=== PATIENT | male | born 1995 | race African-American/Black ===

== ENCOUNTER 2016-11-26 19:06 | Inpatient (IN) | payer MEDICAID, OTHER ==
[~2016-11-26] VITALS: Ht 188 cm; Wt 90.7 kg
[~2016-11-26 19:06] MED LIST: INSUINJ SUBCUT; INSUINJ37 SUBCUT
[2016-11-26] MEDS ORDERED: SODIUM CHLORIDE 0.9% 1,000 ML IV ONE ×2 (19:17→20:45)
[2016-11-26 20:15] LABS: DEFINITIVE VIEW TRANSMISSION; Hematocrit 50.3 % (41.0-53.0); Hemoglobin 15.4 g/dL (13.5-17.5); Mean Corpuscular Hemoglobin 28.6 pg (28.0-32.0); Mean Corpuscular Hgb Conc. 30.6 g/dL (32.0-36.0); Mean Corpuscular Volume 93.6 fL (80.0-100.0); Mean Platelet Volume 8.4 fL (7.4-10.4); Platelet Count (auto) 236 10^3/uL (140-450); Red Cell Distribution Width 14.8 % (11.6-16.0); SUSPECT VIEW TRANSMISSION; White Blood Cell 23.1 10^3/uL (4.4-10.8)
[2016-11-26 20:26] LABS: Metamyelocytes % 0; Myelocytes % 0; Promyelocytes % 0; Reactive Lymphocytes 0
[2016-11-26] MEDS ORDERED: ONDANSETRON HCL 4 MG/2 ML VIAL IV ONE (20:45)
[2016-11-26] MEDS ORDERED: InsuLIN REG 1unit/0.01ml Soln (100units/ml) IV ONE (20:45)
[2016-11-26] MEDS ORDERED: HYDROmorphone HCL 2 MG/ML VL IV ONE (20:45)
[2016-11-26] MEDS ORDERED: cefTRIAXone 1GM/50ML D5W 50 ML IV ONE (20:45)
[2016-11-26 20:54] LABS: BUN/Creatinine Ratio 14.4; Platelet Estimate Adequate
[2016-11-26 20:57] LABS: Bilirubin, Total 0.9 mg/dL (0.2-1.0); Total Protein 7.8 g/dL (6.4-8.2)
[2016-11-26 21:28] LABS: Urine Bilirubin Negative (Negative); Urine Blood Negative /uL (Negative); Urine Color Yellow (Yellow); Urine Mucus FEW (None Seen); Urine Nitrite Negative (Negative); Urine RBC 1 /hpf (0 - 3); Urine Squamous Epithelial Cell FEW /hpf (<5); Urine Urobilinogen Normal (Negative)
[2016-11-26 21:32] LABS: Potassium 5.6 mmol/L (3.5-5.1)
[2016-11-26 21:33] LABS: Urine Glucose 4+ mg/dL (Normal); Urine Ketone 2+ (Negative)
[2016-11-26] MEDS ORDERED: InsuLIN R (HUMAN) 100 UNITS in SODIUM CHL 0.9% 99 ML IV SCH ×2 (22:17→22:32)
[2016-11-26] MEDS ORDERED: DEXTROSE (50%) 50ML SYRG IV PRN ×2 (22:30→22:45)
[2016-11-26] MEDS ORDERED: ACCU-CHEK COMFORT CURVE STRIP VI SCH (23:00)
[2016-11-26] MEDS: SODIUM CHLORIDE 0.9% 1,000 ML IV SCH (23:09)
[2016-11-26] MEDS: ACCU-CHEK COMFORT CURVE STRIP VI SCH (23:21)
[2016-11-27] MEDS: ACCU-CHEK COMFORT CURVE STRIP VI SCH ×19 (00:08→18:06)
[2016-11-27] MEDS: SODIUM CHLORIDE 0.9% 1,000 ML IV SCH ×4 (00:50→18:05)
[2016-11-27] MEDS ORDERED: NITROGLYCERIN 0.4 MG SL TAB SL PRN ×2 (02:00→10:45)
[2016-11-27] MEDS ORDERED: MORPHINE SULF INJ 2 MG/ML SYRINGE 1ML IV PRN (02:00)
[2016-11-27] MEDS ORDERED: HYDROcodone-ACET 5/325MG TAB PO PRN (02:00)
[2016-11-27] MEDS ORDERED: SODIUM CHLORIDE 0.9% 1,000 ML IV SCH (02:32)
[2016-11-27 07:25] LABS: BUN/Creatinine Ratio 17.5; Calcium 7.7 mg/dL (8.5-10.1); Potassium 3.8 mmol/L (3.5-5.1)
[2016-11-27] MEDS ORDERED: SODIUM CHLORIDE 0.9% 1,000 ML IV ONE (08:45)
[2016-11-27] MEDS ORDERED: INSULIN NPH Isophane (HUMAN) 1unit/0.01ml Susp(100units/ml) SC ONE (10:15)
[2016-11-27] MEDS: PANTOPRAZOLE SODIUM 40 MG/10 ML VIAL IV SCH (10:38)
[2016-11-27] MEDS: MORPHINE SULF INJ 2 MG/ML SYRINGE 1ML IV PRN ×3 (11:22→20:35)
[2016-11-27] MEDS: ONDANSETRON HCL 4 MG/2 ML VIAL IV PRN ×3 (11:22→20:35)
[2016-11-27 13:04] LABS: BUN/Creatinine Ratio 18.5; Calcium 7.3 mg/dL (8.5-10.1); Potassium 3.5 mmol/L (3.5-5.1)
[2016-11-27 14:00] VITALS: BP 108/56
[2016-11-27 16:52] VITALS: BP 92/60
[2016-11-27 17:41] LABS: Calcium 7.9 mg/dL (8.5-10.1); Potassium 3.7 mmol/L (3.5-5.1)
[2016-11-27 17:45] LABS: BUN/Creatinine Ratio 15.8
[2016-11-27] MEDS ORDERED: DEXTROSE (50%) 50ML SYRG IV PRN (17:45)
[2016-11-27] MEDS: InsuLIN REG 1unit/0.01ml Soln (100units/ml) SC SCH (18:06)
[2016-11-27 22:00] VITALS: BP 108/59
[2016-11-28] MEDS: ACCU-CHEK COMFORT CURVE STRIP VI SCH ×5 (00:12→23:56)
[2016-11-28] MEDS: InsuLIN REG 1unit/0.01ml Soln (100units/ml) SC SCH ×5 (00:13→23:58)
[2016-11-28] MEDS: ONDANSETRON HCL 4 MG/2 ML VIAL IV PRN ×6 (01:05→21:42)
[2016-11-28] MEDS: MORPHINE SULF INJ 2 MG/ML SYRINGE 1ML IV PRN ×6 (01:05→21:42)
[2016-11-28] MEDS: SODIUM CHLORIDE 0.9% 1,000 ML IV SCH ×4 (01:21→21:16)
[2016-11-28 05:00] VITALS: BP 97/63
[2016-11-28 06:58] LABS: Basophils # (auto) 0 uL; Basophils % (auto) 0.1 % (0.0-2.0); Eosinophils # (auto) 0.1 uL; Eosinophils % (auto) 0.8 % (0.0-7.0); Hematocrit 35.9 % (41.0-53.0); Hemoglobin 11.4 g/dL (13.5-17.5); Lymphocytes # (auto) 1.8 uL; Lymphocytes % (auto) 17.6 % (10.0-50.0); Mean Corpuscular Hemoglobin 28.6 pg (28.0-32.0); Mean Corpuscular Hgb Conc. 31.9 g/dL (32.0-36.0); Mean Corpuscular Volume 89.6 fL (80.0-100.0); Mean Platelet Volume 7.8 fL (7.4-10.4); Monocytes # (auto) 0.6 uL; Monocytes % (auto) 5.9 % (0.0-12.0); Neutrophils # (auto) 7.6 uL; Neutrophils % (auto) 75.6 % (37.0-80.0); Platelet Count (auto) 123 10^3/uL (140-450); Red Cell Distribution Width 14.6 % (11.6-16.0)
[2016-11-28 07:12] LABS: Calcium 7.3 mg/dL (8.5-10.1); Potassium 3.4 mmol/L (3.5-5.1)
[2016-11-28 07:16] LABS: Albumin 2.5 g/dL (3.4-5.0); BUN/Creatinine Ratio 9.8
[2016-11-28 07:18] LABS: Bilirubin, Total 0.7 mg/dL (0.2-1.0); Total Protein 5.2 g/dL (6.4-8.2)
[2016-11-28 09:20] VITALS: BP 96/49
[2016-11-28] MEDS: PANTOPRAZOLE SODIUM 40 MG/10 ML VIAL IV SCH (09:27)
[2016-11-28] MEDS ORDERED: THROAT LOZENGES(CEPASTAT) MT PRN (09:45)
[2016-11-28] MEDS: POTASSIUM CHL 20 Meq TABLET PO SCH ×2 (11:52→21:42)
[2016-11-28] MEDS: THROAT LOZENGES(CEPASTAT) MT PRN ×2 (11:53→17:15)
[2016-11-28 13:09] VITALS: BP 103/68
[2016-11-28 16:57] VITALS: BP 100/66
[2016-11-28 22:04] VITALS: BP 110/70
[2016-11-29] MEDS: MORPHINE SULF INJ 2 MG/ML SYRINGE 1ML IV PRN ×6 (02:03→22:01)
[2016-11-29] MEDS: ONDANSETRON HCL 4 MG/2 ML VIAL IV PRN ×6 (02:03→22:02)
[2016-11-29] MEDS: SODIUM CHLORIDE 0.9% 1,000 ML IV SCH ×4 (03:16→23:12)
[2016-11-29 05:00] VITALS: BP 98/59
[2016-11-29] MEDS: ACCU-CHEK COMFORT CURVE STRIP VI SCH ×4 (05:36→23:55)
[2016-11-29] MEDS: InsuLIN REG 1unit/0.01ml Soln (100units/ml) SC SCH ×4 (05:39→23:55)
[2016-11-29 07:12] LABS: BUN/Creatinine Ratio 5.5; Calcium 7.6 mg/dL (8.5-10.1); Magnesium 1.9 mg/dL (1.6-2.6); Potassium 3.6 mmol/L (3.5-5.1)
[2016-11-29 08:00] VITALS: BP 100/44
[2016-11-29 09:00] VITALS: BP 100/42
[2016-11-29] MEDS: PANTOPRAZOLE SODIUM 40 MG/10 ML VIAL IV SCH (10:25)
[2016-11-29] MEDS: POTASSIUM CHL 20 Meq TABLET PO SCH ×2 (10:26→22:00)
[2016-11-29] MEDS: SUCRALFATE 1 GM TAB PO SCH ×3 (12:12→22:00)
[2016-11-29 13:00] VITALS: BP 107/62
[2016-11-29 17:00] VITALS: BP 97/40
[2016-11-29 21:30] VITALS: BP 119/76
[2016-11-30] VITALS (8 sets, daily range): BP systolic 91–130; BP diastolic 31–84
[2016-11-30] MEDS: SODIUM CHLORIDE 0.9% 1,000 ML IV SCH ×3 (00:54→22:07)
[2016-11-30] MEDS: ONDANSETRON HCL 4 MG/2 ML VIAL IV PRN (02:04)
[2016-11-30] MEDS: MORPHINE SULF INJ 2 MG/ML SYRINGE 1ML IV PRN ×5 (02:04→21:48)
[2016-11-30] MEDS: ACCU-CHEK COMFORT CURVE STRIP VI SCH ×4 (06:00→23:49)
[2016-11-30] MEDS: InsuLIN REG 1unit/0.01ml Soln (100units/ml) SC SCH ×4 (06:00→23:52)
[2016-11-30] MEDS: SUCRALFATE 1 GM TAB PO SCH ×4 (06:32→21:47)
[2016-11-30 07:47] LABS: Basophils # (auto) 0 uL; Basophils % (auto) 0.2 % (0.0-2.0); Eosinophils # (auto) 0 uL; Eosinophils % (auto) 0.4 % (0.0-7.0); Hematocrit 36.2 % (41.0-53.0); Hemoglobin 11.6 g/dL (13.5-17.5); Lymphocytes # (auto) 0.7 uL; Lymphocytes % (auto) 9.3 % (10.0-50.0); Mean Corpuscular Hemoglobin 28.9 pg (28.0-32.0); Mean Corpuscular Volume 90.2 fL (80.0-100.0); Mean Platelet Volume 8.1 fL (7.4-10.4); Monocytes # (auto) 0.2 uL; Monocytes % (auto) 3.4 % (0.0-12.0); Neutrophils # (auto) 6.3 uL; Neutrophils % (auto) 86.7 % (37.0-80.0); Platelet Count (auto) 139 10^3/uL (140-450); Red Cell Distribution Width 14.3 % (11.6-16.0); White Blood Cell 7.3 10^3/uL (4.4-10.8)
[2016-11-30 08:20] LABS: Albumin 2.4 g/dL (3.4-5.0); BUN/Creatinine Ratio 7.9; Bilirubin, Total 0.8 mg/dL (0.2-1.0); Calcium 7.7 mg/dL (8.5-10.1); Potassium 3.4 mmol/L (3.5-5.1); Total Protein 4.9 g/dL (6.4-8.2)
[2016-11-30] MEDS ORDERED: POTASSIUM CHLORIDE 40 MEQ, LIDOCAINE 1% (LOCAL ANESTH.) 4 ML in SODIUM CHL 0.9% 250 ML IV ONE (10:15)
[2016-11-30] MEDS ORDERED: METOCLOPRAMIDE HCL 10 MG TAB PO PRN (10:15)
[2016-11-30] MEDS: PANTOPRAZOLE SODIUM 40 MG/10 ML VIAL IV SCH (10:44)
[2016-12-01] MEDS: SODIUM CHLORIDE 0.9% 1,000 ML IV SCH ×4 (01:52→21:01)
[2016-12-01] MEDS: MORPHINE SULF INJ 2 MG/ML SYRINGE 1ML IV PRN ×6 (01:56→23:13)
[2016-12-01 05:00] VITALS: BP 135/79
[2016-12-01] MEDS: SUCRALFATE 1 GM TAB PO SCH ×4 (06:01→22:00)
[2016-12-01] MEDS: ACCU-CHEK COMFORT CURVE STRIP VI SCH ×4 (06:08→23:32)
[2016-12-01] MEDS: InsuLIN REG 1unit/0.01ml Soln (100units/ml) SC SCH ×4 (06:10→23:24)
[2016-12-01 06:16] LABS: BUN/Creatinine Ratio 7.4; Calcium 7.6 mg/dL (8.5-10.1); Magnesium 1.8 mg/dL (1.6-2.6)
[2016-12-01 06:25] LABS: Potassium 2.7 mmol/L (3.5-5.1)
[2016-12-01] MEDS: PANTOPRAZOLE SODIUM 40 MG/10 ML VIAL IV SCH (09:30)
[2016-12-01] MEDS: POTASSIUM CHLORIDE 20 MEQ, LIDOCAINE 1% (LOCAL ANESTH.) 2 ML in SODIUM CHL 0.9% 100 ML IV SCH ×3 (09:31→14:51)
[2016-12-01] MEDS: Boost Glucose Control 8 Ounces PO SCH ×3 (10:00→20:00)
[2016-12-01 10:13] VITALS: BP 119/79
[2016-12-01 12:41] VITALS: BP 102/53
[2016-12-01 17:18] VITALS: BP 103/55
[2016-12-01 20:00] VITALS: BP 103/55
[2016-12-01 22:00] VITALS: BP 129/87
[2016-12-02] MEDS: MORPHINE SULF INJ 2 MG/ML SYRINGE 1ML IV PRN ×5 (03:23→21:54)
[2016-12-02] MEDS: SODIUM CHLORIDE 0.9% 1,000 ML IV SCH ×3 (03:24→17:52)
[2016-12-02 05:00] VITALS: BP 113/66
[2016-12-02] MEDS: ACCU-CHEK COMFORT CURVE STRIP VI SCH ×3 (05:44→18:00)
[2016-12-02] MEDS: InsuLIN REG 1unit/0.01ml Soln (100units/ml) SC SCH ×3 (05:52→18:04)
[2016-12-02] MEDS: SUCRALFATE 1 GM TAB PO SCH ×4 (07:00→21:54)
[2016-12-02 07:05] LABS: BUN/Creatinine Ratio 4.4; Calcium 7.2 mg/dL (8.5-10.1); Magnesium 1.7 mg/dL (1.6-2.6)
[2016-12-02 09:23] VITALS: BP 118/79
[2016-12-02] MEDS: Boost Glucose Control 8 Ounces PO SCH ×3 (10:04→20:00)
[2016-12-02] MEDS: PANTOPRAZOLE SODIUM 40 MG/10 ML VIAL IV SCH (10:11)
[2016-12-02] MEDS: ACETAMINOPHEN 325 MG TAB PO PRN (10:14)
[2016-12-02] MEDS: POTASSIUM CHLORIDE 40 MEQ, LIDOCAINE 1% (LOCAL ANESTH.) 4 ML in SODIUM CHL 0.9% 250 ML IV SCH ×2 (10:15→16:42)
[2016-12-02 13:00] VITALS: BP 107/63
[2016-12-02 17:00] VITALS: BP 120/73
[2016-12-02 21:36] VITALS: BP 130/82
[2016-12-02] MEDS: INSULIN DETEMIR(LEVEMIR) 1unit/0.01ml Soln (100units/ml) SC SCH (22:19)
[2016-12-03] MEDS: SODIUM CHLORIDE 0.9% 1,000 ML IV SCH ×4 (00:49→20:11)
[2016-12-03] MEDS: MORPHINE SULF INJ 2 MG/ML SYRINGE 1ML IV PRN ×5 (02:38→21:12)
[2016-12-03 04:55] VITALS: BP 108/57
[2016-12-03] MEDS: InsuLIN REG 1unit/0.01ml Soln (100units/ml) SC SCH ×4 (05:29→18:34)
[2016-12-03] MEDS: ACCU-CHEK COMFORT CURVE STRIP VI SCH ×4 (05:29→18:00)
[2016-12-03 06:29] LABS: BUN/Creatinine Ratio 4.1
[2016-12-03 06:33] LABS: Potassium 2.8 mmol/L (3.5-5.1)
[2016-12-03] MEDS: SUCRALFATE 1 GM TAB PO SCH ×4 (06:44→21:48)
[2016-12-03 08:00] VITALS: BP 125/78
[2016-12-03] MEDS: POTASSIUM CHLORIDE 20 MEQ, LIDOCAINE 1% (LOCAL ANESTH.) 2 ML in SODIUM CHL 0.9% 100 ML IV SCH ×3 (08:45→11:00)
[2016-12-03 08:55] VITALS: BP 125/78
[2016-12-03] MEDS: ACETAMINOPHEN 325 MG TAB PO PRN (09:21)
[2016-12-03] MEDS: Boost Glucose Control 8 Ounces PO SCH ×3 (10:00→20:00)
[2016-12-03] MEDS: POTASSIUM CHL 20 Meq TABLET PO SCH ×2 (11:10→21:48)
[2016-12-03] MEDS: PANTOPRAZOLE SODIUM 40 MG/10 ML VIAL IV SCH (11:10)
[2016-12-03 13:00] VITALS: BP 133/78
[2016-12-03 22:00] VITALS: BP 113/72
[2016-12-03] MEDS: INSULIN DETEMIR(LEVEMIR) 1unit/0.01ml Soln (100units/ml) SC SCH (22:24)
[2016-12-04] VITALS (7 sets, daily range): BP systolic 110–131; BP diastolic 70–88
[2016-12-04] MEDS: ACCU-CHEK COMFORT CURVE STRIP VI SCH ×5 (00:03→23:47)
[2016-12-04] MEDS: MORPHINE SULF INJ 2 MG/ML SYRINGE 1ML IV PRN ×6 (01:15→23:47)
[2016-12-04] MEDS: SODIUM CHLORIDE 0.9% 1,000 ML IV SCH ×4 (03:12→23:12)
[2016-12-04] MEDS: InsuLIN REG 1unit/0.01ml Soln (100units/ml) SC SCH ×5 (05:57→23:56)
[2016-12-04 06:10] LABS: BUN/Creatinine Ratio 1.7; Calcium 7.4 mg/dL (8.5-10.1); Magnesium 1.9 mg/dL (1.6-2.6); Potassium 3.2 mmol/L (3.5-5.1)
[2016-12-04] MEDS: SUCRALFATE 1 GM TAB PO SCH ×4 (06:44→22:00)
[2016-12-04] MEDS: PANTOPRAZOLE SODIUM 40 MG/10 ML VIAL IV SCH (10:00)
[2016-12-04] MEDS: Boost Glucose Control 8 Ounces PO SCH ×3 (10:00→20:00)
[2016-12-04] MEDS: POTASSIUM CHL 20 Meq TABLET PO SCH ×2 (10:00→22:31)
[2016-12-04] MEDS: POTASSIUM CHLORIDE 20 MEQ, LIDOCAINE 1% (LOCAL ANESTH.) 2 ML in SODIUM CHL 0.9% 100 ML IV SCH ×3 (11:40→15:14)
[2016-12-04] MEDS: INSULIN DETEMIR(LEVEMIR) 1unit/0.01ml Soln (100units/ml) SC SCH (22:00)
[2016-12-05] MEDS: MORPHINE SULF INJ 2 MG/ML SYRINGE 1ML IV PRN ×5 (03:50→21:02)
[2016-12-05 05:00] VITALS: BP 100/56
[2016-12-05] MEDS: SODIUM CHLORIDE 0.9% 1,000 ML IV SCH ×3 (05:52→17:26)
[2016-12-05] MEDS: InsuLIN REG 1unit/0.01ml Soln (100units/ml) SC SCH ×4 (06:00→23:38)
[2016-12-05] MEDS: ACCU-CHEK COMFORT CURVE STRIP VI SCH ×4 (06:06→23:42)
[2016-12-05] MEDS: SUCRALFATE 1 GM TAB PO SCH ×4 (06:06→21:06)
[2016-12-05 06:17] LABS: BUN/Creatinine Ratio 4.2; Calcium 7.6 mg/dL (8.5-10.1); Potassium 3.1 mmol/L (3.5-5.1)
[2016-12-05 09:00] VITALS: BP 117/79
[2016-12-05] MEDS: POTASSIUM CHL 20 Meq TABLET PO SCH ×2 (09:38→21:03)
[2016-12-05] MEDS: PANTOPRAZOLE SODIUM 40 MG/10 ML VIAL IV SCH (09:38)
[2016-12-05] MEDS: Boost Glucose Control 8 Ounces PO SCH ×3 (09:39→20:00)
[2016-12-05] MEDS: POTASSIUM CHLORIDE 20 MEQ, LIDOCAINE 1% (LOCAL ANESTH.) 2 ML in SODIUM CHL 0.9% 100 ML IV SCH ×3 (11:22→15:32)
[2016-12-05 13:00] VITALS: BP 112/76
[2016-12-05 17:00] VITALS: BP 135/77
[2016-12-05 21:00] VITALS: BP 109/70
[2016-12-05] MEDS: INSULIN DETEMIR(LEVEMIR) 1unit/0.01ml Soln (100units/ml) SC SCH (21:01)
[2016-12-06] MEDS: MORPHINE SULF INJ 2 MG/ML SYRINGE 1ML IV PRN ×3 (01:13→09:38)
[2016-12-06] MEDS: SODIUM CHLORIDE 0.9% 1,000 ML IV SCH ×3 (02:50→15:12)
[2016-12-06 05:03] VITALS: BP 108/64
[2016-12-06] MEDS: SUCRALFATE 1 GM TAB PO SCH ×2 (05:37→09:39)
[2016-12-06] MEDS: ACCU-CHEK COMFORT CURVE STRIP VI SCH ×2 (05:37→12:30)
[2016-12-06] MEDS: InsuLIN REG 1unit/0.01ml Soln (100units/ml) SC SCH ×2 (05:37→14:43)
[2016-12-06 06:49] LABS: BUN/Creatinine Ratio 4.4; Calcium 7.4 mg/dL (8.5-10.1); Potassium 3.4 mmol/L (3.5-5.1)
[2016-12-06 08:00] VITALS: BP 123/85
[2016-12-06 09:00] VITALS: BP 123/85
[2016-12-06] MEDS: POTASSIUM CHL 20 Meq TABLET PO SCH (09:38)
[2016-12-06] MEDS: PANTOPRAZOLE SODIUM 40 MG/10 ML VIAL IV SCH (09:38)
[2016-12-06] MEDS: Boost Glucose Control 8 Ounces PO SCH ×2 (09:39→15:00)
[2016-12-06] MEDS ORDERED: POTASSIUM CHL 20 Meq TABLET PO ONE (10:45)
[2016-12-06] MEDS ORDERED: POTASSIUM CHLORIDE 20 MEQ, LIDOCAINE 1% (LOCAL ANESTH.) 2 ML in SODIUM CHL 0.9% 100 ML IV ONE (10:45)
[2016-12-06 14:57] VITALS: BP 119/82
== END 2016-12-06 16:00 | disposition home or self-care (01) | DRG 420 ==
LOC: ER 19:09 → TELE 19:10 → TELE-WESTW 11-27 13:28
PROVIDERS: ADMIT Nurse Practitioner; ATTEND Internal Medicine
DX: E10.10 Type 1 diabetes mellitus with ketoacidosis without coma (principal); E87.8 Other disorders of electrolyte and fluid balance, not elsewhere classified; E10.22 Type 1 diabetes mellitus with diabetic chronic kidney disease; K76.0 Fatty (change of) liver, not elsewhere classified; E87.5 Hyperkalemia; M47.9 Spondylosis, unspecified; E86.0 Dehydration; J02.9 Acute pharyngitis, unspecified; K29.70 Gastritis, unspecified, without bleeding; N28.9 Disorder of kidney and ureter, unspecified; E87.6 Hypokalemia; N18.2 Chronic kidney disease, stage 2 (mild); Z82.61 Family history of arthritis; Z83.3 Family history of diabetes mellitus; Z91.19 Patient's noncompliance with other medical treatment and regimen; Z79.4 Long term (current) use of insulin; Z84.1 Family history of disorders of kidney and ureter; Z82.49 Family history of ischemic heart disease and other diseases of the circulatory system
CPT/HCPCS: 36415; 36600; 51702; 71010; 74176; 80048; 80053; 81001; 82010; 82805; 82962; 83735; 83930; 85007; 85025; 85027; 93005; 96361; 96365; 96366; 96367; 96372; 96375; 99291; C9113; J0696; J1815; J2001; J2405

== ENCOUNTER 2017-01-07 00:50 | Inpatient (IN) | payer MEDICAID ==
[~2017-01-07] VITALS: Ht 182.9 cm; Wt 62.0 kg
[2017-01-07 02:27] LABS: Basophils # (auto) 0 uL; Eosinophils # (auto) 0 uL; Hemoglobin 13.5 g/dL (13.5-17.5); Lymphocytes % (auto) 7.5 % (10.0-50.0); Mean Corpuscular Hemoglobin 30.6 pg (28.0-32.0); Mean Corpuscular Hgb Conc. 32.9 g/dL (32.0-36.0); Mean Corpuscular Volume 93.1 fL (80.0-100.0); Monocytes # (auto) 0.6 uL; Monocytes % (auto) 4.9 % (0.0-12.0); Neutrophils # (auto) 11.2 uL; Neutrophils % (auto) 87.6 % (37.0-80.0); Platelet Count (auto) 247 10^3/uL (140-450); Red Cell Distribution Width 15.1 % (11.6-16.0); White Blood Cell 12.8 10^3/uL (4.4-10.8)
[2017-01-07] MEDS ORDERED: SODIUM CHLORIDE 0.9% 1,000 ML IVB ONE (02:29)
[2017-01-07] MEDS ORDERED: InsuLIN REG 1unit/0.01ml Soln (100units/ml) IV ONE (02:30)
[2017-01-07] MEDS ORDERED: ONDANSETRON HCL 4 MG/2 ML VIAL IV ONE (02:30)
[2017-01-07 02:42] LABS: Albumin 3.5 g/dL (3.4-5.0); BUN/Creatinine Ratio 13.3; Magnesium 2.1 mg/dL (1.6-2.6); Potassium 4.9 mmol/L (3.5-5.1)
[2017-01-07 02:44] LABS: Bilirubin, Total 0.9 mg/dL (0.2-1.0); Total Protein 6.7 g/dL (6.4-8.2)
[2017-01-07 03:00] LABS: Amylase 31 U/L (25-115)
[2017-01-07] MEDS ORDERED: DEXTROSE (50%) 50ML SYRG IV PRN (03:30)
[2017-01-07] MEDS: ACCU-CHEK COMFORT CURVE STRIP VI SCH ×23 (04:00→22:52)
[2017-01-07] MEDS: SODIUM CHLORIDE 0.9% 1,000 ML IV SCH ×7 (05:00→19:51)
[2017-01-07] MEDS: InsuLIN R (HUMAN) 100 UNITS in SODIUM CHL 0.9% 99 ML IV SCH ×2 (06:21→07:07)
[2017-01-07] MEDS ORDERED: ACETAMINOPHEN 500 MG TAB PO PRN (07:15)
[2017-01-07] MEDS ORDERED: HYDROcodone-ACET 5/325MG TAB PO PRN (07:15)
[2017-01-07] MEDS ORDERED: NITROGLYCERIN 0.4 MG SL TAB SL PRN (07:15)
[2017-01-07] MEDS ORDERED: TEMAZEPAM 15 MG CAP PO PRN (07:15)
[2017-01-07] MEDS ORDERED: MORPHINE SULF INJ 2 MG/ML SYRINGE 1ML IV PRN (07:15)
[2017-01-07] MEDS ORDERED: LORazepam 0.5 MG TAB PO PRN (07:15)
[2017-01-07] MEDS ORDERED: SODIUM CHLORIDE 0.9% 1,000 ML IV SCH ×3 (07:19→11:07)
[2017-01-07] MEDS: MORPHINE SULF INJ 2 MG/ML SYRINGE 1ML IV PRN ×3 (09:43→21:07)
[2017-01-07] MEDS: PROMETHAZINE HCL 25 MG/ML 1ML IV PRN ×3 (09:44→13:45)
[2017-01-07 10:03] LABS: BUN/Creatinine Ratio 11.7; Calcium 7.6 mg/dL (8.5-10.1); Potassium 3.8 mmol/L (3.5-5.1)
[2017-01-07] MEDS: FAMOTIDINE (10MG/ML) 2ML VL IV SCH ×2 (10:19→22:07)
[2017-01-07 15:58] LABS: Urine Bilirubin Negative (Negative); Urine Blood Negative /uL (Negative); Urine Color Yellow (Yellow); Urine Mucus FEW (None Seen); Urine Nitrite Negative (Negative); Urine RBC 8 /hpf (0 - 3); Urine Squamous Epithelial Cell FEW /hpf (<5); Urine Urobilinogen Normal (Negative); Urine pH 5.5 (5.0-8.0)
[2017-01-07 16:06] LABS: Urine Glucose 4+ mg/dL (Normal); Urine Ketone 3+ (Negative)
[2017-01-07] MEDS ORDERED: SOD CHL 0.9%/ KCL 20MEQ 1,000 ML IV SCH (20:30)
[2017-01-07] MEDS ORDERED: cefTRIAXone 1GM/50ML D5W 50 ML IV ONE (20:45)
[2017-01-07 20:50] LABS: BUN/Creatinine Ratio 13.3; Calcium 7.2 mg/dL (8.5-10.1); Potassium 3.7 mmol/L (3.5-5.1)
[2017-01-07] MEDS: D5W/SOD CHL 0.45%/KCL 20MEQ 1,000 ML IV SCH (22:33)
[2017-01-08] MEDS: ACCU-CHEK COMFORT CURVE STRIP VI SCH ×18 (00:02→22:16)
[2017-01-08] MEDS: MORPHINE SULF INJ 2 MG/ML SYRINGE 1ML IV PRN ×5 (01:14→19:50)
[2017-01-08 01:18] LABS: BUN/Creatinine Ratio 13.9; Calcium 6.8 mg/dL (8.5-10.1); Potassium 3.3 mmol/L (3.5-5.1)
[2017-01-08] MEDS: SODIUM CHLORIDE 0.9% 1,000 ML IV SCH ×2 (02:33→09:07)
[2017-01-08] MEDS: InsuLIN R (HUMAN) 100 UNITS in SODIUM CHL 0.9% 99 ML IV SCH ×2 (03:19→08:40)
[2017-01-08 04:10] LABS: Basophils # (auto) 0.1 uL; Basophils % (auto) 0.6 % (0.0-2.0); Eosinophils # (auto) 0.1 uL; Eosinophils % (auto) 0.6 % (0.0-7.0); Hematocrit 33.6 % (41.0-53.0); Hemoglobin 11.2 g/dL (13.5-17.5); Lymphocytes % (auto) 20.5 % (10.0-50.0); Mean Corpuscular Hemoglobin 30.6 pg (28.0-32.0); Mean Corpuscular Hgb Conc. 33.3 g/dL (32.0-36.0); Mean Corpuscular Volume 91.9 fL (80.0-100.0); Mean Platelet Volume 7.2 fL (7.4-10.4); Monocytes # (auto) 0.6 uL; Monocytes % (auto) 6.4 % (0.0-12.0); Neutrophils # (auto) 6.9 uL; Neutrophils % (auto) 71.9 % (37.0-80.0); Platelet Count (auto) 181 10^3/uL (140-450); Red Cell Distribution Width 15.3 % (11.6-16.0); White Blood Cell 9.7 10^3/uL (4.4-10.8)
[2017-01-08 04:34] LABS: Albumin 2.5 g/dL (3.4-5.0); Bilirubin, Total 0.5 mg/dL (0.2-1.0); Potassium 3.4 mmol/L (3.5-5.1); Total Protein 5.1 g/dL (6.4-8.2)
[2017-01-08] MEDS: D5W/SOD CHL 0.45%/KCL 20MEQ 1,000 ML IV SCH ×3 (05:37→22:15)
[2017-01-08] MEDS: FAMOTIDINE (10MG/ML) 2ML VL IV SCH ×2 (10:20→22:15)
[2017-01-08] MEDS ORDERED: DEXTROSE (50%) 50ML SYRG IV ONE (15:15)
[2017-01-08] MEDS ORDERED: INSULIN DETEMIR(LEVEMIR) 1unit/0.01ml Soln (100units/ml) SC ONE (15:15)
[2017-01-08] MEDS: InsuLIN REG 1unit/0.01ml Soln (100units/ml) SC SCH ×2 (18:16→22:16)
[2017-01-08 20:49] VITALS: BP 106/69
[2017-01-08] MEDS ORDERED: cefTRIAXone 1GM/50ML D5W 50 ML IV SCH (22:00)
[2017-01-09] MEDS: MORPHINE SULF INJ 2 MG/ML SYRINGE 1ML IV PRN ×3 (00:43→09:30)
[2017-01-09] MEDS: InsuLIN REG 1unit/0.01ml Soln (100units/ml) SC SCH ×5 (02:00→18:00)
[2017-01-09] MEDS: ACCU-CHEK COMFORT CURVE STRIP VI SCH ×5 (02:20→18:28)
[2017-01-09] MEDS: D5W/SOD CHL 0.45%/KCL 20MEQ 1,000 ML IV SCH ×2 (05:03→15:26)
[2017-01-09 05:10] VITALS: BP 94/55
[2017-01-09 06:38] LABS: Basophils # (auto) 0 uL; Basophils % (auto) 0.4 % (0.0-2.0); Eosinophils # (auto) 0.1 uL; Eosinophils % (auto) 1.7 % (0.0-7.0); Hematocrit 35.5 % (41.0-53.0); Hemoglobin 11.9 g/dL (13.5-17.5); Lymphocytes % (auto) 38.4 % (10.0-50.0); Mean Corpuscular Hemoglobin 30.4 pg (28.0-32.0); Mean Corpuscular Hgb Conc. 33.5 g/dL (32.0-36.0); Mean Platelet Volume 7.5 fL (7.4-10.4); Monocytes # (auto) 0.3 uL; Monocytes % (auto) 6.1 % (0.0-12.0); Neutrophils # (auto) 2.8 uL; Neutrophils % (auto) 53.4 % (37.0-80.0); Platelet Count (auto) 177 10^3/uL (140-450); Red Cell Distribution Width 15.2 % (11.6-16.0); White Blood Cell 5.3 10^3/uL (4.4-10.8)
[2017-01-09] MEDS ORDERED: INSULIN DETEMIR(LEVEMIR) 1unit/0.01ml Soln (100units/ml) SC SCH (07:00)
[2017-01-09 07:06] LABS: Calcium 7.2 mg/dL (8.5-10.1); Magnesium 2.2 mg/dL (1.6-2.6); Potassium 3.1 mmol/L (3.5-5.1)
[2017-01-09 07:09] LABS: BUN/Creatinine Ratio 7.4
[2017-01-09 08:00] VITALS: BP 118/77
[2017-01-09] MEDS: FAMOTIDINE (10MG/ML) 2ML VL IV SCH (09:15)
[2017-01-09] MEDS ORDERED: POTASSIUM CHL 20 Meq TABLET PO ONE (10:45)
[2017-01-09 12:30] VITALS: BP 99/52
[2017-01-09] MEDS ORDERED: INSUINJ SUBCUT (12:49)
[2017-01-09] MEDS ORDERED: LEVO500T3 PO (12:49)
[2017-01-09] MEDS ORDERED: INSUINJ37 SUBCUT (12:49)
[2017-01-09 15:36] VITALS: BP 99/52
[2017-01-09 17:00] VITALS: BP 119/73
== END 2017-01-09 19:02 | disposition home health service (06) | DRG 420 ==
LOC: ER 00:54 → TELE 00:55 → TELE-WESTW 01-08 20:43 → WEST WING 01-09 00:16
PROVIDERS: ADMIT Internal Medicine; ATTEND Internal Medicine
DX: E10.10 Type 1 diabetes mellitus with ketoacidosis without coma (principal); N12 Tubulo-interstitial nephritis, not specified as acute or chronic; E87.6 Hypokalemia; Z83.3 Family history of diabetes mellitus; Z82.61 Family history of arthritis; Z84.1 Family history of disorders of kidney and ureter; Z83.2 Family history of diseases of the blood and blood-forming organs and certain disorders involving the immune mechanism; Z82.49 Family history of ischemic heart disease and other diseases of the circulatory system; Z79.4 Long term (current) use of insulin; Z91.14 Patient's other noncompliance with medication regimen
CPT/HCPCS: 36415; 36600; 71010; 80048; 80053; 80061; 81001; 82010; 82150; 82805; 82962; 83036; 83605; 83690; 83735; 83930; 84100; 85025; 85652; 87081; 87086; 96361; 96367; 96372; 96375; 96376; 99291; G0434; J0696; J1815; J2405; J3490

== ENCOUNTER 2017-01-15 23:45 | Inpatient (IN) | payer MEDICAID ==
[~2017-01-15] VITALS: Ht 182.9 cm; Wt 76.2 kg
[~2017-01-15 23:45] MED LIST changes: +LEVO500T3 PO
[2017-01-16 00:25] LABS: Hematocrit 52.1 % (41.0-53.0); Hemoglobin 16.4 g/dL (13.5-17.5); Mean Corpuscular Hgb Conc. 31.5 g/dL (32.0-36.0); Mean Corpuscular Volume 95.4 fL (80.0-100.0); Mean Platelet Volume 7.5 fL (7.4-10.4); Platelet Count (auto) 252 10^3/uL (140-450); Red Cell Distribution Width 14.1 % (11.6-16.0); White Blood Cell 7.7 10^3/uL (4.4-10.8)
[2017-01-16 00:30] LABS: Metamyelocytes % 0; Myelocytes % 0; Promyelocytes % 0; Reactive Lymphocytes 0
[2017-01-16 00:54] LABS: Platelet Estimate Adequate
[2017-01-16 00:55] LABS: Stomatocytes Few
[2017-01-16 01:12] LABS: Albumin 4.1 g/dL (3.4-5.0); BUN/Creatinine Ratio 10.6; Calcium 8.8 mg/dL (8.5-10.1); Potassium 4.5 mmol/L (3.5-5.1); Total Protein 7.9 g/dL (6.4-8.2)
[2017-01-16] MEDS ORDERED: ONDANSETRON ODT 4 MG TAB PO ONE (01:49)
[2017-01-16] MEDS ORDERED: SODIUM CHLORIDE 0.9% 2,000 ML IV ONE (06:01)
[2017-01-16] MEDS ORDERED: ONDANSETRON HCL 4 MG/2 ML VIAL IV ONE (06:15)
[2017-01-16] MEDS ORDERED: MORPHINE SULF INJ 2 MG/ML SYRINGE 1ML IV ONE (06:15)
[2017-01-16 06:52] LABS: INR 0.98 (0.9-1.15); Partial Thromboplastin Time 23.6 sec (22.64-33.71); Prothrombin Time 10.6 sec (9.37-12.3)
[2017-01-16] MEDS ORDERED: InsuLIN R (HUMAN) 100 UNITS in SODIUM CHL 0.9% 99 ML IV SCH ×2 (08:03→08:04)
[2017-01-16] MEDS ORDERED: SODIUM CHLORIDE 0.9% 1,000 ML IV SCH ×5 (08:04→14:04)
[2017-01-16] MEDS ORDERED: DEXTROSE (50%) 50ML SYRG IV PRN ×2 (08:15)
[2017-01-16] MEDS: ACCU-CHEK COMFORT CURVE STRIP VI SCH ×15 (08:34→23:26)
[2017-01-16 08:55] LABS: Basophils # (auto) 0 uL; Basophils % (auto) 0.3 % (0.0-2.0); Eosinophils # (auto) 0 uL; Eosinophils % (auto) 0.2 % (0.0-7.0); Hematocrit 49.6 % (41.0-53.0); Hemoglobin 16.6 g/dL (13.5-17.5); Lymphocytes % (auto) 25.5 % (10.0-50.0); Mean Corpuscular Hemoglobin 30.8 pg (28.0-32.0); Mean Corpuscular Hgb Conc. 33.4 g/dL (32.0-36.0); Mean Corpuscular Volume 92.1 fL (80.0-100.0); Monocytes # (auto) 0.4 uL; Monocytes % (auto) 5.4 % (0.0-12.0); Neutrophils # (auto) 5.2 uL; Neutrophils % (auto) 68.6 % (37.0-80.0); Platelet Count (auto) 286 10^3/uL (140-450); White Blood Cell 7.7 10^3/uL (4.4-10.8)
[2017-01-16] MEDS ORDERED: ACCU-CHEK COMFORT CURVE STRIP VI SCH (09:00)
[2017-01-16] MEDS: SODIUM CHLORIDE 0.9% 1,000 ML IV SCH ×2 (09:26→11:27)
[2017-01-16] MEDS ORDERED: SODIUM BICARBONATE 8.4 % INJ 50ML VIAL IV ONE (09:30)
[2017-01-16] MEDS ORDERED: TEMAZEPAM 15 MG CAP PO PRN (09:45)
[2017-01-16] MEDS ORDERED: ACETAMINOPHEN 325 MG TAB PO PRN (09:45)
[2017-01-16] MEDS ORDERED: NITROGLYCERIN 0.4 MG SL TAB SL PRN (09:45)
[2017-01-16] MEDS ORDERED: MORPHINE SULF INJ 2 MG/ML SYRINGE 1ML IV PRN (09:45)
[2017-01-16] MEDS ORDERED: HYDROcodone-ACET 5/325MG TAB PO PRN (09:45)
[2017-01-16] MEDS ORDERED: DOCUSATE SOD 100 MG CAP PO PRN (09:45)
[2017-01-16] MEDS ORDERED: SODIUM CHLORIDE 0.9% 1,000 ML IV ONE (10:00)
[2017-01-16 10:08] LABS: Urine Bilirubin Negative (Negative); Urine Blood Negative /uL (Negative); Urine Color Yellow (Yellow); Urine Nitrite Negative (Negative); Urine RBC 1 /hpf (0 - 3); Urine Squamous Epithelial Cell FEW /hpf (<5); Urine Urobilinogen Normal (Negative); Urine pH 5.5 (5.0-8.0)
[2017-01-16 10:10] LABS: Urine Glucose 4+ mg/dL (Normal); Urine Ketone 4+ (Negative)
[2017-01-16] MEDS: FAMOTIDINE 20 MG TAB PO SCH ×2 (10:42→22:08)
[2017-01-16] MEDS: MULTIPLE VITAMIN TAB PO SCH (10:42)
[2017-01-16] MEDS: ONDANSETRON HCL 4 MG/2 ML VIAL IV PRN ×4 (10:43→23:27)
[2017-01-16] MEDS: MORPHINE SULF INJ 2 MG/ML SYRINGE 1ML IV PRN ×4 (10:43→23:27)
[2017-01-16 15:00] LABS: BUN/Creatinine Ratio 10.4; Calcium 7.1 mg/dL (8.5-10.1); Potassium 3.7 mmol/L (3.5-5.1)
[2017-01-16] MEDS: D5W/SOD CHL 0.45% 1,000 ML IV SCH (17:52)
[2017-01-16 21:20] LABS: BUN/Creatinine Ratio 8.8; Calcium 6.7 mg/dL (8.5-10.1); Potassium 3.3 mmol/L (3.5-5.1)
[2017-01-17] MEDS: ACCU-CHEK COMFORT CURVE STRIP VI SCH ×9 (01:00→23:55)
[2017-01-17] MEDS: D5W/SOD CHL 0.45% 1,000 ML IV SCH ×3 (01:45→17:17)
[2017-01-17 02:57] LABS: BUN/Creatinine Ratio 7.6; Calcium 6.8 mg/dL (8.5-10.1)
[2017-01-17] MEDS: MORPHINE SULF INJ 2 MG/ML SYRINGE 1ML IV PRN ×5 (03:41→21:17)
[2017-01-17] MEDS: ONDANSETRON HCL 4 MG/2 ML VIAL IV PRN (03:42)
[2017-01-17] MEDS ORDERED: DEXTROSE (50%) 50ML SYRG IV PRN (05:45)
[2017-01-17 06:11] LABS: Basophils # (auto) 0 uL; Basophils % (auto) 0.5 % (0.0-2.0); Eosinophils # (auto) 0.2 uL; Eosinophils % (auto) 2.9 % (0.0-7.0); Hematocrit 35.6 % (41.0-53.0); Hemoglobin 12.2 g/dL (13.5-17.5); Lymphocytes # (auto) 2.6 uL; Lymphocytes % (auto) 48.6 % (10.0-50.0); Mean Corpuscular Hemoglobin 31.3 pg (28.0-32.0); Mean Corpuscular Hgb Conc. 34.2 g/dL (32.0-36.0); Mean Corpuscular Volume 91.7 fL (80.0-100.0); Mean Platelet Volume 7.1 fL (7.4-10.4); Monocytes # (auto) 0.4 uL; Monocytes % (auto) 7.8 % (0.0-12.0); Neutrophils # (auto) 2.2 uL; Neutrophils % (auto) 40.2 % (37.0-80.0); Platelet Count (auto) 189 10^3/uL (140-450); White Blood Cell 5.4 10^3/uL (4.4-10.8)
[2017-01-17] MEDS ORDERED: POTASSIUM CHL 20 Meq TABLET PO ONE ×2 (06:30→07:15)
[2017-01-17 06:47] LABS: Albumin 2.4 g/dL (3.4-5.0); BUN/Creatinine Ratio 7.8; Bilirubin, Total 0.5 mg/dL (0.2-1.0); Calcium 7.4 mg/dL (8.5-10.1)
[2017-01-17 06:56] LABS: Potassium 2.8 mmol/L (3.5-5.1)
[2017-01-17] MEDS: InsuLIN REG 1unit/0.01ml Soln (100units/ml) SC SCH ×5 (07:59→23:56)
[2017-01-17] MEDS: FAMOTIDINE 20 MG TAB PO SCH ×2 (12:27→22:29)
[2017-01-17] MEDS: MULTIPLE VITAMIN TAB PO SCH (12:27)
[2017-01-17 17:03] LABS: Calcium 7.6 mg/dL (8.5-10.1); Potassium 3.3 mmol/L (3.5-5.1)
[2017-01-17 17:20] VITALS: BP_SYST 151; BP_SYST 96; BP_DIAS 60; BP_DIAS 80
[2017-01-17 20:00] VITALS: BP 103/58
[2017-01-17 21:17] VITALS: BP 103/58
[2017-01-17] MEDS: INSULIN DETEMIR(LEVEMIR) 1unit/0.01ml Soln (100units/ml) SC SCH (23:09)
[2017-01-18] MEDS: D5W/SOD CHL 0.45% 1,000 ML IV SCH ×3 (02:16→17:45)
[2017-01-18] MEDS: MORPHINE SULF INJ 2 MG/ML SYRINGE 1ML IV PRN ×3 (02:24→11:35)
[2017-01-18] MEDS: InsuLIN REG 1unit/0.01ml Soln (100units/ml) SC SCH ×4 (04:00→16:00)
[2017-01-18] MEDS: ACCU-CHEK COMFORT CURVE STRIP VI SCH ×4 (04:53→16:11)
[2017-01-18 05:49] VITALS: BP 112/62
[2017-01-18 05:57] LABS: Basophils # (auto) 0 uL; Basophils % (auto) 0.5 % (0.0-2.0); Eosinophils # (auto) 0.1 uL; Eosinophils % (auto) 3.6 % (0.0-7.0); Hematocrit 35.6 % (41.0-53.0); Hemoglobin 11.9 g/dL (13.5-17.5); Lymphocytes # (auto) 1.9 uL; Lymphocytes % (auto) 51.3 % (10.0-50.0); Mean Corpuscular Hemoglobin 30.7 pg (28.0-32.0); Mean Corpuscular Hgb Conc. 33.4 g/dL (32.0-36.0); Mean Corpuscular Volume 91.9 fL (80.0-100.0); Mean Platelet Volume 7.3 fL (7.4-10.4); Monocytes # (auto) 0.3 uL; Monocytes % (auto) 7.9 % (0.0-12.0); Neutrophils # (auto) 1.4 uL; Neutrophils % (auto) 36.7 % (37.0-80.0); Platelet Count (auto) 182 10^3/uL (140-450); Red Cell Distribution Width 14.6 % (11.6-16.0); White Blood Cell 3.8 10^3/uL (4.4-10.8)
[2017-01-18 06:26] LABS: BUN/Creatinine Ratio 7.6; Calcium 7.2 mg/dL (8.5-10.1); Phosphorus 2.9 mg/dL (2.5-4.90)
[2017-01-18] MEDS: INSULIN DETEMIR(LEVEMIR) 1unit/0.01ml Soln (100units/ml) SC SCH (06:28)
[2017-01-18] MEDS ORDERED: INSLISPI SC (06:51)
[2017-01-18 08:00] VITALS: BP 111/66
[2017-01-18 08:55] VITALS: BP 111/66
[2017-01-18] MEDS: FAMOTIDINE 20 MG TAB PO SCH (09:11)
[2017-01-18] MEDS: MULTIPLE VITAMIN TAB PO SCH (09:11)
[2017-01-18 12:53] VITALS: BP 118/72
[2017-01-18] MEDS ORDERED: POTASSIUM CHL 20 Meq TABLET PO ONE (16:15)
[2017-01-18 18:48] VITALS: BP 118/72
== END 2017-01-18 19:26 | disposition home or self-care (01) | DRG 420 ==
LOC: EDBD 23:45 → ER 23:48 → TELE 23:49 → TELE-E-ADS 01-17 07:46 → TELE-CENTR 01-17 14:36
PROVIDERS: ADMIT Internal Medicine; ATTEND Internal Medicine
DX: E10.10 Type 1 diabetes mellitus with ketoacidosis without coma (principal); E10.21 Type 1 diabetes mellitus with diabetic nephropathy; E87.1 Hypo-osmolality and hyponatremia; E87.6 Hypokalemia; Z79.4 Long term (current) use of insulin; N18.2 Chronic kidney disease, stage 2 (mild); E10.22 Type 1 diabetes mellitus with diabetic chronic kidney disease; Z82.49 Family history of ischemic heart disease and other diseases of the circulatory system; Z83.3 Family history of diabetes mellitus; Z91.19 Patient's noncompliance with other medical treatment and regimen; E10.65 Type 1 diabetes mellitus with hyperglycemia
CPT/HCPCS: 36415; 36600; 71010; 80048; 80053; 81001; 82010; 82805; 82962; 83036; 83735; 83930; 84100; 84484; 85007; 85025; 85027; 85610; 85730; 87081; 87086; 93005; 96361; 96365; 96375; J1815; J2405; Q0162

== ENCOUNTER 2017-03-27 11:19 | Inpatient (IN) | payer MEDICAID ==
[~2017-03-27] VITALS: Ht 190.5 cm; Wt 80.0 kg
[~2017-03-27 11:19] MED LIST changes: +INSLISPI SC; -INSUINJ SUBCUT; -LEVO500T3 PO
[2017-03-27] MEDS ORDERED: DEXTROSE (50%) 50ML SYRG IV PRN ×2 (11:45→14:45)
[2017-03-27] MEDS ORDERED: ONDANSETRON HCL 4 MG/2 ML VIAL ONE (11:52)
[2017-03-27] MEDS: SODIUM CHLORIDE 0.9% 1,000 ML IV SCH ×3 (11:58→17:54)
[2017-03-27] MEDS ORDERED: ONDANSETRON HCL 4 MG/2 ML VIAL IV ONE ×2 (12:00→13:15)
[2017-03-27 12:10] LABS: Blood 02Sat 96.3 % (96-100); Blood COHb 0.1 % (0.5-1.5); Blood MetHb 0.5 % (0.0-1.5); HCO3 7.2 mmol/L (22-26.0); HHb 3.7 % (0.0-5.0); MODE ROOM AIR; O2Hb 95.7 % (94.0-97.0); PCO2 19.9 mmHg (35.0-45.0); PCO2(T) 19.9 mmHg (35.0-45.0); PO2 102.9 mmHg (80.0-100.0); PO2(T) 102.9 mmHg (80.0-100.0); Sample Type Arterial; pH 7.174 (7.350-7.450)
[2017-03-27] MEDS: ACCU-CHEK COMFORT CURVE STRIP VI SCH ×12 (12:15→23:00)
[2017-03-27 12:22] LABS: Basophils # (auto) 0 uL; Basophils % (auto) 0.4 % (0.0-2.0); Eosinophils # (auto) 0.1 uL; Eosinophils % (auto) 0.9 % (0.0-7.0); Hemoglobin 16.8 g/dL (13.5-17.5); Lymphocytes # (auto) 3.3 uL; Lymphocytes % (auto) 29.3 % (10.0-50.0); Mean Corpuscular Hemoglobin 31.1 pg (28.0-32.0); Mean Corpuscular Hgb Conc. 34.2 g/dL (32.0-36.0); Mean Corpuscular Volume 90.8 fL (80.0-100.0); Mean Platelet Volume 7.9 fL (7.4-10.4); Monocytes # (auto) 0.8 uL; Monocytes % (auto) 6.9 % (0.0-12.0); Neutrophils # (auto) 7.1 uL; Neutrophils % (auto) 62.5 % (37.0-80.0); Platelet Count (auto) 188 10^3/uL (140-450); Red Cell Distribution Width 13.2 % (11.6-16.0); SUSPECT VIEW TRANSMISSION; White Blood Cell 11.3 10^3/uL (4.4-10.8)
[2017-03-27] MEDS ORDERED: MORPHINE SULFATE 4 MG/ML SYRG IV ONE (12:45)
[2017-03-27] MEDS: InsuLIN R (HUMAN) 100 UNITS in SODIUM CHL 0.9% 99 ML IV SCH ×4 (12:51→22:24)
[2017-03-27] MEDS ORDERED: NITROGLYCERIN 0.4 MG SL TAB SL PRN (14:45)
[2017-03-27] MEDS ORDERED: MORPHINE SULF INJ 2 MG/ML SYRINGE 1ML IV PRN (14:45)
[2017-03-27 14:58] LABS: BUN/Creatinine Ratio 12.4; Calcium 8.5 mg/dL (8.5-10.1); Magnesium 2.1 mg/dL (1.6-2.6); Phosphorus 4.8 mg/dL (2.5-4.90); Potassium 4.3 mmol/L (3.5-5.1)
[2017-03-27] MEDS ORDERED: PANTOPRAZOLE SODIUM 40 MG/10 ML VIAL IV ONE (15:00)
[2017-03-27] MEDS ORDERED: SODIUM CHLORIDE 0.9% 1,000 ML IV SCH ×2 (15:40→20:41)
[2017-03-27] MEDS: MORPHINE SULF INJ 2 MG/ML SYRINGE 1ML IV PRN ×2 (15:57→20:12)
[2017-03-27] MEDS: ONDANSETRON HCL 4 MG/2 ML VIAL IV PRN (17:54)
[2017-03-27] MEDS ORDERED: PROMETHAZINE HCL 25 MG/ML 1ML IV ONE (20:45)
[2017-03-27 22:55] VITALS: BP 100/51
[2017-03-28] MEDS: ACCU-CHEK COMFORT CURVE STRIP VI SCH ×19 (00:10→23:46)
[2017-03-28] MEDS: MORPHINE SULF INJ 2 MG/ML SYRINGE 1ML IV PRN ×4 (00:19→18:55)
[2017-03-28] MEDS: SODIUM CHLORIDE 0.9% 1,000 ML IV SCH ×4 (00:24→20:12)
[2017-03-28] MEDS ORDERED: ACETAMINOPHEN 325 MG TAB PO PRN (04:15)
[2017-03-28 04:59] LABS: Basophils # (auto) 0 uL; Basophils % (auto) 0.4 % (0.0-2.0); Eosinophils # (auto) 0 uL; Eosinophils % (auto) 0.4 % (0.0-7.0); Hematocrit 41.8 % (41.0-53.0); Hemoglobin 13.8 g/dL (13.5-17.5); Lymphocytes # (auto) 2.6 uL; Lymphocytes % (auto) 28.2 % (10.0-50.0); Mean Corpuscular Hemoglobin 30.4 pg (28.0-32.0); Mean Corpuscular Hgb Conc. 33.1 g/dL (32.0-36.0); Mean Corpuscular Volume 91.9 fL (80.0-100.0); Mean Platelet Volume 6.5 fL (7.4-10.4); Monocytes # (auto) 0.5 uL; Monocytes % (auto) 5.7 % (0.0-12.0); Neutrophils # (auto) 6.1 uL; Neutrophils % (auto) 65.3 % (37.0-80.0); Platelet Count (auto) 267 10^3/uL (140-450); Red Cell Distribution Width 12.7 % (11.6-16.0); White Blood Cell 9.3 10^3/uL (4.4-10.8)
[2017-03-28 05:16] LABS: BUN/Creatinine Ratio 13.1; Calcium 7.4 mg/dL (8.5-10.1); Magnesium 1.9 mg/dL (1.6-2.6); Potassium 3.8 mmol/L (3.5-5.1)
[2017-03-28] MEDS: PANTOPRAZOLE SODIUM 40 MG/10 ML VIAL IV SCH (10:22)
[2017-03-28 12:37] LABS: Basophils # (auto) 0 uL; Basophils % (auto) 0.4 % (0.0-2.0); Eosinophils # (auto) 0 uL; Eosinophils % (auto) 0.7 % (0.0-7.0); Hematocrit 39.2 % (41.0-53.0); Hemoglobin 13.2 g/dL (13.5-17.5); Lymphocytes # (auto) 2.1 uL; Lymphocytes % (auto) 31.8 % (10.0-50.0); Mean Corpuscular Hemoglobin 30.5 pg (28.0-32.0); Mean Corpuscular Hgb Conc. 33.7 g/dL (32.0-36.0); Mean Corpuscular Volume 90.6 fL (80.0-100.0); Mean Platelet Volume 6.7 fL (7.4-10.4); Monocytes # (auto) 0.3 uL; Monocytes % (auto) 4.8 % (0.0-12.0); Neutrophils # (auto) 4.1 uL; Neutrophils % (auto) 62.3 % (37.0-80.0); Platelet Count (auto) 260 10^3/uL (140-450); Red Cell Distribution Width 12.9 % (11.6-16.0); White Blood Cell 6.6 10^3/uL (4.4-10.8)
[2017-03-28 12:59] LABS: Albumin 2.9 g/dL (3.4-5.0); BUN/Creatinine Ratio 15.2; Bilirubin, Total 0.5 mg/dL (0.2-1.0); Calcium 7.5 mg/dL (8.5-10.1); Potassium 3.5 mmol/L (3.5-5.1); Total Protein 5.9 g/dL (6.4-8.2)
[2017-03-28 16:43] LABS: BUN/Creatinine Ratio 12.7; Calcium 7.6 mg/dL (8.5-10.1); Potassium 3.5 mmol/L (3.5-5.1)
[2017-03-28] MEDS ORDERED: INSULIN DETEMIR(LEVEMIR) 1unit/0.01ml Soln (100units/ml) SC SCH (17:00)
[2017-03-28] MEDS: InsuLIN R (HUMAN) 100 UNITS in SODIUM CHL 0.9% 99 ML IV SCH (17:08)
[2017-03-28] MEDS: ONDANSETRON HCL 4 MG/2 ML VIAL IV PRN (18:55)
[2017-03-28] MEDS: InsuLIN REG 1unit/0.01ml Soln (100units/ml) SC SCH ×2 (20:11→23:47)
[2017-03-28 20:57] VITALS: BP 108/67
[2017-03-28 22:00] VITALS: BP 108/67
[2017-03-29] MEDS: MORPHINE SULF INJ 2 MG/ML SYRINGE 1ML IV PRN ×3 (01:11→19:55)
[2017-03-29 02:18] LABS: Urine Bilirubin Negative (Negative); Urine Blood Negative /uL (Negative); Urine Color Yellow (Yellow); Urine Nitrite Negative (Negative); Urine RBC <1 /hpf (0 - 3); Urine Squamous Epithelial Cell FEW /hpf (<5); Urine Urobilinogen Normal (Negative)
[2017-03-29 02:20] LABS: Urine Glucose 4+ mg/dL (Normal); Urine Ketone 2+ (Negative)
[2017-03-29] MEDS: SODIUM CHLORIDE 0.9% 1,000 ML IV SCH ×3 (02:42→15:17)
[2017-03-29] MEDS: InsuLIN REG 1unit/0.01ml Soln (100units/ml) SC SCH ×6 (04:00→23:50)
[2017-03-29] MEDS: ACCU-CHEK COMFORT CURVE STRIP VI SCH ×6 (04:11→23:49)
[2017-03-29 05:00] VITALS: BP 109/68
[2017-03-29 06:02] LABS: Basophils # (auto) 0 uL; Basophils % (auto) 0.8 % (0.0-2.0); Eosinophils # (auto) 0.1 uL; Eosinophils % (auto) 1.2 % (0.0-7.0); Hemoglobin 13.9 g/dL (13.5-17.5); Lymphocytes # (auto) 2.2 uL; Lymphocytes % (auto) 48.7 % (10.0-50.0); Mean Corpuscular Hemoglobin 30.8 pg (28.0-32.0); Mean Corpuscular Hgb Conc. 33.8 g/dL (32.0-36.0); Mean Platelet Volume 6.9 fL (7.4-10.4); Monocytes # (auto) 0.3 uL; Monocytes % (auto) 6.4 % (0.0-12.0); Neutrophils # (auto) 1.9 uL; Neutrophils % (auto) 42.9 % (37.0-80.0); Platelet Count (auto) 235 10^3/uL (140-450); Red Cell Distribution Width 13.4 % (11.6-16.0); White Blood Cell 4.5 10^3/uL (4.4-10.8)
[2017-03-29 06:34] LABS: Calcium 7.4 mg/dL (8.5-10.1); Potassium 3.1 mmol/L (3.5-5.1)
[2017-03-29 07:30] VITALS: BP 93/42
[2017-03-29] MEDS: PANTOPRAZOLE SODIUM 40 MG/10 ML VIAL IV SCH (08:52)
[2017-03-29] MEDS ORDERED: POTASSIUM CHL 20 Meq TABLET PO ONE (10:15)
[2017-03-29] MEDS: HYDROcodone-ACET 5/325MG TAB PO PRN (10:27)
[2017-03-29] MEDS ORDERED: INSULIN DETEMIR(LEVEMIR) 1unit/0.01ml Soln (100units/ml) SC ONE (11:45)
[2017-03-29 12:00] VITALS: BP 105/62
[2017-03-29 16:44] VITALS: BP 99/57
[2017-03-29 20:00] VITALS: BP 107/68
[2017-03-29] MEDS: INSULIN DETEMIR(LEVEMIR) 1unit/0.01ml Soln (100units/ml) SC SCH (21:44)
[2017-03-29 22:00] VITALS: BP 107/68
[2017-03-30] VITALS (7 sets, daily range): BP systolic 102–115; BP diastolic 63–83
[2017-03-30] MEDS: HYDROcodone-ACET 5/325MG TAB PO PRN ×2 (00:52→23:21)
[2017-03-30] MEDS: MORPHINE SULF INJ 2 MG/ML SYRINGE 1ML IV PRN ×2 (03:30→09:40)
[2017-03-30] MEDS: SODIUM CHLORIDE 0.9% 1,000 ML IV SCH (03:52)
[2017-03-30] MEDS: ACCU-CHEK COMFORT CURVE STRIP VI SCH ×6 (04:00→23:27)
[2017-03-30] MEDS: InsuLIN REG 1unit/0.01ml Soln (100units/ml) SC SCH ×6 (04:01→23:27)
[2017-03-30 06:15] LABS: BUN/Creatinine Ratio 4.3; Calcium 7.5 mg/dL (8.5-10.1); Potassium 3.2 mmol/L (3.5-5.1)
[2017-03-30] MEDS: INSULIN DETEMIR(LEVEMIR) 1unit/0.01ml Soln (100units/ml) SC SCH ×2 (06:46→22:17)
[2017-03-30] MEDS: PANTOPRAZOLE SODIUM 40 MG/10 ML VIAL IV SCH (09:40)
[2017-03-30] MEDS ORDERED: POTASSIUM CHL 20 Meq TABLET PO ONE (11:00)
[2017-03-30] MEDS ORDERED: DEXTROSE (50%) 50ML SYRG IV PRN ×2 (11:00→19:00)
[2017-03-30] MEDS ORDERED: InsuLIN REG 1unit/0.01ml Soln (100units/ml) SC ONE (19:00)
[2017-03-30] MEDS ORDERED: InsuLIN REG 1unit/0.01ml Soln (100units/ml) IV ONE (19:00)
[2017-03-31] MEDS: InsuLIN REG 1unit/0.01ml Soln (100units/ml) SC SCH ×3 (03:59→12:00)
[2017-03-31] MEDS: ACCU-CHEK COMFORT CURVE STRIP VI SCH ×3 (03:59→12:18)
[2017-03-31 05:00] VITALS: BP 120/83
[2017-03-31] MEDS: HYDROcodone-ACET 5/325MG TAB PO PRN (06:34)
[2017-03-31] MEDS: INSULIN DETEMIR(LEVEMIR) 1unit/0.01ml Soln (100units/ml) SC SCH (06:41)
[2017-03-31 07:35] VITALS: BP 115/76
[2017-03-31 09:43] VITALS: BP 115/76
[2017-03-31 14:08] VITALS: BP 113/70
== END 2017-03-31 14:49 | disposition home or self-care (01) | DRG 420 ==
LOC: EDBD 11:19 → EDUNIT# 11:19 → ER 11:20 → TELE 11:21 → TELE-EAST 03-28 20:00
PROVIDERS: ADMIT Internal Medicine; ATTEND Internal Medicine
DX: E10.10 Type 1 diabetes mellitus with ketoacidosis without coma (principal); E10.22 Type 1 diabetes mellitus with diabetic chronic kidney disease; N18.3 Chronic kidney disease, stage 3 (moderate); E86.0 Dehydration; Z91.19 Patient's noncompliance with other medical treatment and regimen; R19.7 Diarrhea, unspecified; E87.6 Hypokalemia; E87.1 Hypo-osmolality and hyponatremia; Z82.49 Family history of ischemic heart disease and other diseases of the circulatory system; Z83.3 Family history of diabetes mellitus
CPT/HCPCS: 36415; 36600; 71010; 80048; 80053; 80061; 80307; 81001; 82010; 82805; 82962; 83036; 83735; 83930; 84100; 85025; 96361; 96374; 96375; 96376; 99291; C9113; J1815; J2405

== ENCOUNTER 2017-06-21 00:47 | Inpatient (IN) | payer MEDICAID ==
[~2017-06-21] VITALS: Ht 185.4 cm; Wt 82.0 kg
[2017-06-21] MEDS ORDERED: SODIUM CHLORIDE 0.9% 1,000 ML IVB ONE (00:54)
[2017-06-21] MEDS ORDERED: InsuLIN REG 1unit/0.01ml Soln (100units/ml) IV ONE (03:45)
[2017-06-21 04:01] LABS: Basophils # (auto) 0 uL; Basophils % (auto) 0.1 % (0.0-2.0); CONDITION Y; Eosinophils # (auto) 0 uL; Eosinophils % (auto) 0.1 % (0.0-7.0); Hematocrit 46.6 % (41.0-53.0); Hemoglobin 15.6 g/dL (13.5-17.5); Lymphocytes # (auto) 2.5 uL; Lymphocytes % (auto) 12.1 % (10.0-50.0); Mean Corpuscular Hemoglobin 30.6 pg (28.0-32.0); Mean Corpuscular Hgb Conc. 33.4 g/dL (32.0-36.0); Mean Corpuscular Volume 91.5 fL (80.0-100.0); Mean Platelet Volume 8.6 fL (7.4-10.4); Monocytes # (auto) 0.8 uL; Monocytes % (auto) 3.9 % (0.0-12.0); Neutrophils # (auto) 17.5 uL; Neutrophils % (auto) 83.8 % (37.0-80.0); Platelet Count (auto) 309 10^3/uL (140-450); Red Cell Distribution Width 14.8 % (11.6-16.0); White Blood Cell 20.9 10^3/uL (4.4-10.8)
[2017-06-21] MEDS ORDERED: SODIUM CHLORIDE 0.9% 1,000 ML IV ONE ×2 (04:30→07:34)
[2017-06-21] MEDS ORDERED: MORPHINE SULFATE 4 MG/ML SYRG IV ONE (04:30)
[2017-06-21] MEDS ORDERED: ONDANSETRON HCL 4 MG/2 ML VIAL IV ONE ×2 (04:30→07:45)
[2017-06-21 04:36] LABS: Albumin 4.1 g/dL (3.4-5.0); BUN/Creatinine Ratio 13.1; Bilirubin, Total 1.4 mg/dL (0.2-1.0); Calcium 9.2 mg/dL (8.5-10.1); Potassium 4.7 mmol/L (3.5-5.1); Total Protein 8.6 g/dL (6.4-8.2)
[2017-06-21] MEDS ORDERED: SODIUM BICARBONATE 8.4 % INJ 50ML VIAL IV ONE (05:00)
[2017-06-21] MEDS ORDERED: SODIUM BICARBONATE 8.4% INJ 50ML SYRINGE ONE (05:03)
[2017-06-21 05:40] LABS: Urine Bilirubin Negative (Negative); Urine Blood Negative /uL (Negative); Urine Color Yellow (Yellow); Urine Glucose 4+ mg/dL (Normal); Urine Ketone 4+ (Negative); Urine Mucus FEW (None Seen); Urine Nitrite Negative (Negative); Urine RBC <1 /hpf (0 - 3); Urine Squamous Epithelial Cell FEW /hpf (<5); Urine Urobilinogen Normal (Negative)
[2017-06-21] MEDS ORDERED: InsuLIN R (HUMAN) 100 UNITS in SODIUM CHL 0.9% 99 ML IV SCH (06:50)
[2017-06-21] MEDS ORDERED: DEXTROSE (50%) 50ML SYRG IV PRN (07:00)
[2017-06-21] MEDS ORDERED: PIPERACILLIN-TAZOB 3.375GM 100 ML IV ONE (07:00)
[2017-06-21] MEDS: SODIUM CHLORIDE 0.9% 1,000 ML IV ONE ×2 (07:30→08:21)
[2017-06-21 07:36] LABS: Lactic Acid w/Reflex 2.4 mmol/L (0.4-2.0)
[2017-06-21 07:37] LABS: Allen Test Yes; Base Excess -17.9 mmol/L (-2.0-2.0); Blood COHb 0.2 % (0.5-1.5); Blood MetHb 0.6 % (0.0-1.5); HCO3 6.8 mmol/L (22-26.0); MODE ROOM AIR; O2Hb 96.2 % (94.0-97.0); PCO2 15.8 mmHg (35.0-45.0); PCO2(T) 15.8 mmHg (35.0-45.0); PO2 118.6 mmHg (80.0-100.0); PO2(T) 118.6 mmHg (80.0-100.0); Sample Type Arterial; pH 7.249 (7.350-7.450)
[2017-06-21 08:12] LABS: REFLEX LACTIC ACID YES OR NO YES
[2017-06-21] MEDS: ACCU-CHEK COMFORT CURVE STRIP VI SCH ×11 (08:20→22:46)
[2017-06-21] MEDS ORDERED: LORazepam 0.5 MG TAB PO PRN (09:30)
[2017-06-21] MEDS ORDERED: ACETAMINOPHEN 500 MG TAB PO PRN (09:30)
[2017-06-21] MEDS ORDERED: MORPHINE SULF INJ 2 MG/ML SYRINGE 1ML IV PRN (09:30)
[2017-06-21] MEDS ORDERED: NITROGLYCERIN 0.4 MG SL TAB SL PRN (09:30)
[2017-06-21] MEDS ORDERED: LACTULOSE 20Gm/30ML SOLN PO PRN (09:30)
[2017-06-21] MEDS ORDERED: HYDROcodone-ACET 5/325MG TAB PO PRN (09:30)
[2017-06-21] MEDS ORDERED: TEMAZEPAM 15 MG CAP PO PRN (09:30)
[2017-06-21 09:49] LABS: Calcium 7.5 mg/dL (8.5-10.1); Potassium 5.1 mmol/L (3.5-5.1)
[2017-06-21 09:51] LABS: BUN/Creatinine Ratio 13.2
[2017-06-21] MEDS: InsuLIN R (HUMAN) 100 UNITS in SODIUM CHL 0.9% 99 ML IV SCH ×3 (10:07→21:04)
[2017-06-21] MEDS: SODIUM CHLORIDE 0.9% 1,000 ML IV SCH ×4 (10:08→20:49)
[2017-06-21] MEDS: PANTOPRAZOLE 40 MG TAB PO SCH (10:13)
[2017-06-21] MEDS ORDERED: KETOROLAC TROMETH 30 MG/ML 1ML VIAL IV ONE (10:15)
[2017-06-21] MEDS ORDERED: SODIUM CHLORIDE 0.9% 1,000 ML IV SCH (13:26)
[2017-06-21] MEDS: PROMETHAZINE HCL 25 MG/ML 1ML IV PRN ×2 (14:08→18:13)
[2017-06-21] MEDS: MORPHINE SULF INJ 2 MG/ML SYRINGE 1ML IV PRN ×3 (14:08→23:18)
[2017-06-21 19:05] LABS: BUN/Creatinine Ratio 11.6; Calcium 7.3 mg/dL (8.5-10.1)
[2017-06-21 21:48] LABS: BUN/Creatinine Ratio 10.2; Calcium 7.1 mg/dL (8.5-10.1)
[2017-06-21] MEDS ORDERED: IOHEXOL 300 MG/ML 100ML BOTTLE IJ ONE (23:02)
[2017-06-22] VITALS (15 sets, daily range): BP systolic 76–130; BP diastolic 35–67
[2017-06-22] MEDS: ACCU-CHEK COMFORT CURVE STRIP VI SCH ×16 (00:07→22:34)
[2017-06-22] MEDS: SODIUM CHLORIDE 0.9% 1,000 ML IV SCH ×4 (02:50→23:01)
[2017-06-22 03:57] LABS: Basophils # (auto) 0 uL; Basophils % (auto) 0.4 % (0.0-2.0); CONDITION Y; Eosinophils # (auto) 0.1 uL; Eosinophils % (auto) 0.4 % (0.0-7.0); Hematocrit 39.6 % (41.0-53.0); Hemoglobin 13.1 g/dL (13.5-17.5); Lymphocytes # (auto) 2.1 uL; Lymphocytes % (auto) 16.1 % (10.0-50.0); Mean Corpuscular Hemoglobin 30.4 pg (28.0-32.0); Mean Corpuscular Hgb Conc. 33.1 g/dL (32.0-36.0); Mean Corpuscular Volume 91.8 fL (80.0-100.0); Mean Platelet Volume 7.7 fL (7.4-10.4); Monocytes # (auto) 0.5 uL; Monocytes % (auto) 3.9 % (0.0-12.0); Neutrophils # (auto) 10.3 uL; Neutrophils % (auto) 79.2 % (37.0-80.0); Platelet Count (auto) 246 10^3/uL (140-450); Red Cell Distribution Width 15.2 % (11.6-16.0)
[2017-06-22] MEDS: PROMETHAZINE HCL 25 MG/ML 1ML IV PRN (04:06)
[2017-06-22] MEDS: MORPHINE SULF INJ 2 MG/ML SYRINGE 1ML IV PRN ×5 (04:06→22:08)
[2017-06-22 04:20] LABS: Albumin 2.8 g/dL (3.4-5.0); BUN/Creatinine Ratio 8.5; Bilirubin, Total 0.7 mg/dL (0.2-1.0); Calcium 7.4 mg/dL (8.5-10.1); Potassium 3.6 mmol/L (3.5-5.1)
[2017-06-22 09:23] LABS: BUN/Creatinine Ratio 7.5; Calcium 7.4 mg/dL (8.5-10.1); Potassium 3.7 mmol/L (3.5-5.1)
[2017-06-22] MEDS: PANTOPRAZOLE 40 MG TAB PO SCH (09:23)
[2017-06-22] MEDS ORDERED: D5W/SOD CHL 0.45% 1,000 ML IV SCH (11:45)
[2017-06-22 15:32] LABS: Calcium 7.3 mg/dL (8.5-10.1); Potassium 3.9 mmol/L (3.5-5.1)
[2017-06-22 15:34] LABS: BUN/Creatinine Ratio 8.2
[2017-06-22] MEDS ORDERED: InsuLIN REG 1unit/0.01ml Soln (100units/ml) SC ONE (16:00)
[2017-06-22] MEDS: InsuLIN R (HUMAN) 100 UNITS in SODIUM CHL 0.9% 99 ML IV SCH (18:47)
[2017-06-22 22:03] LABS: BUN/Creatinine Ratio 7.4; Calcium 7.6 mg/dL (8.5-10.1); Potassium 3.5 mmol/L (3.5-5.1)
[2017-06-22] MEDS ORDERED: ONDANSETRON ODT 4 MG TAB PO PRN (23:15)
[2017-06-23] VITALS (30 sets, daily range): BP systolic 77–129; BP diastolic 31–87
[2017-06-23] MEDS ORDERED: ACCU-CHEK COMFORT CURVE STRIP VI SCH
[2017-06-23] MEDS ORDERED: InsuLIN REG 1unit/0.01ml Soln (100units/ml) SC SCH
[2017-06-23] MEDS: InsuLIN R (HUMAN) 100 UNITS in SODIUM CHL 0.9% 99 ML IV SCH (02:26)
[2017-06-23] MEDS: ACCU-CHEK COMFORT CURVE STRIP VI SCH ×14 (03:00→22:35)
[2017-06-23 04:31] LABS: Basophils # (auto) 0 uL; Basophils % (auto) 0.2 % (0.0-2.0); CONDITION Y; Eosinophils # (auto) 0 uL; Eosinophils % (auto) 0.3 % (0.0-7.0); Hematocrit 34.4 % (41.0-53.0); Hemoglobin 11.5 g/dL (13.5-17.5); Lymphocytes # (auto) 0.9 uL; Lymphocytes % (auto) 9.1 % (10.0-50.0); Mean Corpuscular Hemoglobin 30.5 pg (28.0-32.0); Mean Corpuscular Hgb Conc. 33.5 g/dL (32.0-36.0); Mean Platelet Volume 7.9 fL (7.4-10.4); Monocytes # (auto) 0.7 uL; Monocytes % (auto) 6.6 % (0.0-12.0); Neutrophils # (auto) 8.6 uL; Neutrophils % (auto) 83.8 % (37.0-80.0); Platelet Count (auto) 211 10^3/uL (140-450); Red Cell Distribution Width 15.2 % (11.6-16.0); White Blood Cell 10.2 10^3/uL (4.4-10.8)
[2017-06-23] MEDS: MORPHINE SULF INJ 2 MG/ML SYRINGE 1ML IV PRN ×3 (04:55→18:04)
[2017-06-23 05:02] LABS: BUN/Creatinine Ratio 8.7; Calcium 7.5 mg/dL (8.5-10.1); Magnesium 1.7 mg/dL (1.6-2.6); Potassium 3.3 mmol/L (3.5-5.1)
[2017-06-23] MEDS: SODIUM CHLORIDE 0.9% 1,000 ML IV SCH (05:34)
[2017-06-23] MEDS: PANTOPRAZOLE 40 MG TAB PO SCH (09:04)
[2017-06-23 10:30] LABS: BUN/Creatinine Ratio 9.2; Calcium 7.8 mg/dL (8.5-10.1); Potassium 3.4 mmol/L (3.5-5.1)
[2017-06-23] MEDS ORDERED: ONDANSETRON HCL 4 MG/2 ML VIAL IV PRN (11:45)
[2017-06-23] MEDS ORDERED: POTASSIUM CHL 20 Meq TABLET PO ONE (11:45)
[2017-06-23] MEDS: D5W/SOD CHLO 0.9% 1,000 ML IV SCH ×3 (12:08→22:00)
[2017-06-23] MEDS ORDERED: POTASSIUM CHL 10% (20 MEQ/15ML) 15ml ORAL SOLN PO ONE ×2 (12:15→15:15)
[2017-06-23 13:23] LABS: INR 1.14 (0.9-1.15); Prothrombin Time 12.4 sec (9.37-12.3)
[2017-06-23 13:44] LABS: BUN/Creatinine Ratio 7.9; Calcium 7.4 mg/dL (8.5-10.1); Potassium 3.2 mmol/L (3.5-5.1)
[2017-06-23] MEDS ORDERED: POTASSIUM CHL 20MEQ/100ML 100 ML IV ONE (15:15)
[2017-06-23 18:57] LABS: Calcium 7.5 mg/dL (8.5-10.1); Potassium 3.7 mmol/L (3.5-5.1)
[2017-06-23] MEDS ORDERED: MORPHINE SULFATE 4 MG/ML SYRG ONE (22:59)
[2017-06-24] VITALS (20 sets, daily range): BP systolic 93–141; BP diastolic 42–85
[2017-06-24 01:19] LABS: BUN/Creatinine Ratio 5.2; Calcium 6.9 mg/dL (8.5-10.1); Potassium 3.9 mmol/L (3.5-5.1)
[2017-06-24] MEDS: ACCU-CHEK COMFORT CURVE STRIP VI SCH ×13 (01:30→20:20)
[2017-06-24] MEDS: InsuLIN R (HUMAN) 100 UNITS in SODIUM CHL 0.9% 99 ML IV SCH ×2 (02:26→13:25)
[2017-06-24] MEDS ORDERED: MORPHINE SULFATE 4 MG/ML SYRG ONE (02:59)
[2017-06-24 04:35] LABS: Basophils # (auto) 0 uL; Basophils % (auto) 0.3 % (0.0-2.0); CONDITION Y; Eosinophils # (auto) 0.1 uL; Eosinophils % (auto) 2.2 % (0.0-7.0); Hematocrit 36.6 % (41.0-53.0); Hemoglobin 11.9 g/dL (13.5-17.5); Lymphocytes % (auto) 39.4 % (10.0-50.0); Mean Corpuscular Hgb Conc. 32.6 g/dL (32.0-36.0); Mean Corpuscular Volume 91.8 fL (80.0-100.0); Mean Platelet Volume 7.7 fL (7.4-10.4); Monocytes # (auto) 0.2 uL; Monocytes % (auto) 4.1 % (0.0-12.0); Neutrophils # (auto) 2.8 uL; Platelet Count (auto) 173 10^3/uL (140-450); White Blood Cell 5.1 10^3/uL (4.4-10.8)
[2017-06-24 04:49] LABS: Calcium 7.3 mg/dL (8.5-10.1); Potassium 3.2 mmol/L (3.5-5.1)
[2017-06-24 04:51] LABS: BUN/Creatinine Ratio 4.3
[2017-06-24] MEDS: D5W/SOD CHLO 0.9% 1,000 ML IV SCH (07:49)
[2017-06-24] MEDS: MORPHINE SULF INJ 2 MG/ML SYRINGE 1ML IV PRN ×2 (08:02→12:07)
[2017-06-24] MEDS: PANTOPRAZOLE 40 MG TAB PO SCH (10:05)
[2017-06-24 12:06] LABS: BUN/Creatinine Ratio 3.4; Calcium 6.9 mg/dL (8.5-10.1); Potassium 3.2 mmol/L (3.5-5.1)
[2017-06-24] MEDS ORDERED: POTASSIUM CHL 10% (20 MEQ/15ML) 15ml ORAL SOLN PO ONE (12:45)
[2017-06-24] MEDS ORDERED: INSULIN DETEMIR(LEVEMIR) 1unit/0.01ml Soln (100units/ml) SC ONE (12:45)
[2017-06-24] MEDS ORDERED: DEXTROSE (50%) 50ML SYRG IV SCH (13:15)
[2017-06-24] MEDS: POTASSIUM CHL 20MEQ/100ML 100 ML IV SCH ×2 (13:18→15:01)
[2017-06-24] MEDS: NovoloG Insulin 1unit/0.01ml Soln (100units/ml) SC SCH ×2 (16:09→20:20)
[2017-06-25] MEDS: ACCU-CHEK COMFORT CURVE STRIP VI SCH ×5 (00:13→16:00)
[2017-06-25] MEDS: NovoloG Insulin 1unit/0.01ml Soln (100units/ml) SC SCH ×5 (04:02→16:00)
[2017-06-25 04:41] VITALS: BP 121/82
[2017-06-25 06:15] LABS: Basophils # (auto) 0 uL; Basophils % (auto) 0.3 % (0.0-2.0); CONDITION Y; Eosinophils # (auto) 0.1 uL; Eosinophils % (auto) 3.3 % (0.0-7.0); Hematocrit 37.9 % (41.0-53.0); Hemoglobin 12.7 g/dL (13.5-17.5); Lymphocytes # (auto) 1.8 uL; Mean Corpuscular Hemoglobin 30.3 pg (28.0-32.0); Mean Corpuscular Hgb Conc. 33.5 g/dL (32.0-36.0); Mean Corpuscular Volume 90.5 fL (80.0-100.0); Mean Platelet Volume 7.8 fL (7.4-10.4); Monocytes # (auto) 0.2 uL; Neutrophils % (auto) 47.4 % (37.0-80.0); Platelet Count (auto) 172 10^3/uL (140-450); Red Cell Distribution Width 14.6 % (11.6-16.0); White Blood Cell 4.2 10^3/uL (4.4-10.8)
[2017-06-25 07:18] LABS: Potassium 3.4 mmol/L (3.5-5.1)
[2017-06-25 07:40] LABS: BUN/Creatinine Ratio 2.5; Calcium 7.4 mg/dL (8.5-10.1)
[2017-06-25 09:00] VITALS: BP 117/76
[2017-06-25] MEDS: PANTOPRAZOLE 40 MG TAB PO SCH (09:43)
[2017-06-25] MEDS ORDERED: INSULIN DETEMIR(LEVEMIR) 1unit/0.01ml Soln (100units/ml) SC SCH (10:00)
[2017-06-25] MEDS ORDERED: POTASSIUM CHL 10% (20 MEQ/15ML) 15ml ORAL SOLN PO ONE (11:30)
[2017-06-25] MEDS ORDERED: FLUCONAZOLE 100 MG TAB PO SCH (11:30)
[2017-06-25] MEDS ORDERED: INSLISPI SC (11:52)
[2017-06-25] MEDS ORDERED: INSUINJ37 SUBCUT (11:52)
[2017-06-25] MEDS ORDERED: FLUC100T34 PO (11:52)
[2017-06-25 13:00] VITALS: BP 119/69
[2017-06-25 15:17] VITALS: BP 117/76
== END 2017-06-25 18:25 | disposition home health service (06) | DRG 420 ==
LOC: EDUNIT# 00:47 → ER 00:47 → EDBD 00:47 → TELE 00:48 → ICU WEST 06-22 08:13 → TELE 06-22 08:16 → ICU WEST 06-22 08:57 → WEST WING 06-24 19:20
PROVIDERS: ADMIT Internal Medicine; ATTEND Internal Medicine
DX: E10.10 Type 1 diabetes mellitus with ketoacidosis without coma (principal); K76.0 Fatty (change of) liver, not elsewhere classified; I10 Essential (primary) hypertension; Z53.29 Procedure and treatment not carried out because of patient's decision for other reasons; E87.1 Hypo-osmolality and hyponatremia; Z80.1 Family history of malignant neoplasm of trachea, bronchus and lung; Z80.3 Family history of malignant neoplasm of breast; Z80.42 Family history of malignant neoplasm of prostate; Z80.8 Family history of malignant neoplasm of other organs or systems; Z82.3 Family history of stroke; Z82.0 Family history of epilepsy and other diseases of the nervous system; Z83.3 Family history of diabetes mellitus; Z82.62 Family history of osteoporosis; Z82.49 Family history of ischemic heart disease and other diseases of the circulatory system; Z81.8 Family history of other mental and behavioral disorders; Z82.5 Family history of asthma and other chronic lower respiratory diseases; Z79.4 Long term (current) use of insulin; Z91.19 Patient's noncompliance with other medical treatment and regimen
CPT/HCPCS: 36415; 36600; 71010; 80048; 80053; 80061; 80307; 81001; 82010; 82805; 82962; 83605; 83690; 83735; 85025; 85610; 85652; 85730; 87040; 87081; 87086; 94761; 96361; 96365; 96368; 96375; J1815; J1885; J2405; J2543; J3480; J7042; Q0162

== ENCOUNTER 2017-11-19 18:29 | Inpatient (IN) | payer MEDICAID ==
[~2017-11-19] VITALS: Ht 185.4 cm; Wt 78.8 kg
[~2017-11-19 18:29] MED LIST changes: +AMOX-277 PO; +OMEP20CA74 PO
[2017-11-19] MEDS ORDERED: NALBUPHINE HCL 10 MG/1ml INJECTION IV ONE (20:00)
[2017-11-19] MEDS ORDERED: ONDANSETRON HCL 4 MG/2 ML VIAL IV ONE (20:00)
[2017-11-19] MEDS ORDERED: SODIUM CHLORIDE 0.9% 1,000 ML IV ONE ×2 (20:00→23:00)
[2017-11-19] MEDS ORDERED: InsuLIN R (HUMAN) 100 UNITS in SODIUM CHL 0.9% 99 ML IV SCH (21:21)
[2017-11-19] MEDS ORDERED: DEXTROSE (50%) 50ML SYRG IV PRN (21:30)
[2017-11-19] MEDS ORDERED: InsuLIN REG 1unit/0.01ml Soln (100units/ml) ONE (21:36)
[2017-11-19 21:51] LABS: Basophils # (auto) 0.1 uL; Basophils % (auto) 0.6 % (0.0-2.0); Eosinophils # (auto) 0 uL; Hematocrit 50.6 % (41.0-53.0); Hemoglobin 16.1 g/dL (13.5-17.5); Lymphocytes % (auto) 5.5 % (10.0-50.0); Mean Corpuscular Hemoglobin 30.1 pg (28.0-32.0); Mean Corpuscular Hgb Conc. 31.7 g/dL (32.0-36.0); Mean Corpuscular Volume 94.9 fL (80.0-100.0); Monocytes # (auto) 0.4 uL; Monocytes % (auto) 2.3 % (0.0-12.0); Neutrophils # (auto) 16.6 uL; Neutrophils % (auto) 91.6 % (37.0-80.0); Platelet Count (auto) 239 10^3/uL (140-450); Red Blood Cells 5.33 10^6/uL (4.5-5.90); Red Cell Distribution Width 13.7 % (11.8-14.3); White Blood Cell 18.1 10^3/uL (4.4-10.8)
[2017-11-19 22:08] LABS: Amylase 42 U/L (25-115); Lipase 62 U/L (73-393)
[2017-11-19 22:09] LABS: Albumin 4.1 g/dL (3.4-5.0); Bilirubin, Total 0.8 mg/dL (0.2-1.0); Calcium 8.8 mg/dL (8.5-10.1); Potassium 5.4 mmol/L (3.5-5.1); Total Protein 8.5 g/dL (6.4-8.2)
[2017-11-19 22:12] LABS: Magnesium 2.1 mg/dL (1.6-2.6)
[2017-11-19] MEDS: ACCU-CHEK COMFORT CURVE STRIP VI SCH (22:37)
[2017-11-19] MEDS ORDERED: SODIUM BICARBONATE 8.4% INJ 50ML SYRINGE ONE (22:59)
[2017-11-19] MEDS ORDERED: SODIUM BICARBONATE 8.4 % INJ 50ML VIAL IV ONE (23:00)
[2017-11-20] MEDS ORDERED: InsuLIN R (HUMAN) 100 UNITS in SODIUM CHL 0.9% 99 ML IV SCH (00:06)
[2017-11-20] MEDS: ACCU-CHEK COMFORT CURVE STRIP VI SCH ×11 (00:08→22:30)
[2017-11-20] MEDS ORDERED: ACETAMINOPHEN 325 MG TAB PO PRN (00:15)
[2017-11-20] MEDS ORDERED: DEXTROSE (50%) 50ML SYRG IV PRN ×2 (00:15→12:30)
[2017-11-20] MEDS ORDERED: MORPHINE SULF INJ 2 MG/ML SYRINGE 1ML IV PRN (00:15)
[2017-11-20] MEDS ORDERED: cefTRIAXone 1GM/10ml IVPUSH 10 ML IV ONE (00:15)
[2017-11-20] MEDS ORDERED: NALBUPHINE HCL 10 MG/1ml INJECTION IV PRN (00:15)
[2017-11-20] MEDS ORDERED: NITROGLYCERIN 0.4 MG SL TAB SL PRN (00:15)
[2017-11-20] MEDS ORDERED: TEMAZEPAM 15 MG CAP PO PRN (00:15)
[2017-11-20 01:12] LABS: BUN/Creatinine Ratio 12.7; Calcium 7.9 mg/dL (8.5-10.1)
[2017-11-20 01:12] LABS: Urine Bacteria NONE SEEN /hpf (None Seen); Urine Blood Negative /uL (Negative); Urine Budding Yeast OCCASIONAL /hpf (None Seen); Urine Hyaline Cast FEW /lpf (0 - 2); Urine Specific Gravity 1.026 (1.001-1.035); Urine WBC 6 /hpf (0 - 3)
[2017-11-20] MEDS: ONDANSETRON HCL 4 MG/2 ML VIAL IV PRN ×4 (02:30→16:41)
[2017-11-20] MEDS ORDERED: SODIUM CHLORIDE 0.9% 1,000 ML IV SCH ×2 (04:06→06:06)
[2017-11-20] MEDS: NALBUPHINE HCL 10 MG/1ml INJECTION IV PRN ×2 (05:46→10:11)
[2017-11-20 06:21] LABS: BUN/Creatinine Ratio 14.1; Calcium 7.4 mg/dL (8.5-10.1); Potassium 3.7 mmol/L (3.5-5.1)
[2017-11-20] MEDS ORDERED: PANTOPRAZOLE 40 MG/10 ML VIAL IV SCH (10:00)
[2017-11-20] MEDS ORDERED: INSULIN LANTUS (GLARGINE) 1 /0.01ml (100units/ml) SC ONE (10:45)
[2017-11-20] MEDS: SOD CHL 0.45% WITH 20MEQ KCL 1,000 ML IV SCH (12:30)
[2017-11-20] MEDS: KETOROLAC TROMETH 30 MG/ML 1ML VIAL IV PRN (16:41)
[2017-11-20] MEDS: InsuLIN REG 1unit/0.01ml Soln (100units/ml) SC SCH ×2 (17:00→22:30)
[2017-11-20 19:27] LABS: BUN/Creatinine Ratio 13.3; Calcium 7.6 mg/dL (8.5-10.1); Potassium 3.3 mmol/L (3.5-5.1)
[2017-11-20 20:00] VITALS: BP 105/65
[2017-11-20] MEDS: cefTRIAXone 1GM/10ml IVPUSH 10 ML IV SCH (21:39)
[2017-11-20 22:00] VITALS: BP 105/65
[2017-11-20] MEDS ORDERED: INSULIN LANTUS (GLARGINE) 1 /0.01ml (100units/ml) SC SCH (22:00)
[2017-11-21] VITALS (7 sets, daily range): BP systolic 108–133; BP diastolic 66–86
[2017-11-21] MEDS: KETOROLAC TROMETH 30 MG/ML 1ML VIAL IV PRN (04:38)
[2017-11-21] MEDS: SOD CHL 0.45% WITH 20MEQ KCL 1,000 ML IV SCH (06:16)
[2017-11-21] MEDS: InsuLIN REG 1unit/0.01ml Soln (100units/ml) SC SCH ×4 (06:17→21:43)
[2017-11-21] MEDS: ACCU-CHEK COMFORT CURVE STRIP VI SCH ×4 (06:17→21:31)
[2017-11-21] MEDS: HYDROcodone-ACET 5/325MG TAB PO PRN ×2 (08:37→14:15)
[2017-11-21 08:56] LABS: Basophils # (auto) 0 uL; Basophils % (auto) 0.5 % (0.0-2.0); Eosinophils # (auto) 0.1 uL; Eosinophils % (auto) 1.2 % (0.0-7.0); Hematocrit 39.3 % (41.0-53.0); Hemoglobin 13.2 g/dL (13.5-17.5); Lymphocytes # (auto) 1.7 uL; Lymphocytes % (auto) 22.2 % (10.0-50.0); Mean Corpuscular Hemoglobin 29.7 pg (28.0-32.0); Mean Corpuscular Hgb Conc. 33.5 g/dL (32.0-36.0); Mean Corpuscular Volume 88.7 fL (80.0-100.0); Monocytes # (auto) 0.5 uL; Monocytes % (auto) 6.1 % (0.0-12.0); Neutrophils # (auto) 5.3 uL; Nucleated Red Blood Cells % 0.1 %; Platelet Count (auto) 155 10^3/uL (140-450); Red Blood Cells 4.44 10^6/uL (4.5-5.90); Red Cell Distribution Width 13.5 % (11.8-14.3); White Blood Cell 7.6 10^3/uL (4.4-10.8)
[2017-11-21 09:15] LABS: Albumin 2.7 g/dL (3.4-5.0); BUN/Creatinine Ratio 12.4; Bilirubin, Total 0.4 mg/dL (0.2-1.0); Calcium 7.7 mg/dL (8.5-10.1); Potassium 3.4 mmol/L (3.5-5.1)
[2017-11-21] MEDS: PANTOPRAZOLE 40 MG TAB PO SCH (09:29)
[2017-11-21] MEDS ORDERED: POTASSIUM CHL 10 Meq TABLET PO ONE (09:30)
[2017-11-21] MEDS ORDERED: POTASSIUM PHOSPHATE 44 MEQ in D5W 5% 250 ML IV ONE (14:15)
[2017-11-21] MEDS: cefTRIAXone 1GM/10ml IVPUSH 10 ML IV SCH (21:20)
[2017-11-21] MEDS ORDERED: GABAPENTIN 100 MG CAP PO SCH (22:00)
[2017-11-21] MEDS ORDERED: INSULIN LANTUS (GLARGINE) 1 /0.01ml (100units/ml) SC SCH (22:00)
[2017-11-22 05:15] VITALS: BP 105/69
[2017-11-22 05:16] VITALS: BP 118/78
[2017-11-22] MEDS: SOD CHL 0.45% WITH 20MEQ KCL 1,000 ML IV SCH (05:29)
[2017-11-22] MEDS: ACCU-CHEK COMFORT CURVE STRIP VI SCH ×2 (06:32→11:58)
[2017-11-22] MEDS: InsuLIN REG 1unit/0.01ml Soln (100units/ml) SC SCH ×2 (06:32→11:59)
[2017-11-22 08:30] VITALS: BP 111/70
[2017-11-22] MEDS: PANTOPRAZOLE 40 MG TAB PO SCH (09:05)
[2017-11-22] MEDS ORDERED: GAB100C PO (09:16)
[2017-11-22] MEDS ORDERED: INSLANTI SC ×2 (09:19)
[2017-11-22 10:29] VITALS: BP 111/70
== END 2017-11-22 13:30 | disposition home health service (06) | DRG 420 ==
LOC: ER 18:29 → EDBD 18:29 → TELE 18:30 → TELE-WESTW 11-20 17:04 → WEST WING 11-20 19:39 → TELE-WESTW 11-20 19:40 → WEST WING 11-21 06:09
PROVIDERS: ADMIT Nurse Practitioner; ATTEND Internal Medicine
DX: E10.10 Type 1 diabetes mellitus with ketoacidosis without coma (principal); N17.0 Acute kidney failure with tubular necrosis; R65.10 Systemic inflammatory response syndrome (SIRS) of non-infectious origin without acute organ dysfunction; E10.40 Type 1 diabetes mellitus with diabetic neuropathy, unspecified; E86.0 Dehydration; E87.5 Hyperkalemia; E87.6 Hypokalemia; K44.9 Diaphragmatic hernia without obstruction or gangrene; G89.4 Chronic pain syndrome; E10.65 Type 1 diabetes mellitus with hyperglycemia; Z79.4 Long term (current) use of insulin; Z91.14 Patient's other noncompliance with medication regimen; Z82.61 Family history of arthritis; Z83.3 Family history of diabetes mellitus; Z83.49 Family history of other endocrine, nutritional and metabolic diseases; Z81.8 Family history of other mental and behavioral disorders; Z82.0 Family history of epilepsy and other diseases of the nervous system; Z83.511 Family history of glaucoma; Z82.62 Family history of osteoporosis; Z83.42 Family history of familial hypercholesterolemia; Z82.3 Family history of stroke; Z80.41 Family history of malignant neoplasm of ovary; Z80.1 Family history of malignant neoplasm of trachea, bronchus and lung; Z80.3 Family history of malignant neoplasm of breast
CPT/HCPCS: 36415; 36600; 71045; 74176; 80048; 80053; 81001; 82010; 82150; 82805; 82962; 83690; 83735; 84100; 84484; 85025; 87040; 87086; 93005; 96361; 96365; 96372; 96375; C9113; J1815; J1885; J2405; J7060

== ENCOUNTER 2018-06-21 19:49 | Inpatient (IN) | payer MEDICAID ==
[~2018-06-21] VITALS: Ht 182.9 cm; Wt 81.4 kg
[~2018-06-21 19:49] MED LIST changes: -AMOX-277 PO; +GAB100C PO; +INSLANTI SC; -INSUINJ37 SUBCUT; -OMEP20CA74 PO
[2018-06-21] MEDS ORDERED: ONDANSETRON HCL 4 MG/2 ML VIAL ONE (20:26)
[2018-06-21] MEDS ORDERED: InsuLIN REG 1unit/0.01ml Soln (100units/ml) IV ONE (20:45)
[2018-06-21] MEDS ORDERED: ONDANSETRON HCL 4 MG/2 ML VIAL IV ONE ×2 (20:45→23:30)
[2018-06-21] MEDS ORDERED: NALBUPHINE HCL 10 MG/1ml INJECTION IV ONE (20:45)
[2018-06-21] MEDS ORDERED: SODIUM CHLORIDE 0.9% 1,000 ML IVB ONE ×2 (20:55)
[2018-06-21] MEDS ORDERED: SODIUM CHLORIDE 0.9% 1,000 ML IV ONE ×2 (21:00)
[2018-06-21] MEDS ORDERED: SODIUM BICARBONATE 8.4 % INJ 50ML VIAL IV ONE (21:15)
[2018-06-21 21:16] LABS: Basophils # (auto) 0 uL; Basophils % (auto) 0.3 % (0.0-2.0); Eosinophils # (auto) 0 uL; Eosinophils % (auto) 0.2 % (0.0-7.0); Hematocrit 50.3 % (41.0-53.0); Hemoglobin 16.7 g/dL (13.5-17.5); Lymphocytes # (auto) 2.2 uL; Lymphocytes % (auto) 14.4 % (10.0-50.0); Mean Corpuscular Hemoglobin 30.7 pg (28.0-32.0); Mean Corpuscular Hgb Conc. 33.2 g/dL (32.0-36.0); Mean Corpuscular Volume 92.5 fL (80.0-100.0); Monocytes # (auto) 0.7 uL; Monocytes % (auto) 4.6 % (0.0-12.0); Neutrophils # (auto) 12.2 uL; Neutrophils % (auto) 80.5 % (37.0-80.0); Nucleated Red Blood Cells % 0.1 %; Platelet Count (auto) 192 10^3/uL (140-450); Red Blood Cells 5.43 10^6/uL (4.5-5.90); Red Cell Distribution Width 13.5 % (11.8-14.3); White Blood Cell 15.1 10^3/uL (4.4-10.8)
[2018-06-21 21:31] LABS: Alanine Aminotransferase 33 U/L (16-61); Albumin 3.8 g/dL (3.4-5.0); Amylase 27 U/L (25-115); Anion Gap 30 (5-15); Blood Urea Nitrogen 16 mg/dL (7-18); Calcium 8.8 mg/dL (8.5-10.1); Chloride 98 mmol/L (98-107); Lipase 40 U/L (73-393); Potassium 4.3 mmol/L (3.5-5.1); Sodium 136 mmol/L (136-145)
[2018-06-21 21:33] LABS: Aspartate Aminotransferase 24 U/L (15-37); BUN/Creatinine Ratio 12.4; Bilirubin, Total 1.1 mg/dL (0.2-1.0); GFR African American 89 mL/min; GFR Non-African American 73 mL/min; Total Protein 7.9 g/dL (6.4-8.2)
[2018-06-21 21:36] LABS: Alkaline Phosphatase 54 U/L (45-117)
[2018-06-21 21:38] LABS: Carbon Dioxide 8 mmol/L (21-32); Glucose 431 mg/dL (74-106)
[2018-06-21] MEDS ORDERED: metroNIDAZOLE 500MG/100ML 100 ML IV ONE (23:00)
[2018-06-21] MEDS ORDERED: cefTRIAXone 1GM/10ml IVPUSH 10 ML IV ONE (23:00)
[2018-06-21] MEDS ORDERED: MORPHINE SULF INJ 2 MG/ML SYRINGE 1ML IV ONE (23:30)
[2018-06-21 23:55] LABS: Urine Bacteria FEW /hpf (None Seen); Urine Blood Negative /uL (Negative); Urine Hyaline Cast FEW /lpf (0 - 2); Urine Specific Gravity 1.025 (1.001-1.035); Urine WBC 12 /hpf (0 - 3)
[2018-06-22 00:09] LABS: Alcohol, Urine < 3.0 mg/dL (0-5); Amphetamine Screen, Urine NEGATIVE (NEGATIVE); Barbiturate Scree,Urine NEGATIVE (NEGATIVE); Benzodiazephine Screen, Urine NEGATIVE (NEGATIVE); Cannabinoid Screen, Urine NEGATIVE (NEGATIVE); Cocaine Screen, Urine NEGATIVE (NEGATIVE); Opiate Scree,Urine NEGATIVE (NEGATIVE); Phencyclidine Screen, Urine NEGATIVE (NEGATIVE)
[2018-06-22] MEDS ORDERED: ACETAMINOPHEN 500 MG TAB PO PRN (01:15)
[2018-06-22] MEDS ORDERED: DEXTROSE (50%) 50ML SYRG IV PRN (01:15)
[2018-06-22] MEDS ORDERED: TEMAZEPAM 15 MG CAP PO PRN (01:15)
[2018-06-22] MEDS ORDERED: PROMETHAZINE HCL 25 MG/ML 1ML ONE (01:18)
[2018-06-22] MEDS ORDERED: HYDROcodone-ACET 5/325MG TAB PO ONE (01:30)
[2018-06-22] MEDS ORDERED: PROMETHAZINE HCL 25 MG/ML 1ML IV ONE (01:30)
[2018-06-22] MEDS: ACCU-CHEK COMFORT CURVE STRIP VI SCH ×16 (01:31→22:30)
[2018-06-22] MEDS ORDERED: InsuLIN REG 1unit/0.01ml Soln (100units/ml) ONE (01:50)
[2018-06-22] MEDS: InsuLIN R (HUMAN) 100 UNITS in SODIUM CHL 0.9% 99 ML IV SCH (01:57)
[2018-06-22 02:13] LABS: Lactic Acid w/Reflex 3.7 mmol/L (0.4-2.0)
[2018-06-22 04:50] LABS: BUN/Creatinine Ratio 15.4; Calcium 7.3 mg/dL (8.5-10.1); Potassium 4.2 mmol/L (3.5-5.1)
[2018-06-22] MEDS ORDERED: SODIUM BICARBONATE 8.4% INJ 50ML SYRINGE ONE (06:23)
[2018-06-22] MEDS ORDERED: SODIUM BICARBONATE 8.4 % INJ 50ML VIAL IV ONE (06:30)
[2018-06-22 12:15] LABS: Basophils # (auto) 0.1 uL; Basophils % (auto) 0.6 % (0.0-2.0); Eosinophils # (auto) 0 uL; Eosinophils % (auto) 0.1 % (0.0-7.0); Hematocrit 44.5 % (41.0-53.0); Hemoglobin 14.7 g/dL (13.5-17.5); Lymphocytes # (auto) 1.5 uL; Lymphocytes % (auto) 12.7 % (10.0-50.0); Mean Corpuscular Hgb Conc. 33.1 g/dL (32.0-36.0); Mean Corpuscular Volume 90.7 fL (80.0-100.0); Monocytes # (auto) 0.6 uL; Monocytes % (auto) 5.2 % (0.0-12.0); Neutrophils # (auto) 9.7 uL; Neutrophils % (auto) 81.4 % (37.0-80.0); Platelet Count (auto) 166 10^3/uL (140-450); Red Cell Distribution Width 13.4 % (11.8-14.3)
[2018-06-22 12:28] LABS: Albumin 3.1 g/dL (3.4-5.0); Calcium 8.1 mg/dL (8.5-10.1); Potassium 3.8 mmol/L (3.5-5.1)
[2018-06-22 12:33] LABS: Bilirubin, Total 0.7 mg/dL (0.2-1.0); Total Protein 6.4 g/dL (6.4-8.2)
[2018-06-22] MEDS ORDERED: D5W/SOD CHL 0.45% 1,000 ML IV ONE (14:30)
[2018-06-22 14:48] LABS: BUN/Creatinine Ratio 11.5
[2018-06-22 18:35] LABS: BUN/Creatinine Ratio 13.2; Calcium 7.8 mg/dL (8.5-10.1); Potassium 3.6 mmol/L (3.5-5.1)
[2018-06-22] MEDS: MORPHINE SULF INJ 2 MG/ML SYRINGE 1ML IV PRN (18:54)
[2018-06-22] MEDS: ONDANSETRON HCL 4 MG/2 ML VIAL IV PRN (18:55)
[2018-06-22] MEDS: Glucerna Carbsteady SHAKE Vanilla 8oz PO SCH (19:19)
[2018-06-22 20:53] LABS: BUN/Creatinine Ratio 13.5; Calcium 7.7 mg/dL (8.5-10.1); Potassium 3.4 mmol/L (3.5-5.1)
[2018-06-22] MEDS: cefTRIAXone 1GM/10ml IVPUSH 10 ML IV SCH ×2 (22:00→23:39)
[2018-06-23] MEDS: ACCU-CHEK COMFORT CURVE STRIP VI SCH ×12 (01:30→21:32)
[2018-06-23] MEDS: InsuLIN R (HUMAN) 100 UNITS in SODIUM CHL 0.9% 99 ML IV SCH ×2 (01:30→11:54)
[2018-06-23 03:38] LABS: BUN/Creatinine Ratio 11.6; Calcium 7.6 mg/dL (8.5-10.1); Potassium 3.3 mmol/L (3.5-5.1)
[2018-06-23] MEDS ORDERED: SOD CHL 0.45% WITH 20MEQ KCL 1,000 ML IV SCH (04:00)
[2018-06-23] MEDS: SOD CHL 0.45% WITH 20MEQ KCL 1,000 ML IV SCH ×3 (04:18→17:35)
[2018-06-23] MEDS ORDERED: SOD CHL 0.45% WITH 20MEQ KCL 1,000 ML IV ONE (04:18)
[2018-06-23 06:54] LABS: Basophils # (auto) 0 uL; Basophils % (auto) 0.5 % (0.0-2.0); Eosinophils # (auto) 0.1 uL; Eosinophils % (auto) 0.9 % (0.0-7.0); Hematocrit 40.4 % (41.0-53.0); Hemoglobin 13.2 g/dL (13.5-17.5); Lymphocytes % (auto) 22.6 % (10.0-50.0); Mean Corpuscular Hemoglobin 29.9 pg (28.0-32.0); Mean Corpuscular Hgb Conc. 32.7 g/dL (32.0-36.0); Mean Corpuscular Volume 91.3 fL (80.0-100.0); Monocytes # (auto) 0.5 uL; Monocytes % (auto) 5.5 % (0.0-12.0); Neutrophils # (auto) 6.1 uL; Neutrophils % (auto) 70.5 % (37.0-80.0); Nucleated Red Blood Cells % 0.1 %; Red Blood Cells 4.42 10^6/uL (4.5-5.90); Red Cell Distribution Width 13.4 % (11.8-14.3); White Blood Cell 8.7 10^3/uL (4.4-10.8)
[2018-06-23 07:09] LABS: Platelet Count (auto) 126 10^3/uL (140-450)
[2018-06-23] MEDS: Glucerna Carbsteady SHAKE Vanilla 8oz PO SCH ×3 (08:00→17:56)
[2018-06-23 08:40] LABS: BUN/Creatinine Ratio 11.9; Calcium 7.5 mg/dL (8.5-10.1); Potassium 3.3 mmol/L (3.5-5.1)
[2018-06-23] MEDS ORDERED: HYDROcodone-ACET 5/325MG TAB PO PRN (11:15)
[2018-06-23] MEDS ORDERED: INSULIN LANTUS (GLARGINE) 1 /0.01ml (100units/ml) SC ONE (11:15)
[2018-06-23] MEDS ORDERED: POTASSIUM EFFERVESENT TAB 25 MEQ PO ONE (11:15)
[2018-06-23] MEDS ORDERED: DEXTROSE (50%) 50ML SYRG IV PRN (11:15)
[2018-06-23] MEDS: METOCLOPRAMIDE HCL 10 MG TAB PO SCH ×3 (12:07→21:00)
[2018-06-23] MEDS: InsuLIN REG 1unit/0.01ml Soln (100units/ml) SC SCH ×3 (12:07→21:32)
[2018-06-23] MEDS: MORPHINE SULF INJ 2 MG/ML SYRINGE 1ML IV PRN ×3 (12:10→23:34)
[2018-06-23 12:48] LABS: BUN/Creatinine Ratio 12.6; Calcium 8.3 mg/dL (8.5-10.1); Potassium 3.2 mmol/L (3.5-5.1)
[2018-06-23 12:50] LABS: Amylase 28 U/L (25-115); Lipase 56 U/L (73-393)
[2018-06-23 14:30] VITALS: BP 104/64
[2018-06-23 17:00] VITALS: BP 109/66
[2018-06-23 20:00] VITALS: BP 102/62
[2018-06-23] MEDS: PANTOPRAZOLE 40 MG TAB PO SCH (21:00)
[2018-06-23] MEDS: cefTRIAXone 1GM/10ml IVPUSH 10 ML IV SCH ×2 (21:01)
[2018-06-23 22:00] VITALS: BP 102/62
[2018-06-24] VITALS (7 sets, daily range): BP systolic 111–116; BP diastolic 63–73
[2018-06-24] MEDS: SOD CHL 0.45% WITH 20MEQ KCL 1,000 ML IV SCH ×4 (00:01→15:59)
[2018-06-24] MEDS: InsuLIN REG 1unit/0.01ml Soln (100units/ml) SC SCH ×4 (05:26→21:47)
[2018-06-24] MEDS: METOCLOPRAMIDE HCL 10 MG TAB PO SCH ×4 (05:26→21:47)
[2018-06-24] MEDS: ACCU-CHEK COMFORT CURVE STRIP VI SCH ×4 (05:26→21:47)
[2018-06-24] MEDS: MORPHINE SULF INJ 2 MG/ML SYRINGE 1ML IV PRN ×4 (05:27→21:47)
[2018-06-24] MEDS: INSULIN LANTUS (GLARGINE) 1 /0.01ml (100units/ml) SC SCH (06:36)
[2018-06-24 07:30] LABS: Basophils # (auto) 0 uL; Basophils % (auto) 0.6 % (0.0-2.0); Eosinophils # (auto) 0.2 uL; Eosinophils % (auto) 2.7 % (0.0-7.0); Hematocrit 40.4 % (41.0-53.0); Hemoglobin 13.5 g/dL (13.5-17.5); Lymphocytes % (auto) 29.3 % (10.0-50.0); Mean Corpuscular Hemoglobin 29.9 pg (28.0-32.0); Mean Corpuscular Hgb Conc. 33.3 g/dL (32.0-36.0); Mean Corpuscular Volume 89.6 fL (80.0-100.0); Monocytes # (auto) 0.4 uL; Monocytes % (auto) 6.4 % (0.0-12.0); Neutrophils # (auto) 4.2 uL; Nucleated Red Blood Cells % 0.1 %; Platelet Count (auto) 129 10^3/uL (140-450); Red Blood Cells 4.51 10^6/uL (4.5-5.90); Red Cell Distribution Width 13.3 % (11.8-14.3); White Blood Cell 6.9 10^3/uL (4.4-10.8)
[2018-06-24 07:38] LABS: Albumin 2.6 g/dL (3.4-5.0); BUN/Creatinine Ratio 6.3; Bilirubin, Total 0.5 mg/dL (0.2-1.0); Calcium 7.5 mg/dL (8.5-10.1); Potassium 3.2 mmol/L (3.5-5.1); Total Protein 5.8 g/dL (6.4-8.2)
[2018-06-24] MEDS: Glucerna Carbsteady SHAKE Vanilla 8oz PO SCH ×3 (08:25→17:58)
[2018-06-24] MEDS: PANTOPRAZOLE 40 MG TAB PO SCH ×2 (09:52→21:46)
[2018-06-24] MEDS: ONDANSETRON HCL 4 MG/2 ML VIAL IV PRN ×2 (09:52→15:59)
[2018-06-24] MEDS ORDERED: POTASSIUM EFFERVESENT TAB 25 MEQ PO ONE (11:15)
[2018-06-24] MEDS: cefTRIAXone 1GM/10ml IVPUSH 10 ML IV SCH ×2 (21:46→22:00)
[2018-06-25] VITALS (8 sets, daily range): BP systolic 106–166; BP diastolic 60–76
[2018-06-25] MEDS: MORPHINE SULF INJ 2 MG/ML SYRINGE 1ML IV PRN ×3 (02:18→16:06)
[2018-06-25] MEDS: SOD CHL 0.45% WITH 20MEQ KCL 1,000 ML IV SCH ×3 (02:55→10:45)
[2018-06-25] MEDS: ACCU-CHEK COMFORT CURVE STRIP VI SCH ×4 (05:53→21:18)
[2018-06-25] MEDS: METOCLOPRAMIDE HCL 10 MG TAB PO SCH ×4 (05:53→21:08)
[2018-06-25] MEDS: INSULIN LANTUS (GLARGINE) 1 /0.01ml (100units/ml) SC SCH (06:34)
[2018-06-25] MEDS: InsuLIN REG 1unit/0.01ml Soln (100units/ml) SC SCH ×4 (06:35→21:18)
[2018-06-25 06:43] LABS: Basophils # (auto) 0.1 uL; Basophils % (auto) 0.8 % (0.0-2.0); Eosinophils # (auto) 0.1 uL; Eosinophils % (auto) 2.1 % (0.0-7.0); Hematocrit 43.2 % (41.0-53.0); Hemoglobin 14.5 g/dL (13.5-17.5); Lymphocytes # (auto) 1.3 uL; Lymphocytes % (auto) 20.7 % (10.0-50.0); Mean Corpuscular Hemoglobin 30.5 pg (28.0-32.0); Mean Corpuscular Hgb Conc. 33.5 g/dL (32.0-36.0); Monocytes # (auto) 0.4 uL; Monocytes % (auto) 6.6 % (0.0-12.0); Neutrophils # (auto) 4.4 uL; Neutrophils % (auto) 69.8 % (37.0-80.0); Nucleated Red Blood Cells % 0.1 %; Platelet Count (auto) 118 10^3/uL (140-450); Red Blood Cells 4.75 10^6/uL (4.5-5.90); Red Cell Distribution Width 13.5 % (11.8-14.3); White Blood Cell 6.3 10^3/uL (4.4-10.8)
[2018-06-25 07:01] LABS: BUN/Creatinine Ratio 5.7; Potassium 3.8 mmol/L (3.5-5.1)
[2018-06-25] MEDS: PANTOPRAZOLE 40 MG TAB PO SCH ×2 (09:08→21:08)
[2018-06-25] MEDS: ONDANSETRON HCL 4 MG/2 ML VIAL IV PRN ×2 (09:09→16:05)
[2018-06-25] MEDS: Glucerna Carbsteady SHAKE Vanilla 8oz PO SCH ×3 (09:09→18:22)
[2018-06-25] MEDS: cefTRIAXone 1GM/10ml IVPUSH 10 ML IV SCH ×2 (22:00)
== END 2018-06-25 22:20 | disposition home or self-care (01) | DRG 48 ==
LOC: EDBD 19:49 → ER 19:55 → OVERFLOW 19:56 → TELE-WESTW 06-23 14:20 → WEST WING 06-23 14:49 → TELE-WESTW 06-23 14:50
PROVIDERS: ADMIT Nurse Practitioner Family; ATTEND Internal Medicine
DX: E11.43 Type 2 diabetes mellitus with diabetic autonomic (poly)neuropathy (principal); E87.0 Hyperosmolality and hypernatremia; R65.10 Systemic inflammatory response syndrome (SIRS) of non-infectious origin without acute organ dysfunction; E44.0 Moderate protein-calorie malnutrition; E88.09 Other disorders of plasma-protein metabolism, not elsewhere classified; E87.1 Hypo-osmolality and hyponatremia; E11.10 Type 2 diabetes mellitus with ketoacidosis without coma; K31.84 Gastroparesis; E87.6 Hypokalemia; E86.0 Dehydration; Z79.4 Long term (current) use of insulin; Z80.0 Family history of malignant neoplasm of digestive organs; Z82.61 Family history of arthritis; Z83.49 Family history of other endocrine, nutritional and metabolic diseases; Z83.2 Family history of diseases of the blood and blood-forming organs and certain disorders involving the immune mechanism; Z68.24 Body mass index [BMI] 24.0-24.9, adult
CPT/HCPCS: 36415; 36600; 74176; 80048; 80053; 80307; 81001; 82010; 82150; 82805; 82962; 83605; 83690; 84484; 85025; 87040; 87086; 93005; 96361; 96365; 96375; A6257; G0378; J0696; J1815; J2405; J3490

== ENCOUNTER 2018-07-03 15:07 | Inpatient (IN) | payer MEDICAID ==
[~2018-07-03] VITALS: Ht 200.7 cm; Wt 86.3 kg
[2018-07-03] MEDS ORDERED: SODIUM CHLORIDE 0.9% 1,000 ML IVB ONE (15:58)
[2018-07-03] MEDS ORDERED: ONDANSETRON HCL 4 MG/2 ML VIAL IV ONE ×2 (16:00→18:15)
[2018-07-03] MEDS ORDERED: SODIUM CHLORIDE 0.9% 1,000 ML IV ONE ×2 (16:00→18:15)
[2018-07-03] MEDS ORDERED: MORPHINE SULF INJ 2 MG/ML SYRINGE 1ML IV ONE (16:15)
[2018-07-03 17:01] LABS: Hematocrit 49.9 % (41.0-53.0); Hemoglobin 16.1 g/dL (13.5-17.5); Mean Corpuscular Hemoglobin 30.5 pg (28.0-32.0); Mean Corpuscular Hgb Conc. 32.3 g/dL (32.0-36.0); Mean Corpuscular Volume 94.3 fL (80.0-100.0); Platelet Count (auto) 265 10^3/uL (140-450); Red Blood Cells 5.28 10^6/uL (4.5-5.90); Red Cell Distribution Width 14.1 % (11.8-14.3); White Blood Cell 19.9 10^3/uL (4.4-10.8)
[2018-07-03 17:07] LABS: Amylase 36 U/L (25-115); Lipase 50 U/L (73-393)
[2018-07-03 17:09] LABS: Alanine Aminotransferase 31 U/L (16-61); Albumin 3.7 g/dL (3.4-5.0); Alkaline Phosphatase 57 U/L (45-117); Anion Gap 27 (5-15); Aspartate Aminotransferase 24 U/L (15-37); BUN/Creatinine Ratio 16.4; Basophils % (manual) 0 (0.0-2.0); Blast Cells 0; Blood Urea Nitrogen 25 mg/dL (7-18); Carbon Dioxide 11 mmol/L (21-32); Chloride 92 mmol/L (98-107); GFR African American 73 mL/min; GFR Non-African American 61 mL/min; Magnesium 2.3 mg/dL (1.6-2.6); Potassium 4.9 mmol/L (3.5-5.1); Promyelocytes % 0; Reactive Lymphocytes 0; Sodium 130 mmol/L (136-145); Total Protein 7.7 g/dL (6.4-8.2)
[2018-07-03 17:23] LABS: Glucose 598 mg/dL (74-106)
[2018-07-03 17:58] LABS: Band Neutrophils % (manual) 2
[2018-07-03 18:02] LABS: Eosinophils % (manual) 2 (0-7); Lymphocytes % (manual) 10 (10.0-50.0); Monocytes % (manual) 6 (0-12)
[2018-07-03 18:03] LABS: Metamyelocytes % 0; Myelocytes % 0
[2018-07-03] MEDS ORDERED: InsuLIN R (HUMAN) 100 UNITS in SODIUM CHL 0.9% 99 ML IV SCH ×2 (18:10→19:19)
[2018-07-03] MEDS ORDERED: SODIUM CHLORIDE 0.9% 1,000 ML IV SCH ×3 (18:10→23:19)
[2018-07-03] MEDS ORDERED: PANTOPRAZOLE 40 MG/10 ML VIAL IV ONE (18:15)
[2018-07-03] MEDS ORDERED: DEXTROSE (50%) 50ML SYRG IV PRN ×2 (18:15→19:30)
[2018-07-03] MEDS ORDERED: SODIUM BICARBONATE 8.4 % INJ 50ML VIAL IV ONE (19:00)
[2018-07-03] MEDS ORDERED: TEMAZEPAM 15 MG CAP PO PRN (19:30)
[2018-07-03] MEDS ORDERED: MORPHINE SULF INJ 2 MG/ML SYRINGE 1ML IV PRN (19:30)
[2018-07-03] MEDS ORDERED: NITROGLYCERIN 0.4 MG SL TAB SL PRN (19:30)
[2018-07-03] MEDS: ACCU-CHEK COMFORT CURVE STRIP VI SCH ×3 (19:45→23:00)
[2018-07-03] MEDS: FAMOTIDINE 20 MG TAB PO SCH (22:00)
[2018-07-03] MEDS: ACETAMINOPHEN 325 MG TAB PO PRN (23:14)
[2018-07-04] MEDS ORDERED: SODIUM CHLORIDE 0.9% 1,000 ML IV SCH (00:10)
[2018-07-04] MEDS: SODIUM CHLORIDE 0.9% 1,000 ML IV SCH ×5 (01:26→22:05)
[2018-07-04] MEDS: ONDANSETRON HCL 4 MG/2 ML VIAL IV PRN ×2 (01:35→10:00)
[2018-07-04] MEDS: ACCU-CHEK COMFORT CURVE STRIP VI SCH ×14 (01:46→22:31)
[2018-07-04 06:41] LABS: Basophils # (auto) 0 uL; Basophils % (auto) 0.2 % (0.0-2.0); Eosinophils # (auto) 0 uL; Hematocrit 41.6 % (41.0-53.0); Hemoglobin 13.9 g/dL (13.5-17.5); Lymphocytes # (auto) 1.9 uL; Lymphocytes % (auto) 11.3 % (10.0-50.0); Mean Corpuscular Hemoglobin 30.6 pg (28.0-32.0); Mean Corpuscular Hgb Conc. 33.4 g/dL (32.0-36.0); Mean Corpuscular Volume 91.7 fL (80.0-100.0); Monocytes # (auto) 1.4 uL; Monocytes % (auto) 8.5 % (0.0-12.0); Neutrophils # (auto) 13.2 uL; Platelet Count (auto) 206 10^3/uL (140-450); Red Blood Cells 4.54 10^6/uL (4.5-5.90); Red Cell Distribution Width 13.4 % (11.8-14.3); White Blood Cell 16.5 10^3/uL (4.4-10.8)
[2018-07-04 07:08] LABS: Albumin 2.9 g/dL (3.4-5.0); BUN/Creatinine Ratio 15.4; Bilirubin, Total 0.6 mg/dL (0.2-1.0); Calcium 7.6 mg/dL (8.5-10.1); Potassium 3.7 mmol/L (3.5-5.1); Total Protein 6.2 g/dL (6.4-8.2)
[2018-07-04] MEDS: FAMOTIDINE 20 MG TAB PO SCH (09:49)
[2018-07-04] MEDS ORDERED: SODIUM CHLORIDE 0.9% 1,000 ML IV ONE (10:55)
[2018-07-04] MEDS ORDERED: INSULIN LANTUS (GLARGINE) 1 /0.01ml (100units/ml) SC ONE (12:00)
[2018-07-04] MEDS: PANTOPRAZOLE 40 MG TAB PO SCH (12:51)
[2018-07-04 13:08] LABS: BUN/Creatinine Ratio 17.4; Calcium 7.4 mg/dL (8.5-10.1); Potassium 4.1 mmol/L (3.5-5.1)
[2018-07-04] MEDS ORDERED: DEXTROSE (50%) 50ML SYRG IV PRN ×3 (15:00→22:15)
[2018-07-04] MEDS: ACETAMINOPHEN 325 MG TAB PO PRN (15:51)
[2018-07-04] MEDS ORDERED: ACCU-CHEK COMFORT CURVE STRIP VI SCH (18:00)
[2018-07-04] MEDS ORDERED: InsuLIN REG 1unit/0.01ml Soln (100units/ml) SC SCH (18:00)
[2018-07-04] MEDS: InsuLIN R (HUMAN) 100 UNITS in SODIUM CHL 0.9% 99 ML IV SCH (18:49)
[2018-07-04 19:33] LABS: BUN/Creatinine Ratio 14.1; Calcium 7.5 mg/dL (8.5-10.1); Potassium 4.5 mmol/L (3.5-5.1)
[2018-07-04] MEDS ORDERED: INSULIN LANTUS (GLARGINE) 1 /0.01ml (100units/ml) SC SCH (22:00)
[2018-07-04] MEDS: GABAPENTIN 100 MG CAP PO SCH (22:37)
[2018-07-04] MEDS: InsuLIN REG 1unit/0.01ml Soln (100units/ml) SC SCH (22:38)
[2018-07-05] VITALS (8 sets, daily range): BP systolic 94–119; BP diastolic 44–77
[2018-07-05 01:14] LABS: Calcium 7.1 mg/dL (8.5-10.1); Potassium 3.7 mmol/L (3.5-5.1)
[2018-07-05] MEDS ORDERED: DEXTROSE (50%) 50ML SYRG IV PRN ×3 (02:00→15:00)
[2018-07-05] MEDS: ACETAMINOPHEN 325 MG TAB PO PRN (03:37)
[2018-07-05] MEDS: ACCU-CHEK COMFORT CURVE STRIP VI SCH ×5 (03:37→21:32)
[2018-07-05] MEDS: InsuLIN REG 1unit/0.01ml Soln (100units/ml) SC SCH ×5 (03:37→16:23)
[2018-07-05] MEDS ORDERED: ACCU-CHEK COMFORT CURVE STRIP VI SCH ×3 (04:00→06:00)
[2018-07-05] MEDS: SODIUM CHLORIDE 0.9% 1,000 ML IV SCH (04:08)
[2018-07-05] MEDS ORDERED: InsuLIN REG 1unit/0.01ml Soln (100units/ml) SC SCH ×4 (06:00→22:00)
[2018-07-05 06:38] LABS: Basophils # (auto) 0 uL; Basophils % (auto) 0.3 % (0.0-2.0); Eosinophils # (auto) 0 uL; Eosinophils % (auto) 0.4 % (0.0-7.0); Hematocrit 35.4 % (41.0-53.0); Hemoglobin 11.7 g/dL (13.5-17.5); Lymphocytes # (auto) 1.7 uL; Lymphocytes % (auto) 15.4 % (10.0-50.0); Mean Corpuscular Hemoglobin 30.7 pg (28.0-32.0); Mean Corpuscular Hgb Conc. 33.2 g/dL (32.0-36.0); Mean Corpuscular Volume 92.5 fL (80.0-100.0); Monocytes # (auto) 0.6 uL; Monocytes % (auto) 5.1 % (0.0-12.0); Neutrophils # (auto) 8.8 uL; Neutrophils % (auto) 78.8 % (37.0-80.0); Platelet Count (auto) 174 10^3/uL (140-450); Red Blood Cells 3.83 10^6/uL (4.5-5.90); Red Cell Distribution Width 13.9 % (11.8-14.3); White Blood Cell 11.2 10^3/uL (4.4-10.8)
[2018-07-05 06:58] LABS: BUN/Creatinine Ratio 15.6; Calcium 7.1 mg/dL (8.5-10.1); Phosphorus 1.1 mg/dL (2.5-4.90); Potassium 3.4 mmol/L (3.5-5.1)
[2018-07-05] MEDS ORDERED: POTASSIUM PHOSPHATE 44 MEQ in D5W 5% 250 ML IV ONE (08:30)
[2018-07-05] MEDS ORDERED: SODIUM CHLORIDE 0.9% 1,000 ML IV SCH ×2 (08:30→15:00)
[2018-07-05] MEDS: GABAPENTIN 100 MG CAP PO SCH ×2 (08:47→21:31)
[2018-07-05] MEDS: PANTOPRAZOLE 40 MG TAB PO SCH (08:47)
[2018-07-05] MEDS: MORPHINE SULF INJ 2 MG/ML SYRINGE 1ML IV PRN ×2 (12:43→18:10)
[2018-07-05 13:32] LABS: BUN/Creatinine Ratio 15.1; Potassium 3.7 mmol/L (3.5-5.1)
[2018-07-06] MEDS: MORPHINE SULF INJ 2 MG/ML SYRINGE 1ML IV PRN ×2 (00:05→04:02)
[2018-07-06 05:00] VITALS: BP 111/67
[2018-07-06] MEDS: InsuLIN REG 1unit/0.01ml Soln (100units/ml) SC SCH (06:18)
[2018-07-06] MEDS: ACCU-CHEK COMFORT CURVE STRIP VI SCH (06:18)
[2018-07-06 06:30] LABS: Basophils # (auto) 0.1 uL; Basophils % (auto) 0.7 % (0.0-2.0); Eosinophils # (auto) 0.1 uL; Eosinophils % (auto) 0.7 % (0.0-7.0); Hematocrit 41.3 % (41.0-53.0); Hemoglobin 13.6 g/dL (13.5-17.5); Lymphocytes # (auto) 1.5 uL; Lymphocytes % (auto) 12.2 % (10.0-50.0); Mean Corpuscular Hemoglobin 30.2 pg (28.0-32.0); Mean Corpuscular Volume 91.4 fL (80.0-100.0); Monocytes # (auto) 0.4 uL; Monocytes % (auto) 3.2 % (0.0-12.0); Neutrophils # (auto) 10.2 uL; Neutrophils % (auto) 83.2 % (37.0-80.0); Platelet Count (auto) 156 10^3/uL (140-450); Red Blood Cells 4.51 10^6/uL (4.5-5.90); Red Cell Distribution Width 13.5 % (11.8-14.3); White Blood Cell 12.2 10^3/uL (4.4-10.8)
[2018-07-06 06:46] LABS: BUN/Creatinine Ratio 7.5; Calcium 7.3 mg/dL (8.5-10.1); Potassium 3.8 mmol/L (3.5-5.1)
[2018-07-06 09:00] VITALS: BP 101/62
[2018-07-06] MEDS ORDERED: POTASSIUM CHL 20 Meq TABLET PO SCH (10:00)
== END 2018-07-06 10:05 | disposition home or self-care (01) | DRG 420 ==
LOC: ER 15:07 → EDBD 15:07 → OVERFLOW 15:08 → TELE-EAST 07-05 02:13
PROVIDERS: ADMIT Nurse Practitioner; ATTEND Internal Medicine
DX: E11.10 Type 2 diabetes mellitus with ketoacidosis without coma (principal); N17.0 Acute kidney failure with tubular necrosis; R65.11 Systemic inflammatory response syndrome (SIRS) of non-infectious origin with acute organ dysfunction; E87.2 Acidosis; E86.0 Dehydration; E11.40 Type 2 diabetes mellitus with diabetic neuropathy, unspecified; Z80.1 Family history of malignant neoplasm of trachea, bronchus and lung; Z79.4 Long term (current) use of insulin; Z80.3 Family history of malignant neoplasm of breast; Z80.42 Family history of malignant neoplasm of prostate; Z80.8 Family history of malignant neoplasm of other organs or systems; Z81.8 Family history of other mental and behavioral disorders; Z82.0 Family history of epilepsy and other diseases of the nervous system; Z82.3 Family history of stroke; Z82.49 Family history of ischemic heart disease and other diseases of the circulatory system; Z82.5 Family history of asthma and other chronic lower respiratory diseases; Z82.62 Family history of osteoporosis; Z83.3 Family history of diabetes mellitus; Z91.14 Patient's other noncompliance with medication regimen; Z91.19 Patient's noncompliance with other medical treatment and regimen
CPT/HCPCS: 36415; 36600; 71045; 80048; 80053; 82010; 82150; 82805; 82962; 83690; 83735; 83930; 84100; 84484; 85007; 85025; 85027; 87081; 93005; 94761; 96361; 96365; 96375; 96376; C9113; J1815; J2405; J7060

== ENCOUNTER 2018-07-07 03:33 | Inpatient (IN) | payer MEDICAID ==
[~2018-07-07] VITALS: Ht 185.4 cm; Wt 97.1 kg
[2018-07-07 05:24] LABS: Basophils # (auto) 0 uL; Basophils % (auto) 0.3 % (0.0-2.0); Eosinophils # (auto) 0 uL; Eosinophils % (auto) 0.2 % (0.0-7.0); Hematocrit 41.5 % (41.0-53.0); Hemoglobin 13.5 g/dL (13.5-17.5); Lymphocytes # (auto) 0.9 uL; Lymphocytes % (auto) 6.8 % (10.0-50.0); Mean Corpuscular Hemoglobin 30.2 pg (28.0-32.0); Mean Corpuscular Hgb Conc. 32.4 g/dL (32.0-36.0); Mean Corpuscular Volume 93.2 fL (80.0-100.0); Monocytes # (auto) 0.4 uL; Neutrophils # (auto) 12.2 uL; Neutrophils % (auto) 89.7 % (37.0-80.0); Nucleated Red Blood Cells % 0.1 %; Platelet Count (auto) 185 10^3/uL (140-450); Red Blood Cells 4.45 10^6/uL (4.5-5.90); Red Cell Distribution Width 14.5 % (11.8-14.3); White Blood Cell 13.6 10^3/uL (4.4-10.8)
[2018-07-07] MEDS ORDERED: SODIUM CHLORIDE 0.9% 2,000 ML IV ONE (05:30)
[2018-07-07] MEDS ORDERED: InsuLIN REG 1unit/0.01ml Soln (100units/ml) IV ONE (05:30)
[2018-07-07 05:39] LABS: INR 0.97 (0.9-1.15); Partial Thromboplastin Time 22.9 sec (23.78-33.04); Prothrombin Time 10.4 sec (9.27-12.13)
[2018-07-07] MEDS ORDERED: NOREPINEPHRINE 8 MG/250ML KIT 250 ML IV SCH (05:45)
[2018-07-07 05:46] LABS: Albumin 2.7 g/dL (3.4-5.0); BUN/Creatinine Ratio 7.1; Bilirubin, Total 0.8 mg/dL (0.2-1.0); Calcium 7.7 mg/dL (8.5-10.1); Potassium 4.3 mmol/L (3.5-5.1); Total Protein 6.1 g/dL (6.4-8.2)
[2018-07-07] MEDS ORDERED: SODIUM BICARBONATE 8.4% INJ 50ML SYRINGE ONE (05:59)
[2018-07-07] MEDS ORDERED: SODIUM BICARBONATE 8.4 % INJ 50ML VIAL IV ONE (06:00)
[2018-07-07] MEDS ORDERED: InsuLIN R (HUMAN) 100 UNITS in SODIUM CHL 0.9% 99 ML IV SCH ×2 (06:05→13:28)
[2018-07-07] MEDS ORDERED: SODIUM CHLORIDE 0.9% 1,000 ML IV SCH ×2 (06:05→17:28)
[2018-07-07] MEDS: SOD CHL 0.9%/ KCL 20MEQ 1,000 ML IV SCH ×3 (06:05→20:01)
[2018-07-07] MEDS ORDERED: DEXTROSE (50%) 50ML SYRG IV PRN (06:15)
[2018-07-07 06:16] LABS: Lactic Acid w/Reflex 2.5 mmol/L (0.4-2.0)
[2018-07-07] MEDS ORDERED: InsuLIN REG 1unit/0.01ml Soln (100units/ml) ONE (06:22)
[2018-07-07] MEDS ORDERED: SODIUM CHLORIDE 0.9% 1,000 ML IV ONE (06:30)
[2018-07-07] MEDS: ACCU-CHEK COMFORT CURVE STRIP VI SCH ×11 (06:59→22:30)
[2018-07-07] MEDS ORDERED: MORPHINE SULF INJ 2 MG/ML SYRINGE 1ML IV ONE (08:00)
[2018-07-07] MEDS ORDERED: ONDANSETRON HCL 4 MG/2 ML VIAL IV ONE ×2 (08:00→13:30)
[2018-07-07] MEDS: SODIUM CHLORIDE 0.9% 1,000 ML IV SCH ×5 (12:12→19:40)
[2018-07-07] MEDS ORDERED: D5W/SOD CHLO 0.9% 1,000 ML IV ONE (12:30)
[2018-07-07 12:50] LABS: Urine Bacteria NONE SEEN /hpf (None Seen); Urine Blood Negative /uL (Negative); Urine Specific Gravity 1.015 (1.001-1.035); Urine WBC 5 /hpf (0 - 3)
[2018-07-07 13:20] LABS: BUN/Creatinine Ratio 6.9; Calcium 6.8 mg/dL (8.5-10.1); Potassium 3.8 mmol/L (3.5-5.1)
[2018-07-07] MEDS ORDERED: ACCU-CHEK COMFORT CURVE STRIP VI SCH (13:30)
[2018-07-07] MEDS ORDERED: MORPHINE SULFATE 4 MG/ML SYR/VIAL IV ONE (13:30)
[2018-07-07] MEDS ORDERED: LORazepam 0.5 MG TAB PO PRN (13:30)
[2018-07-07] MEDS ORDERED: NITROGLYCERIN 0.4 MG SL TAB SL PRN (13:30)
[2018-07-07] MEDS ORDERED: MORPHINE SULF INJ 2 MG/ML SYRINGE 1ML IV PRN (13:30)
[2018-07-07] MEDS ORDERED: TEMAZEPAM 15 MG CAP PO PRN (13:30)
[2018-07-07] MEDS ORDERED: ACETAMINOPHEN 500 MG TAB PO PRN (13:30)
[2018-07-07] MEDS ORDERED: traMADol HCL 50 MG TAB PO PRN (13:30)
[2018-07-07] MEDS ORDERED: FAMOTIDINE (10MG/ML) 2ML VL IV ONE (14:00)
[2018-07-07] MEDS: ONDANSETRON HCL 4 MG/2 ML VIAL IV PRN (17:33)
[2018-07-07] MEDS ORDERED: cefTRIAXone 1GM/10ml IVPUSH 10 ML IV ONE (18:00)
[2018-07-07 19:27] LABS: BUN/Creatinine Ratio 6.3; Calcium 6.5 mg/dL (8.5-10.1); Potassium 3.5 mmol/L (3.5-5.1)
[2018-07-07] MEDS: NALBUPHINE HCL 10 MG/1ml INJECTION IV PRN (21:34)
[2018-07-07 23:57] LABS: BUN/Creatinine Ratio 6.8; Potassium 3.4 mmol/L (3.5-5.1)
[2018-07-08] MEDS: ONDANSETRON HCL 4 MG/2 ML VIAL IV PRN ×2 (01:11→08:11)
[2018-07-08] MEDS: ACCU-CHEK COMFORT CURVE STRIP VI SCH ×9 (01:27→20:45)
[2018-07-08] MEDS: NALBUPHINE HCL 10 MG/1ml INJECTION IV PRN ×4 (01:27→20:41)
[2018-07-08] MEDS: SODIUM CHLORIDE 0.9% 1,000 ML IV SCH ×5 (03:00→23:45)
[2018-07-08] MEDS: SOD CHL 0.9%/ KCL 20MEQ 1,000 ML IV SCH ×2 (03:31→09:23)
[2018-07-08] MEDS ORDERED: DEXTROSE (50%) 50ML SYRG IV PRN (07:45)
[2018-07-08] MEDS: InsuLIN REG 1unit/0.01ml Soln (100units/ml) SC SCH ×4 (08:10→20:45)
[2018-07-08] MEDS ORDERED: cefTRIAXone 1GM/10ml IVPUSH 10 ML IV SCH (09:00)
[2018-07-08 09:02] LABS: BUN/Creatinine Ratio 4.7; Calcium 6.7 mg/dL (8.5-10.1); Potassium 3.7 mmol/L (3.5-5.1)
[2018-07-08] MEDS: FAMOTIDINE (10MG/ML) 2ML VL IV SCH (10:12)
[2018-07-08] MEDS ORDERED: INSULIN LANTUS (GLARGINE) 1 /0.01ml (100units/ml) SC ONE (12:30)
[2018-07-08] MEDS ORDERED: MAGNESIUM SULFATE 1GM/100ML 100 ML IV ONE (13:45)
[2018-07-08 17:00] VITALS: BP 143/87
[2018-07-08 17:42] VITALS: BP 143/87
[2018-07-08 18:47] LABS: BUN/Creatinine Ratio 4.7; Calcium 7.2 mg/dL (8.5-10.1); Potassium 3.5 mmol/L (3.5-5.1)
[2018-07-08 20:00] VITALS: BP 126/76
[2018-07-08 22:00] VITALS: BP 126/76
[2018-07-08] MEDS: INSULIN LANTUS (GLARGINE) 1 /0.01ml (100units/ml) SC SCH (22:05)
[2018-07-09] MEDS: ACCU-CHEK COMFORT CURVE STRIP VI SCH ×6 (00:36→21:34)
[2018-07-09] MEDS: NALBUPHINE HCL 10 MG/1ml INJECTION IV PRN ×3 (01:24→10:04)
[2018-07-09] MEDS: InsuLIN REG 1unit/0.01ml Soln (100units/ml) SC SCH ×6 (04:00→21:33)
[2018-07-09 05:00] VITALS: BP 116/76
[2018-07-09] MEDS: INSULIN LANTUS (GLARGINE) 1 /0.01ml (100units/ml) SC SCH ×2 (06:11→21:34)
[2018-07-09 08:00] VITALS: BP 117/66
[2018-07-09 09:00] VITALS: BP 117/66
[2018-07-09] MEDS: SODIUM CHLORIDE 0.9% 1,000 ML IV SCH ×2 (09:45→12:45)
[2018-07-09] MEDS: FAMOTIDINE (10MG/ML) 2ML VL IV SCH (10:03)
[2018-07-09] MEDS: ONDANSETRON HCL 4 MG/2 ML VIAL IV PRN (10:03)
[2018-07-09 10:06] LABS: Basophils # (auto) 0 uL; Basophils % (auto) 0.7 % (0.0-2.0); Eosinophils # (auto) 0.2 uL; Eosinophils % (auto) 2.8 % (0.0-7.0); Hematocrit 37.2 % (41.0-53.0); Hemoglobin 12.3 g/dL (13.5-17.5); Lymphocytes # (auto) 1.6 uL; Lymphocytes % (auto) 29.4 % (10.0-50.0); Mean Corpuscular Hemoglobin 30.3 pg (28.0-32.0); Mean Corpuscular Hgb Conc. 33.2 g/dL (32.0-36.0); Mean Corpuscular Volume 91.1 fL (80.0-100.0); Monocytes # (auto) 0.2 uL; Neutrophils # (auto) 3.5 uL; Neutrophils % (auto) 63.1 % (37.0-80.0); Nucleated Red Blood Cells % 0.2 %; Platelet Count (auto) 147 10^3/uL (140-450); Red Blood Cells 4.08 10^6/uL (4.5-5.90); Red Cell Distribution Width 14.3 % (11.8-14.3); White Blood Cell 5.6 10^3/uL (4.4-10.8)
[2018-07-09 10:24] LABS: BUN/Creatinine Ratio 2.5; Calcium 6.8 mg/dL (8.5-10.1); Magnesium 1.8 mg/dL (1.6-2.6)
[2018-07-09] MEDS ORDERED: POTASSIUM CHL 20 Meq TABLET PO ONE (11:15)
[2018-07-09] MEDS ORDERED: MAGNESIUM SULFATE 1GM/100ML 100 ML IV ONE (12:00)
[2018-07-09] MEDS ORDERED: DEXTROSE (50%) 50ML SYRG IV PRN (12:15)
[2018-07-09 13:00] VITALS: BP 120/70
[2018-07-09] MEDS: HYDROcodone-ACET 5/325MG TAB PO PRN ×2 (16:15→21:35)
[2018-07-09 17:00] VITALS: BP 111/61
[2018-07-09 22:00] VITALS: BP 113/73
[2018-07-10] MEDS ORDERED: KETOROLAC TROMETH 30 MG/ML 1ML VIAL IV ONE (02:30)
[2018-07-10] MEDS: SODIUM CHLORIDE 0.9% 1,000 ML IV SCH (02:35)
[2018-07-10 05:11] VITALS: BP 116/73
[2018-07-10 06:26] LABS: BUN/Creatinine Ratio 3.1
[2018-07-10] MEDS: InsuLIN REG 1unit/0.01ml Soln (100units/ml) SC SCH ×3 (06:40→17:00)
[2018-07-10] MEDS: ACCU-CHEK COMFORT CURVE STRIP VI SCH ×3 (06:40→17:00)
[2018-07-10] MEDS: INSULIN LANTUS (GLARGINE) 1 /0.01ml (100units/ml) SC SCH (06:40)
[2018-07-10] MEDS: HYDROcodone-ACET 5/325MG TAB PO PRN (06:41)
[2018-07-10 07:30] VITALS: BP 108/72
[2018-07-10] MEDS: FAMOTIDINE (10MG/ML) 2ML VL IV SCH (10:17)
[2018-07-10] MEDS ORDERED: POTASSIUM CHL 20 Meq TABLET PO ONE (10:45)
[2018-07-10 11:42] VITALS: BP 117/63
[2018-07-10 16:43] VITALS: BP 132/76
== END 2018-07-10 19:00 | disposition home or self-care (01) | DRG 420 ==
LOC: EDBD 03:33 → ER 03:41 → TELE 03:42 → TELE-WESTW 07-08 16:59
PROVIDERS: ADMIT Internal Medicine; ATTEND Internal Medicine
DX: E10.10 Type 1 diabetes mellitus with ketoacidosis without coma (principal); R65.10 Systemic inflammatory response syndrome (SIRS) of non-infectious origin without acute organ dysfunction; E44.0 Moderate protein-calorie malnutrition; K76.0 Fatty (change of) liver, not elsewhere classified; B37.49 Other urogenital candidiasis; E86.0 Dehydration; N39.0 Urinary tract infection, site not specified; E87.6 Hypokalemia; I12.9 Hypertensive chronic kidney disease with stage 1 through stage 4 chronic kidney disease, or unspecified chronic kidney disease; Z79.4 Long term (current) use of insulin; Z91.19 Patient's noncompliance with other medical treatment and regimen; Z68.28 Body mass index [BMI] 28.0-28.9, adult; Z80.1 Family history of malignant neoplasm of trachea, bronchus and lung; Z80.8 Family history of malignant neoplasm of other organs or systems; Z80.42 Family history of malignant neoplasm of prostate; Z80.3 Family history of malignant neoplasm of breast; Z81.8 Family history of other mental and behavioral disorders; Z82.0 Family history of epilepsy and other diseases of the nervous system; Z82.3 Family history of stroke; Z82.49 Family history of ischemic heart disease and other diseases of the circulatory system; Z82.62 Family history of osteoporosis; Z83.3 Family history of diabetes mellitus; Z91.11 Patient's noncompliance with dietary regimen; Z82.5 Family history of asthma and other chronic lower respiratory diseases
CPT/HCPCS: 36415; 36600; 71045; 80048; 80053; 81001; 82010; 82150; 82805; 82962; 83605; 83690; 83735; 83930; 84100; 85025; 85610; 85730; 87040; 87081; 87086; 93005; 96361; 96374; 96375; 96376; 99291; J0696; J1815; J1885; J2405; J3490; J7042

== ENCOUNTER 2018-08-09 09:11 | Inpatient (IN) | payer MEDICAID ==
[~2018-08-09] VITALS: Ht 172.7 cm; Wt 83.7 kg
[2018-08-09 10:10] LABS: Eosinophils # (auto) 0 uL; Mean Corpuscular Hgb Conc. 31.3 g/dL (32.0-36.0); Monocytes # (auto) 0.6 uL; White Blood Cell 19.5 10^3/uL (4.4-10.8)
[2018-08-09 10:12] LABS: Basophils # (auto) 0.1 uL; Basophils % (auto) 0.3 % (0.0-2.0); Hematocrit 53.2 % (41.0-53.0); Hemoglobin 16.6 g/dL (13.5-17.5); Lymphocytes % (auto) 5.1 % (10.0-50.0); Mean Corpuscular Hemoglobin 30.2 pg (28.0-32.0); Mean Corpuscular Volume 96.4 fL (80.0-100.0); Monocytes % (auto) 3.1 % (0.0-12.0); Neutrophils # (auto) 17.8 uL; Neutrophils % (auto) 91.5 % (37.0-80.0); Platelet Count (auto) 191 10^3/uL (140-450); Red Blood Cells 5.52 10^6/uL (4.5-5.90); Red Cell Distribution Width 14.6 % (11.8-14.3)
[2018-08-09] MEDS ORDERED: ONDANSETRON HCL 4 MG/2 ML VIAL IV ONE (10:15)
[2018-08-09] MEDS ORDERED: InsuLIN REG 1unit/0.01ml Soln (100units/ml) IV ONE (10:15)
[2018-08-09] MEDS ORDERED: SODIUM CHLORIDE 0.9% 1,000 ML IV ONE ×3 (10:15→11:15)
[2018-08-09] MEDS ORDERED: MORPHINE SULFATE 4 MG/ML SYR/VIAL IV ONE (10:15)
[2018-08-09 10:36] LABS: Alanine Aminotransferase 62 U/L (16-61); Alkaline Phosphatase 65 U/L (45-117); Aspartate Aminotransferase 44 U/L (15-37); BUN/Creatinine Ratio 14.6; Bilirubin, Total 1.2 mg/dL (0.2-1.0); Blood Urea Nitrogen 24 mg/dL (7-18); GFR African American 67 mL/min; GFR Non-African American 56 mL/min; Total Protein 8.5 g/dL (6.4-8.2)
[2018-08-09 10:43] LABS: Anion Gap 27 (5-15); Chloride 96 mmol/L (98-107); Sodium 131 mmol/L (136-145)
[2018-08-09 10:44] LABS: Albumin 4.2 g/dL (3.4-5.0); Calcium 8.5 mg/dL (8.5-10.1)
[2018-08-09 10:49] LABS: Carbon Dioxide 8 mmol/L (21-32); Glucose 562 mg/dL (74-106); Potassium 5.7 mmol/L (3.5-5.1)
[2018-08-09] MEDS ORDERED: CALCIUM CHL 100MG/ML 1,000 MG in D5W 5% 100 ML IV ONE (11:00)
[2018-08-09] MEDS ORDERED: SODIUM BICARBONATE 8.4 % INJ 50ML VIAL IV ONE (11:00)
[2018-08-09] MEDS ORDERED: DEXTROSE (50%) 50ML SYRG IV ONE (11:00)
[2018-08-09] MEDS ORDERED: InsuLIN R (HUMAN) 100 UNITS in SODIUM CHL 0.9% 99 ML IV SCH (11:13)
[2018-08-09] MEDS ORDERED: DEXTROSE (50%) 50ML SYRG IV PRN ×2 (11:15→14:15)
[2018-08-09] MEDS: ACCU-CHEK COMFORT CURVE STRIP VI SCH ×9 (12:04→23:56)
[2018-08-09 12:24] LABS: Urine Bacteria NONE SEEN /hpf (None Seen); Urine Blood Negative /uL (Negative); Urine Specific Gravity 1.023 (1.001-1.035); Urine WBC 4 /hpf (0 - 3)
[2018-08-09 12:46] LABS: Lactic Acid w/Reflex 3.1 mmol/L (0.4-2.0)
[2018-08-09] MEDS ORDERED: cefTRIAXone 1GM/50ML D5W 50 ML IV ONE ×2 (14:00→14:15)
[2018-08-09] MEDS ORDERED: TEMAZEPAM 15 MG CAP PO PRN (14:15)
[2018-08-09] MEDS ORDERED: ACETAMINOPHEN 500 MG TAB PO PRN (14:15)
[2018-08-09] MEDS ORDERED: NITROGLYCERIN 0.4 MG SL TAB SL PRN (14:15)
[2018-08-09] MEDS ORDERED: ONDANSETRON HCL 4 MG/2 ML VIAL IV PRN (14:15)
[2018-08-09] MEDS: FAMOTIDINE (10MG/ML) 2ML VL IV SCH (14:36)
[2018-08-09] MEDS ORDERED: SODIUM CHLORIDE 0.9% 1,000 ML IV SCH (15:13)
[2018-08-09] MEDS: InsuLIN R (HUMAN) 100 UNITS in SODIUM CHL 0.9% 99 ML IV SCH ×3 (15:18→21:11)
[2018-08-09] MEDS: MORPHINE SULFATE 4 MG/ML SYR/VIAL IV PRN (15:21)
[2018-08-09 17:07] LABS: BUN/Creatinine Ratio 14.9; Calcium 8.4 mg/dL (8.5-10.1); Potassium 4.1 mmol/L (3.5-5.1)
[2018-08-09 17:09] LABS: Lactic Acid w/Reflex 2.1 mmol/L (0.4-2.0)
[2018-08-09] MEDS: traMADol HCL 50 MG TAB PO PRN (17:49)
[2018-08-09] MEDS: SODIUM CHLORIDE 0.9% 1,000 ML IV SCH ×3 (18:27→22:36)
[2018-08-09] MEDS ORDERED: VANCOMYCIN PER PHARMACY 0 MG IV SCH (19:00)
[2018-08-09] MEDS ORDERED: PIPERACILLIN-TAZO 4.5GM 100 ML IV ONE (19:00)
[2018-08-09] MEDS: LORazepam 0.5 MG TAB PO PRN (20:17)
[2018-08-09] MEDS: VANCOMYCIN 1GM/250ML 250 ML IV SCH (20:25)
[2018-08-09 20:43] LABS: BUN/Creatinine Ratio 15.6; Calcium 7.4 mg/dL (8.5-10.1); Potassium 3.7 mmol/L (3.5-5.1)
[2018-08-10] MEDS: ACCU-CHEK COMFORT CURVE STRIP VI SCH ×7 (01:31→20:30)
[2018-08-10] MEDS: InsuLIN R (HUMAN) 100 UNITS in SODIUM CHL 0.9% 99 ML IV SCH (01:33)
[2018-08-10] MEDS: FAMOTIDINE (10MG/ML) 2ML VL IV SCH ×2 (02:16→14:02)
[2018-08-10] MEDS: SODIUM CHLORIDE 0.9% 1,000 ML IV SCH ×3 (02:16→13:15)
[2018-08-10 02:38] LABS: Basophils # (auto) 0.2 uL; Basophils % (auto) 1.2 % (0.0-2.0); Eosinophils # (auto) 0.1 uL; Eosinophils % (auto) 0.4 % (0.0-7.0); Hematocrit 40.2 % (41.0-53.0); Hemoglobin 13.3 g/dL (13.5-17.5); Lymphocytes # (auto) 2.1 uL; Lymphocytes % (auto) 13.9 % (10.0-50.0); Mean Corpuscular Hemoglobin 29.9 pg (28.0-32.0); Mean Corpuscular Volume 90.5 fL (80.0-100.0); Monocytes % (auto) 6.5 % (0.0-12.0); Neutrophils # (auto) 11.9 uL; Nucleated Red Blood Cells % 0.1 %; Platelet Count (auto) 158 10^3/uL (140-450); Red Blood Cells 4.45 10^6/uL (4.5-5.90); Red Cell Distribution Width 14.4 % (11.8-14.3); White Blood Cell 15.2 10^3/uL (4.4-10.8)
[2018-08-10 02:51] LABS: BUN/Creatinine Ratio 16.8; Calcium 7.3 mg/dL (8.5-10.1); Potassium 3.5 mmol/L (3.5-5.1)
[2018-08-10 02:54] LABS: Bilirubin, Total 0.7 mg/dL (0.2-1.0); Total Protein 6.1 g/dL (6.4-8.2)
[2018-08-10] MEDS ORDERED: DEXTROSE (50%) 50ML SYRG IV PRN (03:15)
[2018-08-10] MEDS: InsuLIN REG 1unit/0.01ml Soln (100units/ml) SC SCH ×5 (04:00→20:40)
[2018-08-10] MEDS: VANCOMYCIN 1GM/250ML 250 ML IV SCH (08:37)
[2018-08-10] MEDS: cefTRIAXone 1GM/50ML D5W 50 ML IV SCH (08:42)
[2018-08-10] MEDS: MORPHINE SULFATE 4 MG/ML SYR/VIAL IV PRN (09:56)
[2018-08-10 10:40] VITALS: BP 117/58
[2018-08-10 13:00] VITALS: BP 117/58
[2018-08-10 13:39] LABS: BUN/Creatinine Ratio 14.6; Calcium 7.8 mg/dL (8.5-10.1); Potassium 3.7 mmol/L (3.5-5.1)
[2018-08-10 17:00] VITALS: BP 118/58
[2018-08-10 22:00] VITALS: BP 111/64
[2018-08-10] MEDS: traMADol HCL 50 MG TAB PO PRN (22:57)
[2018-08-11] MEDS: InsuLIN REG 1unit/0.01ml Soln (100units/ml) SC SCH ×6 (00:05→20:35)
[2018-08-11] MEDS: SODIUM CHLORIDE 0.9% 1,000 ML IV SCH ×3 (00:06→22:05)
[2018-08-11] MEDS: ACCU-CHEK COMFORT CURVE STRIP VI SCH ×6 (00:06→20:23)
[2018-08-11] MEDS: FAMOTIDINE (10MG/ML) 2ML VL IV SCH ×2 (02:45→14:26)
[2018-08-11] MEDS: LORazepam 0.5 MG TAB PO PRN ×3 (03:03→20:22)
[2018-08-11 06:00] VITALS: BP 118/68
[2018-08-11 08:15] VITALS: BP 113/54
[2018-08-11] MEDS: cefTRIAXone 1GM/50ML D5W 50 ML IV SCH (09:22)
[2018-08-11 12:42] VITALS: BP 115/81
[2018-08-11] MEDS ORDERED: GABAPENTIN 100 MG CAP PO ONE (13:15)
[2018-08-11] MEDS: traMADol HCL 50 MG TAB PO PRN ×2 (14:08→22:05)
[2018-08-11 17:17] VITALS: BP 130/78
[2018-08-11] MEDS ORDERED: INSULIN LANTUS (GLARGINE) 1 /0.01ml (100units/ml) SC SCH (18:00)
[2018-08-11 22:00] VITALS: BP 141/80
[2018-08-12] MEDS: ACCU-CHEK COMFORT CURVE STRIP VI SCH ×5 (00:08→16:00)
[2018-08-12] MEDS: InsuLIN REG 1unit/0.01ml Soln (100units/ml) SC SCH ×5 (00:08→16:00)
[2018-08-12] MEDS: FAMOTIDINE (10MG/ML) 2ML VL IV SCH ×2 (02:15→12:50)
[2018-08-12] MEDS: LORazepam 0.5 MG TAB PO PRN (03:27)
[2018-08-12] MEDS: traMADol HCL 50 MG TAB PO PRN ×2 (04:09→10:49)
[2018-08-12 04:59] VITALS: BP 112/65
[2018-08-12] MEDS: SODIUM CHLORIDE 0.9% 1,000 ML IV SCH ×2 (06:32→15:15)
[2018-08-12] MEDS ORDERED: INSULIN LANTUS (GLARGINE) 1 /0.01ml (100units/ml) SC SCH (07:00)
[2018-08-12 08:32] VITALS: BP 112/66
[2018-08-12] MEDS: cefTRIAXone 1GM/50ML D5W 50 ML IV SCH (09:27)
[2018-08-12 11:45] VITALS: BP 125/82
[2018-08-12 15:01] VITALS: BP 125/82
== END 2018-08-12 16:52 | disposition home or self-care (01) | DRG 720 ==
LOC: ER 09:11 → EDBD 09:11 → OVERFLOW 09:12 → TELE-WESTW 08-10 10:40
PROVIDERS: ADMIT Internal Medicine; ATTEND Internal Medicine Pulmonary Disease
DX: A41.9 Sepsis, unspecified organism (principal); E10.10 Type 1 diabetes mellitus with ketoacidosis without coma; E10.22 Type 1 diabetes mellitus with diabetic chronic kidney disease; E87.5 Hyperkalemia; N13.30 Unspecified hydronephrosis; E86.0 Dehydration; R33.9 Retention of urine, unspecified; N39.0 Urinary tract infection, site not specified; K76.0 Fatty (change of) liver, not elsewhere classified; H91.90 Unspecified hearing loss, unspecified ear; I12.9 Hypertensive chronic kidney disease with stage 1 through stage 4 chronic kidney disease, or unspecified chronic kidney disease; Z80.0 Family history of malignant neoplasm of digestive organs; Z80.1 Family history of malignant neoplasm of trachea, bronchus and lung; Z80.3 Family history of malignant neoplasm of breast; Z80.42 Family history of malignant neoplasm of prostate; Z80.8 Family history of malignant neoplasm of other organs or systems; Z81.8 Family history of other mental and behavioral disorders; Z82.0 Family history of epilepsy and other diseases of the nervous system; Z82.3 Family history of stroke; Z82.49 Family history of ischemic heart disease and other diseases of the circulatory system; Z82.5 Family history of asthma and other chronic lower respiratory diseases; Z82.62 Family history of osteoporosis; Z83.3 Family history of diabetes mellitus; Z91.19 Patient's noncompliance with other medical treatment and regimen
CPT/HCPCS: 36415; 36600; 71045; 74176; 76775; 80048; 80053; 81001; 82010; 82150; 82805; 82962; 83036; 83605; 83690; 84484; 85025; 87040; 87081; 87086; 96361; 96365; 96375; G0378; J0696; J1815; J2405; J2543; J3490; J7060

== ENCOUNTER 2018-08-17 13:15 | Inpatient (IN) | payer MEDICAID ==
[~2018-08-17] VITALS: Ht 193 cm; Wt 84.8 kg
[2018-08-17 15:34] LABS: Hematocrit 52.7 % (41.0-53.0); Hemoglobin 15.8 g/dL (13.5-17.5); Mean Corpuscular Hemoglobin 30.3 pg (28.0-32.0); Mean Corpuscular Hgb Conc. 29.9 g/dL (32.0-36.0); Mean Corpuscular Volume 101.2 fL (80.0-100.0); Platelet Count (auto) 187 10^3/uL (140-450); Red Blood Cells 5.21 10^6/uL (4.5-5.90); Red Cell Distribution Width 14.9 % (11.8-14.3); White Blood Cell 17.9 10^3/uL (4.4-10.8)
[2018-08-17 15:37] LABS: Albumin 3.9 g/dL (3.4-5.0); BUN/Creatinine Ratio 14.3; Basophils % (manual) 0 (0.0-2.0); Blast Cells 0; Eosinophils % (manual) 0 (0-7); Promyelocytes % 0; Reactive Lymphocytes 0
[2018-08-17 15:45] LABS: Bilirubin, Total 1.2 mg/dL (0.2-1.0)
[2018-08-17 15:48] LABS: Potassium 6.1 mmol/L (3.5-5.1)
[2018-08-17] MEDS ORDERED: SODIUM CHLORIDE 0.9% 1,000 ML IV ONE ×2 (15:50→17:15)
[2018-08-17] MEDS ORDERED: METOCLOPRAMIDE HCL 5MG/ml INJ 2ml VIAL IV ONE (16:00)
[2018-08-17] MEDS ORDERED: SODIUM CHLORIDE 0.9% 2,000 ML IV ONE (16:00)
[2018-08-17 16:35] LABS: Band Neutrophils % (manual) 7; Lymphocytes % (manual) 12 (10.0-50.0); Metamyelocytes % 4; Monocytes % (manual) 9 (0-12); Myelocytes % 2
[2018-08-17] MEDS ORDERED: DEXTROSE (50%) 50ML SYRG IV PRN (17:15)
[2018-08-17] MEDS ORDERED: InsuLIN REG 1unit/0.01ml Soln (100units/ml) IV ONE (17:15)
[2018-08-17] MEDS: InsuLIN R (HUMAN) 100 UNITS in SODIUM CHL 0.9% 99 ML IV SCH ×2 (17:19→17:47)
[2018-08-17] MEDS ORDERED: POTASSIUM CHL 10MEQ/100ML 300 ML IV PRN (17:45)
[2018-08-17] MEDS ORDERED: MORPHINE SULFATE 4 MG/ML SYR/VIAL IV PRN (17:45)
[2018-08-17] MEDS ORDERED: LACTULOSE 20Gm/30ML SOLN PO PRN (17:45)
[2018-08-17] MEDS ORDERED: NITROGLYCERIN 0.4 MG SL TAB SL PRN (17:45)
[2018-08-17] MEDS: ACCU-CHEK COMFORT CURVE STRIP VI SCH ×4 (17:48→22:30)
[2018-08-17] MEDS: SODIUM CHLORIDE 0.9% 1,000 ML IV SCH ×3 (17:48→23:34)
[2018-08-17] MEDS ORDERED: ACCU-CHEK COMFORT CURVE STRIP VI SCH (18:00)
[2018-08-17] MEDS: FAMOTIDINE (10MG/ML) 2ML VL IV SCH (18:07)
[2018-08-17 18:48] LABS: BUN/Creatinine Ratio 16.5; Calcium 7.4 mg/dL (8.5-10.1); Potassium 4.9 mmol/L (3.5-5.1)
[2018-08-17 18:51] LABS: Amylase 51 U/L (25-115); Lipase 507 U/L (73-393)
[2018-08-17] MEDS ORDERED: InsuLIN R (HUMAN) 100 UNITS in SODIUM CHL 0.9% 99 ML IV SCH (19:08)
[2018-08-17] MEDS ORDERED: SODIUM CHLORIDE 0.9% 1,000 ML IV SCH (21:32)
[2018-08-18 00:11] LABS: BUN/Creatinine Ratio 15.2; Calcium 7.4 mg/dL (8.5-10.1); Potassium 3.8 mmol/L (3.5-5.1)
[2018-08-18] MEDS ORDERED: HYDROcodone-ACET 10/325MG TAB PO ONE (00:30)
[2018-08-18] MEDS: ACCU-CHEK COMFORT CURVE STRIP VI SCH ×10 (01:43→21:46)
[2018-08-18] MEDS ORDERED: ONDANSETRON HCL 4 MG/2 ML VIAL IV ONE (04:15)
[2018-08-18] MEDS ORDERED: MORPHINE SULFATE 4 MG/ML SYR/VIAL IV ONE ×3 (04:15→23:45)
[2018-08-18] MEDS ORDERED: SODIUM CHLORIDE 0.9% 1,000 ML IV ONE (05:15)
[2018-08-18] MEDS: SODIUM CHLORIDE 0.9% 1,000 ML IV SCH (06:41)
[2018-08-18] MEDS: FAMOTIDINE (10MG/ML) 2ML VL IV SCH ×2 (06:45→17:20)
[2018-08-18 07:26] LABS: Albumin 2.5 g/dL (3.4-5.0); Calcium 6.8 mg/dL (8.5-10.1); Potassium 3.6 mmol/L (3.5-5.1)
[2018-08-18 07:30] LABS: BUN/Creatinine Ratio 18.6; Bilirubin, Total 0.5 mg/dL (0.2-1.0); Total Protein 5.3 g/dL (6.4-8.2)
[2018-08-18 07:43] LABS: Basophils # (auto) 0 uL; Basophils % (auto) 0.3 % (0.0-2.0); Eosinophils # (auto) 0 uL; Eosinophils % (auto) 0.2 % (0.0-7.0); Hematocrit 37.7 % (41.0-53.0); Hemoglobin 12.2 g/dL (13.5-17.5); Lymphocytes # (auto) 2.1 uL; Lymphocytes % (auto) 13.8 % (10.0-50.0); Mean Corpuscular Hemoglobin 29.9 pg (28.0-32.0); Mean Corpuscular Hgb Conc. 32.3 g/dL (32.0-36.0); Mean Corpuscular Volume 92.5 fL (80.0-100.0); Monocytes # (auto) 1.4 uL; Monocytes % (auto) 9.2 % (0.0-12.0); Neutrophils # (auto) 11.9 uL; Neutrophils % (auto) 76.5 % (37.0-80.0); Nucleated Red Blood Cells % 0.1 %; Platelet Count (auto) 177 10^3/uL (140-450); Red Blood Cells 4.08 10^6/uL (4.5-5.90); Red Cell Distribution Width 13.9 % (11.8-14.3); White Blood Cell 15.5 10^3/uL (4.4-10.8)
[2018-08-18] MEDS ORDERED: INSULIN LANTUS (GLARGINE) 1 /0.01ml (100units/ml) SC ONE (09:00)
[2018-08-18] MEDS: SOD CHL 0.9%/ KCL 20MEQ 1,000 ML IV SCH ×2 (09:45→17:36)
[2018-08-18] MEDS ORDERED: DEXTROSE (50%) 50ML SYRG IV PRN (10:00)
[2018-08-18] MEDS: ENOXAPARIN SOD 40 MG/0.4 ML SYRINGE SC SCH (10:37)
[2018-08-18] MEDS: InsuLIN REG 1unit/0.01ml Soln (100units/ml) SC SCH ×2 (11:30→17:36)
[2018-08-18 13:00] VITALS: BP 115/74
[2018-08-18 16:59] VITALS: BP 103/61
[2018-08-18 21:36] VITALS: BP 110/70
[2018-08-18] MEDS ORDERED: INSULIN LANTUS (GLARGINE) 1 /0.01ml (100units/ml) SC SCH (22:00)
[2018-08-18] MEDS ORDERED: InsuLIN REG 1unit/0.01ml Soln (100units/ml) SC SCH (22:00)
[2018-08-19] MEDS: ACETAMINOPHEN 500 MG TAB PO PRN ×2 (03:30→10:19)
[2018-08-19] MEDS: SOD CHL 0.9%/ KCL 20MEQ 1,000 ML IV SCH ×2 (03:46→15:00)
[2018-08-19 04:42] VITALS: BP 107/63
[2018-08-19] MEDS: FAMOTIDINE (10MG/ML) 2ML VL IV SCH (06:11)
[2018-08-19] MEDS: InsuLIN REG 1unit/0.01ml Soln (100units/ml) SC SCH ×2 (06:11→12:41)
[2018-08-19] MEDS: ACCU-CHEK COMFORT CURVE STRIP VI SCH ×2 (06:12→11:30)
[2018-08-19 08:00] VITALS: BP 115/74
[2018-08-19 09:00] VITALS: BP 115/74
[2018-08-19] MEDS: ENOXAPARIN SOD 40 MG/0.4 ML SYRINGE SC SCH (10:00)
[2018-08-19 13:00] VITALS: BP 103/56
[2018-08-19] MEDS ORDERED: GABA100C9 PO (13:10)
== END 2018-08-19 16:47 | disposition home or self-care (01) | DRG 420 ==
LOC: EDBD 13:15 → ER 13:15 → OVERFLOW 17:32 → TELE-EAST 08-18 13:09
PROVIDERS: ADMIT Internal Medicine; ATTEND Internal Medicine
DX: E11.10 Type 2 diabetes mellitus with ketoacidosis without coma (principal); N17.0 Acute kidney failure with tubular necrosis; F11.20 Opioid dependence, uncomplicated; E87.5 Hyperkalemia; K76.0 Fatty (change of) liver, not elsewhere classified; N18.3 Chronic kidney disease, stage 3 (moderate); E87.1 Hypo-osmolality and hyponatremia; E11.22 Type 2 diabetes mellitus with diabetic chronic kidney disease; E11.40 Type 2 diabetes mellitus with diabetic neuropathy, unspecified; D72.829 Elevated white blood cell count, unspecified; F41.9 Anxiety disorder, unspecified; G89.29 Other chronic pain; H91.90 Unspecified hearing loss, unspecified ear; R62.50 Unspecified lack of expected normal physiological development in childhood; Z79.4 Long term (current) use of insulin; Z80.0 Family history of malignant neoplasm of digestive organs; Z80.1 Family history of malignant neoplasm of trachea, bronchus and lung; Z80.3 Family history of malignant neoplasm of breast; Z80.8 Family history of malignant neoplasm of other organs or systems; Z81.8 Family history of other mental and behavioral disorders; Z80.42 Family history of malignant neoplasm of prostate; Z82.0 Family history of epilepsy and other diseases of the nervous system; Z82.49 Family history of ischemic heart disease and other diseases of the circulatory system; Z82.5 Family history of asthma and other chronic lower respiratory diseases; Z82.62 Family history of osteoporosis; Z83.3 Family history of diabetes mellitus; Z82.3 Family history of stroke; Z91.19 Patient's noncompliance with other medical treatment and regimen
CPT/HCPCS: 36415; 36600; 71045; 80048; 80053; 82150; 82805; 82962; 83690; 83735; 84100; 84443; 85007; 85025; 85027; 87081; 93005; 96361; 96374; 96375; 99291; G0378; J1815; J2405; J3490

== ENCOUNTER 2018-11-28 16:22 | Inpatient (IN) | payer MEDICAID | END 2018-11-30 19:30 | disposition home or self-care (01) | LOC: TELE-WESTW 11-30 13:22 → ER 16:22 → OVERFLOW 18:11 | DX: E10.10 Type 1 diabetes mellitus with ketoacidosis without coma (principal); Z79.4 Long term (current) use of insulin ==

== ENCOUNTER 2018-12-05 17:12 | Inpatient (IN) | payer MEDICAID | END 2018-12-13 16:50 | disposition home health service (06) | LOC: TELE 12-06 03:17 → TELE-EAST 12-10 18:34 → ICU WEST 12-09 23:48 → ER 17:12 | PROC: 5A1945Z Respiratory Ventilation, 24-96 Consecutive Hours (ICD-10-PCS; principal; ~2018-12-05) | PROC: 0BH17EZ Insertion of Endotracheal Airway into Trachea, Via Natural or Artificial Opening (ICD-10-PCS; ~2018-12-05) | DX: N17.0 Acute kidney failure with tubular necrosis (principal); J96.01 Acute respiratory failure with hypoxia; R57.1 Hypovolemic shock; E10.10 Type 1 diabetes mellitus with ketoacidosis without coma; K92.0 Hematemesis; E10.22 Type 1 diabetes mellitus with diabetic chronic kidney disease; D62 Acute posthemorrhagic anemia; N18.3 Chronic kidney disease, stage 3 (moderate); E83.39 Other disorders of phosphorus metabolism; E87.0 Hyperosmolality and hypernatremia; E87.6 Hypokalemia ==

== ENCOUNTER 2019-03-22 13:34 | Inpatient (IN) | payer MEDICAID ==
[~2019-03-22] VITALS: Ht 185.4 cm; Wt 90.5 kg
[~2019-03-22 13:34] MED LIST changes: -GAB100C PO; -INSLANTI SC; -INSLISPI SC; +INSU100I4 SC; +INSU1INJ19 SC
[2019-03-22] MEDS ORDERED: SODIUM CHLORIDE 0.9% 1,000 ML IVB ONE ×2 (14:07→18:01)
[2019-03-22] MEDS ORDERED: HYDROmorphone HCL 2 MG/ML VL IV ONE ×2 (14:15→19:45)
[2019-03-22] MEDS: PROMETHAZINE HCL 25 MG/ML 1ML IV PRN ×2 (14:59→20:32)
[2019-03-22 15:21] LABS: Basophils # (auto) 0 uL; Basophils % (auto) 0.1 % (0.0-2.0); Eosinophils # (auto) 0 uL; Eosinophils % (auto) 0.1 % (0.0-7.0); Hematocrit 52.8 % (41.0-53.0); Hemoglobin 17.5 g/dL (13.5-17.5); Lymphocytes # (auto) 1.3 uL; Mean Corpuscular Hemoglobin 29.9 pg (28.0-32.0); Mean Corpuscular Hgb Conc. 33.2 g/dL (32.0-36.0); Monocytes # (auto) 0.8 uL; Monocytes % (auto) 6.2 % (0.0-12.0); Neutrophils # (auto) 11.1 uL; Neutrophils % (auto) 83.6 % (37.0-80.0); Nucleated Red Blood Cells % 0.1 %; Platelet Count (auto) 226 10^3/uL (140-450); Red Blood Cells 5.87 10^6/uL (4.5-5.90); White Blood Cell 13.2 10^3/uL (4.4-10.8)
[2019-03-22 15:41] LABS: Albumin 4.1 g/dL (3.4-5.0); Calcium 9.4 mg/dL (8.5-10.1); Magnesium 2.1 mg/dL (1.6-2.6); Potassium 3.6 mmol/L (3.5-5.1)
[2019-03-22 15:45] LABS: BUN/Creatinine Ratio 13.5; Bilirubin, Total 1.1 mg/dL (0.2-1.0); Total Protein 8.6 g/dL (6.4-8.2)
[2019-03-22] MEDS ORDERED: SODIUM CHLORIDE 0.9% 1,000 ML IV ONE (17:45)
[2019-03-22] MEDS ORDERED: ONDANSETRON HCL 4 MG/2 ML VIAL IV ONE (19:45)
[2019-03-22 22:10] LABS: BUN/Creatinine Ratio 14.6; Potassium 3.8 mmol/L (3.5-5.1)
[2019-03-22 22:11] LABS: Calcium 7.7 mg/dL (8.5-10.1)
[2019-03-23] MEDS ORDERED: DEXTROSE (50%) 50ML SYRG IV PRN ×2 (00:15→11:30)
[2019-03-23] MEDS ORDERED: ACETAMINOPHEN 500 MG TAB PO PRN (00:15)
[2019-03-23] MEDS ORDERED: SODIUM CHLORIDE 0.9% 1,000 ML IV SCH (01:00)
[2019-03-23] MEDS: MORPHINE SULF INJ 2 MG/ML SYRINGE 1ML IV PRN ×5 (01:36→23:27)
[2019-03-23 01:55] LABS: Urine Bacteria FEW /hpf (None Seen); Urine Blood Negative /uL (Negative); Urine Hyaline Cast MANY /lpf (0 - 2); Urine Mucus FEW (None Seen); Urine Specific Gravity 1.023 (1.001-1.035); Urine WBC 78 /hpf (0 - 3)
[2019-03-23] MEDS ORDERED: InsuLIN REG 1unit/0.01ml Soln (100units/ml) SC SCH ×2 (06:00→22:00)
[2019-03-23] MEDS ORDERED: metroNIDAZOLE 500MG/100ML 100 ML IV SCH (06:00)
[2019-03-23] MEDS ORDERED: ACCU-CHEK COMFORT CURVE STRIP VI SCH (06:00)
[2019-03-23] MEDS ORDERED: PROMETHAZINE HCL 25 MG/ML 1ML ONE (07:25)
[2019-03-23] MEDS: PROMETHAZINE HCL 25 MG/ML 1ML IV PRN (07:29)
--- NOTE | 2019-03-23 08:49 | NUR ---
MS admit from ER FOTU,ARIAN admitted to tele/MS. Patient oriented to MARK BYNUM RN primary RN, unit, room 275B, bed, and unit policies regarding patient care and visiting hours. Patient weighed by bedscale and encouraged to call if they need something. All questions and concerns addressed, patient verbalized understanding. Bed in low and locked position, rails up x2, no-slips socks on.
[2019-03-23] MEDS: cefTRIAXone 1GM/50ML D5W 50 ML IV SCH (09:28)
[2019-03-23] MEDS ORDERED: FAMOTIDINE (10MG/ML) 2ML VL IV SCH (10:00)
[2019-03-23] MEDS: ACCU-CHEK COMFORT CURVE STRIP VI SCH ×3 (11:42→21:39)
[2019-03-23] MEDS: SODIUM CHLORIDE 0.9% 1,000 ML IV SCH ×2 (11:42→18:49)
[2019-03-23] MEDS: InsuLIN REG 1unit/0.01ml Soln (100units/ml) SC SCH ×2 (11:53→17:53)
--- NOTE | 2019-03-23 12:05 | NUR ---
DR PATEL AT BEDSIDE NEW ORDERS ADDED, WILL CARRY OUT
[2019-03-23 13:06] VITALS: BP 99/66
[2019-03-23 17:05] VITALS: BP 109/68
[2019-03-23] MEDS: INSULIN LANTUS (GLARGINE) 1 /0.01ml (100units/ml) SC SCH (17:52)
--- NOTE | 2019-03-23 19:30 | NUR ---
Opening Shift Note Assumed care of patient, awake and alert. No S/S of distress/SOB or pain. Insructed on POC and to callfor assist PRN, will continue to monitor for changes Q1hr and PRN. Fall and safety precautions in place. Call light within reach.
[2019-03-23] MEDS: FAMOTIDINE 20 MG TAB PO SCH (21:08)
[2019-03-23 21:50] VITALS: BP 104/57
[2019-03-23] MEDS ORDERED: INSULIN LANTUS (GLARGINE) 1 /0.01ml (100units/ml) SC SCH (22:00)
--- NOTE | 2019-03-23 23:19 | NUR ---
CHEST PAIN Pt complaining of chest pain/upper abdominal pain 05/31. Vitals at this time are BP 118/70, HR 98, O2 94% on room air. EKG done at this time, showing "normal sinus rhythm HR 92bpm." Pt medicated with PRN medications (see emar). EKG placed in chart. Will continue to monitor
[2019-03-23] MEDS: ONDANSETRON HCL 4 MG/2 ML VIAL IV PRN (23:27)
[2019-03-24] MEDS: SODIUM CHLORIDE 0.9% 1,000 ML IV SCH ×2 (03:54→12:14)
[2019-03-24 05:03] VITALS: BP 106/59
[2019-03-24 05:19] LABS: Basophils # (auto) 0 uL; Basophils % (auto) 0.5 % (0.0-2.0); Eosinophils # (auto) 0.1 uL; Eosinophils % (auto) 1.2 % (0.0-7.0); Hematocrit 39.9 % (41.0-53.0); Hemoglobin 13.4 g/dL (13.5-17.5); Lymphocytes # (auto) 1.7 uL; Lymphocytes % (auto) 28.7 % (10.0-50.0); Mean Corpuscular Hgb Conc. 33.6 g/dL (32.0-36.0); Mean Corpuscular Volume 89.4 fL (80.0-100.0); Monocytes # (auto) 0.5 uL; Monocytes % (auto) 7.6 % (0.0-12.0); Neutrophils # (auto) 3.7 uL; Nucleated Red Blood Cells % 0.1 %; Platelet Count (auto) 144 10^3/uL (140-450); Red Blood Cells 4.47 10^6/uL (4.5-5.90); Red Cell Distribution Width 12.8 % (11.8-14.3)
[2019-03-24] MEDS: MORPHINE SULF INJ 2 MG/ML SYRINGE 1ML IV PRN ×2 (05:54→12:37)
[2019-03-24] MEDS: ONDANSETRON HCL 4 MG/2 ML VIAL IV PRN (05:54)
[2019-03-24] MEDS: ACCU-CHEK COMFORT CURVE STRIP VI SCH ×3 (05:54→17:00)
[2019-03-24] MEDS: InsuLIN REG 1unit/0.01ml Soln (100units/ml) SC SCH ×3 (05:55→17:00)
--- NOTE | 2019-03-24 08:10 | NUR ---
PT RESTING IN BED NO DISTRESS NOTED. PT BLOOD SUGAR 243, LANTUS GIVEN. PT DENIES ANY PAIN AT THIS TIME AND WAS INSTRUCTED TO USE CALL LIGHT PRN.
[2019-03-24] MEDS: cefTRIAXone 1GM/50ML D5W 50 ML IV SCH (08:24)
[2019-03-24] MEDS: INSULIN LANTUS (GLARGINE) 1 /0.01ml (100units/ml) SC SCH (08:24)
[2019-03-24] MEDS: FAMOTIDINE 20 MG TAB PO SCH (08:24)
[2019-03-24 09:00] VITALS: BP 117/74
--- NOTE | 2019-03-24 12:35 | NUR ---
Otilio ROMO APPLIED TO [facility], PT REPORTS 7/10 PAIN IN UPPER BODY, WILL GIVE PRN PAIN MEDICATION.
[2019-03-24] MEDS ORDERED: INSU1INJ19 SC (15:02)
--- NOTE | 2019-03-24 15:24 | NUR ---
SPOKE WITH DR. PATEL, PT IS DISCHARGED, WOUND PHOTOS TAKEN AND PT UPDATED ON POC.
[2019-03-24 17:11] VITALS: BP 116/72
--- NOTE | 2019-03-24 17:15 | NUR ---
PT REPORTS HE HAS NO CLOTHES AND IS WAITING ON A FAMILY MEMBER TO BRING CLOTHES AND PICK HIM UP.
[2019-03-24] MEDS ORDERED: INSULIN LANTUS (GLARGINE) 1 /0.01ml (100units/ml) SC SCH (18:00)
--- NOTE | 2019-03-24 19:18 | NUR ---
PT STILL WAITING ON FAMILY FOR A RIDE, CHECK TOTALER AWARE. IV DC'D, PT ID BANDS CUT, AND DISCHARGE PAPERWORK SIGNED.
--- NOTE | 2019-03-24 19:30 | NUR ---
Opening Shift Note Assumed care of patient, awake and alert. No S/S of distress/SOB or pain. Insructed on POC and to callfor assist PRN, will continue to monitor for changes Q1hr and PRN. Pt awaiting family member to come pick him up. IV access was DC'd by day shift RN. Fall and safety precautions in place. Call light within reach. Discharge MRSA swab of nares obtained and sent to lab via bullet.
--- NOTE | 2019-03-24 21:07 | NUR ---
Discharge instructions given as ordered. Encourage to follow up with PMD as instructed. All questions and concerns addressed. Patient verbalized understanding. Medication reconciliation form completed and copy given to patient. IV removed by day shift RN. Patient ambulated to vehicle with all personal belongings, accompanied by staff and family member. No distress noted at time of departure.
[2019-07-09] MEDS ORDERED: INSU100I4 SC (14:21)
[2019-07-09] MEDS ORDERED: INSU1INJ19 SC (14:21)
== END 2019-03-24 21:07 | disposition home or self-care (01) | DRG 420 ==
LOC: EDBD 13:34 → ER 13:37 → TELE 23:03 → WEST WING 03-23 09:12
PROVIDERS: ADMIT Nurse Practitioner Family; ATTEND Hospitalist
DX: E11.10 Type 2 diabetes mellitus with ketoacidosis without coma (principal); K31.84 Gastroparesis; E11.65 Type 2 diabetes mellitus with hyperglycemia; D72.829 Elevated white blood cell count, unspecified; E11.43 Type 2 diabetes mellitus with diabetic autonomic (poly)neuropathy; Z79.4 Long term (current) use of insulin; Z80.1 Family history of malignant neoplasm of trachea, bronchus and lung; Z80.3 Family history of malignant neoplasm of breast; Z80.42 Family history of malignant neoplasm of prostate; Z80.8 Family history of malignant neoplasm of other organs or systems; Z81.8 Family history of other mental and behavioral disorders; Z82.0 Family history of epilepsy and other diseases of the nervous system; Z82.3 Family history of stroke; Z82.49 Family history of ischemic heart disease and other diseases of the circulatory system; Z82.5 Family history of asthma and other chronic lower respiratory diseases; Z82.62 Family history of osteoporosis; Z83.3 Family history of diabetes mellitus
CPT/HCPCS: 36415; 74176; 80048; 80053; 81001; 82010; 82962; 83690; 83735; 85025; 87081; 93005; 96361; 96365; 96375; 96376; G0378; J0696; J1815; J2405; J3490

== ENCOUNTER 2019-06-25 20:14 | Inpatient (IN) | payer MEDICAID | END 2019-06-27 18:25 | disposition home or self-care (01) | LOC: TELE 20:15 → TELE-WESTW 06-26 03:15 → ER 20:14 | DX: E10.10 Type 1 diabetes mellitus with ketoacidosis without coma (principal); N17.0 Acute kidney failure with tubular necrosis; D72.829 Elevated white blood cell count, unspecified; E86.0 Dehydration; R56.9 Unspecified convulsions; Z79.4 Long term (current) use of insulin; Z91.14 Patient's other noncompliance with medication regimen; Z91.19 Patient's noncompliance with other medical treatment and regimen ==

== ENCOUNTER 2020-02-07 09:00 | Inpatient (IN) | payer MEDICAID ==
[~2020-02-07] VITALS: Ht 193 cm; Wt 85.0 kg
[~2020-02-07 09:00] MED LIST changes: +FLUC200T35 PO
[2020-02-07] MEDS ORDERED: SODIUM CHLORIDE 0.9% 1,000 ML IV ONE (09:12)
[2020-02-07 09:45] LABS: Basophils # (auto) 0.1 10 ^3/uL (0-0.2); Eosinophils # (auto) 0 10 ^3/uL (0-0.8); Lymphocytes % (auto) 8.1 % (10.0-50.0); Monocytes # (auto) 0.7 10 ^3/uL (0-1.3)
[2020-02-07 09:47] LABS: Basophils % (auto) 0.7 % (0.0-2.0); Hematocrit 53.2 % (41.0-53.0); Lymphocytes # (auto) 1.5 10 ^3/uL (0.4-5.4); Mean Corpuscular Hemoglobin 30.5 pg (28.0-32.0); Mean Corpuscular Volume 95.4 fL (80.0-100.0); Monocytes % (auto) 3.9 % (0.0-12.0); Neutrophils # (auto) 16.7 10 ^3/uL (1.6-8.6); Neutrophils % (auto) 87.3 % (37.0-80.0); Nucleated Red Blood Cells % 0.1 %; Platelet Count (auto) 187 10^3/uL (140-450); Red Blood Cells 5.58 10^6/uL (4.5-5.90); White Blood Cell 19.1 10^3/uL (4.4-10.8)
[2020-02-07] MEDS ORDERED: ONDANSETRON HCL 4 MG/2 ML VIAL IV ONE (10:00)
[2020-02-07] MEDS ORDERED: MORPHINE SULFATE 10 MG/ML INJ 1ML SDV IV ONE (10:00)
[2020-02-07] MEDS ORDERED: ONDANSETRON HCL 4 MG/2 ML VIAL ONE (10:03)
[2020-02-07] MEDS ORDERED: MORPHINE SULFATE 4 MG/ML SYR/VIAL ONE (10:03)
[2020-02-07 10:04] LABS: Albumin 4.2 g/dL (3.4-5.0); Calcium 8.6 mg/dL (8.5-10.1); Magnesium 2.5 mg/dL (1.6-2.6); Potassium 5.4 mmol/L (3.5-5.1)
[2020-02-07 10:13] LABS: BUN/Creatinine Ratio 12.3; Bilirubin, Total 0.7 mg/dL (0.2-1.0); Total Protein 8.4 g/dL (6.4-8.2)
[2020-02-07 12:40] LABS: Urine Bacteria NONE SEEN /hpf (None Seen); Urine Blood Negative /uL (Negative); Urine Mucus FEW (None Seen); Urine WBC 2 /hpf (0 - 3)
[2020-02-07] MEDS ORDERED: InsuLIN R (HUMAN) 100 UNITS in SODIUM CHL 0.9% 99 ML IV SCH ×2 (12:41→14:03)
[2020-02-07] MEDS ORDERED: SODIUM CHLORIDE 0.9% 1,000 ML IV SCH ×4 (12:41→18:41)
[2020-02-07] MEDS ORDERED: DEXTROSE (50%) 50ML SYRG IV PRN ×2 (12:45→14:15)
[2020-02-07] MEDS ORDERED: INSULIN LANTUS (GLARGINE) 1 /0.01ml (100units/ml) SC ONE ×2 (12:45→14:15)
[2020-02-07 13:26] LABS: Basophils # (auto) 0.1 10 ^3/uL (0-0.2); Basophils % (auto) 0.8 % (0.0-2.0); Eosinophils # (auto) 0 10 ^3/uL (0-0.8); Hematocrit 48.7 % (41.0-53.0); Hemoglobin 15.6 g/dL (13.5-17.5); Lymphocytes # (auto) 1.6 10 ^3/uL (0.4-5.4); Lymphocytes % (auto) 9.4 % (10.0-50.0); Mean Corpuscular Hemoglobin 30.2 pg (28.0-32.0); Mean Corpuscular Hgb Conc. 32.1 g/dL (32.0-36.0); Mean Corpuscular Volume 94.1 fL (80.0-100.0); Monocytes # (auto) 0.7 10 ^3/uL (0-1.3); Monocytes % (auto) 4.4 % (0.0-12.0); Neutrophils # (auto) 14.5 10 ^3/uL (1.6-8.6); Neutrophils % (auto) 85.4 % (37.0-80.0); Nucleated Red Blood Cells % 0.1 %; Platelet Count (auto) 161 10^3/uL (140-450); Red Blood Cells 5.18 10^6/uL (4.5-5.90); Red Cell Distribution Width 13.6 % (11.8-14.3)
[2020-02-07] MEDS ORDERED: ACCU-CHEK COMFORT CURVE STRIP VI SCH (13:30)
[2020-02-07] MEDS ORDERED: NITROGLYCERIN 0.4 MG SL TAB SL PRN (13:45)
[2020-02-07] MEDS ORDERED: MORPHINE SULF INJ 2 MG/ML SYRINGE 1ML IV PRN ×3 (13:45→14:15)
[2020-02-07 13:58] LABS: BUN/Creatinine Ratio 14.7; Calcium 7.6 mg/dL (8.5-10.1); Magnesium 2.2 mg/dL (1.6-2.6); Phosphorus 5.2 mg/dL (2.5-4.90); Potassium 5.3 mmol/L (3.5-5.1)
[2020-02-07] MEDS: FAMOTIDINE (10MG/ML) 2ML VL IV SCH (14:15)
[2020-02-07] MEDS ORDERED: cefTRIAXone 1GM/50ML D5W 50 ML IV ONE (14:15)
[2020-02-07] MEDS ORDERED: PROMETHAZINE HCL 25 MG/ML 1ML IV PRN (14:15)
[2020-02-07] MEDS ORDERED: SODIUM BICARBONATE 8.4 % INJ 50ML VIAL IV ONE (14:30)
[2020-02-07] MEDS: SODIUM BICARBONATE 50ML VIAL 50 ML in SOD CHL 0.45% 1,000 ML IV SCH (14:45)
[2020-02-07] MEDS: ACCU-CHEK COMFORT CURVE STRIP VI SCH ×7 (14:57→23:56)
[2020-02-07] MEDS: SODIUM CHLORIDE 0.9% 1,000 ML IV SCH ×3 (16:03→20:29)
[2020-02-07 18:54] LABS: BUN/Creatinine Ratio 13.1; Calcium 7.3 mg/dL (8.5-10.1); Potassium 4.1 mmol/L (3.5-5.1)
[2020-02-07] MEDS: INSULIN LANTUS (GLARGINE) 1 /0.01ml (100units/ml) SC SCH (22:00)
[2020-02-07] MEDS: metroNIDAZOLE 500MG/100ML 100 ML IV SCH (22:00)
[2020-02-07] MEDS ORDERED: ONDANSETRON HCL 4 MG/2 ML VIAL IV PRN (23:15)
[2020-02-08 01:17] LABS: Anion Gap 17 (5-15); BUN/Creatinine Ratio 12.7; Blood Urea Nitrogen 16 mg/dL (7-18); Calcium 7.4 mg/dL (8.5-10.1); Carbon Dioxide 10 mmol/L (21-32); Chloride 117 mmol/L (98-107); GFR African American 90 mL/min; GFR Non-African American 75 mL/min; Glucose 111 mg/dL (74-106); Potassium 4.2 mmol/L (3.5-5.1); Sodium 144 mmol/L (136-145)
[2020-02-08] MEDS: ACCU-CHEK COMFORT CURVE STRIP VI SCH ×8 (01:30→16:00)
[2020-02-08] MEDS: FAMOTIDINE (10MG/ML) 2ML VL IV SCH ×2 (02:15→14:15)
[2020-02-08] MEDS: SODIUM CHLORIDE 0.9% 1,000 ML IV SCH ×2 (03:09→10:56)
[2020-02-08] MEDS: metroNIDAZOLE 500MG/100ML 100 ML IV SCH (05:59)
[2020-02-08 07:01] LABS: Basophils # (auto) 0 10 ^3/uL (0-0.2); Basophils % (auto) 0.2 % (0.0-2.0); Eosinophils # (auto) 0 10 ^3/uL (0-0.8); Eosinophils % (auto) 0.3 % (0.0-7.0); Hemoglobin 14.1 g/dL (13.5-17.5); Lymphocytes # (auto) 0.9 10 ^3/uL (0.4-5.4); Lymphocytes % (auto) 10.6 % (10.0-50.0); Mean Corpuscular Hemoglobin 30.3 pg (28.0-32.0); Mean Corpuscular Hgb Conc. 33.6 g/dL (32.0-36.0); Mean Corpuscular Volume 90.3 fL (80.0-100.0); Monocytes # (auto) 0.6 10 ^3/uL (0-1.3); Monocytes % (auto) 6.9 % (0.0-12.0); Neutrophils # (auto) 7.2 10 ^3/uL (1.6-8.6); Nucleated Red Blood Cells % 0.1 %; Platelet Count (auto) 143 10^3/uL (140-450); Red Blood Cells 4.65 10^6/uL (4.5-5.90); Red Cell Distribution Width 13.7 % (11.8-14.3); White Blood Cell 8.7 10^3/uL (4.4-10.8)
[2020-02-08 07:26] LABS: Albumin 2.7 g/dL (3.4-5.0); Potassium 3.4 mmol/L (3.5-5.1)
[2020-02-08 07:30] LABS: BUN/Creatinine Ratio 12.9; Bilirubin, Total 0.4 mg/dL (0.2-1.0); Total Protein 6.1 g/dL (6.4-8.2)
[2020-02-08] MEDS ORDERED: DEXTROSE (50%) 50ML SYRG IV PRN (07:45)
[2020-02-08] MEDS: InsuLIN REG 1unit/0.01ml Soln (100units/ml) SC SCH ×3 (08:34→16:00)
[2020-02-08] MEDS ORDERED: cefTRIAXone 1GM/50ML D5W 50 ML IV SCH (09:00)
[2020-02-08 09:30] VITALS: BP 113/63
[2020-02-08] MEDS ORDERED: MORPHINE SULF INJ 2 MG/ML SYRINGE 1ML IV PRN (09:45)
[2020-02-08 10:30] VITALS: BP 113/63
[2020-02-08] MEDS: INSULIN LANTUS (GLARGINE) 1 /0.01ml (100units/ml) SC SCH (10:55)
[2020-02-08] MEDS: SODIUM BICARBONATE 50ML VIAL 50 ML in SOD CHL 0.45% 1,000 ML IV SCH (11:30)
[2020-02-08 13:00] VITALS: BP 103/48
[2020-02-08] MEDS ORDERED: INSU100I4 SC (14:04)
[2020-02-08] MEDS ORDERED: CEPH-37 PO (14:04)
[2020-02-08] MEDS ORDERED: INSU1INJ19 SC (14:04)
[2020-02-08 17:00] VITALS: BP 94/50
== END 2020-02-08 18:41 | disposition home health service (06) | DRG 282 ==
LOC: EDBD 09:00 → ER 09:00 → TELE 09:01 → OVERFLOW 14:20 → TELE-CENTR 02-08 09:30
PROVIDERS: ADMIT Internal Medicine; ATTEND Internal Medicine
DX: K85.90 Acute pancreatitis without necrosis or infection, unspecified (principal); E10.10 Type 1 diabetes mellitus with ketoacidosis without coma; N17.9 Acute kidney failure, unspecified; E10.22 Type 1 diabetes mellitus with diabetic chronic kidney disease; N18.3 Chronic kidney disease, stage 3 (moderate); I12.9 Hypertensive chronic kidney disease with stage 1 through stage 4 chronic kidney disease, or unspecified chronic kidney disease; N39.0 Urinary tract infection, site not specified; Z80.0 Family history of malignant neoplasm of digestive organs; Z80.1 Family history of malignant neoplasm of trachea, bronchus and lung; Z80.42 Family history of malignant neoplasm of prostate; Z80.8 Family history of malignant neoplasm of other organs or systems; Z81.8 Family history of other mental and behavioral disorders; Z82.0 Family history of epilepsy and other diseases of the nervous system; Z82.49 Family history of ischemic heart disease and other diseases of the circulatory system; Z82.5 Family history of asthma and other chronic lower respiratory diseases; Z82.3 Family history of stroke; Z80.3 Family history of malignant neoplasm of breast; Z82.62 Family history of osteoporosis; Z83.3 Family history of diabetes mellitus; Z91.19 Patient's noncompliance with other medical treatment and regimen
CPT/HCPCS: 36415; 36600; 80048; 80053; 81001; 82010; 82150; 82805; 82962; 83036; 83690; 83735; 83930; 84100; 85025; 93005; 99291; G0378; J0696; J1815; J2405; J3490

== ENCOUNTER 2020-05-12 08:09 | Inpatient (IN) | payer MEDICAID ==
[~2020-05-12] VITALS: Ht 182.9 cm; Wt 85.4 kg
[~2020-05-12 08:09] MED LIST changes: +CEPH-37 PO; -FLUC200T35 PO
[2020-05-12] MEDS ORDERED: SODIUM CHLORIDE 0.9% 1,000 ML IVB ONE (08:54)
[2020-05-12 09:17] LABS: Basophils # (auto) 0.1 10 ^3/uL (0-0.2); Eosinophils # (auto) 0 10 ^3/uL (0-0.8); Monocytes # (auto) 1.4 10 ^3/uL (0-1.3)
[2020-05-12 09:18] LABS: Basophils % (auto) 0.7 % (0.0-2.0); Hematocrit 53.5 % (41.0-53.0); Hemoglobin 15.9 g/dL (13.5-17.5); Lymphocytes # (auto) 1.8 10 ^3/uL (0.4-5.4); Lymphocytes % (auto) 8.2 % (10.0-50.0); Mean Corpuscular Hemoglobin 30.5 pg (28.0-32.0); Mean Corpuscular Hgb Conc. 29.7 g/dL (32.0-36.0); Mean Corpuscular Volume 102.6 fL (80.0-100.0); Monocytes % (auto) 6.3 % (0.0-12.0); Neutrophils # (auto) 18.5 10 ^3/uL (1.6-8.6); Neutrophils % (auto) 84.8 % (37.0-80.0); Platelet Count (auto) 216 10^3/uL (140-450); Red Blood Cells 5.21 10^6/uL (4.5-5.90); White Blood Cell 21.8 10^3/uL (4.4-10.8)
[2020-05-12 09:40] LABS: Albumin 4.3 g/dL (3.4-5.0)
[2020-05-12 09:48] LABS: BUN/Creatinine Ratio 14.9; Bilirubin, Total 0.7 mg/dL (0.2-1.0); Total Protein 7.7 g/dL (6.4-8.2)
[2020-05-12 09:53] LABS: Potassium 6.1 mmol/L (3.5-5.1)
[2020-05-12] MEDS ORDERED: InsuLIN R (HUMAN) 100 UNITS in SODIUM CHL 0.9% 99 ML IV SCH (09:59)
[2020-05-12] MEDS ORDERED: InsuLIN REG 1unit/0.01ml Soln (100units/ml) IV ONE (10:00)
[2020-05-12] MEDS ORDERED: SODIUM BICARBONATE 8.4 % INJ 50ML VIAL IV ONE (10:00)
[2020-05-12] MEDS ORDERED: DEXTROSE (50%) 50ML SYRG IV PRN (10:00)
[2020-05-12 10:43] LABS: Magnesium 2.5 mg/dL (1.6-2.6)
[2020-05-12] MEDS: ACCU-CHEK COMFORT CURVE STRIP VI SCH ×9 (10:47→22:45)
[2020-05-12] MEDS ORDERED: NITROGLYCERIN 0.4 MG SL TAB SL PRN (15:00)
[2020-05-12] MEDS ORDERED: MORPHINE SULF INJ 2 MG/ML SYRINGE 1ML IV PRN (15:00)
[2020-05-12] MEDS: InsuLIN R (HUMAN) 100 UNITS in SODIUM CHL 0.9% 99 ML IV SCH ×2 (15:09→22:30)
[2020-05-12] MEDS ORDERED: PROMETHAZINE HCL 25 MG/ML 1ML IV PRN (15:15)
[2020-05-12] MEDS ORDERED: INSULIN LANTUS (GLARGINE) 1 /0.01ml (100units/ml) SC ONE (15:15)
[2020-05-12] MEDS: FAMOTIDINE (10MG/ML) 2ML VL IV SCH ×2 (15:15→21:47)
[2020-05-12] MEDS: SODIUM CHLORIDE 0.9% 1,000 ML IV SCH ×3 (15:15→21:25)
[2020-05-12] MEDS ORDERED: cefTRIAXone 1GM/50ML D5W 50 ML IV ONE (15:15)
[2020-05-12] MEDS ORDERED: INSU1INJ19 SC (16:48)
[2020-05-12 17:06] LABS: BUN/Creatinine Ratio 16.8; Calcium 7.4 mg/dL (8.5-10.1); Potassium 4.1 mmol/L (3.5-5.1)
[2020-05-12] MEDS ORDERED: SODIUM CHLORIDE 0.9% 1,000 ML IV SCH (19:09)
[2020-05-12 21:41] LABS: BUN/Creatinine Ratio 17.4; Calcium 7.5 mg/dL (8.5-10.1); Potassium 3.8 mmol/L (3.5-5.1)
[2020-05-13] MEDS: ACCU-CHEK COMFORT CURVE STRIP VI SCH ×11 (00:12→20:00)
[2020-05-13] MEDS: InsuLIN R (HUMAN) 100 UNITS in SODIUM CHL 0.9% 99 ML IV SCH ×6 (01:30→06:14)
[2020-05-13] MEDS: SODIUM CHLORIDE 0.9% 1,000 ML IV SCH ×2 (03:30→10:31)
[2020-05-13 04:09] LABS: Calcium 7.4 mg/dL (8.5-10.1); Potassium 3.8 mmol/L (3.5-5.1)
[2020-05-13 05:59] LABS: Basophils # (auto) 0 10 ^3/uL (0-0.2); Basophils % (auto) 0.3 % (0.0-2.0); Eosinophils # (auto) 0 10 ^3/uL (0-0.8); Hematocrit 42.4 % (41.0-53.0); Hemoglobin 13.9 g/dL (13.5-17.5); Lymphocytes # (auto) 1.1 10 ^3/uL (0.4-5.4); Lymphocytes % (auto) 7.4 % (10.0-50.0); Mean Corpuscular Hemoglobin 30.2 pg (28.0-32.0); Mean Corpuscular Hgb Conc. 32.9 g/dL (32.0-36.0); Mean Corpuscular Volume 91.7 fL (80.0-100.0); Monocytes # (auto) 1.3 10 ^3/uL (0-1.3); Monocytes % (auto) 8.5 % (0.0-12.0); Neutrophils # (auto) 12.6 10 ^3/uL (1.6-8.6); Neutrophils % (auto) 83.8 % (37.0-80.0); Platelet Count (auto) 164 10^3/uL (140-450); Red Blood Cells 4.63 10^6/uL (4.5-5.90); Red Cell Distribution Width 13.8 % (11.8-14.3)
[2020-05-13 06:18] LABS: Potassium 3.7 mmol/L (3.5-5.1)
[2020-05-13 06:32] LABS: Albumin 2.9 g/dL (3.4-5.0); BUN/Creatinine Ratio 19.3; Bilirubin, Total 0.4 mg/dL (0.2-1.0); Total Protein 6.2 g/dL (6.4-8.2)
[2020-05-13] MEDS: cefTRIAXone 1GM/50ML D5W 50 ML IV SCH (09:09)
[2020-05-13] MEDS: FAMOTIDINE (10MG/ML) 2ML VL IV SCH ×2 (09:53→21:51)
[2020-05-13] MEDS: INSULIN LANTUS (GLARGINE) 1 /0.01ml (100units/ml) SC SCH (09:53)
[2020-05-13] MEDS ORDERED: DEXTROSE (50%) 50ML SYRG IV PRN (12:30)
[2020-05-13 14:20] LABS: BUN/Creatinine Ratio 20.3; Calcium 7.3 mg/dL (8.5-10.1); Potassium 3.7 mmol/L (3.5-5.1)
[2020-05-13] MEDS: MORPHINE SULF INJ 2 MG/ML SYRINGE 1ML IV PRN ×2 (15:03→18:48)
[2020-05-13 16:11] LABS: Urine Bacteria FEW /hpf (None Seen); Urine Blood Negative /uL (Negative); Urine Specific Gravity 1.019 (1.001-1.035); Urine WBC 27 /hpf (0 - 3)
[2020-05-13] MEDS: InsuLIN REG 1unit/0.01ml Soln (100units/ml) SC SCH ×2 (16:29→20:00)
[2020-05-13 17:50] VITALS: BP 123/84
[2020-05-13 17:56] VITALS: BP 123/84
[2020-05-13] MEDS: KCL 20 MEQ IV SCH (18:14)
[2020-05-13] MEDS: SOD CHL IV SCH (18:14)
[2020-05-13] MEDS: SODIUM BICARBONATE IV SCH (18:14)
[2020-05-13] MEDS: D5 IV SCH (18:14)
[2020-05-13 20:26] LABS: BUN/Creatinine Ratio 16.7; Calcium 6.8 mg/dL (8.5-10.1); Potassium 3.7 mmol/L (3.5-5.1)
[2020-05-13 22:56] VITALS: BP 106/66
[2020-05-14] MEDS: KCL 20 MEQ IV SCH ×3 (03:00→20:30)
[2020-05-14] MEDS: SODIUM BICARBONATE IV SCH ×3 (03:00→20:30)
[2020-05-14] MEDS: D5 IV SCH ×3 (03:00→20:30)
[2020-05-14] MEDS: SOD CHL IV SCH ×3 (03:00→20:30)
[2020-05-14] MEDS: ACCU-CHEK COMFORT CURVE STRIP VI SCH ×6 (04:00→19:58)
[2020-05-14] MEDS: InsuLIN REG 1unit/0.01ml Soln (100units/ml) SC SCH ×6 (04:00→19:59)
[2020-05-14 05:46] VITALS: BP 117/75
[2020-05-14 07:49] LABS: Basophils # (auto) 0 10 ^3/uL (0-0.2); Basophils % (auto) 0.3 % (0.0-2.0); Eosinophils # (auto) 0 10 ^3/uL (0-0.8); Eosinophils % (auto) 0.4 % (0.0-7.0); Hematocrit 38.9 % (41.0-53.0); Hemoglobin 12.7 g/dL (13.5-17.5); Lymphocytes # (auto) 1.6 10 ^3/uL (0.4-5.4); Lymphocytes % (auto) 17.9 % (10.0-50.0); Mean Corpuscular Hemoglobin 30.2 pg (28.0-32.0); Mean Corpuscular Hgb Conc. 32.7 g/dL (32.0-36.0); Mean Corpuscular Volume 92.4 fL (80.0-100.0); Monocytes # (auto) 0.6 10 ^3/uL (0-1.3); Monocytes % (auto) 6.5 % (0.0-12.0); Neutrophils # (auto) 6.7 10 ^3/uL (1.6-8.6); Neutrophils % (auto) 74.9 % (37.0-80.0); Platelet Count (auto) 131 10^3/uL (140-450); Red Blood Cells 4.21 10^6/uL (4.5-5.90); Red Cell Distribution Width 14.1 % (11.8-14.3); White Blood Cell 8.9 10^3/uL (4.4-10.8)
[2020-05-14 08:00] VITALS: BP 129/70
[2020-05-14 08:13] LABS: Potassium 3.6 mmol/L (3.5-5.1)
[2020-05-14] MEDS: MORPHINE SULF INJ 2 MG/ML SYRINGE 1ML IV PRN ×4 (08:13→23:52)
[2020-05-14 08:15] LABS: BUN/Creatinine Ratio 16.3
[2020-05-14 09:00] VITALS: BP 129/70
[2020-05-14] MEDS: cefTRIAXone 1GM/50ML D5W 50 ML IV SCH (10:05)
[2020-05-14] MEDS: FAMOTIDINE (10MG/ML) 2ML VL IV SCH ×2 (10:07→21:47)
[2020-05-14] MEDS: INSULIN LANTUS (GLARGINE) 1 /0.01ml (100units/ml) SC SCH (10:09)
[2020-05-14 13:00] VITALS: BP 91/50
[2020-05-14 16:36] VITALS: BP 111/62
[2020-05-14 21:51] LABS: Calcium 7.3 mg/dL (8.5-10.1); Potassium 3.1 mmol/L (3.5-5.1)
[2020-05-14] MEDS ORDERED: INSULIN LANTUS (GLARGINE) 1 /0.01ml (100units/ml) SC SCH (22:00)
[2020-05-14 22:21] VITALS: BP 118/79
[2020-05-15] MEDS: InsuLIN REG 1unit/0.01ml Soln (100units/ml) SC SCH ×5 (00:06→15:31)
[2020-05-15] MEDS: ACCU-CHEK COMFORT CURVE STRIP VI SCH ×5 (00:07→15:28)
[2020-05-15] MEDS ORDERED: SODIUM CHLORIDE 0.9% 1,000 ML IV ONE (00:45)
[2020-05-15] MEDS: KCL 20 MEQ IV SCH ×2 (02:49→13:06)
[2020-05-15] MEDS: SOD CHL IV SCH ×2 (02:49→13:06)
[2020-05-15] MEDS: D5 IV SCH ×2 (02:49→13:06)
[2020-05-15] MEDS: SODIUM BICARBONATE IV SCH ×2 (02:49→13:06)
[2020-05-15 05:00] VITALS: BP 123/79
[2020-05-15] MEDS: MORPHINE SULF INJ 2 MG/ML SYRINGE 1ML IV PRN ×2 (05:23→11:41)
[2020-05-15 06:58] LABS: Basophils # (auto) 0 10 ^3/uL (0-0.2); Basophils % (auto) 0.7 % (0.0-2.0); Eosinophils # (auto) 0.1 10 ^3/uL (0-0.8); Eosinophils % (auto) 1.3 % (0.0-7.0); Hematocrit 38.1 % (41.0-53.0); Hemoglobin 12.8 g/dL (13.5-17.5); Lymphocytes # (auto) 1.8 10 ^3/uL (0.4-5.4); Lymphocytes % (auto) 32.5 % (10.0-50.0); Mean Corpuscular Hemoglobin 30.6 pg (28.0-32.0); Mean Corpuscular Hgb Conc. 33.6 g/dL (32.0-36.0); Mean Corpuscular Volume 90.8 fL (80.0-100.0); Monocytes # (auto) 0.5 10 ^3/uL (0-1.3); Monocytes % (auto) 8.9 % (0.0-12.0); Neutrophils # (auto) 3.1 10 ^3/uL (1.6-8.6); Neutrophils % (auto) 56.6 % (37.0-80.0); Nucleated Red Blood Cells % 0.2 %; Platelet Count (auto) 105 10^3/uL (140-450); Red Blood Cells 4.19 10^6/uL (4.5-5.90); Red Cell Distribution Width 13.7 % (11.8-14.3); White Blood Cell 5.5 10^3/uL (4.4-10.8)
[2020-05-15 07:22] LABS: BUN/Creatinine Ratio 11.5; Calcium 6.8 mg/dL (8.5-10.1)
[2020-05-15 07:26] LABS: Potassium 2.9 mmol/L (3.5-5.1)
[2020-05-15] MEDS: cefTRIAXone 1GM/50ML D5W 50 ML IV SCH (07:55)
[2020-05-15 08:00] VITALS: BP 104/67
[2020-05-15] MEDS ORDERED: POTASSIUM EFFERVESENT TAB 25 MEQ PO ONE (08:15)
[2020-05-15] MEDS: FAMOTIDINE (10MG/ML) 2ML VL IV SCH (09:18)
[2020-05-15] MEDS: INSULIN LANTUS (GLARGINE) 1 /0.01ml (100units/ml) SC SCH (09:19)
[2020-05-15] MEDS ORDERED: levoFLOXacin 500 MG TAB PO ONE (13:30)
[2020-05-15] MEDS: POTASSIUM CHL 20MEQ/100ML 100 ML IV SCH ×2 (13:34→15:28)
[2020-05-15] MEDS ORDERED: LEVO-28 PO (13:44)
[2020-05-15] MEDS ORDERED: INSU1INJ19 SC (13:44)
[2020-05-15] MEDS ORDERED: INSU100I4 SC (13:44)
[2020-05-15 14:53] VITALS: BP 104/67
[2020-05-16] MEDS ORDERED: levoFLOXacin 500 MG TAB PO SCH (10:00)
== END 2020-05-15 17:04 | disposition home or self-care (01) | DRG 52 ==
LOC: EDBD 08:09 → ER 08:09 → TELE 08:10 → TELE-WESTW 05-13 17:19
PROVIDERS: ADMIT Internal Medicine; ATTEND Internal Medicine
DX: G93.41 Metabolic encephalopathy (principal); K85.20 Alcohol induced acute pancreatitis without necrosis or infection; E10.10 Type 1 diabetes mellitus with ketoacidosis without coma; E86.0 Dehydration; D72.823 Leukemoid reaction; K76.0 Fatty (change of) liver, not elsewhere classified; Z91.14 Patient's other noncompliance with medication regimen; N17.9 Acute kidney failure, unspecified; I10 Essential (primary) hypertension; E10.21 Type 1 diabetes mellitus with diabetic nephropathy; Z79.4 Long term (current) use of insulin; Z80.1 Family history of malignant neoplasm of trachea, bronchus and lung; Z80.3 Family history of malignant neoplasm of breast; Z80.42 Family history of malignant neoplasm of prostate; Z80.8 Family history of malignant neoplasm of other organs or systems; Z81.8 Family history of other mental and behavioral disorders; Z82.0 Family history of epilepsy and other diseases of the nervous system; Z82.3 Family history of stroke; Z82.49 Family history of ischemic heart disease and other diseases of the circulatory system; Z82.5 Family history of asthma and other chronic lower respiratory diseases; Z82.62 Family history of osteoporosis; Z83.3 Family history of diabetes mellitus; Z82.61 Family history of arthritis; E87.5 Hyperkalemia
CPT/HCPCS: 36415; 36600; 71045; 80048; 80053; 80320; 81001; 82140; 82150; 82805; 82962; 83690; 83735; 84132; 85025; 93005; 96365; 96367; 96375; G0378; J0696; J1815; J3480; J3490

== ENCOUNTER 2021-06-24 08:59 | Inpatient (IN) | payer MEDICAID ==
[~2021-06-24] VITALS: Ht 182.9 cm; Wt 81.6 kg
[~2021-06-24 08:59] MED LIST changes: -CEPH-37 PO; +LEVO-28 PO
[2021-06-24] MEDS ORDERED: ONDANSETRON HCL 4 MG/2 ML VIAL IV ONE (09:15)
[2021-06-24] MEDS ORDERED: InsuLIN REG 1unit/0.01ml Soln (100units/ml) IV ONE (09:15)
[2021-06-24] MEDS ORDERED: SODIUM CHLORIDE 0.9% 1,000 ML IV ONE (09:15)
[2021-06-24 09:24] LABS: Basophils # (auto) 0 10 ^3/uL (0-0.2); Basophils % (auto) 0.3 % (0.0-2.0); Eosinophils # (auto) 0 10 ^3/uL (0-0.8); Eosinophils % (auto) 0.4 % (0.0-7.0); Hemoglobin 13.6 g/dL (13.5-17.5); Lymphocytes % (auto) 9.8 % (10.0-50.0); Mean Corpuscular Hemoglobin 29.4 pg (28.0-32.0); Mean Corpuscular Hgb Conc. 32.4 g/dL (32.0-36.0); Mean Corpuscular Volume 90.8 fL (80.0-100.0); Monocytes # (auto) 0.3 10 ^3/uL (0-1.3); Monocytes % (auto) 3.2 % (0.0-12.0); Neutrophils # (auto) 8.5 10 ^3/uL (1.6-8.6); Neutrophils % (auto) 86.3 % (37.0-80.0); Red Blood Cells 4.62 10^6/uL (4.5-5.90); Red Cell Distribution Width 13.6 % (11.8-14.3); White Blood Cell 9.9 10^3/uL (4.4-10.8)
[2021-06-24 09:46] LABS: Albumin 3.8 g/dL (3.4-5.0); Calcium 9.3 mg/dL (8.5-10.1); Magnesium 2.7 mg/dL (1.6-2.6); Potassium 4.5 mmol/L (3.5-5.1)
[2021-06-24 09:53] LABS: BUN/Creatinine Ratio 17.3; Bilirubin, Total 1.4 mg/dL (0.2-1.0); Total Protein 7.5 g/dL (6.4-8.2)
[2021-06-24] MEDS ORDERED: SODIUM BICARBONATE 50ML VIAL 50 ML in SOD CHL 0.45% 1,000 ML IV ONE (10:30)
[2021-06-24] MEDS ORDERED: InsuLIN R (HUMAN) 100 UNITS in SODIUM CHL 0.9% 99 ML IV SCH (11:00)
[2021-06-24] MEDS ORDERED: DEXTROSE (50%) 50ML SYRG IV PRN (11:00)
[2021-06-24] MEDS: SODIUM CHLORIDE 0.9% 1,000 ML IV SCH ×7 (11:00→18:28)
[2021-06-24] MEDS: ACCU-CHEK COMFORT CURVE STRIP VI SCH ×8 (12:00→22:30)
[2021-06-24] MEDS ORDERED: MORPHINE SULFATE INJECTION 2 MG/ML SYRG IV PRN (12:15)
[2021-06-24] MEDS ORDERED: NITROGLYCERIN 0.4 MG SL TAB SL PRN (12:15)
[2021-06-24 13:40] LABS: Calcium 8.2 mg/dL (8.5-10.1); Potassium 4.3 mmol/L (3.5-5.1)
[2021-06-24 13:42] LABS: BUN/Creatinine Ratio 18.8
[2021-06-24 13:59] LABS: Urine Bacteria NONE SEEN /hpf (None Seen); Urine Blood Negative /uL (Negative); Urine Mucus FEW (None Seen); Urine Specific Gravity 1.026 (1.001-1.035); Urine WBC 3 /hpf (0 - 3)
[2021-06-24] MEDS ORDERED: HYDROcodone-ACET 5/325MG TAB PO PRN (14:15)
[2021-06-24] MEDS ORDERED: ONDANSETRON HCL 4 MG/2 ML VIAL IV PRN (14:15)
[2021-06-24] MEDS ORDERED: ACETAMINOPHEN 325 MG TAB PO PRN (14:15)
[2021-06-24] MEDS ORDERED: hydrALAZINE HCL 20 MG/ML VL IV PRN (14:15)
[2021-06-24 18:40] LABS: BUN/Creatinine Ratio 16.9; Calcium 7.5 mg/dL (8.5-10.1); Potassium 3.9 mmol/L (3.5-5.1)
[2021-06-24 22:36] LABS: BUN/Creatinine Ratio 17.5; Calcium 7.3 mg/dL (8.5-10.1); Potassium 3.9 mmol/L (3.5-5.1)
[2021-06-25] MEDS: ACCU-CHEK COMFORT CURVE STRIP VI SCH ×4 (00:03→17:31)
[2021-06-25] MEDS ORDERED: INSULIN LANTUS (GLARGINE) 1 /0.01ml (100units/ml) SC ONE ×2 (01:45→01:53)
[2021-06-25] MEDS ORDERED: DEXTROSE (50%) 50ML SYRG IV PRN (01:45)
[2021-06-25 02:23] LABS: Calcium 7.2 mg/dL (8.5-10.1); Potassium 3.6 mmol/L (3.5-5.1)
[2021-06-25 02:25] LABS: BUN/Creatinine Ratio 18.6
[2021-06-25] MEDS ORDERED: SODIUM CHLORIDE 0.9% 500 ML IV ONE (04:00)
[2021-06-25] MEDS: SODIUM CHLORIDE 0.9% 1,000 ML IV SCH ×3 (04:16→16:07)
[2021-06-25] MEDS: InsuLIN REG 1unit/0.01ml Soln (100units/ml) SC SCH ×3 (06:09→17:36)
[2021-06-25 06:38] LABS: BUN/Creatinine Ratio 19.5; Calcium 6.9 mg/dL (8.5-10.1); Potassium 3.9 mmol/L (3.5-5.1)
[2021-06-25 10:10] LABS: BUN/Creatinine Ratio 18.8; Potassium 3.8 mmol/L (3.5-5.1)
[2021-06-25 16:37] VITALS: BP 96/65
[2021-06-25] MEDS ORDERED: INSU1INJ19 SC (17:58)
[2021-06-25] MEDS ORDERED: INSU100I4 SC (17:58)
== END 2021-06-25 20:57 | disposition home or self-care (01) | DRG 420 ==
LOC: EDBD 08:59 → ER 08:59 → EDSEX 08:59 → TELE 13:09 → TELE-CENTR 06-25 14:30
PROVIDERS: ADMIT Internal Medicine; ATTEND Internal Medicine
PROC: 05HM33Z Insertion of Infusion Device into Right Internal Jugular Vein, Percutaneous Approach (ICD-10-PCS; principal; 2021-06-24)
PROC: 4A143B0 Monitoring of Venous Pressure, Central, Percutaneous Approach (ICD-10-PCS; 2021-06-24)
DX: E10.10 Type 1 diabetes mellitus with ketoacidosis without coma (principal); G93.41 Metabolic encephalopathy; N17.9 Acute kidney failure, unspecified; E10.22 Type 1 diabetes mellitus with diabetic chronic kidney disease; N18.30 Chronic kidney disease, stage 3 unspecified; Z20.822 Contact with and (suspected) exposure to COVID-19; Z80.1 Family history of malignant neoplasm of trachea, bronchus and lung; Z80.3 Family history of malignant neoplasm of breast; Z80.42 Family history of malignant neoplasm of prostate; Z80.8 Family history of malignant neoplasm of other organs or systems; Z81.8 Family history of other mental and behavioral disorders; Z82.0 Family history of epilepsy and other diseases of the nervous system; Z82.3 Family history of stroke; Z82.49 Family history of ischemic heart disease and other diseases of the circulatory system; Z82.5 Family history of asthma and other chronic lower respiratory diseases; Z82.62 Family history of osteoporosis; Z83.3 Family history of diabetes mellitus; Z91.14 Patient's other noncompliance with medication regimen
CPT/HCPCS: 36415; 36556; 36600; 70450; 74176; 80048; 80053; 81001; 82010; 82805; 82962; 83036; 83690; 83735; 85025; 87426; 93005; 96361; 96365; 96366; 96375; 99291; G0378; J1815; J2405

== ENCOUNTER 2021-08-09 19:47 | Inpatient (IN) | payer MEDICAID ==
[~2021-08-09] VITALS: Ht 185.4 cm; Wt 113.4 kg
[~2021-08-09 19:47] MED LIST changes: -LEVO-28 PO
[2021-08-09] MEDS ORDERED: InsuLIN REG 1unit/0.01ml Soln (100units/ml) IV ONE (20:00)
[2021-08-09] MEDS ORDERED: INSULIN LANTUS (GLARGINE) 1 /0.01ml (100units/ml) SC ONE (20:00)
[2021-08-09] MEDS ORDERED: ONDANSETRON HCL 4 MG/2 ML VIAL IV ONE (20:00)
[2021-08-09] MEDS ORDERED: SODIUM CHLORIDE 0.9% 1,000 ML IV ONE ×2 (20:00→21:15)
[2021-08-09] MEDS ORDERED: DEXTROSE (50%) 50ML SYRG IV PRN (20:00)
[2021-08-09] MEDS ORDERED: InsuLIN R (HUMAN) 100 UNITS in SODIUM CHL 0.9% 99 ML IV SCH (20:00)
[2021-08-09 20:37] LABS: Basophils # (auto) 0.1 10 ^3/uL (0-0.2); Basophils % (auto) 0.3 % (0.0-2.0); Eosinophils # (auto) 0 10 ^3/uL (0-0.8); Eosinophils % (auto) 0.1 % (0.0-7.0); Hematocrit 41.2 % (41.0-53.0); Lymphocytes # (auto) 0.9 10 ^3/uL (0.4-5.4); Lymphocytes % (auto) 5.6 % (10.0-50.0); Mean Corpuscular Hemoglobin 29.7 pg (28.0-32.0); Mean Corpuscular Hgb Conc. 31.4 g/dL (32.0-36.0); Mean Corpuscular Volume 94.5 fL (80.0-100.0); Monocytes # (auto) 1.1 10 ^3/uL (0-1.3); Monocytes % (auto) 6.4 % (0.0-12.0); Neutrophils # (auto) 14.7 10 ^3/uL (1.6-8.6); Neutrophils % (auto) 87.6 % (37.0-80.0); Red Blood Cells 4.36 10^6/uL (4.5-5.90); Red Cell Distribution Width 13.9 % (11.8-14.3); White Blood Cell 16.7 10^3/uL (4.4-10.8)
[2021-08-09 20:54] LABS: Albumin 3.3 g/dL (3.4-5.0); Calcium 9.3 mg/dL (8.5-10.1); Magnesium 2.2 mg/dL (1.6-2.6); Potassium 5.2 mmol/L (3.5-5.1)
[2021-08-09 20:57] LABS: Bilirubin, Total 1.2 mg/dL (0.2-1.0); Total Protein 7.2 g/dL (6.4-8.2)
[2021-08-09 21:08] LABS: BUN/Creatinine Ratio 19.4
[2021-08-09] MEDS: ACCU-CHEK COMFORT CURVE STRIP VI SCH ×2 (21:08→22:39)
[2021-08-09] MEDS ORDERED: NITROGLYCERIN 0.4 MG SL TAB SL PRN (22:30)
[2021-08-09] MEDS ORDERED: SODIUM BICARBONATE 50ML VIAL 50 ML in SOD CHL 0.45% 1,000 ML IV SCH (22:30)
[2021-08-09] MEDS ORDERED: ONDANSETRON HCL 4 MG/2 ML VIAL IV PRN (22:30)
[2021-08-09] MEDS ORDERED: DOCUSATE SOD 100 MG CAP PO PRN (22:30)
[2021-08-09] MEDS ORDERED: HYDROcodone-ACET 5/325MG TAB PO PRN (22:30)
[2021-08-09] MEDS ORDERED: levoFLOXacin 500MG 100 ML IV ONE (22:30)
[2021-08-09] MEDS ORDERED: ACETAMINOPHEN 325 MG TAB PO PRN (22:30)
[2021-08-09] MEDS ORDERED: SODIUM BICARB 50ML SYR 100 ML in SOD CHL 0.45% 1,000 ML IV ONE (23:00)
[2021-08-09] MEDS ORDERED: SODIUM BICARBONATE 8.4 % INJ 50ML VIAL IV ONE (23:27)
[2021-08-10] MEDS: ACCU-CHEK COMFORT CURVE STRIP VI SCH ×12 (00:06→21:00)
[2021-08-10 03:05] LABS: BUN/Creatinine Ratio 19.9; Potassium 3.8 mmol/L (3.5-5.1)
[2021-08-10 03:10] LABS: Calcium 8.4 mg/dL (8.5-10.1)
[2021-08-10] MEDS ORDERED: SODIUM BICARB 50ML SYR 100 ML in D5W/SOD CHL 0.45% 1,000 ML IV SCH (05:15)
[2021-08-10] MEDS ORDERED: SODIUM BICARBONATE 8.4 % INJ 50ML VIAL IV ONE (05:41)
[2021-08-10 07:22] LABS: BUN/Creatinine Ratio 23.1; Calcium 8.3 mg/dL (8.5-10.1); Potassium 3.6 mmol/L (3.5-5.1)
[2021-08-10 07:36] LABS: Basophils # (auto) 0.1 10 ^3/uL (0-0.2); Basophils % (auto) 0.3 % (0.0-2.0); Eosinophils # (auto) 0 10 ^3/uL (0-0.8); Eosinophils % (auto) 0.1 % (0.0-7.0); Lymphocytes # (auto) 1.2 10 ^3/uL (0.4-5.4); Lymphocytes % (auto) 8.3 % (10.0-50.0); Mean Corpuscular Hemoglobin 30.4 pg (28.0-32.0); Mean Corpuscular Hgb Conc. 34.4 g/dL (32.0-36.0); Mean Corpuscular Volume 88.4 fL (80.0-100.0); Monocytes # (auto) 1.1 10 ^3/uL (0-1.3); Monocytes % (auto) 7.3 % (0.0-12.0); Neutrophils # (auto) 12.2 10 ^3/uL (1.6-8.6); Red Blood Cells 3.96 10^6/uL (4.5-5.90); Red Cell Distribution Width 13.5 % (11.8-14.3); White Blood Cell 14.5 10^3/uL (4.4-10.8)
[2021-08-10 08:52] LABS: Urine Bacteria NONE SEEN /hpf (None Seen); Urine Blood Negative /uL (Negative); Urine Mucus FEW (None Seen); Urine Specific Gravity 1.022 (1.001-1.035); Urine WBC 66 /hpf (0 - 3)
[2021-08-10 10:58] LABS: BUN/Creatinine Ratio 21.7; Calcium 8.1 mg/dL (8.5-10.1); Potassium 3.4 mmol/L (3.5-5.1)
[2021-08-10 15:02] LABS: BUN/Creatinine Ratio 22.9
[2021-08-10] MEDS ORDERED: POTASSIUM CHLORIDE 40 MEQ, LIDOCAINE 1% (LOCAL ANESTH.) 4 ML in SODIUM CHL 0.9% 250 ML IV ONE (15:45)
[2021-08-10] MEDS ORDERED: INSU1INJ19 SC (15:52)
[2021-08-10] MEDS ORDERED: INSU100I4 SC (15:52)
[2021-08-10] MEDS: InsuLIN REG 1unit/0.01ml Soln (100units/ml) SC SCH ×2 (16:00→21:10)
[2021-08-10] MEDS ORDERED: DEXTROSE (50%) 50ML SYRG IV PRN (16:00)
[2021-08-10] MEDS ORDERED: LEVO500T31 PO (16:00)
[2021-08-10] MEDS ORDERED: POTA-180 PO (16:00)
[2021-08-10 18:26] LABS: BUN/Creatinine Ratio 23.9; Calcium 7.8 mg/dL (8.5-10.1); Potassium 3.2 mmol/L (3.5-5.1)
[2021-08-10 21:30] VITALS: BP 139/97
[2021-08-10] MEDS ORDERED: levoFLOXacin 500MG 100 ML IV SCH (22:00)
[2021-08-10] MEDS ORDERED: INSULIN LANTUS (GLARGINE) 1 /0.01ml (100units/ml) SC SCH ×2 (22:00)
[2021-08-10 22:28] LABS: BUN/Creatinine Ratio 21.6; Calcium 7.9 mg/dL (8.5-10.1); Potassium 3.9 mmol/L (3.5-5.1)
== END 2021-08-10 22:41 | disposition home or self-care (01) | DRG 420 ==
LOC: EDBD 19:47 → ER 20:01 → TELE 22:28
PROVIDERS: ADMIT Internal Medicine; ATTEND Internal Medicine
DX: E10.10 Type 1 diabetes mellitus with ketoacidosis without coma (principal); G93.41 Metabolic encephalopathy; N17.9 Acute kidney failure, unspecified; E10.22 Type 1 diabetes mellitus with diabetic chronic kidney disease; E87.6 Hypokalemia; D72.829 Elevated white blood cell count, unspecified; Z20.822 Contact with and (suspected) exposure to COVID-19; N18.30 Chronic kidney disease, stage 3 unspecified; N39.0 Urinary tract infection, site not specified; Z80.1 Family history of malignant neoplasm of trachea, bronchus and lung; Z80.3 Family history of malignant neoplasm of breast; Z80.42 Family history of malignant neoplasm of prostate; Z80.8 Family history of malignant neoplasm of other organs or systems; Z81.8 Family history of other mental and behavioral disorders; Z82.0 Family history of epilepsy and other diseases of the nervous system; Z82.3 Family history of stroke; Z82.49 Family history of ischemic heart disease and other diseases of the circulatory system; Z82.5 Family history of asthma and other chronic lower respiratory diseases; Z82.62 Family history of osteoporosis; Z83.3 Family history of diabetes mellitus; Z91.14 Patient's other noncompliance with medication regimen
CPT/HCPCS: 36415; 36600; 71045; 80048; 80053; 81001; 82010; 82805; 82962; 83735; 85025; 87040; 87086; 87426; 93005; 96365; 96366; 96367; 96368; 96372; 96375; 96376; 99291; G0378; J1815; J1956; J2001; J2405

== ENCOUNTER 2021-09-11 00:14 | Inpatient (IN) | payer MEDICAID ==
[~2021-09-11] VITALS: Ht 182.9 cm; Wt 74.8 kg
[~2021-09-11 00:14] MED LIST changes: +LEVO500T31 PO; +POTA-180 PO
[2021-09-11] MEDS ORDERED: SODIUM CHLORIDE 0.9% 1,000 ML IV ONE (00:45)
[2021-09-11 01:13] LABS: Urine Bacteria NONE SEEN /hpf (None Seen); Urine Blood Negative /uL (Negative); Urine Mucus FEW (None Seen); Urine Specific Gravity 1.024 (1.001-1.035); Urine WBC 7 /hpf (0 - 3)
[2021-09-11 01:28] LABS: Basophils # (auto) 0.2 10 ^3/uL (0-0.2); Basophils % (auto) 1.5 % (0.0-2.0); Eosinophils # (auto) 0 10 ^3/uL (0-0.8); Eosinophils % (auto) 0.2 % (0.0-7.0); Hematocrit 41.2 % (41.0-53.0); Hemoglobin 13.3 g/dL (13.5-17.5); Lymphocytes # (auto) 1.1 10 ^3/uL (0.4-5.4); Lymphocytes % (auto) 10.4 % (10.0-50.0); Mean Corpuscular Hemoglobin 29.8 pg (28.0-32.0); Mean Corpuscular Hgb Conc. 32.2 g/dL (32.0-36.0); Mean Corpuscular Volume 92.6 fL (80.0-100.0); Monocytes # (auto) 0.4 10 ^3/uL (0-1.3); Monocytes % (auto) 3.5 % (0.0-12.0); Neutrophils # (auto) 8.8 10 ^3/uL (1.6-8.6); Neutrophils % (auto) 84.4 % (37.0-80.0); Nucleated Red Blood Cells % 0.1 %; Red Blood Cells 4.45 10^6/uL (4.5-5.90); Red Cell Distribution Width 14.1 % (11.8-14.3); White Blood Cell 10.4 10^3/uL (4.4-10.8)
[2021-09-11] MEDS ORDERED: ONDANSETRON HCL 4 MG/2 ML VIAL IV ONE (01:30)
[2021-09-11 01:37] LABS: Albumin 2.8 g/dL (3.4-5.0); Calcium 8.5 mg/dL (8.5-10.1); Magnesium 1.9 mg/dL (1.6-2.6)
[2021-09-11 01:39] LABS: Bilirubin, Total 0.8 mg/dL (0.2-1.0); Phosphorus 3.9 mg/dL (2.5-4.90); Total Protein 7.1 g/dL (6.4-8.2)
[2021-09-11] MEDS ORDERED: InsuLIN REG 1unit/0.01ml Soln (100units/ml) IV ONE (02:00)
[2021-09-11] MEDS ORDERED: SODIUM CHLORIDE 0.9% 2,000 ML IV ONE (02:00)
[2021-09-11 02:17] LABS: BUN/Creatinine Ratio 13.3; Potassium 5.6 mmol/L (3.5-5.1)
[2021-09-11] MEDS ORDERED: DEXTROSE (50%) 50ML SYRG IV PRN (02:30)
[2021-09-11] MEDS: SODIUM CHLORIDE 0.9% 1,000 ML IV SCH ×3 (02:30→14:30)
[2021-09-11] MEDS ORDERED: INSULIN LANTUS (GLARGINE) 1 /0.01ml (100units/ml) SC ONE ×3 (02:30→16:25)
[2021-09-11] MEDS: InsuLIN R (HUMAN) 100 UNITS in SODIUM CHL 0.9% 99 ML IV SCH ×4 (02:30→06:00)
[2021-09-11] MEDS: ACCU-CHEK COMFORT CURVE STRIP VI SCH ×13 (03:00→23:23)
[2021-09-11] MEDS ORDERED: InsuLIN REG 1unit/0.01ml Soln (100units/ml) ONE (03:01)
[2021-09-11] MEDS ORDERED: KETOROLAC TROMETH 30 MG/ML 1ML VIAL IV ONE (03:15)
[2021-09-11] MEDS ORDERED: hydrALAZINE HCL 10 MG TAB PO PRN (03:45)
[2021-09-11] MEDS ORDERED: ACETAMINOPHEN 325 MG TAB PO PRN (03:45)
[2021-09-11] MEDS ORDERED: ONDANSETRON HCL 4 MG/2 ML VIAL IV PRN (03:45)
[2021-09-11] MEDS ORDERED: HYDROcodone-ACET 5/325MG TAB PO PRN (03:45)
[2021-09-11] MEDS ORDERED: SODIUM BICARBONATE 8.4 % INJ 50ML VIAL IV ONE ×2 (04:00→04:30)
[2021-09-11] MEDS: D5W/SOD CHLO 0.9% 1,000 ML IV SCH ×3 (06:00→18:09)
[2021-09-11] MEDS ORDERED: SODIUM CHLORIDE 0.9% 1,000 ML IV SCH ×2 (06:30→08:30)
[2021-09-11] MEDS: MORPHINE SULFATE INJECTION 2 MG/ML SYRG IV PRN ×2 (08:00→23:18)
[2021-09-11 08:49] LABS: BUN/Creatinine Ratio 16.7; Calcium 6.9 mg/dL (8.5-10.1); Potassium 3.8 mmol/L (3.5-5.1)
[2021-09-11] MEDS: levoFLOXacin 500MG 100 ML IV SCH (10:22)
[2021-09-11 15:43] LABS: BUN/Creatinine Ratio 15.8; Calcium 7.1 mg/dL (8.5-10.1)
[2021-09-11] MEDS: InsuLIN REG 1unit/0.01ml Soln (100units/ml) SC SCH ×2 (20:00→23:23)
[2021-09-11 21:10] VITALS: BP 135/83
[2021-09-11 22:00] VITALS: BP 135/83
[2021-09-12] MEDS: SODIUM CHLORIDE 0.9% 1,000 ML IV SCH ×3 (00:30→18:15)
[2021-09-12 05:23] VITALS: BP 128/71
[2021-09-12] MEDS: ACCU-CHEK COMFORT CURVE STRIP VI SCH ×5 (05:35→20:00)
[2021-09-12] MEDS: InsuLIN REG 1unit/0.01ml Soln (100units/ml) SC SCH ×5 (05:36→19:59)
[2021-09-12] MEDS: MORPHINE SULFATE INJECTION 2 MG/ML SYRG IV PRN (06:39)
[2021-09-12 08:42] VITALS: BP 98/61
[2021-09-12] MEDS ORDERED: INSULIN LANTUS (GLARGINE) 1 /0.01ml (100units/ml) SC SCH (10:00)
[2021-09-12] MEDS: levoFLOXacin 500MG 100 ML IV SCH (10:12)
[2021-09-12 12:40] VITALS: BP 137/81
[2021-09-12 16:40] VITALS: BP 136/87
[2021-09-12] MEDS ORDERED: INSU100I4 SC (20:06)
[2021-09-12] MEDS ORDERED: INSU1INJ19 SC (20:06)
[2021-09-12] MEDS ORDERED: LEVO500T31 PO (20:06)
[2021-09-12 21:00] VITALS: BP 125/69
== END 2021-09-12 21:42 | disposition home or self-care (01) | DRG 420 ==
LOC: ER 00:14 → EDBD 00:14 → OVERFLOW 03:53 → EAST 21:10
PROVIDERS: ADMIT Nurse Practitioner Family; ATTEND Nurse Practitioner Family
DX: E10.10 Type 1 diabetes mellitus with ketoacidosis without coma (principal); N17.9 Acute kidney failure, unspecified; E10.22 Type 1 diabetes mellitus with diabetic chronic kidney disease; E86.0 Dehydration; E87.5 Hyperkalemia; N18.9 Chronic kidney disease, unspecified; Z20.822 Contact with and (suspected) exposure to COVID-19; Z80.1 Family history of malignant neoplasm of trachea, bronchus and lung; Z80.3 Family history of malignant neoplasm of breast; Z80.42 Family history of malignant neoplasm of prostate; Z80.8 Family history of malignant neoplasm of other organs or systems; Z81.8 Family history of other mental and behavioral disorders; Z82.0 Family history of epilepsy and other diseases of the nervous system; Z82.3 Family history of stroke; Z82.49 Family history of ischemic heart disease and other diseases of the circulatory system; Z82.5 Family history of asthma and other chronic lower respiratory diseases; Z82.62 Family history of osteoporosis; Z83.3 Family history of diabetes mellitus; Z91.19 Patient's noncompliance with other medical treatment and regimen
CPT/HCPCS: 36415; 36600; 80048; 80053; 81001; 82010; 82140; 82805; 82962; 83605; 83735; 83930; 84100; 85025; 87081; 87426; 93005; 96361; 96365; 96366; 96368; 96372; 96375; 99291; G0378; J1815; J1885; J1956; J2405

== ENCOUNTER 2021-09-29 02:07 | Inpatient (IN) | payer MEDICAID ==
[~2021-09-29] VITALS: Ht 182.9 cm; Wt 77.0 kg
[~2021-09-29 02:07] MED LIST changes: -POTA-180 PO
[2021-09-29] MEDS ORDERED: SODIUM CHLORIDE 0.9% 3,000 ML IV ONE (02:30)
[2021-09-29] MEDS ORDERED: InsuLIN REG 1unit/0.01ml Soln (100units/ml) IV ONE (02:45)
[2021-09-29] MEDS: InsuLIN R (HUMAN) 100 UNITS in SODIUM CHL 0.9% 99 ML IV SCH ×3 (02:45→17:27)
[2021-09-29] MEDS ORDERED: DEXTROSE (50%) 50ML SYRG IV PRN ×2 (02:45→22:00)
[2021-09-29] MEDS: ACCU-CHEK COMFORT CURVE STRIP VI SCH ×14 (03:00→22:18)
[2021-09-29 03:18] LABS: Basophils # (auto) 0.1 10 ^3/uL (0-0.2); Eosinophils # (auto) 0 10 ^3/uL (0-0.8); Hemoglobin 12.8 g/dL (13.5-17.5); Red Cell Distribution Width 15.6 % (11.8-14.3); White Blood Cell 17.5 10^3/uL (4.4-10.8)
[2021-09-29 03:20] LABS: Basophils % (auto) 0.4 % (0.0-2.0); Hematocrit 42.9 % (41.0-53.0); Lymphocytes # (auto) 1.6 10 ^3/uL (0.4-5.4); Lymphocytes % (auto) 9.1 % (10.0-50.0); Mean Corpuscular Hemoglobin 30.7 pg (28.0-32.0); Mean Corpuscular Hgb Conc. 29.7 g/dL (32.0-36.0); Monocytes # (auto) 0.7 10 ^3/uL (0-1.3); Monocytes % (auto) 4.1 % (0.0-12.0); Neutrophils # (auto) 15.1 10 ^3/uL (1.6-8.6); Neutrophils % (auto) 86.4 % (37.0-80.0); Red Blood Cells 4.17 10^6/uL (4.5-5.90)
[2021-09-29 03:25] LABS: Albumin 3.4 g/dL (3.4-5.0); Calcium 8.8 mg/dL (8.5-10.1); Magnesium 3.2 mg/dL (1.6-2.6)
[2021-09-29 03:30] LABS: Lactic Acid w/Reflex 3.1 mmol/L (0.4-2.0)
[2021-09-29] MEDS ORDERED: SODIUM CHLORIDE 0.9% 1,000 ML IV ONE (03:30)
[2021-09-29 03:34] LABS: BUN/Creatinine Ratio 16.7; Bilirubin, Total 0.6 mg/dL (0.2-1.0)
[2021-09-29 03:37] LABS: Potassium 6.1 mmol/L (3.5-5.1)
[2021-09-29 03:39] LABS: INR 1.01 (0.9-1.15); Partial Thromboplastin Time 24.5 sec (23.6-33.0)
[2021-09-29 03:43] LABS: Urine Bacteria NONE SEEN /hpf (None Seen); Urine Blood Negative /uL (Negative); Urine Budding Yeast OCCASIONAL /hpf (None Seen); Urine Hyaline Cast FEW /lpf (0 - 2); Urine Specific Gravity 1.023 (1.001-1.035); Urine WBC 5 /hpf (0 - 3)
[2021-09-29] MEDS ORDERED: MORPHINE SULFATE INJECTION 2 MG/ML SYRG IV PRN (04:30)
[2021-09-29] MEDS ORDERED: SODIUM BICARBONATE 50ML VIAL 150 ML in D5W 5% 1,000 ML IV ONE (04:30)
[2021-09-29] MEDS ORDERED: ONDANSETRON HCL 4 MG/2 ML VIAL IV PRN (04:30)
[2021-09-29] MEDS ORDERED: NITROGLYCERIN 0.4 MG SL TAB SL PRN (04:30)
[2021-09-29] MEDS ORDERED: SODIUM BICARBONATE 8.4 % INJ 50ML VIAL IV ONE ×2 (05:27→05:49)
[2021-09-29] MEDS ORDERED: SODIUM CHLORIDE 0.9% 500 ML IV ONE (07:00)
[2021-09-29] MEDS ORDERED: NOREPINEPHRINE 8 MG/250ML KIT 250 ML IV SCH (07:00)
[2021-09-29 07:09] LABS: Calcium 8.2 mg/dL (8.5-10.1); Potassium 5.3 mmol/L (3.5-5.1)
[2021-09-29 08:17] LABS: BUN/Creatinine Ratio 16.7
[2021-09-29 09:52] LABS: BUN/Creatinine Ratio 18.9; Calcium 8.2 mg/dL (8.5-10.1); Potassium 4.5 mmol/L (3.5-5.1)
[2021-09-29 13:46] LABS: BUN/Creatinine Ratio 18.9; Calcium 7.8 mg/dL (8.5-10.1); Potassium 3.9 mmol/L (3.5-5.1)
[2021-09-29 16:52] LABS: Urine Bacteria NONE SEEN /hpf (None Seen); Urine Blood Negative /uL (Negative); Urine Budding Yeast MODERATE /hpf (None Seen); Urine Hyaline Cast FEW /lpf (0 - 2); Urine Specific Gravity 1.019 (1.001-1.035); Urine WBC 6 /hpf (0 - 3)
[2021-09-29 16:56] LABS: BUN/Creatinine Ratio 19.9; Calcium 7.7 mg/dL (8.5-10.1); Potassium 3.9 mmol/L (3.5-5.1)
[2021-09-29] MEDS ORDERED: D5W/SOD CHL 0.45% 1,000 ML IV SCH (17:00)
[2021-09-29] MEDS: POTASSIUM CHL 20MEQ/100ML 100 ML IV SCH ×2 (17:00→17:58)
[2021-09-29] MEDS: D5W/SOD CHL 0.45%/KCL 20MEQ 1,000 ML IV SCH ×2 (17:51→17:59)
[2021-09-29] MEDS: MORPHINE SULFATE 4 MG/ML SYR/VIAL IV PRN (19:13)
[2021-09-29 20:19] LABS: BUN/Creatinine Ratio 20.6; Magnesium 2.1 mg/dL (1.6-2.6); Potassium 4.1 mmol/L (3.5-5.1)
[2021-09-29] MEDS ORDERED: InsuLIN REG 1unit/0.01ml Soln (100units/ml) SC SCH (22:00)
[2021-09-29] MEDS ORDERED: INSULIN LANTUS (GLARGINE) 1 /0.01ml (100units/ml) SC ONE (22:00)
[2021-09-29] MEDS: SODIUM CHLORIDE 0.9% 1,000 ML IV SCH (22:17)
[2021-09-30] MEDS: MORPHINE SULFATE 4 MG/ML SYR/VIAL IV PRN ×2 (01:44→06:20)
[2021-09-30] MEDS: SODIUM CHLORIDE 0.9% 1,000 ML IV SCH ×2 (06:21→18:00)
[2021-09-30] MEDS: ACCU-CHEK COMFORT CURVE STRIP VI SCH ×3 (06:22→17:00)
[2021-09-30] MEDS: InsuLIN REG 1unit/0.01ml Soln (100units/ml) SC SCH ×3 (06:23→17:00)
[2021-09-30 06:32] VITALS: BP 117/74
[2021-09-30 07:01] VITALS: BP 117/74
[2021-09-30 09:00] VITALS: BP_SYST 104; BP_SYST 110; BP_DIAS 59; BP_DIAS 70
[2021-09-30] MEDS ORDERED: INSU1INJ19 SC (11:15)
[2021-09-30] MEDS ORDERED: INSU100I4 SC (11:15)
[2021-09-30 13:00] VITALS: BP 128/67
[2021-09-30 13:52] LABS: Basophils # (auto) 0 10 ^3/uL (0-0.2); Basophils % (auto) 0.5 % (0.0-2.0); Eosinophils # (auto) 0 10 ^3/uL (0-0.8); Eosinophils % (auto) 0.4 % (0.0-7.0); Hematocrit 32.7 % (41.0-53.0); Hemoglobin 11.2 g/dL (13.5-17.5); Lymphocytes # (auto) 1.1 10 ^3/uL (0.4-5.4); Lymphocytes % (auto) 12.7 % (10.0-50.0); Mean Corpuscular Hemoglobin 30.5 pg (28.0-32.0); Mean Corpuscular Hgb Conc. 34.2 g/dL (32.0-36.0); Mean Corpuscular Volume 89.1 fL (80.0-100.0); Monocytes # (auto) 0.5 10 ^3/uL (0-1.3); Monocytes % (auto) 5.2 % (0.0-12.0); Neutrophils # (auto) 7.2 10 ^3/uL (1.6-8.6); Neutrophils % (auto) 81.2 % (37.0-80.0); Nucleated Red Blood Cells % 0.1 %; Red Blood Cells 3.67 10^6/uL (4.5-5.90); Red Cell Distribution Width 14.6 % (11.8-14.3); White Blood Cell 8.9 10^3/uL (4.4-10.8)
[2021-09-30 13:54] LABS: BUN/Creatinine Ratio 18.2; Calcium 7.3 mg/dL (8.5-10.1); Magnesium 2.1 mg/dL (1.6-2.6); Potassium 3.9 mmol/L (3.5-5.1)
[2021-09-30] MEDS ORDERED: INSULIN LANTUS (GLARGINE) 1 /0.01ml (100units/ml) SC SCH (22:00)
== END 2021-09-30 18:40 | disposition home or self-care (01) | DRG 420 ==
LOC: EDSEX 02:07 → EDBD 02:07 → ER 02:07 → EDUNIT# 02:07 → TELE 06:54 → TELE-WESTW 09-30 04:03
PROVIDERS: ADMIT Hospitalist; ATTEND Hospitalist
DX: E10.10 Type 1 diabetes mellitus with ketoacidosis without coma (principal); N17.0 Acute kidney failure with tubular necrosis; I95.9 Hypotension, unspecified; E10.22 Type 1 diabetes mellitus with diabetic chronic kidney disease; D72.829 Elevated white blood cell count, unspecified; E86.0 Dehydration; N18.2 Chronic kidney disease, stage 2 (mild); N39.0 Urinary tract infection, site not specified; Z20.822 Contact with and (suspected) exposure to COVID-19; Z80.1 Family history of malignant neoplasm of trachea, bronchus and lung; Z80.3 Family history of malignant neoplasm of breast; Z80.42 Family history of malignant neoplasm of prostate; Z80.8 Family history of malignant neoplasm of other organs or systems; Z81.8 Family history of other mental and behavioral disorders; Z82.0 Family history of epilepsy and other diseases of the nervous system; Z82.3 Family history of stroke; Z82.49 Family history of ischemic heart disease and other diseases of the circulatory system; Z82.5 Family history of asthma and other chronic lower respiratory diseases; Z82.62 Family history of osteoporosis; Z83.3 Family history of diabetes mellitus; Z91.14 Patient's other noncompliance with medication regimen
CPT/HCPCS: 36415; 36600; 70450; 71045; 80048; 80053; 81001; 82010; 82805; 82962; 83605; 83735; 84484; 85025; 85610; 85730; 87040; 87081; 87426; 93005; 96361; 96365; 96375; G0378; J1815; J2405

== ENCOUNTER 2021-11-06 19:48 | Inpatient (IN) | payer MEDICAID ==
[~2021-11-06] VITALS: Ht 182.9 cm; Wt 81.7 kg
[2021-11-06] MEDS ORDERED: MORPHINE SULFATE 4 MG/ML SYR/VIAL IV ONE (21:30)
[2021-11-06] MEDS ORDERED: ONDANSETRON HCL 4 MG/2 ML VIAL IV ONE (21:30)
[2021-11-06] MEDS ORDERED: SODIUM CHLORIDE 0.9% 1,000 ML IV ONE (21:30)
[2021-11-06 23:38] LABS: Basophils # (auto) 0.1 10 ^3/uL (0-0.2); Basophils % (auto) 0.4 % (0.0-2.0); Eosinophils # (auto) 0 10 ^3/uL (0-0.8); Eosinophils % (auto) 0.1 % (0.0-7.0); Hematocrit 41.2 % (41.0-53.0); Hemoglobin 12.8 g/dL (13.5-17.5); Lymphocytes # (auto) 0.9 10 ^3/uL (0.4-5.4); Lymphocytes % (auto) 5.2 % (10.0-50.0); Mean Corpuscular Hemoglobin 29.5 pg (28.0-32.0); Mean Corpuscular Hgb Conc. 31.2 g/dL (32.0-36.0); Mean Corpuscular Volume 94.7 fL (80.0-100.0); Monocytes % (auto) 5.7 % (0.0-12.0); Neutrophils # (auto) 15.7 10 ^3/uL (1.6-8.6); Neutrophils % (auto) 88.6 % (37.0-80.0); Red Blood Cells 4.35 10^6/uL (4.5-5.90); Red Cell Distribution Width 14.3 % (11.8-14.3); White Blood Cell 17.8 10^3/uL (4.4-10.8)
[2021-11-06 23:55] LABS: Albumin 3.3 g/dL (3.4-5.0); Calcium 8.3 mg/dL (8.5-10.1); Magnesium 2.2 mg/dL (1.6-2.6); Potassium 5.3 mmol/L (3.5-5.1)
[2021-11-06 23:58] LABS: Bilirubin, Total 0.6 mg/dL (0.2-1.0); Total Protein 6.9 g/dL (6.4-8.2)
[2021-11-07 00:22] LABS: BUN/Creatinine Ratio 15.8
[2021-11-07] MEDS ORDERED: DEXTROSE (50%) 50ML SYRG IV PRN (00:30)
[2021-11-07] MEDS ORDERED: INSULIN LANTUS (GLARGINE) 1 /0.01ml (100units/ml) SC ONE (00:30)
[2021-11-07] MEDS ORDERED: InsuLIN REG 1unit/0.01ml Soln (100units/ml) ONE (00:42)
[2021-11-07] MEDS: InsuLIN R (HUMAN) 100 UNITS in SODIUM CHL 0.9% 99 ML IV SCH ×5 (00:59→22:46)
[2021-11-07] MEDS: SODIUM CHLORIDE 0.9% 1,000 ML IV SCH ×4 (01:00→12:50)
[2021-11-07] MEDS: ACCU-CHEK COMFORT CURVE STRIP VI SCH ×15 (01:36→22:46)
[2021-11-07] MEDS ORDERED: KETOROLAC TROMETH 30 MG/ML 1ML VIAL IV ONE (04:00)
[2021-11-07] MEDS ORDERED: SODIUM CHLORIDE 0.9% 1,000 ML IV SCH (04:30)
[2021-11-07] MEDS ORDERED: SODIUM BICARBONATE 8.4 % INJ 50ML VIAL IV STA (07:02)
[2021-11-07] MEDS ORDERED: hydrALAZINE HCL 10 MG TAB PO PRN (07:15)
[2021-11-07] MEDS ORDERED: MORPHINE SULFATE INJECTION 2 MG/ML SYRG IV PRN (07:15)
[2021-11-07] MEDS ORDERED: HYDROcodone-ACET 5/325MG TAB PO PRN (07:15)
[2021-11-07] MEDS ORDERED: ACETAMINOPHEN 325 MG TAB PO PRN (07:15)
[2021-11-07] MEDS ORDERED: ONDANSETRON HCL 4 MG/2 ML VIAL IV PRN (07:15)
[2021-11-07] MEDS ORDERED: SODIUM CHLORIDE 0.9% 1,000 ML IV ONE (07:15)
[2021-11-07] MEDS ORDERED: D5W/SOD CHLO 0.9% 1,000 ML IV ONE (07:15)
[2021-11-07] MEDS ORDERED: FAMOTIDINE 20 MG TAB PO SCH (10:00)
[2021-11-07] MEDS: levoFLOXacin 500MG 100 ML IV SCH (10:38)
[2021-11-07] MEDS: CHOLECALCIFEROL (VITD3) 2,000 UNIT CAP/TAB PO SCH (10:38)
[2021-11-07] MEDS: ZINC SULFATE 220mg CAP or TAB PO SCH (10:38)
[2021-11-07] MEDS: ASCORBIC ACID 500 MG TAB PO SCH (10:38)
[2021-11-07 10:41] LABS: Basophils # (auto) 0.1 10 ^3/uL (0-0.2); Basophils % (auto) 0.6 % (0.0-2.0); Eosinophils # (auto) 0 10 ^3/uL (0-0.8); Eosinophils % (auto) 0.2 % (0.0-7.0); Hematocrit 35.1 % (41.0-53.0); Hemoglobin 11.9 g/dL (13.5-17.5); Lymphocytes # (auto) 0.9 10 ^3/uL (0.4-5.4); Lymphocytes % (auto) 8.9 % (10.0-50.0); Mean Corpuscular Hemoglobin 30.1 pg (28.0-32.0); Mean Corpuscular Hgb Conc. 33.8 g/dL (32.0-36.0); Monocytes # (auto) 0.9 10 ^3/uL (0-1.3); Monocytes % (auto) 8.2 % (0.0-12.0); Neutrophils # (auto) 8.7 10 ^3/uL (1.6-8.6); Neutrophils % (auto) 82.1 % (37.0-80.0); Nucleated Red Blood Cells % 0.1 %; Red Blood Cells 3.94 10^6/uL (4.5-5.90); Red Cell Distribution Width 14.2 % (11.8-14.3); White Blood Cell 10.5 10^3/uL (4.4-10.8)
[2021-11-07 11:01] LABS: BUN/Creatinine Ratio 17.4; Calcium 7.7 mg/dL (8.5-10.1); Magnesium 2.2 mg/dL (1.6-2.6); Potassium 3.9 mmol/L (3.5-5.1)
[2021-11-07 11:11] LABS: BUN/Creatinine Ratio 16.7; Calcium 7.7 mg/dL (8.5-10.1); Potassium 3.8 mmol/L (3.5-5.1)
[2021-11-07 15:09] LABS: BUN/Creatinine Ratio 18.5; Calcium 7.5 mg/dL (8.5-10.1); Potassium 3.6 mmol/L (3.5-5.1)
[2021-11-07 21:40] LABS: Potassium 3.4 mmol/L (3.5-5.1)
[2021-11-07 21:44] LABS: Calcium 7.2 mg/dL (8.5-10.1)
[2021-11-07] MEDS: INSULIN LANTUS (GLARGINE) 1 /0.01ml (100units/ml) SC SCH (22:45)
[2021-11-08] MEDS: ACCU-CHEK COMFORT CURVE STRIP VI SCH ×5 (00:57→17:14)
[2021-11-08] MEDS: InsuLIN REG 1unit/0.01ml Soln (100units/ml) SC SCH ×3 (07:10→17:00)
[2021-11-08] MEDS ORDERED: INSULIN LANTUS (GLARGINE) 1 /0.01ml (100units/ml) SC SCH (10:00)
[2021-11-08] MEDS: INSULIN LANTUS (GLARGINE) 1 /0.01ml (100units/ml) SC SCH (10:00)
[2021-11-08 10:12] LABS: Potassium 3.3 mmol/L (3.5-5.1)
[2021-11-08 10:23] LABS: Albumin 2.5 g/dL (3.4-5.0); BUN/Creatinine Ratio 13.5; Bilirubin, Total 0.3 mg/dL (0.2-1.0); Calcium 7.4 mg/dL (8.5-10.1); Total Protein 5.9 g/dL (6.4-8.2)
[2021-11-08 10:28] LABS: Basophils # (auto) 0 10 ^3/uL (0-0.2); Basophils % (auto) 0.4 % (0.0-2.0); Eosinophils # (auto) 0.1 10 ^3/uL (0-0.8); Eosinophils % (auto) 1.3 % (0.0-7.0); Hematocrit 33.1 % (41.0-53.0); Hemoglobin 11.3 g/dL (13.5-17.5); Lymphocytes # (auto) 0.5 10 ^3/uL (0.4-5.4); Lymphocytes % (auto) 10.3 % (10.0-50.0); Mean Corpuscular Hemoglobin 30.7 pg (28.0-32.0); Mean Corpuscular Hgb Conc. 34.2 g/dL (32.0-36.0); Mean Corpuscular Volume 89.9 fL (80.0-100.0); Monocytes # (auto) 0.4 10 ^3/uL (0-1.3); Monocytes % (auto) 8.2 % (0.0-12.0); Neutrophils # (auto) 3.6 10 ^3/uL (1.6-8.6); Neutrophils % (auto) 79.8 % (37.0-80.0); Nucleated Red Blood Cells % 0.1 %; Red Blood Cells 3.68 10^6/uL (4.5-5.90); Red Cell Distribution Width 13.9 % (11.8-14.3); White Blood Cell 4.6 10^3/uL (4.4-10.8)
[2021-11-08 11:30] VITALS: BP 95/55
[2021-11-08] MEDS: levoFLOXacin 500MG 100 ML IV SCH (11:39)
[2021-11-08] MEDS: ZINC SULFATE 220mg CAP or TAB PO SCH (11:39)
[2021-11-08] MEDS: CHOLECALCIFEROL (VITD3) 2,000 UNIT CAP/TAB PO SCH (11:39)
[2021-11-08] MEDS: ASCORBIC ACID 500 MG TAB PO SCH (11:39)
[2021-11-08 13:00] VITALS: BP 136/86
[2021-11-08] MEDS ORDERED: INSLANTI SC (14:29)
[2021-11-08] MEDS ORDERED: ALBU108A5 IN (14:29)
[2021-11-08 17:00] VITALS: BP 134/72
[2021-11-08 17:59] VITALS: BP 136/86
== END 2021-11-08 19:50 | disposition home health service (06) | DRG 137 ==
LOC: EDBD 19:48 → ER 19:50 → TELE 11-07 07:02 → TELE-EAST 11-08 10:13
PROVIDERS: ADMIT Nurse Practitioner Family; ATTEND Nurse Practitioner Family
DX: U07.1 COVID-19 (principal); E10.10 Type 1 diabetes mellitus with ketoacidosis without coma; D72.829 Elevated white blood cell count, unspecified; E86.0 Dehydration; E87.5 Hyperkalemia; Z79.4 Long term (current) use of insulin; Z80.1 Family history of malignant neoplasm of trachea, bronchus and lung; Z80.3 Family history of malignant neoplasm of breast; Z80.42 Family history of malignant neoplasm of prostate; Z80.8 Family history of malignant neoplasm of other organs or systems; Z81.8 Family history of other mental and behavioral disorders; Z82.0 Family history of epilepsy and other diseases of the nervous system; Z82.3 Family history of stroke; Z82.49 Family history of ischemic heart disease and other diseases of the circulatory system; Z82.5 Family history of asthma and other chronic lower respiratory diseases; Z82.62 Family history of osteoporosis; Z83.3 Family history of diabetes mellitus
CPT/HCPCS: 36415; 36600; 71045; 80048; 80053; 82010; 82805; 82962; 83735; 83930; 84100; 85025; 87426; 93005; 96361; 96365; 96372; 96375; 99291; G0378; J1815; J1885; J1956; J2405

== ENCOUNTER 2021-11-20 08:19 | Inpatient (IN) | payer MEDICAID ==
[~2021-11-20] VITALS: Ht 167.6 cm; Wt 70.3 kg
[~2021-11-20 08:19] MED LIST changes: +ALBU108A5 IN; +INSLANTI SC; -INSU1INJ19 SC; -LEVO500T31 PO
[2021-11-20] MEDS ORDERED: PROCHLORPERAZINE EDISYLATE 5 MG/ML 2ML VIAL IV ONE (09:00)
[2021-11-20] MEDS ORDERED: SODIUM CHLORIDE 0.9% 3,000 ML IV ONE (09:00)
[2021-11-20 09:14] LABS: Urine Bacteria NONE SEEN /hpf (None Seen); Urine Blood Negative /uL (Negative); Urine Mucus FEW (None Seen); Urine Specific Gravity 1.027 (1.001-1.035); Urine WBC 27 /hpf (0 - 3)
[2021-11-20] MEDS ORDERED: SODIUM CHLORIDE 0.9% 1,000 ML IV ONE (09:15)
[2021-11-20] MEDS ORDERED: SODIUM CHLORIDE 0.9% 2,000 ML IV ONE ×2 (09:15→17:15)
[2021-11-20 09:19] LABS: Basophils # (auto) 0 10 ^3/uL (0-0.2); Basophils % (auto) 0.4 % (0.0-2.0); Eosinophils # (auto) 0 10 ^3/uL (0-0.8); Eosinophils % (auto) 0.1 % (0.0-7.0); Hematocrit 42.5 % (41.0-53.0); Hemoglobin 13.9 g/dL (13.5-17.5); Lymphocytes % (auto) 9.6 % (10.0-50.0); Mean Corpuscular Hemoglobin 29.5 pg (28.0-32.0); Mean Corpuscular Hgb Conc. 32.8 g/dL (32.0-36.0); Mean Corpuscular Volume 89.9 fL (80.0-100.0); Monocytes # (auto) 0.3 10 ^3/uL (0-1.3); Monocytes % (auto) 2.8 % (0.0-12.0); Neutrophils # (auto) 9.2 10 ^3/uL (1.6-8.6); Neutrophils % (auto) 87.1 % (37.0-80.0); Nucleated Red Blood Cells % 0.1 %; Red Blood Cells 4.73 10^6/uL (4.5-5.90); Red Cell Distribution Width 14.1 % (11.8-14.3); White Blood Cell 10.5 10^3/uL (4.4-10.8)
[2021-11-20 09:25] LABS: Albumin 3.1 g/dL (3.4-5.0); Calcium 7.9 mg/dL (8.5-10.1); Potassium 4.6 mmol/L (3.5-5.1)
[2021-11-20 09:36] LABS: BUN/Creatinine Ratio 17.3; Bilirubin, Total 0.6 mg/dL (0.2-1.0); Total Protein 7.3 g/dL (6.4-8.2)
[2021-11-20] MEDS ORDERED: InsuLIN REG 1unit/0.01ml Soln (100units/ml) IV ONE ×2 (10:00→11:30)
[2021-11-20] MEDS ORDERED: cefTRIAXone 1GM/50ML D5W 50 ML IV ONE (12:00)
[2021-11-20 15:51] LABS: BUN/Creatinine Ratio 17.4; Calcium 8.1 mg/dL (8.5-10.1); Potassium 4.2 mmol/L (3.5-5.1)
[2021-11-20] MEDS ORDERED: SODIUM CHLORIDE 0.9% 500 ML IV ONE (17:00)
[2021-11-20] MEDS ORDERED: MORPHINE SULFATE INJECTION 2 MG/ML SYRG IV ONE (17:00)
[2021-11-20] MEDS ORDERED: PROMETHAZINE HCL 25 MG/ML 1ML IV ONE (17:00)
[2021-11-20] MEDS ORDERED: DEXTROSE (50%) 50ML SYRG IV PRN (17:15)
[2021-11-20] MEDS ORDERED: MORPHINE SULFATE INJECTION 2 MG/ML SYRG IV PRN (17:15)
[2021-11-20] MEDS ORDERED: ACETAMINOPHEN 325 MG TAB PO PRN (17:15)
[2021-11-20] MEDS ORDERED: PROMETHAZINE HCL 25 MG/ML 1ML IV PRN (17:15)
[2021-11-20] MEDS ORDERED: HYDROcodone-ACET 5/325MG TAB PO PRN (17:15)
[2021-11-20] MEDS: SODIUM CHLORIDE 0.9% 1,000 ML IV SCH (19:30)
[2021-11-20 19:51] LABS: BUN/Creatinine Ratio 18.6; Calcium 7.1 mg/dL (8.5-10.1); Magnesium 2.9 mg/dL (1.6-2.6); Potassium 3.9 mmol/L (3.5-5.1)
[2021-11-20] MEDS: InsuLIN REG 1unit/0.01ml Soln (100units/ml) SC SCH (20:00)
[2021-11-20] MEDS: ACCU-CHEK COMFORT CURVE STRIP VI SCH (20:19)
[2021-11-21] MEDS: ACCU-CHEK COMFORT CURVE STRIP VI SCH ×5 (00:13→16:12)
[2021-11-21 00:20] VITALS: BP 105/58
[2021-11-21 01:27] LABS: Anion Gap 10 (5-15); BUN/Creatinine Ratio 17.4; Blood Urea Nitrogen 24 mg/dL (7-18); Calcium 7.3 mg/dL (8.5-10.1); Carbon Dioxide 17 mmol/L (21-32); Chloride 116 mmol/L (98-107); GFR African American 80 mL/min; GFR Non-African American 66 mL/min; Glucose 75 mg/dL (74-106); Potassium 3.9 mmol/L (3.5-5.1); Sodium 143 mmol/L (136-145)
[2021-11-21] MEDS: SODIUM CHLORIDE 0.9% 1,000 ML IV SCH ×2 (03:15→13:15)
[2021-11-21] MEDS: InsuLIN REG 1unit/0.01ml Soln (100units/ml) SC SCH ×5 (04:00→16:34)
[2021-11-21 05:00] VITALS: BP 116/71
[2021-11-21] MEDS: MORPHINE SULFATE INJECTION 2 MG/ML SYRG IV PRN ×2 (05:11→12:10)
[2021-11-21] MEDS ORDERED: levoFLOXacin 500MG 100 ML IV SCH (10:00)
[2021-11-21] MEDS ORDERED: INSULIN LANTUS (GLARGINE) 1 /0.01ml (100units/ml) SC SCH (10:00)
[2021-11-21 10:51] LABS: BUN/Creatinine Ratio 15.1; Calcium 7.1 mg/dL (8.5-10.1); Potassium 3.4 mmol/L (3.5-5.1)
[2021-11-21 13:00] VITALS: BP 119/69
[2021-11-21 13:53] LABS: BUN/Creatinine Ratio 13.8; Calcium 7.2 mg/dL (8.5-10.1); Potassium 3.3 mmol/L (3.5-5.1)
[2021-11-21 17:00] VITALS: BP 118/67
[2021-11-21] MEDS ORDERED: INSLANTI SC (18:40)
[2021-11-21] MEDS ORDERED: INSU100I4 SC (18:40)
[2021-11-21] MEDS ORDERED: LEVO500T31 PO (18:40)
[2021-11-21 18:43] VITALS: BP 118/67
== END 2021-11-21 20:00 | disposition home health service (06) | DRG 420 ==
LOC: ER 08:19 → TELE 17:07 → TELE-WESTW 19:05 → TELE-EAST 11-21 02:40
PROVIDERS: ADMIT Internal Medicine; ATTEND Internal Medicine
DX: E10.10 Type 1 diabetes mellitus with ketoacidosis without coma (principal); U07.1 COVID-19; E44.1 Mild protein-calorie malnutrition; N17.9 Acute kidney failure, unspecified; N39.0 Urinary tract infection, site not specified; Z68.25 Body mass index [BMI] 25.0-25.9, adult; Z80.1 Family history of malignant neoplasm of trachea, bronchus and lung; Z80.3 Family history of malignant neoplasm of breast; Z80.42 Family history of malignant neoplasm of prostate; Z80.8 Family history of malignant neoplasm of other organs or systems; Z81.8 Family history of other mental and behavioral disorders; Z82.0 Family history of epilepsy and other diseases of the nervous system; Z82.3 Family history of stroke; Z82.49 Family history of ischemic heart disease and other diseases of the circulatory system; Z82.5 Family history of asthma and other chronic lower respiratory diseases; Z82.62 Family history of osteoporosis; Z83.3 Family history of diabetes mellitus; Z91.19 Patient's noncompliance with other medical treatment and regimen
CPT/HCPCS: 36415; 36600; 71045; 80048; 80053; 81001; 82805; 82962; 83690; 83735; 84484; 85025; 87081; 87426; 93005; 96361; 96365; 96375; 96376; 99291; G0378; J0696; J1815; J1956

== ENCOUNTER 2022-03-30 10:50 | Inpatient (IN) | payer MEDICAID ==
[~2022-03-30] VITALS: Ht 185.4 cm; Wt 97.0 kg
[~2022-03-30 10:50] MED LIST changes: +LEVO500T31 PO
[2022-03-30] MEDS ORDERED: INSULIN LANTUS (GLARGINE) 1 /0.01ml (100units/ml) SC ONE (11:00)
[2022-03-30] MEDS ORDERED: DEXTROSE (50%) 50ML SYRG IV PRN (11:00)
[2022-03-30] MEDS: SODIUM CHLORIDE 0.9% 1,000 ML IV SCH ×3 (11:27→17:34)
[2022-03-30 11:42] LABS: Basophils # (auto) 0 10 ^3/uL (0-0.2); Basophils % (auto) 0.3 % (0.0-2.0); Eosinophils # (auto) 0 10 ^3/uL (0-0.8); Eosinophils % (auto) 0.1 % (0.0-7.0); Hematocrit 46.6 % (41.0-53.0); Hemoglobin 14.7 g/dL (13.5-17.5); Lymphocytes # (auto) 1.3 10 ^3/uL (0.4-5.4); Lymphocytes % (auto) 9.1 % (10.0-50.0); Mean Corpuscular Hemoglobin 28.9 pg (28.0-32.0); Mean Corpuscular Hgb Conc. 31.5 g/dL (32.0-36.0); Mean Corpuscular Volume 91.8 fL (80.0-100.0); Monocytes # (auto) 0.7 10 ^3/uL (0-1.3); Monocytes % (auto) 4.6 % (0.0-12.0); Neutrophils # (auto) 12.6 10 ^3/uL (1.6-8.6); Neutrophils % (auto) 85.9 % (37.0-80.0); Red Blood Cells 5.07 10^6/uL (4.5-5.90); Red Cell Distribution Width 13.5 % (11.8-14.3); White Blood Cell 14.7 10^3/uL (4.4-10.8)
[2022-03-30] MEDS: InsuLIN R (HUMAN) 100 UNITS in SODIUM CHL 0.9% 99 ML IV SCH (11:50)
[2022-03-30 11:56] LABS: Calcium 9.4 mg/dL (8.5-10.1); Magnesium 2.9 mg/dL (1.6-2.6); Potassium 5.1 mmol/L (3.5-5.1)
[2022-03-30 12:05] LABS: BUN/Creatinine Ratio 16.2; Phosphorus 4.8 mg/dL (2.5-4.90)
[2022-03-30] MEDS ORDERED: ONDANSETRON HCL 4 MG/2 ML VIAL ONE (12:13)
[2022-03-30] MEDS ORDERED: MORPHINE SULFATE 4 MG/ML SYR/VIAL ONE (12:14)
[2022-03-30] MEDS ORDERED: MORPHINE SULFATE 4 MG/ML SYR/VIAL IV ONE (12:15)
[2022-03-30] MEDS ORDERED: ONDANSETRON HCL 4 MG/2 ML VIAL IV ONE (12:15)
[2022-03-30] MEDS: ACCU-CHEK COMFORT CURVE STRIP VI SCH ×8 (12:24→22:47)
[2022-03-30] MEDS ORDERED: SODIUM CHLORIDE 0.9% 1,000 ML IV SCH (15:00)
[2022-03-30] MEDS ORDERED: HYDROcodone-ACET 5/325MG TAB PO PRN (16:00)
[2022-03-30] MEDS ORDERED: ACETAMINOPHEN 325 MG TAB PO PRN (16:00)
[2022-03-30] MEDS ORDERED: MORPHINE SULFATE INJ 2 MG/ml SYRG IV PRN ×2 (16:00→17:15)
[2022-03-30] MEDS ORDERED: NITROGLYCERIN 0.4 MG SL TAB SL PRN (16:00)
[2022-03-30] MEDS ORDERED: ONDANSETRON HCL 4 MG/2 ML VIAL IV PRN ×2 (16:00→17:15)
[2022-03-30 17:43] LABS: Urine Bacteria NONE SEEN /hpf (None Seen); Urine Blood Negative /uL (Negative); Urine Specific Gravity 1.024 (1.001-1.035); Urine WBC 31 /hpf (0 - 3)
[2022-03-30 17:47] LABS: Magnesium 2.3 mg/dL (1.6-2.6); Phosphorus 2.9 mg/dL (2.5-4.90)
[2022-03-30 18:05] LABS: BUN/Creatinine Ratio 17.1; Calcium 8.3 mg/dL (8.5-10.1); Potassium 4.3 mmol/L (3.5-5.1)
[2022-03-30] MEDS: MORPHINE SULFATE INJ 2 MG/ml SYRG IV PRN (22:52)
[2022-03-30 23:40] LABS: BUN/Creatinine Ratio 18.6; Calcium 8.2 mg/dL (8.5-10.1); Potassium 4.2 mmol/L (3.5-5.1)
[2022-03-31] VITALS (11 sets, daily range): BP systolic 89–122; BP diastolic 48–81
[2022-03-31 00:35] LABS: Magnesium 2.2 mg/dL (1.6-2.6); Phosphorus 1.8 mg/dL (2.5-4.90)
[2022-03-31] MEDS: SODIUM CHLORIDE 0.9% 1,000 ML IV SCH (00:36)
[2022-03-31] MEDS: D5W/SOD CHL 0.45% 1,000 ML IV SCH ×2 (01:00→18:47)
[2022-03-31] MEDS: MORPHINE SULFATE INJ 2 MG/ml SYRG IV PRN ×5 (02:59→21:33)
[2022-03-31] MEDS: InsuLIN REG 1unit/0.01ml Soln (100units/ml) SC SCH ×5 (04:00→20:00)
[2022-03-31] MEDS: ACCU-CHEK COMFORT CURVE STRIP VI SCH ×6 (04:00→20:23)
[2022-03-31 05:38] LABS: Basophils # (auto) 0.1 10 ^3/uL (0-0.2); Basophils % (auto) 0.6 % (0.0-2.0); Eosinophils # (auto) 0 10 ^3/uL (0-0.8); Eosinophils % (auto) 0.4 % (0.0-7.0); Hematocrit 36.9 % (41.0-53.0); Hemoglobin 12.7 g/dL (13.5-17.5); Lymphocytes # (auto) 0.9 10 ^3/uL (0.4-5.4); Lymphocytes % (auto) 8.8 % (10.0-50.0); Mean Corpuscular Hemoglobin 30.3 pg (28.0-32.0); Mean Corpuscular Hgb Conc. 34.5 g/dL (32.0-36.0); Mean Corpuscular Volume 87.9 fL (80.0-100.0); Monocytes # (auto) 0.6 10 ^3/uL (0-1.3); Monocytes % (auto) 5.6 % (0.0-12.0); Neutrophils # (auto) 8.6 10 ^3/uL (1.6-8.6); Neutrophils % (auto) 84.6 % (37.0-80.0); Red Cell Distribution Width 13.3 % (11.8-14.3); White Blood Cell 10.2 10^3/uL (4.4-10.8)
[2022-03-31 05:54] LABS: Potassium 4.2 mmol/L (3.5-5.1)
[2022-03-31 05:58] LABS: Albumin 3.1 g/dL (3.4-5.0); BUN/Creatinine Ratio 19.3; Calcium 7.9 mg/dL (8.5-10.1); Magnesium 2.1 mg/dL (1.6-2.6)
[2022-03-31 06:04] LABS: Bilirubin, Total 0.6 mg/dL (0.2-1.0); Total Protein 6.5 g/dL (6.4-8.2)
[2022-03-31] MEDS: INSULIN LANTUS (GLARGINE) 1 /0.01ml (100units/ml) SC SCH (08:27)
[2022-03-31] MEDS: ENOXAPARIN SOD 40 MG/0.4 ML SYRINGE SC SCH (08:28)
[2022-03-31] MEDS: InsuLIN R (HUMAN) 100 UNITS in SODIUM CHL 0.9% 99 ML IV SCH ×2 (11:00→12:36)
[2022-03-31 13:21] LABS: Magnesium 2.1 mg/dL (1.6-2.6); Phosphorus 1.3 mg/dL (2.5-4.90)
[2022-03-31] MEDS ORDERED: D5W/SOD CHL 0.45% 1,000 ML IV SCH (21:15)
[2022-04-01] VITALS (15 sets, daily range): BP systolic 79–125; BP diastolic 38–92
[2022-04-01] MEDS: ACCU-CHEK COMFORT CURVE STRIP VI SCH ×7 (00:09→23:52)
[2022-04-01 01:22] LABS: Albumin 2.9 g/dL (3.4-5.0); BUN/Creatinine Ratio 15.4; Calcium 7.9 mg/dL (8.5-10.1); Potassium 3.2 mmol/L (3.5-5.1)
[2022-04-01] MEDS: InsuLIN R (HUMAN) 100 UNITS in SODIUM CHL 0.9% 99 ML IV SCH (01:23)
[2022-04-01 01:24] LABS: Bilirubin, Total 0.5 mg/dL (0.2-1.0); Total Protein 6.2 g/dL (6.4-8.2)
[2022-04-01] MEDS: MORPHINE SULFATE INJ 2 MG/ml SYRG IV PRN ×5 (01:35→20:25)
[2022-04-01] MEDS: InsuLIN REG 1unit/0.01ml Soln (100units/ml) SC SCH ×7 (04:00→23:55)
[2022-04-01 04:57] LABS: Albumin 2.7 g/dL (3.4-5.0); Calcium 7.5 mg/dL (8.5-10.1)
[2022-04-01 05:01] LABS: BUN/Creatinine Ratio 16.2; Bilirubin, Total 0.4 mg/dL (0.2-1.0)
[2022-04-01 05:13] LABS: Potassium 2.9 mmol/L (3.5-5.1)
[2022-04-01] MEDS ORDERED: POTASSIUM CHL 20MEQ/100ML 100 ML IV ONE ×2 (05:30→05:59)
[2022-04-01] MEDS ORDERED: POTASSIUM CHL 20 Meq TABLET PO ONE ×2 (05:30→05:59)
[2022-04-01] MEDS: SODIUM CHLORIDE 0.9% 1,000 ML IV SCH ×3 (06:42→18:17)
[2022-04-01] MEDS: INSULIN LANTUS (GLARGINE) 1 /0.01ml (100units/ml) SC SCH (09:59)
[2022-04-01] MEDS: ENOXAPARIN SOD 40 MG/0.4 ML SYRINGE SC SCH (10:30)
[2022-04-01 10:44] LABS: Albumin 2.7 g/dL (3.4-5.0); Calcium 7.8 mg/dL (8.5-10.1); Potassium 3.3 mmol/L (3.5-5.1)
[2022-04-01 10:47] LABS: BUN/Creatinine Ratio 13.5
[2022-04-01 10:58] LABS: Bilirubin, Total 0.4 mg/dL (0.2-1.0); Total Protein 6.1 g/dL (6.4-8.2)
[2022-04-01] MEDS ORDERED: POTASSIUM EFFERVESENT TAB 25 MEQ PO ONE (11:15)
[2022-04-01 15:56] LABS: Calcium 7.8 mg/dL (8.5-10.1); Potassium 3.5 mmol/L (3.5-5.1)
[2022-04-02] MEDS: SODIUM CHLORIDE 0.9% 1,000 ML IV SCH ×3 (01:54→15:43)
[2022-04-02] MEDS: MORPHINE SULFATE INJ 2 MG/ml SYRG IV PRN ×3 (01:55→11:52)
[2022-04-02 05:00] VITALS: BP 115/71
[2022-04-02] MEDS: ACCU-CHEK COMFORT CURVE STRIP VI SCH ×5 (05:00→20:00)
[2022-04-02] MEDS: InsuLIN REG 1unit/0.01ml Soln (100units/ml) SC SCH ×5 (06:31→20:00)
[2022-04-02 06:56] LABS: BUN/Creatinine Ratio 9.8; Calcium 7.6 mg/dL (8.5-10.1); Potassium 3.8 mmol/L (3.5-5.1)
[2022-04-02 09:00] VITALS: BP 113/78
[2022-04-02] MEDS: ENOXAPARIN SOD 40 MG/0.4 ML SYRINGE SC SCH (10:07)
[2022-04-02] MEDS: INSULIN LANTUS (GLARGINE) 1 /0.01ml (100units/ml) SC SCH (10:30)
[2022-04-02] MEDS ORDERED: DOXY-332 PO (11:38)
[2022-04-02 12:30] VITALS: BP 134/93
[2022-04-02 12:32] LABS: Basophils # (auto) 0.2 10 ^3/uL (0-0.2); Basophils % (auto) 4.7 % (0.0-2.0); Eosinophils # (auto) 0.1 10 ^3/uL (0-0.8); Hematocrit 36.9 % (41.0-53.0); Hemoglobin 12.4 g/dL (13.5-17.5); Lymphocytes # (auto) 1.1 10 ^3/uL (0.4-5.4); Lymphocytes % (auto) 34.7 % (10.0-50.0); Mean Corpuscular Hemoglobin 29.8 pg (28.0-32.0); Mean Corpuscular Hgb Conc. 33.7 g/dL (32.0-36.0); Mean Corpuscular Volume 88.5 fL (80.0-100.0); Monocytes # (auto) 0.2 10 ^3/uL (0-1.3); Monocytes % (auto) 7.3 % (0.0-12.0); Neutrophils # (auto) 1.6 10 ^3/uL (1.6-8.6); Neutrophils % (auto) 49.3 % (37.0-80.0); Nucleated Red Blood Cells % 0.1 %; Red Blood Cells 4.17 10^6/uL (4.5-5.90); Red Cell Distribution Width 13.4 % (11.8-14.3); White Blood Cell 3.3 10^3/uL (4.4-10.8)
[2022-04-02 17:00] VITALS: BP 112/76
== END 2022-04-02 23:20 | disposition home or self-care (01) | DRG 420 ==
LOC: EDUNIT# 10:50 → EDBD 10:50 → ER 10:50 → TELE 15:54 → TELE-WESTW 03-31 01:46 → ICU WEST 03-31 11:51 → TELE-EAST 04-01 18:00
PROVIDERS: ADMIT Internal Medicine; ATTEND Internal Medicine
DX: E11.10 Type 2 diabetes mellitus with ketoacidosis without coma (principal); G93.41 Metabolic encephalopathy; N17.9 Acute kidney failure, unspecified; L97.519 Non-pressure chronic ulcer of other part of right foot with unspecified severity; E87.1 Hypo-osmolality and hyponatremia; D72.829 Elevated white blood cell count, unspecified; Z20.822 Contact with and (suspected) exposure to COVID-19; K57.90 Diverticulosis of intestine, part unspecified, without perforation or abscess without bleeding; Z79.4 Long term (current) use of insulin; Z80.1 Family history of malignant neoplasm of trachea, bronchus and lung; Z80.3 Family history of malignant neoplasm of breast; Z80.42 Family history of malignant neoplasm of prostate; Z80.8 Family history of malignant neoplasm of other organs or systems; Z81.8 Family history of other mental and behavioral disorders; Z82.0 Family history of epilepsy and other diseases of the nervous system; Z82.3 Family history of stroke; Z82.49 Family history of ischemic heart disease and other diseases of the circulatory system; Z82.5 Family history of asthma and other chronic lower respiratory diseases; Z82.62 Family history of osteoporosis; Z83.3 Family history of diabetes mellitus; Z91.19 Patient's noncompliance with other medical treatment and regimen
CPT/HCPCS: 36415; 36600; 80048; 80053; 81001; 82010; 82805; 82962; 83735; 83930; 84100; 85025; 87077; 87081; 87186; 87205; 93005; 96365; 96372; 96375; 99291; G0378; J1815; J2405; J3480

== ENCOUNTER 2022-11-06 18:29 | Inpatient (IN) | payer MEDICAID ==
[~2022-11-06] VITALS: Ht 185.4 cm; Wt 71.0 kg
[~2022-11-06 18:29] MED LIST changes: +DOXY-332 PO; -LEVO500T31 PO
[2022-11-06] MEDS ORDERED: ONDANSETRON HCL 4 MG/2 ML VIAL IV ONE (19:45)
[2022-11-06] MEDS ORDERED: SODIUM CHLORIDE 0.9% 2,000 ML IV ONE (19:45)
[2022-11-06] MEDS ORDERED: MORPHINE SULFATE 4 MG/ML SYR/VIAL IV ONE (20:00)
[2022-11-06 20:31] LABS: Basophils % (auto) 0.3 % (0.0-2.0); Eosinophils # (auto) 0 10 ^3/uL (0-0.8); Eosinophils % (auto) 0.5 % (0.0-7.0); Lymphocytes # (auto) 0.7 10 ^3/uL (0.4-5.4); Lymphocytes % (auto) 8.7 % (10.0-50.0); Monocytes # (auto) 0.4 10 ^3/uL (0-1.3); Monocytes % (auto) 4.6 % (0.0-12.0); Neutrophils # (auto) 7.2 10 ^3/uL (1.6-8.6); Neutrophils % (auto) 85.9 % (37.0-80.0); Nucleated Red Blood Cells % 0.1 %; White Blood Cell 8.3 10^3/uL (4.4-10.8)
[2022-11-06 20:32] LABS: Basophils # (auto) 0 10 ^3/uL (0-0.2); Hematocrit 45.6 % (41.0-53.0); Hemoglobin 14.9 g/dL (13.5-17.5); Mean Corpuscular Hgb Conc. 32.7 g/dL (32.0-36.0); Mean Corpuscular Volume 88.8 fL (80.0-100.0); Red Blood Cells 5.14 10^6/uL (4.5-5.90); Red Cell Distribution Width 13.2 % (11.8-14.3)
[2022-11-06 20:40] LABS: Albumin 3.6 g/dL (3.4-5.0); Calcium 8.9 mg/dL (8.5-10.1); Potassium 4.5 mmol/L (3.5-5.1)
[2022-11-06 20:43] LABS: Bilirubin, Total 0.8 mg/dL (0.2-1.0)
[2022-11-06 21:43] LABS: BUN/Creatinine Ratio 14.8
[2022-11-06 21:45] LABS: Urine Bacteria MANY /hpf (None Seen); Urine Blood Negative /uL (Negative); Urine Specific Gravity 1.034 (1.001-1.035); Urine WBC 11 /hpf (0 - 3)
[2022-11-07] MEDS ORDERED: cefTRIAXone 1GM/50ML D5W 50 ML IV ONE (00:15)
[2022-11-07] MEDS ORDERED: InsuLIN R (HUMAN) 100 UNITS in SODIUM CHL 0.9% 99 ML IV SCH (00:15)
[2022-11-07] MEDS ORDERED: INSULIN LANTUS (GLARGINE) 1 /0.01ml (100units/ml) SC ONE (00:15)
[2022-11-07] MEDS ORDERED: ONDANSETRON HCL 4 MG/2 ML VIAL IV PRN (00:15)
[2022-11-07] MEDS ORDERED: NITROGLYCERIN 0.4 MG SL TAB SL PRN (00:15)
[2022-11-07] MEDS ORDERED: DEXTROSE (50%) 50ML SYRG IV PRN ×2 (00:15→12:00)
[2022-11-07] MEDS ORDERED: MORPHINE SULFATE INJ 2 MG/ml SYRG IV PRN (00:15)
[2022-11-07 01:09] LABS: BUN/Creatinine Ratio 15.6; Calcium 8.7 mg/dL (8.5-10.1); Potassium 4.2 mmol/L (3.5-5.1)
[2022-11-07] MEDS: ACCU-CHEK COMFORT CURVE STRIP VI SCH ×9 (02:06→22:39)
[2022-11-07] MEDS ORDERED: SODIUM CHLORIDE 0.9% 1,000 ML IV SCH (04:15)
[2022-11-07] MEDS ORDERED: ACETAMINOPHEN 325 MG TAB PO PRN (04:30)
[2022-11-07] MEDS: SODIUM CHLORIDE 0.9% 1,000 ML IV SCH ×3 (07:40→20:07)
[2022-11-07] MEDS: cefTRIAXone 1GM/50ML D5W 50 ML IV SCH (09:06)
[2022-11-07 09:12] LABS: BUN/Creatinine Ratio 17.6; Calcium 8.2 mg/dL (8.5-10.1); Potassium 3.7 mmol/L (3.5-5.1)
[2022-11-07] MEDS: PANTOPRAZOLE 40 MG/10 ML VIAL INJ IV SCH (10:19)
[2022-11-07 14:11] LABS: BUN/Creatinine Ratio 16.5; Calcium 8.1 mg/dL (8.5-10.1)
[2022-11-07] MEDS: InsuLIN REG 1unit/0.01ml Soln (100units/ml) SC SCH ×2 (16:17→22:41)
[2022-11-07 18:32] LABS: BUN/Creatinine Ratio 18.9; Calcium 7.8 mg/dL (8.5-10.1); Potassium 3.8 mmol/L (3.5-5.1)
[2022-11-07] MEDS ORDERED: INSULIN LANTUS (GLARGINE) 1 /0.01ml (100units/ml) SC SCH (22:00)
[2022-11-08] MEDS: SODIUM CHLORIDE 0.9% 1,000 ML IV SCH ×4 (04:36→22:54)
[2022-11-08 05:41] LABS: Albumin 2.7 g/dL (3.4-5.0); BUN/Creatinine Ratio 15.7; Calcium 7.9 mg/dL (8.5-10.1); Potassium 3.5 mmol/L (3.5-5.1)
[2022-11-08 05:44] LABS: Bilirubin, Total 0.6 mg/dL (0.2-1.0); Total Protein 6.7 g/dL (6.4-8.2)
[2022-11-08 06:18] LABS: Basophils # (auto) 0 10 ^3/uL (0-0.2); Basophils % (auto) 0.4 % (0.0-2.0); Eosinophils # (auto) 0.1 10 ^3/uL (0-0.8); Eosinophils % (auto) 0.7 % (0.0-7.0); Hematocrit 39.8 % (41.0-53.0); Hemoglobin 12.7 g/dL (13.5-17.5); Lymphocytes # (auto) 1.1 10 ^3/uL (0.4-5.4); Lymphocytes % (auto) 11.8 % (10.0-50.0); Mean Corpuscular Hemoglobin 28.3 pg (28.0-32.0); Mean Corpuscular Volume 88.3 fL (80.0-100.0); Monocytes # (auto) 0.5 10 ^3/uL (0-1.3); Monocytes % (auto) 5.7 % (0.0-12.0); Neutrophils # (auto) 7.5 10 ^3/uL (1.6-8.6); Neutrophils % (auto) 81.4 % (37.0-80.0); Red Blood Cells 4.51 10^6/uL (4.5-5.90); Red Cell Distribution Width 13.6 % (11.8-14.3); White Blood Cell 9.3 10^3/uL (4.4-10.8)
[2022-11-08] MEDS: ACCU-CHEK COMFORT CURVE STRIP VI SCH ×4 (06:50→22:54)
[2022-11-08] MEDS: InsuLIN REG 1unit/0.01ml Soln (100units/ml) SC SCH ×4 (06:53→22:54)
[2022-11-08] MEDS: PANTOPRAZOLE 40 MG/10 ML VIAL INJ IV SCH (09:00)
[2022-11-08] MEDS: cefTRIAXone 1GM/50ML D5W 50 ML IV SCH (09:00)
[2022-11-08] MEDS ORDERED: INSULIN LANTUS (GLARGINE) 1 /0.01ml (100units/ml) SC SCH (10:00)
[2022-11-08] MEDS: INSULIN LANTUS (GLARGINE) 1 /0.01ml (100units/ml) SC SCH (17:05)
[2022-11-09] MEDS: SODIUM CHLORIDE 0.9% 1,000 ML IV SCH ×3 (04:55→18:15)
[2022-11-09] MEDS: ACCU-CHEK COMFORT CURVE STRIP VI SCH ×4 (06:56→21:57)
[2022-11-09] MEDS: InsuLIN REG 1unit/0.01ml Soln (100units/ml) SC SCH ×4 (06:56→21:58)
[2022-11-09] MEDS: HYDROcodone-ACET 5/325MG TAB PO PRN (06:59)
[2022-11-09] MEDS: cefTRIAXone 1GM/50ML D5W 50 ML IV SCH (09:31)
[2022-11-09] MEDS: PANTOPRAZOLE 40 MG/10 ML VIAL INJ IV SCH (10:00)
[2022-11-09 13:11] VITALS: BP 114/84
[2022-11-09 17:20] VITALS: BP 119/82
[2022-11-09] MEDS: INSULIN LANTUS (GLARGINE) 1 /0.01ml (100units/ml) SC SCH (21:57)
[2022-11-09 22:00] VITALS: BP 119/83
[2022-11-10] MEDS: SODIUM CHLORIDE 0.9% 1,000 ML IV SCH ×4 (00:55→20:46)
[2022-11-10 05:00] VITALS: BP 119/87
[2022-11-10] MEDS: ACCU-CHEK COMFORT CURVE STRIP VI SCH ×4 (06:10→21:43)
[2022-11-10] MEDS: InsuLIN REG 1unit/0.01ml Soln (100units/ml) SC SCH ×4 (06:11→21:45)
[2022-11-10] MEDS: HYDROcodone-ACET 5/325MG TAB PO PRN (06:26)
[2022-11-10 07:05] LABS: Basophils # (auto) 0 10 ^3/uL (0-0.2); Basophils % (auto) 0.2 % (0.0-2.0); Eosinophils # (auto) 0.2 10 ^3/uL (0-0.8); Eosinophils % (auto) 2.2 % (0.0-7.0); Hematocrit 37.6 % (41.0-53.0); Hemoglobin 12.4 g/dL (13.5-17.5); Lymphocytes # (auto) 1.3 10 ^3/uL (0.4-5.4); Lymphocytes % (auto) 17.9 % (10.0-50.0); Mean Corpuscular Hemoglobin 29.1 pg (28.0-32.0); Mean Corpuscular Hgb Conc. 33.1 g/dL (32.0-36.0); Mean Corpuscular Volume 87.9 fL (80.0-100.0); Monocytes # (auto) 0.4 10 ^3/uL (0-1.3); Neutrophils # (auto) 5.3 10 ^3/uL (1.6-8.6); Neutrophils % (auto) 73.7 % (37.0-80.0); Nucleated Red Blood Cells % 0.1 %; Red Blood Cells 4.28 10^6/uL (4.5-5.90); Red Cell Distribution Width 13.1 % (11.8-14.3); White Blood Cell 7.2 10^3/uL (4.4-10.8)
[2022-11-10 07:53] LABS: Calcium 7.8 mg/dL (8.5-10.1); Potassium 4.1 mmol/L (3.5-5.1)
[2022-11-10 07:56] LABS: BUN/Creatinine Ratio 11.2
[2022-11-10 08:44] VITALS: BP 116/85
[2022-11-10] MEDS: PANTOPRAZOLE 40 MG/10 ML VIAL INJ IV SCH (09:18)
[2022-11-10] MEDS: cefTRIAXone 1GM/50ML D5W 50 ML IV SCH (09:18)
[2022-11-10 13:00] VITALS: BP 120/87
[2022-11-10 17:00] VITALS: BP 102/85
[2022-11-10 22:00] VITALS: BP 112/75
[2022-11-10] MEDS ORDERED: INSULIN LANTUS (GLARGINE) 1 /0.01ml (100units/ml) SC SCH (22:00)
[2022-11-11] MEDS: SODIUM CHLORIDE 0.9% 1,000 ML IV SCH ×2 (03:42→10:15)
[2022-11-11 05:00] VITALS: BP 124/91
[2022-11-11] MEDS: ACCU-CHEK COMFORT CURVE STRIP VI SCH ×2 (05:38→11:36)
[2022-11-11] MEDS: InsuLIN REG 1unit/0.01ml Soln (100units/ml) SC SCH ×2 (05:45→11:30)
[2022-11-11] MEDS: cefTRIAXone 1GM/50ML D5W 50 ML IV SCH (09:00)
[2022-11-11 09:45] VITALS: BP 128/92
[2022-11-11] MEDS: PANTOPRAZOLE 40 MG/10 ML VIAL INJ IV SCH (10:57)
[2022-11-11 12:30] LABS: Basophils # (auto) 0 10 ^3/uL (0-0.2); Basophils % (auto) 0.2 % (0.0-2.0); Eosinophils # (auto) 0.2 10 ^3/uL (0-0.8); Eosinophils % (auto) 3.2 % (0.0-7.0); Hematocrit 38.2 % (41.0-53.0); Hemoglobin 12.7 g/dL (13.5-17.5); Lymphocytes # (auto) 1.1 10 ^3/uL (0.4-5.4); Mean Corpuscular Hemoglobin 29.1 pg (28.0-32.0); Mean Corpuscular Hgb Conc. 33.3 g/dL (32.0-36.0); Mean Corpuscular Volume 87.4 fL (80.0-100.0); Monocytes # (auto) 0.4 10 ^3/uL (0-1.3); Monocytes % (auto) 7.3 % (0.0-12.0); Neutrophils # (auto) 3.9 10 ^3/uL (1.6-8.6); Neutrophils % (auto) 69.3 % (37.0-80.0); Nucleated Red Blood Cells % 0.1 %; Red Blood Cells 4.37 10^6/uL (4.5-5.90); Red Cell Distribution Width 13.2 % (11.8-14.3); White Blood Cell 5.7 10^3/uL (4.4-10.8)
[2022-11-11 12:47] LABS: BUN/Creatinine Ratio 9.8; Calcium 7.5 mg/dL (8.5-10.1); Potassium 3.6 mmol/L (3.5-5.1)
[2022-11-11 12:48] VITALS: BP 117/82
[2022-11-11] MEDS ORDERED: INSULIN LANTUS (GLARGINE) 1 /0.01ml (100units/ml) SC SCH (22:00)
== END 2022-11-11 13:50 | disposition home or self-care (01) | DRG 420 ==
LOC: EDBD 18:29 → EDUNIT# 18:29 → ER 18:41 → TELE 11-07 00:22 → TELE-WESTW 11-09 10:18
PROVIDERS: ADMIT Nurse Practitioner; ATTEND Internal Medicine
DX: E11.10 Type 2 diabetes mellitus with ketoacidosis without coma (principal); U07.1 COVID-19; N17.9 Acute kidney failure, unspecified; E11.65 Type 2 diabetes mellitus with hyperglycemia; N39.0 Urinary tract infection, site not specified; Z80.0 Family history of malignant neoplasm of digestive organs; Z80.1 Family history of malignant neoplasm of trachea, bronchus and lung; Z80.3 Family history of malignant neoplasm of breast; Z80.42 Family history of malignant neoplasm of prostate; Z80.8 Family history of malignant neoplasm of other organs or systems; Z81.8 Family history of other mental and behavioral disorders; Z82.0 Family history of epilepsy and other diseases of the nervous system; Z82.49 Family history of ischemic heart disease and other diseases of the circulatory system; Z82.3 Family history of stroke; Z82.5 Family history of asthma and other chronic lower respiratory diseases; Z82.62 Family history of osteoporosis; Z83.3 Family history of diabetes mellitus; Z79.4 Long term (current) use of insulin
CPT/HCPCS: 36415; 71045; 74176; 80048; 80053; 81001; 82010; 82962; 83605; 85025; 87040; 87086; 87426; 93005; 96361; 96365; 96366; 96368; 96375; C9113; G0378; J0696; J1815; J2405

== ENCOUNTER 2023-06-15 18:35 | Inpatient (IN) | payer MEDICAID ==
[~2023-06-15] VITALS: Ht 188 cm; Wt 54.5 kg
[~2023-06-15 18:35] MED LIST changes: +CEPH-511 PO; -DOXY-332 PO; +DOXY-448 PO; +INSU100I54 SC; +INSU1INJ19 SC; +ONDA-144 PO
[2023-06-15] MEDS ORDERED: SODIUM CHLORIDE 0.9% 3,000 ML IV ONE (19:00)
[2023-06-15 19:30] LABS: Basophils # (auto) 0.2 10 ^3/uL (0-0.2); Basophils % (auto) 1.6 % (0.0-2.0); Eosinophils # (auto) 0.1 10 ^3/uL (0-0.8); Eosinophils % (auto) 0.5 % (0.0-7.0); Hematocrit 38.9 % (41.0-53.0); Hemoglobin 12.3 g/dL (13.5-17.5); Lymphocytes # (auto) 1.3 10 ^3/uL (0.4-5.4); Lymphocytes % (auto) 9.2 % (10.0-50.0); Mean Corpuscular Hemoglobin 27.7 pg (28.0-32.0); Mean Corpuscular Hgb Conc. 31.8 g/dL (32.0-36.0); Mean Corpuscular Volume 87.3 fL (80.0-100.0); Monocytes # (auto) 0.6 10 ^3/uL (0-1.3); Monocytes % (auto) 4.6 % (0.0-12.0); Neutrophils # (auto) 11.6 10 ^3/uL (1.6-8.6); Neutrophils % (auto) 84.1 % (37.0-80.0); Red Blood Cells 4.45 10^6/uL (4.5-5.90); Red Cell Distribution Width 14.3 % (11.8-14.3); White Blood Cell 13.9 10^3/uL (4.4-10.8)
[2023-06-15 19:48] LABS: Alanine Aminotransferase 31 U/L (7-40); Albumin 3.6 g/dL (3.2-4.8); Alkaline Phosphatase 42 U/L (46-116); Anion Gap 22.6 (5-15); Aspartate Aminotransferase 39 U/L (13-40); BUN/Creatinine Ratio 6.8 (10.0-20.0); Blood Urea Nitrogen 11 mg/dL (9-23); Calcium 8.8 mg/dL (8.5-10.1); Carbon Dioxide 11.4 mmol/L (20-30); Chloride 99 mmol/L (98-107); Potassium 4.7 mmol/L (3.5-5.1); Sodium 133 mmol/L (136-145)
[2023-06-15 19:49] LABS: Total Protein 6.5 g/dL (5.7-8.2)
[2023-06-15 19:52] LABS: Glucose 639 mg/dL (74-106)
[2023-06-15 20:00] VITALS: O2SAT 99
[2023-06-15] MEDS ORDERED: KETOROLAC TROMETH 30 MG/ML 1ML VIAL IV ONE (20:15)
[2023-06-15] MEDS ORDERED: ONDANSETRON HCL 4 MG/2 ML VIAL IV ONE (20:15)
[2023-06-15] MEDS ORDERED: InsuLIN REG 1unit/0.01ml Soln (100units/ml) IV ONE (20:15)
[2023-06-15 20:44] LABS: Magnesium 1.9 mg/dL (1.6-2.6)
[2023-06-15 20:45] LABS: Phosphorus 6.2 mg/dL (2.4-5.1)
[2023-06-15] MEDS ORDERED: DEXTROSE (50%) 50ML SYRG IV PRN (20:45)
[2023-06-15] MEDS ORDERED: MORPHINE SULFATE INJ 2 MG/ml SYRG IV PRN (21:00)
[2023-06-15] MEDS ORDERED: cefTRIAXone 1GM/50ML D5W 50 ML IV ONE (21:00)
[2023-06-15] MEDS ORDERED: NITROGLYCERIN 0.4 MG SL TAB SL PRN (21:00)
[2023-06-15] MEDS ORDERED: DOCUSATE SOD 100 MG CAP PO PRN (21:00)
[2023-06-15] MEDS ORDERED: ACETAMINOPHEN 325 MG TAB PO PRN (21:00)
[2023-06-15] MEDS ORDERED: SODIUM CHLORIDE 0.9% 1,000 ML IV ONE (21:00)
[2023-06-15] MEDS ORDERED: SODIUM BICARBONATE 50ML VIAL 50 ML in SOD CHL 0.45% 1,000 ML IV SCH (21:00)
[2023-06-15] MEDS: InsuLIN R (HUMAN) 100 UNITS in SODIUM CHL 0.9% 99 ML IV SCH ×2 (21:21→23:13)
[2023-06-15] MEDS: ACCU-CHEK COMFORT CURVE STRIP VI SCH (23:04)
[2023-06-15] MEDS ORDERED: SODIUM BICARBONATE 8.4% INJ 50ML SYRINGE ONE (23:31)
[2023-06-16] MEDS: ACCU-CHEK COMFORT CURVE STRIP VI SCH ×10 (00:44→18:14)
[2023-06-16] MEDS: HYDROcodone-ACET 5/325MG TAB PO PRN ×4 (02:05→19:47)
[2023-06-16] MEDS ORDERED: SODIUM CHLORIDE 0.9% 1,000 ML IV ONE ×2 (03:15→13:15)
[2023-06-16] MEDS ORDERED: NOREPINEPHRINE 8 MG/250ML KIT 250 ML IV ONE (05:41)
[2023-06-16] MEDS: NOREPINEPHRINE 8 MG/250ML KIT 250 ML IV SCH ×3 (05:45→13:15)
[2023-06-16] MEDS: ONDANSETRON HCL 4 MG/2 ML VIAL IV PRN ×2 (05:54→12:56)
[2023-06-16 06:53] LABS: Basophils # (auto) 0 10 ^3/uL (0-0.2); Basophils % (auto) 0.3 % (0.0-2.0); Eosinophils # (auto) 0 10 ^3/uL (0-0.8); Eosinophils % (auto) 0.2 % (0.0-7.0); Hematocrit 32.5 % (41.0-53.0); Hemoglobin 10.9 g/dL (13.5-17.5); Lymphocytes # (auto) 1.3 10 ^3/uL (0.4-5.4); Lymphocytes % (auto) 10.1 % (10.0-50.0); Mean Corpuscular Hemoglobin 28.4 pg (28.0-32.0); Mean Corpuscular Hgb Conc. 33.5 g/dL (32.0-36.0); Mean Corpuscular Volume 84.8 fL (80.0-100.0); Monocytes # (auto) 0.8 10 ^3/uL (0-1.3); Monocytes % (auto) 5.8 % (0.0-12.0); Neutrophils # (auto) 10.9 10 ^3/uL (1.6-8.6); Neutrophils % (auto) 83.6 % (37.0-80.0); Red Blood Cells 3.83 10^6/uL (4.5-5.90)
[2023-06-16 06:55] LABS: Alanine Aminotransferase 22 U/L (7-40); Albumin 3.4 g/dL (3.2-4.8); Alkaline Phosphatase 34 U/L (46-116); Aspartate Aminotransferase 23 U/L (13-40); BUN/Creatinine Ratio 8.5 (10.0-20.0); Bilirubin, Total 0.4 mg/dL (0.2-1.0); Blood Urea Nitrogen 14 mg/dL (9-23); Calcium 8.2 mg/dL (8.7-10.4); Sodium 140 mmol/L (136-145)
[2023-06-16 08:00] LABS: Chloride 110 mmol/L (98-107); Glucose 162 mg/dL (74-106)
[2023-06-16] MEDS: InsuLIN R (HUMAN) 100 UNITS in SODIUM CHL 0.9% 99 ML IV SCH (08:55)
[2023-06-16 09:03] VITALS: RESP 20; O2SAT 96
[2023-06-16] MEDS: cefTRIAXone 1GM/50ML D5W 50 ML IV SCH (09:36)
[2023-06-16] MEDS: SODIUM CHLORIDE 0.9% 1,000 ML IV SCH ×2 (11:34→19:01)
[2023-06-16 11:38] LABS: Base Excess -7.9 mmol/L (-2.0-2.0)
[2023-06-16 13:12] LABS: Chloride 107 mmol/L (98-107); Sodium 138 mmol/L (136-145)
[2023-06-16 13:13] LABS: Anion Gap 16.3 (5-15); Carbon Dioxide 14.7 mmol/L (20-30)
[2023-06-16 13:14] LABS: Calcium 7.9 mg/dL (8.5-10.1)
[2023-06-16] MEDS ORDERED: DEXTROSE (50%) 50ML SYRG IV PRN ×2 (13:15→13:30)
[2023-06-16 13:18] LABS: BUN/Creatinine Ratio 12.7 (10.0-20.0); Blood Urea Nitrogen 18 mg/dL (9-23)
[2023-06-16 13:21] LABS: Glucose 378 mg/dL (74-106)
[2023-06-16] MEDS: InsuLIN REG 1unit/0.01ml Soln (100units/ml) SC SCH ×2 (13:31→18:38)
[2023-06-16] MEDS ORDERED: METOCLOPRAMIDE HCL 5MG/ml INJ 2ml VIAL IV PRN (14:00)
[2023-06-16] MEDS ORDERED: InsuLIN REG 1unit/0.01ml Soln (100units/ml) SC SCH ×2 (16:00→18:00)
[2023-06-16] MEDS ORDERED: ACCU-CHEK COMFORT CURVE STRIP VI SCH ×2 (16:00→18:00)
[2023-06-16 19:22] LABS: Urine Bacteria NONE SEEN /hpf (None Seen); Urine Blood Negative /uL (Negative); Urine Clarity Clear (Clear); Urine Color Colorless (Yellow); Urine Protein, UAD 1+ (Negative); Urine Specific Gravity 1.022 (1.001-1.035); Urine Urobilinogen Normal (Negative); Urine WBC 11 /hpf (0 - 3); Urine pH 5.5 (5.0-8.0)
[2023-06-16 19:45] VITALS: PULSE 109; RESP 18; O2SAT 97
[2023-06-16 21:52] LABS: Chloride 108 mmol/L (98-107); Potassium 3.7 mmol/L (3.5-5.1); Sodium 138 mmol/L (136-145)
[2023-06-16 21:53] LABS: Anion Gap 12.2 (5-15); Calcium 7.5 mg/dL (8.5-10.1); Carbon Dioxide 17.8 mmol/L (20-30)
[2023-06-16 21:58] LABS: BUN/Creatinine Ratio 12.3 (10.0-20.0); Blood Urea Nitrogen 20 mg/dL (9-23)
[2023-06-16 22:00] LABS: Glucose 261 mg/dL (74-106)
[2023-06-16] MEDS ORDERED: INSULIN LANTUS (GLARGINE) 1 /0.01ml (100units/ml) SC SCH (22:00)
[2023-06-16] MEDS: INSULIN LANTUS (GLARGINE) 1 /0.01ml (100units/ml) SC SCH (22:33)
[2023-06-17] MEDS: SODIUM CHLORIDE 0.9% 1,000 ML IV SCH ×3 (00:35→13:55)
[2023-06-17 00:44] LABS: Chloride 108 mmol/L (98-107); Potassium 3.7 mmol/L (3.5-5.1); Sodium 137 mmol/L (136-145)
[2023-06-17 00:45] LABS: Anion Gap 14.4 (5-15); Carbon Dioxide 14.6 mmol/L (20-30)
[2023-06-17 00:46] LABS: Calcium 7.4 mg/dL (8.7-10.4)
[2023-06-17 00:51] LABS: BUN/Creatinine Ratio 13.4 (10.0-20.0); Blood Urea Nitrogen 20 mg/dL (9-23); Glucose 289 mg/dL (74-106)
[2023-06-17] MEDS: ACCU-CHEK COMFORT CURVE STRIP VI SCH ×4 (01:06→18:14)
[2023-06-17] MEDS: InsuLIN REG 1unit/0.01ml Soln (100units/ml) SC SCH ×4 (01:12→18:00)
[2023-06-17] MEDS: HYDROcodone-ACET 5/325MG TAB PO PRN ×2 (06:06→15:54)
[2023-06-17] MEDS: INSULIN LANTUS (GLARGINE) 1 /0.01ml (100units/ml) SC SCH (07:39)
[2023-06-17] MEDS: cefTRIAXone 1GM/50ML D5W 50 ML IV SCH (09:30)
[2023-06-17 11:00] LABS: Chloride 109 mmol/L (98-107); Potassium 3.5 mmol/L (3.5-5.1); Sodium 139 mmol/L (136-145)
[2023-06-17 11:01] LABS: Anion Gap 8.3 (5-15); Carbon Dioxide 21.7 mmol/L (20-30)
[2023-06-17 11:06] LABS: BUN/Creatinine Ratio 12.3 (10.0-20.0); Blood Urea Nitrogen 16 mg/dL (9-23)
[2023-06-17 11:18] LABS: Glucose 127 mg/dL (74-106)
[2023-06-17 11:41] VITALS: PULSE 91; RESP 12; O2SAT 96
[2023-06-17] MEDS: NOREPINEPHRINE 8 MG/250ML KIT 250 ML IV SCH (13:15)
[2023-06-17 15:48] LABS: Basophils # (auto) 0.1 10 ^3/uL (0-0.2); Basophils % (auto) 1.2 % (0.0-2.0); Eosinophils # (auto) 0.1 10 ^3/uL (0-0.8); Eosinophils % (auto) 1.2 % (0.0-7.0); Hematocrit 33.6 % (41.0-53.0); Hemoglobin 11.1 g/dL (13.5-17.5); Lymphocytes # (auto) 1.8 10 ^3/uL (0.4-5.4); Lymphocytes % (auto) 17.1 % (10.0-50.0); Mean Corpuscular Hemoglobin 27.7 pg (28.0-32.0); Mean Corpuscular Hgb Conc. 33.2 g/dL (32.0-36.0); Mean Corpuscular Volume 83.4 fL (80.0-100.0); Monocytes # (auto) 0.4 10 ^3/uL (0-1.3); Monocytes % (auto) 3.8 % (0.0-12.0); Neutrophils # (auto) 7.9 10 ^3/uL (1.6-8.6); Neutrophils % (auto) 76.7 % (37.0-80.0); Nucleated Red Blood Cells % 0.1 %; Red Blood Cells 4.03 10^6/uL (4.5-5.90); Red Cell Distribution Width 13.9 % (11.8-14.3); White Blood Cell 10.2 10^3/uL (4.4-10.8)
[2023-06-17 15:57] LABS: Chloride 107 mmol/L (98-107); Potassium 3.5 mmol/L (3.5-5.1); Sodium 138 mmol/L (136-145)
[2023-06-17 15:58] LABS: Anion Gap 8.1 (5-15); Carbon Dioxide 22.9 mmol/L (20-30)
[2023-06-17 16:03] LABS: BUN/Creatinine Ratio 15.3 (10.0-20.0); Blood Urea Nitrogen 18 mg/dL (9-23); Glucose 115 mg/dL (74-106)
[2023-06-17 17:59] VITALS: PULSE 104; RESP 20; O2SAT 93
[2023-06-17 19:53] VITALS: BP 144/91; PULSE 102; RESP 18; TEMP 97; O2SAT 96
[2023-06-21] MEDS ORDERED: GABA-1250 PO (23:24)
[2023-06-21] MEDS ORDERED: HYDR-4611 PO (23:24)
[2023-06-26] MEDS ORDERED: HYDR-4902 PO (08:37)
[2023-06-26] MEDS ORDERED: DOXY1CAP57 PO (08:39)
== END 2023-06-17 21:15 | disposition home or self-care (01) | DRG 720 ==
LOC: EDBD 18:35 → ER 18:35 → TELE 21:06 → TELE-WESTW 06-17 18:14
PROVIDERS: ADMIT Nurse Practitioner Family; ATTEND Nurse Practitioner Family
DX: A41.9 Sepsis, unspecified organism (principal); N17.0 Acute kidney failure with tubular necrosis; E10.10 Type 1 diabetes mellitus with ketoacidosis without coma; E87.1 Hypo-osmolality and hyponatremia; N39.0 Urinary tract infection, site not specified; E10.65 Type 1 diabetes mellitus with hyperglycemia; Z89.511 Acquired absence of right leg below knee
CPT/HCPCS: 36415; 36600; 80048; 80053; 81001; 82010; 82805; 82962; 83036; 83735; 83930; 84100; 85025; 96365; 96375; G0378; J0696; J1815; J1885; J2405

== ENCOUNTER 2024-06-29 10:17 | Inpatient (IN) | payer MEDICAID ==
[~2024-06-29] VITALS: Ht 177.8 cm; Wt 76.5 kg
[~2024-06-29 10:17] MED LIST changes: -CEPH-511 PO; -DOXY-448 PO; +DOXY1CAP57 PO; +GABA-1250 PO; +HYDR-4611 PO; +HYDR-4902 PO
[2024-06-29] MEDS: SODIUM CHLORIDE 0.9% 1,000 ML IV ONE ×2 (10:48→15:44)
[2024-06-29] MEDS: InsuLIN REG 1unit/0.01ml Soln (100units/ml) IV ONE (10:50)
[2024-06-29 11:01] LABS: Base Excess -18.9 mmol/L (-2.0-3.0)
[2024-06-29 11:05] LABS: Basophils # (auto) 0.1 10 ^3/uL (0-0.2); Basophils % (auto) 0.4 % (0.0-2.0); Eosinophils # (auto) 0 10 ^3/uL (0-0.8); Eosinophils % (auto) 0.3 % (0.0-7.0); Hematocrit 37.3 % (41.0-53.0); Hemoglobin 11.7 g/dL (13.5-17.5); Lymphocytes # (auto) 1.1 10 ^3/uL (0.4-5.4); Lymphocytes % (auto) 7.3 % (10.0-50.0); Mean Corpuscular Hemoglobin 28.9 pg (28.0-32.0); Mean Corpuscular Hgb Conc. 31.3 g/dL (32.0-36.0); Mean Corpuscular Volume 92.4 fL (80.0-100.0); Monocytes # (auto) 0.6 10 ^3/uL (0-1.3); Monocytes % (auto) 4.2 % (0.0-12.0); Neutrophils # (auto) 12.7 10 ^3/uL (1.6-8.6); Neutrophils % (auto) 87.8 % (37.0-80.0); Platelet Count (auto) 204 10^3/uL (140-450); Red Blood Cells 4.03 10^6/uL (4.5-5.90); Red Cell Distribution Width 13.9 % (11.8-14.3); White Blood Cell 14.5 10^3/uL (4.4-10.8)
[2024-06-29 11:22] LABS: Alanine Aminotransferase 53 U/L (7-40); Albumin 3.5 g/dL (3.2-4.8); Alkaline Phosphatase 62 U/L (46-116); Anion Gap 23.00001 (5-15); Aspartate Aminotransferase 34 U/L (13-40); BUN/Creatinine Ratio 16.7 (10.0-20.0); Bilirubin, Total 0.5 mg/dL (0.2-1.0); Blood Urea Nitrogen 50 mg/dL (9-23); Calcium 9.1 mg/dL (8.7-10.4); Chloride 92 mmol/L (98-107); Sodium 125 mmol/L (136-145)
[2024-06-29 11:23] LABS: Total Protein 6.4 g/dL (5.7-8.2)
[2024-06-29 11:46] LABS: Carbon Dioxide < 10 mmol/L (20-30); Glucose 774 mg/dL (74-106); Potassium 5.7 mmol/L (3.5-5.1)
[2024-06-29 12:00] VITALS: PULSE 111; RESP 13; O2SAT 96
[2024-06-29] MEDS ORDERED: DEXTROSE (50%) 50ML SYRG IV PRN (12:45)
[2024-06-29] MEDS: INSULIN DRIP 100 UNIT/100ML 100 ML IV SCH (13:12)
[2024-06-29] MEDS ORDERED: SODIUM CHLORIDE 0.9% 3,000 ML IV ONE (14:15)
[2024-06-29] MEDS: ACCU-CHEK COMFORT CURVE STRIP VI SCH (14:48)
[2024-06-29] MEDS ORDERED: ACETAMINOPHEN 325 MG TAB PO PRN (15:00)
[2024-06-29] MEDS ORDERED: DOCUSATE SOD 100 MG CAP PO PRN (15:00)
[2024-06-29] MEDS: SODIUM BICARB 8.4% 50Meq/50ml SYR Vial IV ONE (15:02)
[2024-06-29 15:27] LABS: Chloride 97 mmol/L (98-107); Potassium 4.9 mmol/L (3.5-5.1)
[2024-06-29 15:28] LABS: Anion Gap 23.00001 (5-15); Calcium 8.9 mg/dL (8.7-10.4)
[2024-06-29 15:33] LABS: BUN/Creatinine Ratio 14.3 (10.0-20.0); Blood Urea Nitrogen 43 mg/dL (9-23)
[2024-06-29 15:38] LABS: Sodium 130 mmol/L (136-145)
[2024-06-29 15:39] LABS: Carbon Dioxide < 10 mmol/L (20-30); Glucose 660 mg/dL (74-106)
[2024-06-29 15:48] LABS: Urine Bacteria FEW /hpf (None Seen); Urine Blood TRACE /uL (Negative); Urine Clarity Clear (Clear); Urine Color Light-Yellow (Yellow); Urine Protein, UAD 1+ (Negative); Urine Specific Gravity 1.021 (1.001-1.035); Urine Urobilinogen Normal (Negative); Urine WBC 1 /hpf (0 - 3); Urine pH 5.5 (5.0-9.0)
[2024-06-29] MEDS: SODIUM BICARB 50mEq/50ml Vial 150 ML in D5W 5% 1,000 ML IV ONE (16:25)
[2024-06-29] MEDS: MORPHINE SULFATE INJ 2 MG/ml SYRG IV PRN (18:20)
[2024-06-29 19:19] LABS: Chloride 104 mmol/L (98-107); Sodium 138 mmol/L (136-145)
[2024-06-29 19:20] LABS: Anion Gap 16 (5-15); Calcium 8.4 mg/dL (8.7-10.4); Carbon Dioxide 18 mmol/L (20-30)
[2024-06-29 19:25] LABS: BUN/Creatinine Ratio 16.8 (10.0-20.0); Blood Urea Nitrogen 47 mg/dL (9-23)
[2024-06-29 19:27] LABS: Glucose 393 mg/dL (74-106)
[2024-06-29 20:15] VITALS: BP 114/67; PULSE 114; RESP 12; TEMP 98.4; O2SAT 98
[2024-06-29 20:42] VITALS: BP 114/67; PULSE 114; RESP 12; TEMP 98.4; O2SAT 98
[2024-06-29 21:00] VITALS: BP 137/73; PULSE 109; RESP 11; O2SAT 98
[2024-06-29 22:00] VITALS: BP 126/72; PULSE 100; RESP 8; O2SAT 96
[2024-06-29] MEDS: SODIUM CHLOR 0.9% PF (SALINE LOCK) 10ML VIAL/SYR IV SCH (22:33)
[2024-06-29 23:00] VITALS: BP 138/81; PULSE 98; RESP 8; O2SAT 95
[2024-06-29 23:19] LABS: Chloride 104 mmol/L (98-107); Potassium 3.9 mmol/L (3.5-5.1); Sodium 138 mmol/L (136-145)
[2024-06-29 23:20] LABS: Anion Gap 8 (5-15); Calcium 8.7 mg/dL (8.7-10.4); Carbon Dioxide 26 mmol/L (20-30)
[2024-06-29 23:25] LABS: BUN/Creatinine Ratio 18.3 (10.0-20.0); Blood Urea Nitrogen 47 mg/dL (9-23)
[2024-06-29 23:26] LABS: Glucose 249 mg/dL (74-106)
[2024-06-30] VITALS (20 sets, daily range): BP systolic 105–137; BP diastolic 49–84; PULSE 93–113; RESP 6–44; TEMP 97.7–98.6; O2SAT 80–98
[2024-06-30 06:13] LABS: Basophils # (auto) 0.1 10 ^3/uL (0-0.2); Basophils % (auto) 0.4 % (0.0-2.0); Eosinophils # (auto) 0.1 10 ^3/uL (0-0.8); Eosinophils % (auto) 0.9 % (0.0-7.0); Hematocrit 33.3 % (41.0-53.0); Hemoglobin 11.5 g/dL (13.5-17.5); Lymphocytes # (auto) 1.4 10 ^3/uL (0.4-5.4); Lymphocytes % (auto) 10.8 % (10.0-50.0); Mean Corpuscular Hemoglobin 29.7 pg (28.0-32.0); Mean Corpuscular Hgb Conc. 34.6 g/dL (32.0-36.0); Mean Corpuscular Volume 85.7 fL (80.0-100.0); Monocytes % (auto) 7.3 % (0.0-12.0); Neutrophils # (auto) 10.8 10 ^3/uL (1.6-8.6); Neutrophils % (auto) 80.6 % (37.0-80.0); Platelet Count (auto) 187 10^3/uL (140-450); Red Blood Cells 3.89 10^6/uL (4.5-5.90); Red Cell Distribution Width 13.6 % (11.8-14.3); White Blood Cell 13.4 10^3/uL (4.4-10.8)
[2024-06-30 06:14] LABS: Anion Gap 9 (5-15); Carbon Dioxide 29 mmol/L (20-30); Chloride 103 mmol/L (98-107); Potassium 3.4 mmol/L (3.5-5.1); Sodium 141 mmol/L (136-145)
[2024-06-30 06:15] LABS: Calcium 8.5 mg/dL (8.7-10.4)
[2024-06-30 06:20] LABS: BUN/Creatinine Ratio 21.7 (10.0-20.0); Blood Urea Nitrogen 48 mg/dL (9-23); Glucose 168 mg/dL (74-106)
[2024-06-30 06:21] LABS: Magnesium 2.2 mg/dL (1.6-2.6)
[2024-06-30] MEDS: ONDANSETRON HCL 4 MG/2 ML VIAL IV PRN (09:03)
[2024-06-30 09:51] LABS: Chloride 103 mmol/L (98-107); Potassium 3.5 mmol/L (3.5-5.1); Sodium 143 mmol/L (136-145)
[2024-06-30 09:52] LABS: Anion Gap 11 (5-15); Carbon Dioxide 29 mmol/L (20-30)
[2024-06-30 09:53] LABS: Calcium 8.8 mg/dL (8.7-10.4)
[2024-06-30 09:57] LABS: Glucose 154 mg/dL (74-106)
[2024-06-30 09:58] LABS: BUN/Creatinine Ratio 22.3 (10.0-20.0); Blood Urea Nitrogen 48 mg/dL (9-23)
[2024-06-30] MEDS: INSULIN LANTUS (GLARGINE) 1 /0.01ml (100units/ml) SC SCH (10:00)
[2024-06-30] MEDS ORDERED: DEXTROSE (50%) 50ML SYRG IV PRN (11:30)
[2024-06-30] MEDS: LACTATED RINGER'S 1,000 ML IV SCH (11:30)
[2024-06-30] MEDS: InsuLIN REG 1unit/0.01ml Soln (100units/ml) SC SCH (11:30)
[2024-06-30] MEDS: ACCU-CHEK COMFORT CURVE STRIP VI SCH (12:33)
[2024-07-01 01:00] VITALS: BP 144/93; PULSE 98; RESP 18; TEMP 98.2; O2SAT 98
[2024-07-01] MEDS: HYDROcodone-ACET 5/325MG TAB PO PRN (02:28)
[2024-07-01 05:00] VITALS: BP 143/96; PULSE 103; RESP 18; TEMP 98.3; O2SAT 97
[2024-07-01 06:14] LABS: Basophils # (auto) 0 10 ^3/uL (0-0.2); Basophils % (auto) 0.2 % (0.0-2.0); Eosinophils # (auto) 0.3 10 ^3/uL (0-0.8); Eosinophils % (auto) 2.6 % (0.0-7.0); Hematocrit 32.1 % (41.0-53.0); Lymphocytes # (auto) 1.5 10 ^3/uL (0.4-5.4); Lymphocytes % (auto) 15.7 % (10.0-50.0); Mean Corpuscular Hemoglobin 29.7 pg (28.0-32.0); Mean Corpuscular Hgb Conc. 34.1 g/dL (32.0-36.0); Mean Corpuscular Volume 87.2 fL (80.0-100.0); Monocytes # (auto) 0.6 10 ^3/uL (0-1.3); Neutrophils # (auto) 7.3 10 ^3/uL (1.6-8.6); Neutrophils % (auto) 75.5 % (37.0-80.0); Platelet Count (auto) 171 10^3/uL (140-450); Red Blood Cells 3.68 10^6/uL (4.5-5.90); Red Cell Distribution Width 13.8 % (11.8-14.3); White Blood Cell 9.7 10^3/uL (4.4-10.8)
[2024-07-01 06:37] LABS: Alanine Aminotransferase 31 U/L (7-40); Alkaline Phosphatase 51 U/L (46-116); Anion Gap 8 (5-15); BUN/Creatinine Ratio 18.5 (10.0-20.0); Calcium 8.2 mg/dL (8.7-10.4); Carbon Dioxide 28 mmol/L (20-30); Chloride 99 mmol/L (98-107); Glucose 225 mg/dL (74-106); Magnesium 2.2 mg/dL (1.6-2.6); Potassium 3.7 mmol/L (3.5-5.1)
[2024-07-01 06:38] LABS: Albumin 3.2 g/dL (3.2-4.8); Aspartate Aminotransferase 20 U/L (13-40); Bilirubin, Total 0.4 mg/dL (0.2-1.0); Total Protein 5.6 g/dL (5.7-8.2)
[2024-07-01 06:42] LABS: Blood Urea Nitrogen 30 mg/dL (9-23); Sodium 135 mmol/L (136-145)
[2024-07-01 08:48] VITALS: BP 134/90; PULSE 102; RESP 18; TEMP 97.8; O2SAT 97
[2024-07-01 13:00] VITALS: BP 154/92; PULSE 99; RESP 16; TEMP 97.4; O2SAT 99
[2024-07-01] MEDS ORDERED: hydrALAZINE HCL 20 MG/ML VL IV PRN (13:00)
[2024-07-01] MEDS: SODIUM CHLORIDE 0.9% 1,000 ML IV SCH (13:00)
[2024-07-01 16:30] VITALS: BP 136/89; PULSE 93; RESP 20; TEMP 98.5; O2SAT 96
[2024-07-01 21:00] VITALS: BP 118/76; PULSE 100; RESP 18; TEMP 99; O2SAT 97
[2024-07-01] MEDS: INSULIN LANTUS (GLARGINE) 1 /0.01ml (100units/ml) SC ONE (21:50)
[2024-07-02] VITALS (7 sets, daily range): BP systolic 123–146; BP diastolic 69–101; PULSE 91–98; RESP 16–18; TEMP 97.6–98.7; O2SAT 96–100
[2024-07-02 11:17] LABS: Chloride 104 mmol/L (98-107); Sodium 137 mmol/L (136-145)
[2024-07-02 11:18] LABS: Anion Gap 3 (5-15); Calcium 7.9 mg/dL (8.7-10.4); Carbon Dioxide 30 mmol/L (20-30)
[2024-07-02 11:23] LABS: BUN/Creatinine Ratio 11.7 (10.0-20.0); Blood Urea Nitrogen 16 mg/dL (9-23); Glucose 247 mg/dL (74-106)
[2024-07-02] MEDS ORDERED: INSULIN LANTUS (GLARGINE) 1 /0.01ml (100units/ml) SC SCH (22:00)
[2024-07-02] MEDS: INSULIN LANTUS (GLARGINE) 1 /0.01ml (100units/ml) SC SCH (22:00)
[2024-07-03 01:00] VITALS: BP 138/92; PULSE 94; RESP 18; TEMP 98.1; O2SAT 97
[2024-07-03 05:00] VITALS: BP 138/100; PULSE 95; RESP 17; TEMP 98.2; O2SAT 98
[2024-07-03 06:13] LABS: Chloride 105 mmol/L (98-107); Potassium 4.5 mmol/L (3.5-5.1); Sodium 137 mmol/L (136-145)
[2024-07-03 06:14] LABS: Anion Gap 7 (5-15); Calcium 8.3 mg/dL (8.7-10.4); Carbon Dioxide 25 mmol/L (20-30)
[2024-07-03 06:19] LABS: BUN/Creatinine Ratio 9.2 (10.0-20.0); Blood Urea Nitrogen 11 mg/dL (9-23); Glucose 227 mg/dL (74-106)
[2024-07-03 09:01] VITALS: BP 141/93; PULSE 91; RESP 16; TEMP 97.6; O2SAT 98
[2024-07-03] MEDS ORDERED: INSLANTI SC (11:25)
[2024-07-03 13:19] VITALS: BP 156/108; PULSE 93; RESP 16; TEMP 97.8; O2SAT 99
== END 2024-07-03 15:15 | disposition home or self-care (01) | DRG 420 ==
LOC: ER 10:17 → EDBD 10:17 → TELE 15:17 → UNDOADMIN 15:17 → TELE 16:47 → DOU IN ICU 20:23 → WEST WING 06-30 17:54
PROVIDERS: ADMIT Internal Medicine; ATTEND Internal Medicine Geriatric Medicine
DX: E10.10 Type 1 diabetes mellitus with ketoacidosis without coma (principal); N17.0 Acute kidney failure with tubular necrosis; G93.41 Metabolic encephalopathy; E10.22 Type 1 diabetes mellitus with diabetic chronic kidney disease; I50.9 Heart failure, unspecified; E87.5 Hyperkalemia; N18.2 Chronic kidney disease, stage 2 (mild); E87.1 Hypo-osmolality and hyponatremia; Z79.4 Long term (current) use of insulin; Z91.199 Patient's noncompliance with other medical treatment and regimen due to unspecified reason; Z89.511 Acquired absence of right leg below knee; Z83.3 Family history of diabetes mellitus; Z82.3 Family history of stroke; Z82.62 Family history of osteoporosis; Z82.5 Family history of asthma and other chronic lower respiratory diseases; Z82.49 Family history of ischemic heart disease and other diseases of the circulatory system; Z82.0 Family history of epilepsy and other diseases of the nervous system; Z81.8 Family history of other mental and behavioral disorders; Z80.8 Family history of malignant neoplasm of other organs or systems; Z80.42 Family history of malignant neoplasm of prostate; Z80.3 Family history of malignant neoplasm of breast; Z80.1 Family history of malignant neoplasm of trachea, bronchus and lung; Z80.0 Family history of malignant neoplasm of digestive organs; Z82.61 Family history of arthritis; Z84.1 Family history of disorders of kidney and ureter
CPT/HCPCS: 36415; 36600; 71045; 76775; 80048; 80053; 81001; 82805; 82962; 83036; 83735; 83880; 85025; 87081; 96361; 96365; 96375; 97163; 99291; 99292; G0378; J1815; J2405

== ENCOUNTER 2024-11-20 21:07 | Inpatient (IN) | payer MEDICAID ==
[~2024-11-20] VITALS: Ht 185.4 cm; Wt 76.0 kg
[~2024-11-20 21:07] MED LIST changes: -DOXY1CAP57 PO
--- NOTE | 2024-11-20 21:17 | ED.PDOC ---
History of Present Illness HPI Comments 29-year-old male who comes in with chief complaint of nausea, vomiting and body aches since yesterday. The patient states that the symptoms have been worsening. He is starting to feel some chills as well. 911 was called and the patient was transported to our facility. The patient has a history of diabetes and has been in DKA in the past. His Accu-Chek was [address] The patient has no other complaints at this time. Time Seen by MD: 21:13 Primary Care Provider: IKE Reviewed Notes: Nurses Notes, Manager Copy Notes, Medications, Allergies (No allergies to medications) Allergies: Coded Allergies: NO KNOWN ALLERGIES (Unverified , 07/22/12) Home Meds Active Scripts Insulin Glargine (Lantus) 100 Unit/Ml Inj, 20 UNIT SC QHSP PRN, #1000 UNITS Prov:ALEKSANDAR REBOLLAR MD 07/03/24 Hydrocodone-Acetaminophen (Hydrocodone Bitartrate/AC 5-325 mg) 1 Tab Tab, 1 TAB PO Q6HP PRN, #20 TAB Prov:ALEKSANDAR REBOLLAR MD 06/26/23 Ondansetron (Zofran) 4 Mg Tab, 1 TAB PO Q8HR, #30 TAB Prov:JLUIS EPSTEIN MD 01/09/23 Insulin Glargine (Basaglar Kwikpen) 100 Unit/Ml Inj, 30 UNIT SC QAM for 30 Days, #30 INJ Prov:JLUIS EPSTEIN MD 01/09/23 Insulin Glargine (Lantus) 100 Unit/Ml Inj, 20 UNIT SC QPM, #30 INJ Give 1 month supply Prov:PAOLO TOLENTINO MD 11/21/21 Insulin Lispro (Humalog Kwikpen) 100 Unit/Ml Inj, 1 DOSE SC DIRECTED for 30 Days, #5 SYR Administer up to 40 units daily divided three times daily before meals and at bedtime as directed per sliding scale. Prov:PAOLO TOLENTINO MD 11/21/21 Albuterol Sulfate (Albuterol Sulfate Hfa) 108 Mcg/Act Aer, 108 MCG IN TID, #1 AER Prov:SOCRATES WRIGHT MD 11/08/21 Reported Medications Hydrocodone-Acetaminophen (Hydrocodone Bitartrate/AC 10-300 mg) 1 Tab Tab, 10 MG PO 06/21/23 Gabapentin (Gabapentin) 300 Mg Cap, PO 06/21/23 Insulin Lispro (Insulin Lispro Kwikpen) 100 Unit/Ml Inj, SC 01/08/23 Information Source: Patient, Emergency Med Personnel Mode of Arrival: EMS Severity: Moderate Timing: Days Duration: Since onset Prehospital treatment: Accucheck (86), Marketing Summer Intern, IVF Associated signs and symptoms Body aches with chills as well as nausea and vomiting Past Medical History PAST MEDICAL HISTORY: DM Surgical History: BKA Family History Family History: Reviewed,noncontributory to illness, Family hx of DM Social History Smoker: Non-Smoker Alcohol: Denies ETOH Use Drugs: Marijuana Lives In: Home Physical Exam General Appearance: Moderate Distress HEENT: Pale Conjuntivae (L), Pale Conjuntivae (R), Pharynx Normal, TMs Normal Neck: Full Range of Motion, Non-Tender, Normal, Normal Inspection Respiratory: Chest Non-Tender, Lungs Clear, No Accessory Muscle Use, No R espiratory Distress, Normal Breath Sounds Cardiovascular: No Edema, No JVD, No Murmur, No Gallop, Normal Peripheral Pulses, Regular Rate/Rhythm Breast Exam: Deferred Gastrointestinal: No Organomegaly, Non Tender, No Pulsatile Mass, Normal Bowel Sounds, Soft Genitalia: Deferred Pelvic: Deferred Rectal: Deferred Extremities: No calf tenderness, Normal capillary refill, Non-tender, No pedal edema, Other (The patient was a right BKA) Musculoskeletal : Apperance: Normal Neurologic: Alert, chief orthoptist II-XII nml as Tested, Motor Weakness, Normal Affect, Normal Mood, No Sensory Deficits Cerebellar Function: Normal Reflexes: Normal Skin: Dry, Pallor, Warm Lymphatic: No Adenopathy Was a procedure done? Was a procedure done?: No Differential Dx Considerations may include: Generalized weakness, COVID-19, viral syndrome, DKA X-Ray, Labs, Meds, VS Vital Signs Date Time Temp Pulse Resp B/P (MAP) Pulse Ox O2 Delivery O2 Flow Rate FiO2 11/20/24 21:15 99.0 108 16 127/76 (93) 100 Lab Test 11/20/24 21:27 Range/Units White Blood Count 11.3 H 4.4-10.8 10^3/uL Red Blood Count 4.29 L 4.5-5.90 10^6/uL Hemoglobin 12.1 L 13.5-17.5 g/dL Hematocrit 36.4 L 41.0-53.0 % Mean Corpuscular Volume 84.8 80.0-100.0 fL Mean Corpuscular Hemoglobin 28.2 28.0-32.0 pg Mean Corpuscular Hemoglobin Concent 33.2 32.0-36.0 g/dL Red Cell Distribution Width 13.2 11.8-14.3 % Platelet Count 125 L 140-450 10^3/uL Mean Platelet Volume 7.6 6.9-10.8 fL Neutrophils (%) (Auto) 84.0 H 37.0-80.0 % Lymphocytes (%) (Auto) 8.1 L 10.0-50.0 % Monocytes (%) (Auto) 7.2 0.0-12.0 % Eosinophils (%) (Auto) 0.5 0.0-7.0 % Basophils (%) (Auto) 0.2 0.0-2.0 % Neutrophils # (Auto) 9.5 H 1.6-8.6 10 ^3/uL Lymphocytes # (Auto) 0.9 0.4-5.4 10 ^3/uL Monocytes # (Auto) 0.8 0-1.3 10 ^3/uL Eosinophils # (Auto) 0.1 0-0.8 10 ^3/uL Basophils # (Auto) 0 0-0.2 10 ^3/uL Nucleated Red Blood Cells 0.1 % Sodium Level Pending Potassium Level Pending Chloride Level Pending Carbon Dioxide Level Pending Anion Gap Pending Blood Urea Nitrogen Pending Creatinine Pending Glomerular Filtration Rate Calc Pending BUN/Creatinine Ratio Pending Serum Glucose Pending Calcium Level Pending The patient's CBC shows an elevated white blood cell count 11.3 The rest of the CBC is within normal limits At this time, an IV Hep-Lock is being established The patient will be signed out to Dr. Montiel Images Reviewed?: Images reviewed and evaluated by me Time of 1ST Reevaluation: 21:18 Reevaluation 1ST: Unchanged Patient Education/Counseling: Diagnosis, Treatment, Prognosis Family Education/Counseling: No Family Present Departure 1 Departure Time of Disposition: 21:53 Impression: Primary Impression: Dehydration Additional Impressions: Body aches Generalized weakness Disposition: 30 STILL A PATIENT Condition: Fair Critical Care Note Critical Care Time?: No Stability Stability form required: Yes Unstable for transfer: ED Physician Assesment (Clinical assesment) Heart Score Heart Score: Heart Score Response (Comments) Value History N/A 0 EKG N/A 0 Age N/A 0 Risk Factors N/A 0 Troponin N/A 0 Total 0 JERRY GILLILAND MD Nov 20, 2024 21:17
[2024-11-20 21:46] LABS: Basophils # (auto) 0 10 ^3/uL (0-0.2); Basophils % (auto) 0.2 % (0.0-2.0); Eosinophils # (auto) 0.1 10 ^3/uL (0-0.8); Eosinophils % (auto) 0.5 % (0.0-7.0); Hematocrit 36.4 % (41.0-53.0); Hemoglobin 12.1 g/dL (13.5-17.5); Lymphocytes # (auto) 0.9 10 ^3/uL (0.4-5.4); Lymphocytes % (auto) 8.1 % (10.0-50.0); Mean Corpuscular Hemoglobin 28.2 pg (28.0-32.0); Mean Corpuscular Hgb Conc. 33.2 g/dL (32.0-36.0); Mean Corpuscular Volume 84.8 fL (80.0-100.0); Monocytes # (auto) 0.8 10 ^3/uL (0-1.3); Monocytes % (auto) 7.2 % (0.0-12.0); Neutrophils # (auto) 9.5 10 ^3/uL (1.6-8.6); Nucleated Red Blood Cells % 0.1 %; Platelet Count (auto) 125 10^3/uL (140-450); Red Blood Cells 4.29 10^6/uL (4.5-5.90); Red Cell Distribution Width 13.2 % (11.8-14.3); White Blood Cell 11.3 10^3/uL (4.4-10.8)
[2024-11-20 21:49] LABS: Chloride 107 mmol/L (98-107); Potassium 4.4 mmol/L (3.5-5.1); Sodium 136 mmol/L (136-145)
[2024-11-20 21:50] LABS: Anion Gap 8 (5-15); Carbon Dioxide 21 mmol/L (20-31)
[2024-11-20 21:55] LABS: BUN/Creatinine Ratio 12.6 (10.0-20.0); Glucose 83 mg/dL (74-106)
[2024-11-20 22:05] LABS: Blood Urea Nitrogen 26 mg/dL (9-23); Calcium 8.3 mg/dL (8.7-10.4)
--- NOTE | 2024-11-20 23:10 | DVH ---
EXAMINATION: AP portable chest radiograph CLINICAL HISTORY: aching COMPARISON: XY CHEST PORTABLE on DOS: 06/29/24 FINDINGS: Mild central interstitial prominence. Patchy opacities in the left lower lobe. No lobar consolidatio n identified. No definite pleural effusion or pneumothorax as visualized. The cardiomediastinal silho uette appears within normal limits given technique. IMPRESSION: Possible developing airspace opacities in the left lower lung field. Central interstitial prominence is nonspecific and can be seen with edema, reactive airway changes as well as atypical/viral infection. Please correlate clinically.
[2024-11-20 23:15] VITALS: PULSE 70; RESP 15; O2SAT 96
[2024-11-20] MEDS: SODIUM CHLORIDE 0.9% 1,000 ML IV ONE (23:23)
[2024-11-21] VITALS (8 sets, daily range): BP systolic 122–170; BP diastolic 78–113; PULSE 70–102; RESP 10–18; TEMP 98.3; O2SAT 96–100
[2024-11-21] MEDS: ONDANSETRON HCL 4 MG/2 ML VIAL IV ONE (04:14)
[2024-11-21] MEDS: MORPHINE SULFATE 4 MG/ML SYR/VIAL IV ONE (04:15)
[2024-11-21] MEDS: SODIUM CHLORIDE 0.9% 1,000 ML IV ONE (04:15)
[2024-11-21 05:04] LABS: COVID19 ANTIGEN SOFIA FIA NEGATIVE (NEGATIVE); Rapid Influenza A Negative (Negative); Rapid Influenza B Negative (Negative)
[2024-11-21] MEDS ORDERED: DOCUSATE SOD 100 MG CAP PO PRN (05:30)
[2024-11-21] MEDS ORDERED: DEXTROSE (50%) 50ML SYRG IV PRN (05:30)
[2024-11-21] MEDS ORDERED: ALBUTEROL SULF 2.5 MG/0.5ML(0.5%) NEB SOLN NEB PRN (05:30)
[2024-11-21] MEDS ORDERED: ACETAMINOPHEN 325 MG TAB PO PRN (05:30)
--- NOTE | 2024-11-21 06:17 | DVHHP2 ---
History of Present Illness Reason for Visit: Generalized weakness History of Present Illness The patient is a 29 years old male with past medical history of diabetes mellitus who presented to [facility] ED with complaint of generalized body pain, nausea, and vomiting. Patient was seen and evaluated in the ED, laboratory data shows WBC 11.3, platelets 125, sodium 136, potassium 4.4, BUN 26, creatinine 2.06, GFR 44, glucose 83. Chest x-ray revealing possible developing airspace opacities in the left lower lung field, central interstitial prominence is nonspecific and can be seen with edema, reactive airway changes as well as atypical/viral infection. Patient was given IV morphine sulfate 4 mg x 1, please see medication orders section in the computer. On my assessment, patient denied chest pain, no headache, no dizziness, no diaphoresis, no shortness of breath, no nausea, no vomiting, no fever, no chills. Patient was admitted for further evaluation and medical management. Past Medical History DM Past Surgical History BKA Family History Reviewed, noncontributory to the management of this case. Past Social History The patient lives at home, denies smoking or alcohol, uses marijuana. Review of Systems Constitutional: Yes: Weakness; No: Fever, Chills, Sweats, Malaise, Other Eyes: No: Pain, Vision change, Conjunctivae inflammation, Eyelid inflammation, Other, Redness ENT: No: Ear pain, Ear discharge, Nose pain, Nose discharge, Nose congestion, Mouth pain, Mouth swelling, Throat pain, Throat swelling, Other Respiratory: No: Cough, Dry, Shortness of breath, SOB with excertion, Wheezing, Hemoptysis, Pleuritic Pain, Sputum, Wheezing, Other Cardiovascular: No: Chest Pain, Palpitations, Orthopnea, Paroxysmal Noc. D yspnea, Edema, Lt Headedness, Other Gastrointestinal: No: Nausea, Vomiting, Abdominal Pain, Diarrhea, Constipation, Melena, Hematochezia, Other Genitourinary: No Dysuria, No Frequency, No Incontinence, No Hematuria, No Retention, No Other Musculoskeletal: No: other, neck pain, shoulder pain, arm pain, back pain, hand pain, leg pain, foot pain Skin: No: Rash, Lesions, Jaundice, Bruising, Other Neurological: No: Weakness, Numbness, Incoordination, Change in speech, Confusion, Seizures, Other Allergies: Coded Allergies: NO KNOWN ALLERGIES (Unverified , 10/1/12) Medications Current Medications Medications Dose Ordered Sig/Justin Route Start Time Stop Time Status Last Admin Dose Admin Diagnostic Test (Pha) 1 strip ACHS 11/21/24 07:00 Insulin Human Regular ACHS SC 11/21/24 07:00 Dextrose 50 ml UD PRN IV 11/21/24 05:30 Sodium Chloride 1,000 ml @ 60 mls/hr [id number] IV 11/21/24 05:30 Acetaminophen/ Hydrocodone Bitart 1 tab Q4HP PRN PO 11/21/24 05:30 Ondansetron HCl 4 mg Q4HP PRN IV 11/21/24 05:30 Docusate Sodium 100 mg BIDPRN PRN PO 11/21/24 05:30 Acetaminophen 650 mg Q6HP PRN PO 11/21/24 05:30 Albuterol 2.5 mg Q4HPRN PRN NEB 11/21/24 05:30 Azithromycin 250 ml @ 125 mls/hr DAILY IV 11/21/24 06:00 Exam Vital Signs Vital Signs Date Time Temp Pulse Resp B/P (MAP) Pulse Ox O2 Delivery O2 Flow Rate FiO2 11/21/24 06:06 91 11/21/24 04:45 15 130/90 11/21/24 04:30 96 11/21/24 04:00 Room Air* 0 21 11/21/24 03:58 97.9 97.9 General Appearance: Alert, Oriented X3, Cooperative, No acute distress HEENT: Atraumatic, PERRLA, EOMI, Mucous membr. moist/pink Respiratory: Clear to auscultation, Normal air movement Cardiovascular: Regular rate, Normal S1, Normal S2, No murmurs Abdominal: Normal bowel sounds, Soft, No tenderness, No hepatospenomegaly, No masses Extremities: No clubbing, No cyanosis, No edema, Normal pulses, No tenderness/swelling Skin: No rashes, No breakdown, No significant lesion Neuro: Normal speech, Normal tone, Sensation intact, Cranial nerves 3-12 NL, Reflexes 2+ Psych/Mental Status: Mental status NL, Mood NL Labs/Xrays Labs Test 11/21/24 04:36 11/20/24 21:27 Range/Units Influenza Type A Antigen Negative Negative Influenza Type B Antigen Negative Negative SARS-CoV-2 Antigen (Rapid) Negative NEGATIVE White Blood Count 11.3 H 4.4-10.8 10^3/uL Red Blood Count 4.29 L 4.5-5.90 10^6/uL Hemoglobin 12.1 L 13.5-17.5 g/dL Hematocrit 36.4 L 41.0-53.0 % Mean Corpuscular Volume 84.8 80.0-100.0 fL Mean Corpuscular Hemoglobin 28.2 28.0-32.0 pg Mean Corpuscular Hemoglobin Concent 33.2 32.0-36.0 g/dL Red Cell Distribution Width 13.2 11.8-14.3 % Platelet Count 125 L 140-450 10^3/uL Mean Platelet Volume 7.6 6.9-10.8 fL Neutrophils (%) (Auto) 84.0 H 37.0-80.0 % Lymphocytes (%) (Auto) 8.1 L 10.0-50.0 % Monocytes (%) (Auto) 7.2 0.0-12.0 % Eosinophils (%) (Auto) 0.5 0.0-7.0 % Basophils (%) (Auto) 0.2 0.0-2.0 % Neutrophils # (Auto) 9.5 H 1.6-8.6 10 ^3/uL Lymphocytes # (Auto) 0.9 0.4-5.4 10 ^3/uL Monocytes # (Auto) 0.8 0-1.3 10 ^3/uL Eosinophils # (Auto) 0.1 0-0.8 10 ^3/uL Basophils # (Auto) 0 0-0.2 10 ^3/uL Nucleated Red Blood Cells 0.1 % Sodium Level 136 136-145 mmol/L Potassium Level 4.4 3.5-5.1 mmol/L Chloride Level 107 98-107 mmol/L Carbon Dioxide Level 21 20-31 mmol/L Anion Gap 8 5-15 Blood Urea Nitrogen 26 H 9-23 mg/dL Creatinine 2.06 H 0.700-1.30 mg/dL Glomerular Filtration Rate Calc 44 >90 mL/min BUN/Creatinine Ratio 12.6 10.0-20.0 Serum Glucose 83 74-106 mg/dL Calcium Level 8.3 L 8.7-10.4 mg/dL PATIENT: ARINA BERMUDEZ ACCT: [id number] UNIT: [id number] : 1995 LOC: ER ROOM / BED: / AGE / SEX: 29 / M ADM STATUS: REG ER SERVICE 13 ORDERING PHYSICIAN: JERRY GILLLIAND MD PROCEDURE(s): CXRP - CHEST PORTABLE REASON: aching ORDER NUMBER(s): [id number], ACCESSION NUMBER(s): [id number] EXAMINATION: AP portable chest radiograph CLINICAL HISTORY: aching COMPARISON: XY CHEST PORTABLE on DOS: 06/29/24 FINDINGS: Mild central interstitial prominence. Patchy opacities in the left lower lobe. No lobar consolidation identified. No definite pleural effusion or pneumothorax as visualized. The cardiomediastinal silhouette appears within normal limits given technique. IMPRESSION: Possible developing airspace opacities in the left lower lung field. Central interstitial prominence is nonspecific and can be seen with edema, reactive airway changes as well as atypical/viral infection. Please correlate clinically. Assessment/Plan Assessment/Plan Dehydration Acute renal injury Acute generalized body pain Generalized weakness Plan 1. Admit to telemetry unit 2. Breathing treatment 3. Pain control management 4. IV antibiotic management 5. Management of fluids and electrolytes 6. Consultation for hospitalist 7. Diagnostic test chest x-ray 8. DVT prophylaxis-on SCDs 9. Repeat labs CBC, CMP in a.m. 10. Home medication reviewed and reconciled 11. Continue with current medical management 12. Treatment plan discussed with patient and RN. Patient verbalized understanding. Plan discussed with: Patient, Other (RN) My Orders Orders - WASHINGTON CRUZ DNP Procedure Category Date Status Time Glucose Blood PHA 11/21/24 In Process (Accu-Chek Comfort 07:00 Insulin R (Human) PHA 11/21/24 In Process (Insulin R) 07:00 Dextrose 50% Syringe PHA 11/21/24 In Process 05:30 Allergies JOSH 11/21/24 In Process 05:28 Code Status CODE 11/21/24 Transmitted 05:28 Sodium Chloride 0.9% PHA 11/21/24 In Process 05:30 Oxygen Per Hour RT 11/21/24 Transmitted 05:28 Hydrocodone-Acet PHA 11/21/24 In Process 5/325mg Tab (Jensen 05:30 Ondansetron Hcl PHA 11/21/24 In Process (Zofran) 05:30 Docusate Sodium PHA 11/21/24 In Process Capsule (Colace 05:30 Complete Blood Count LAB 11/22/24 Verified 04:00 Comprehensive LAB 11/22/24 Verified Metabolic Panel 04:00 Condition: Serious JOSH 11/21/24 In Process 05:28 Acetaminophen Tablet [facility] 11/21/24 In Process (Tylenol Tablet) 05:30 Bedrest With Bathroom [facility] 11/21/24 In Process Privileg 05:28 Sequential [facility] 11/21/24 In Process Compression Device Consistent DIET 11/21/24 Transmitted Carb(Ccho)Diabetes Breakfast Albuterol Medneb PHA 11/21/24 In Process (Ventolin Medneb) 05:30 *Dr. Mukherjee [facility] CONS 11/21/24 Transmitted -[place] 05:32 Azithromycin 500mg/ PHA 11/21/24 In Process 250ml (Zithromax 50 06:00 Admit ADMIT 11/21/24 Verified 06:16 Nitroglycerin [facility] 11/21/24 Verified Sublingual (Ntrostat 06:30 Morphine Sulfate [facility] 11/21/24 Verified Injection 06:30 Notify Md Of Changes [facility] 11/21/24 Verified From Base 06:16 Creping Machine Operator For [facility] 11/21/24 Verified 24 Hours 06:16 Emergency Dysrhythmia [facility] 11/21/24 Verified Protocol 06:16 Rhythm Strips Once [facility] 11/21/24 Verified Every Shift 06:16 Oxygen By Nasal 11/21/24 Verified Cannula 06:16 Complete Blood Count LAB 11/21/24 Verified 06:16 Comprehensive LAB 11/21/24 Verified Metabolic Panel 06:16 Problem List: (1) Dehydration (2) Acute renal injury (3) Generalized weakness (4) Acute generalized body pain Date of Service: Nov 21, 2024 Billing Provider: WASHINGTON CRUZ DNP Common Visit Codes: [id number] INP/OBS CARE (HIGH) WASHINGTON CRUZ DNP Nov 21, 2024 06:17
[2024-11-21] MEDS ORDERED: NITROGLYCERIN 0.4 MG SL TAB SL PRN (06:30)
[2024-11-21] MEDS: AZITHROMYCIN 500MG/ 250ML 250 ML IV SCH (06:40)
[2024-11-21] MEDS: SODIUM CHLORIDE 0.9% 1,000 ML IV SCH (06:40)
[2024-11-21] MEDS: FUROSEMIDE 20 MG/2 ML VIAL IV ONE (06:42)
[2024-11-21] MEDS: ACCU-CHEK COMFORT CURVE STRIP VI SCH (07:02)
[2024-11-21] MEDS: InsuLIN REG 1unit/0.01ml Soln (100units/ml) SC SCH (07:02)
[2024-11-21 07:45] LABS: Basophils # (auto) 0 10 ^3/uL (0-0.2); Basophils % (auto) 0.1 % (0.0-2.0); Eosinophils # (auto) 0.1 10 ^3/uL (0-0.8); Eosinophils % (auto) 0.4 % (0.0-7.0); Hemoglobin 10.9 g/dL (13.5-17.5); Lymphocytes # (auto) 1.1 10 ^3/uL (0.4-5.4); Lymphocytes % (auto) 7.7 % (10.0-50.0); Mean Corpuscular Hemoglobin 28.7 pg (28.0-32.0); Mean Corpuscular Hgb Conc. 33.1 g/dL (32.0-36.0); Mean Corpuscular Volume 86.6 fL (80.0-100.0); Monocytes # (auto) 0.9 10 ^3/uL (0-1.3); Monocytes % (auto) 6.3 % (0.0-12.0); Neutrophils # (auto) 12.4 10 ^3/uL (1.6-8.6); Neutrophils % (auto) 85.5 % (37.0-80.0); Nucleated Red Blood Cells % 0.1 %; Platelet Count (auto) 124 10^3/uL (140-450); Red Blood Cells 3.81 10^6/uL (4.5-5.90); Red Cell Distribution Width 13.6 % (11.8-14.3); White Blood Cell 14.5 10^3/uL (4.4-10.8)
[2024-11-21 07:51] LABS: Urine Bacteria FEW /hpf (None Seen); Urine Blood TRACE /uL (Negative); Urine Clarity Turbid (Clear); Urine Color Yellow (Yellow); Urine Hyaline Cast FEW /lpf (0 - 2); Urine Mucus FEW (None Seen); Urine Protein, UAD 3+ (Negative); Urine Sperm PRESENT /hpf (None Seen); Urine Squamous Epithelial Cell FEW /hpf (<5); Urine Urobilinogen Normal (Negative); Urine WBC 21 /HPF (0-3)
[2024-11-21 07:54] LABS: Alanine Aminotransferase 15 U/L (7-40); Albumin 3.4 g/dL (3.2-4.8); Alkaline Phosphatase 64 U/L (46-116); Anion Gap 10 (5-15); Aspartate Aminotransferase 19 U/L (13-40); BUN/Creatinine Ratio 11.8 (10.0-20.0); Blood Urea Nitrogen 30 mg/dL (9-23); Calcium 7.9 mg/dL (8.7-10.4); Carbon Dioxide 20 mmol/L (20-31); Chloride 106 mmol/L (98-107); Glucose 207 mg/dL (74-106); Sodium 136 mmol/L (136-145)
[2024-11-21 07:55] LABS: Total Protein 5.8 g/dL (5.7-8.2)
[2024-11-21 07:57] LABS: Bilirubin, Total 0.3 mg/dL (0.2-1.0)
[2024-11-21] MEDS: HYDROcodone-ACET 5/325MG TAB PO PRN (10:03)
[2024-11-21] MEDS: cefTRIAXone 1GM/50ML D5W 50 ML IV SCH (12:23)
[2024-11-21] MEDS: MORPHINE SULFATE INJ 2 MG/ml SYRG IV PRN (12:32)
--- NOTE | 2024-11-21 13:33 | DVHPN2 ---
Subjective Patient reports having generalized weakness and chest pain as well as nausea. Reviewed: Care Plan, H&P, Labs, Medications Changes from previous H/P or p: No Changes Eyes: No Pain, No Vision change, No Conjunctivae inflammation, No Eyelid inflammation, No Other, No Redness ENT: No Ear pain, No Ear discharge, No Nose pain, No Nose discharge, No Nose congestion, No Mouth pain, No Mouth swelling, No Throat pain, No Throat swelling, No Other Cardiovascular: No Chest Pain, No Palpitations, No Orthopnea, No Paroxysmal Noc. Dyspnea, No Edema, No Lt Headedness, No Other Respiratory: No Cough, No Dry, No Shortness of breath, No SOB with excertion, No Wheezing, No Hemoptysis, No Pleuritic Pain, No Sputum, No Other Gastrointestinal: No Nausea, No Vomiting, No Abdominal Pain, No Diarrhea, No Constipation, No Melena, No Hematochezia, No Other Genitourinary: No Dysuria, No Frequency, No Incontinence, No Hematuria, No Retention, No Other Musculoskeletal: No other, No neck pain, No shoulder pain, No arm pain, No back pain, No hand pain, No leg pain, No foot pain Skin: No Rash, No Lesions, No Jaundice, No Bruising, No Other Objective Vitals Vital Signs Date Time Temp Pulse Resp B/P (MAP) Pulse Ox O2 Delivery O2 Flow Rate FiO2 11/21/24 12:32 90 17 146/92 11/21/24 10:18 98.3 100 98.3 11/21/24 10:18 Room Air* 0 99 21 General Appearance: Alert, Oriented X3, Cooperative, No acute distress HEENT: Atraumatic, PERRLA Lungs: Clear to auscultation, Normal air movement Cardiovascular: Normal S1, Normal S2 Abdomen: Normal bowel sounds, Soft, No tenderness Musculoskeletal: Normal sensory function, Normal motor function Neuro: Normal gait, Normal speech Psych/Mental Status: Mental status NL, Mood NL Medications Current Medications Medications Dose Ordered Sig/Justin Route Start Time Stop Time Status Last Admin Dose Admin Diagnostic Test (Pha) 1 strip ACHS 11/21/24 07:00 11/21/24 12:35 1 STRIP Insulin Human Regular ACHS SC 11/21/24 07:00 11/21/24 12:24 3 UNITS Dextrose 50 ml UD PRN IV 11/21/24 05:30 Sodium Chloride 1,000 ml @ 60 mls/hr [id number] IV 11/21/24 05:30 11/21/24 06:40 60 MLS/HR Acetaminophen/ Hydrocodone Bitart 1 tab Q4HP PRN PO 11/21/24 05:30 11/21/24 10:03 1 TAB Ondansetron HCl 4 mg Q4HP PRN IV 11/21/24 05:30 Docusate Sodium 100 mg BIDPRN PRN PO 11/21/24 05:30 Acetaminophen 650 mg Q6HP PRN PO 11/21/24 05:30 Albuterol 2.5 mg Q4HPRN PRN NEB 11/21/24 05:30 Nitroglycerin 0.4 mg Q5MINP PRN SL 11/21/24 06:30 Morphine Sulfate 2 mg Q30M PRN IV 11/21/24 06:30 Morphine Sulfate 2 mg Q4HPRN PRN IV 11/21/24 11:30 11/21/24 12:32 2 MG Azithromycin 250 ml @ 125 mls/hr DAILY IV 11/22/24 10:00 Ceftriaxone Sodium 50 ml @ 100 mls/hr DAILY@09 IV 11/21/24 11:30 11/21/24 12:23 100 MLS/HR Laboratory Results Laboratory Tests 11/21/24 06:44 Chemistry Test 11/20/24 21:27 11/21/24 06:44 Calcium Level 8.3 mg/dL (8.7-10.4) L 7.9 mg/dL (8.7-10.4) L Albumin 3.4 g/dL (3.2-4.8) Total Protein 5.8 g/dL (5.7-8.2) LFT Test 11/21/24 06:44 Alanine Aminotransferase (ALT) 15 U/L (7-40) Alkaline Phosphatase 64 U/L (46-116) Aspartate Amino Transferase (AST) 19 U/L (13-40) Total Bilirubin 0.3 mg/dL (0.2-1.0) Urinalysis Test 11/21/24 07:24 Urine Color Yellow (Yellow) Urine Clarity Turbid (Clear) H Urine pH 6.0 (5.0-9.0) Urine Specific [place] 1.020 (1.001-1.035) Urine Protein 3+ (Negative) H Urine Ketones Negative (Negative) Urine Blood Trace /uL (Negative) H Urine Nitrite Negative (Negative) Urine Bilirubin Negative (Negative) Urine Urobilinogen Normal mg/dL (Negative) Urine Leukocyte Esterase 1+ /uL (Negative) Urine RBC 13 /hpf (0 - 3) Urine Microscopic WBC 21 /HPF (0-3) H Urine Squamous Epithelial Cells Few /hpf (<5) Urine Bacteria Few /hpf (None Seen) H Urine Hyaline Casts Few /lpf (0 - 2) Urine Mucus Few (None Seen) Urine Sperm Present /hpf (None Seen) Urine Glucose 4+ mg/dL (Normal) H Labs and/or images reviewed: Labs reviewed by me, Image(s) reviewed by me Assessment/Plan Assessment/Plan Impression: -leukocytosis, rule out sepsis -community-acquired pneumonia, probable Gram-positive/Gram-negative etiology -diabetes mellitus -chronic kidney disease, stage IIIB, diabetic nephropathy Plan: -start IV antibiotic therapy with Rocephin and vancomycin -regular insulin sliding scale, Lantus -blood culture -gentle IV hydration -repeat labs and chest x-ray in a.m. Total time spent with patient discussing and formulating plan of care: 35 minutes. This medical document was created using an electronic medical record system with [employer] computerized dictation system. Although this document has been carefully reviewed, there may still be some phonetic and typographical errors. These areas are purely typographical due to imperfections of the software programs, and do not reflect any compromise in the patient's medical care. Plan discussed with: Patient, Other (RN) My Orders Orders - KIRK CARPIO NP Procedure Category Date Status Time Morphine Sulfate PHA 11/21/24 In Process Injection 11:30 Ceftriaxone 1gm/50ml PHA 11/21/24 In Process D5w (Rocephin) 11:30 Azithromycin 500mg/ PHA 11/22/24 In Process 250ml (Zithromax 50 10:00 Date of Service: Nov 21, 2024 Billing Provider: KIRK CARPIO NP Common Visit Codes: [id number] INP/OBS CARE(HIGH) KIRK CARPIO NP Nov 21, 2024 13:33
[2024-11-21] MEDS: ONDANSETRON HCL 4 MG/2 ML VIAL IV PRN (20:14)
[2024-11-22] VITALS (11 sets, daily range): BP systolic 100–152; BP diastolic 55–107; PULSE 74–91; RESP 12–20; TEMP 97.9–98.8; O2SAT 93–99
[2024-11-22 07:43] LABS: Basophils # (auto) 0 10 ^3/uL (0-0.2); Basophils % (auto) 0.2 % (0.0-2.0); Eosinophils # (auto) 0.2 10 ^3/uL (0-0.8); Eosinophils % (auto) 1.3 % (0.0-7.0); Hematocrit 32.3 % (41.0-53.0); Hemoglobin 10.7 g/dL (13.5-17.5); Lymphocytes # (auto) 1.2 10 ^3/uL (0.4-5.4); Lymphocytes % (auto) 8.6 % (10.0-50.0); Mean Corpuscular Hemoglobin 28.4 pg (28.0-32.0); Monocytes % (auto) 7.1 % (0.0-12.0); Neutrophils # (auto) 11.2 10 ^3/uL (1.6-8.6); Neutrophils % (auto) 82.8 % (37.0-80.0); Platelet Count (auto) 134 10^3/uL (140-450); Red Blood Cells 3.75 10^6/uL (4.5-5.90); Red Cell Distribution Width 13.3 % (11.8-14.3); White Blood Cell 13.6 10^3/uL (4.4-10.8)
[2024-11-22 08:08] LABS: Alanine Aminotransferase 14 U/L (7-40); Albumin 3.2 g/dL (3.2-4.8); Alkaline Phosphatase 86 U/L (46-116); Anion Gap 10 (5-15); Aspartate Aminotransferase 22 U/L (13-40); BUN/Creatinine Ratio 14.3 (10.0-20.0); Chloride 104 mmol/L (98-107); Potassium 4.7 mmol/L (3.5-5.1)
[2024-11-22 08:18] LABS: Bilirubin, Total 0.2 mg/dL (0.2-1.0); Blood Urea Nitrogen 32 mg/dL (9-23); Calcium 7.8 mg/dL (8.7-10.4); Carbon Dioxide 20 mmol/L (20-31); Glucose 173 mg/dL (74-106); Sodium 134 mmol/L (136-145); Total Protein 5.6 g/dL (5.7-8.2)
[2024-11-22] MEDS: AZITHROMYCIN 500MG/ 250ML 250 ML IV SCH (09:13)
[2024-11-22] MEDS: amLODIPine BESYLATE 5 MG TAB PO SCH (11:45)
--- NOTE | 2024-11-22 11:48 | DVHPN2 ---
Subjective Patient reports having generalized weakness and chest pain as well as nausea. Reviewed: Care Plan, H&P, Labs, Medications Changes from previous H/P or p: No Changes General: Per HPI Eyes: No Pain, No Vision change, No Conjunctivae inflammation, No Eyelid inflammation, No Other, No Redness ENT: No Ear pain, No Ear discharge, No Nose pain, No Nose discharge, No Nose congestion, No Mouth pain, No Mouth swelling, No Throat pain, No Throat swelling, No Other Cardiovascular: No Chest Pain, No Palpitations, No Orthopnea, No Paroxysmal Noc. Dyspnea, No Edema, No Lt Headedness, No Other Respiratory: No Cough, No Dry, No Shortness of breath, No SOB with excertion, No Wheezing, No Hemoptysis, No Pleuritic Pain, No Sputum, No Other Gastrointestinal: No Nausea, No Vomiting, No Abdominal Pain, No Diarrhea, No Constipation, No Melena, No Hematochezia, No Other Genitourinary: No Dysuria, No Frequency, No Incontinence, No Hematuria, No Retention, No Other Musculoskeletal: No other, No neck pain, No shoulder pain, No arm pain, No back pain, No hand pain, No leg pain, No foot pain Skin: No Rash, No Lesions, No Jaundice, No Bruising, No Other Objective Vitals Vital Signs Date Time Temp Pulse Resp B/P (MAP) Pulse Ox O2 Delivery O2 Flow Rate FiO2 11/22/24 10:18 95 Room Air* 0 21 11/22/24 09:44 90 18 137/96 11/22/24 08:53 98.3 98.3 Intake/Output Intake and Output 11/22/24 07:00 Intake Total 460 ml Output Total 0 ml Balance 460 ml Intake Oral 460 ml Output Urine Total 0 ml Stool Total 0 ml General Appearance: Alert, Oriented X3, Cooperative, No acute distress HEENT: Atraumatic, PERRLA Lungs: Clear to auscultation, Normal air movement Cardiovascular: Normal S1, Normal S2 Abdomen: Normal bowel sounds, Soft, No tenderness Musculoskeletal: Normal sensory function, Normal motor function Neuro: Normal gait, Normal speech Skin: Dry, Intact Psych/Mental Status: Mental status NL, Mood NL Medications Current Medications Medications Dose Ordered Sig/Justin Route Start Time Stop Time Status Last Admin Dose Admin Diagnostic Test (Pha) 1 strip ACHS 11/21/24 07:00 11/22/24 05:48 1 STRIP Insulin Human Regular ACHS SC 11/21/24 07:00 11/22/24 05:41 3 UNITS Dextrose 50 ml UD PRN IV 11/21/24 05:30 Acetaminophen/ Hydrocodone Bitart 1 tab Q4HP PRN PO 11/21/24 05:30 11/22/24 08:34 1 TAB Ondansetron HCl 4 mg Q4HP PRN IV 11/21/24 05:30 11/22/24 08:33 4 MG Docusate Sodium 100 mg BIDPRN PRN PO 11/21/24 05:30 Acetaminophen 650 mg Q6HP PRN PO 11/21/24 05:30 Albuterol 2.5 mg Q4HPRN PRN NEB 11/21/24 05:30 Nitroglycerin 0.4 mg Q5MINP PRN SL 11/21/24 06:30 Morphine Sulfate 2 mg Q30M PRN IV 11/21/24 06:30 Morphine Sulfate 2 mg Q4HPRN PRN IV 11/21/24 11:30 11/22/24 09:44 2 MG Azithromycin 250 ml @ 125 mls/hr DAILY IV 11/22/24 10:00 11/22/24 09:13 125 MLS/HR Ceftriaxone Sodium 50 ml @ 100 mls/hr DAILY@09 IV 11/21/24 11:30 11/22/24 08:21 100 MLS/HR Amlodipine Besylate 10 mg DAILY PO 11/22/24 11:45 UNV Laboratory Results Laboratory Tests 11/22/24 07:15 Chemistry Test 11/22/24 07:15 Albumin 3.2 g/dL (3.2-4.8) Calcium Level 7.8 mg/dL (8.7-10.4) L Total Protein 5.6 g/dL (5.7-8.2) L LFT Test 11/22/24 07:15 Alanine Aminotransferase (ALT) 14 U/L (7-40) Alkaline Phosphatase 86 U/L (46-116) Aspartate Amino Transferase (AST) 22 U/L (13-40) Total Bilirubin 0.2 mg/dL (0.2-1.0) Urinalysis Test 11/21/24 07:24 11/21/24 19:39 Urine Color Yellow (Yellow) Urine Clarity Turbid (Clear) H Urine pH 6.0 (5.0-9.0) Urine Specific [place] 1.020 (1.001-1.035) Urine Protein 3+ (Negative) H Urine Ketones Negative (Negative) Urine Blood Trace /uL (Negative) H Urine Nitrite Negative (Negative) Urine Bilirubin Negative (Negative) Urine Urobilinogen Normal mg/dL (Negative) Urine Leukocyte Esterase 1+ /uL (Negative) Urine RBC 13 /hpf (0 - 3) Urine Microscopic WBC 21 /HPF (0-3) H Urine Squamous Epithelial Cells Few /hpf (<5) Urine Bacteria Few /hpf (None Seen) H Urine Hyaline Casts Few /lpf (0 - 2) Urine Mucus Few (None Seen) Urine Sperm Present /hpf (None Seen) Urine Glucose 4+ mg/dL (Normal) H Urine Osmolality Pending Urine Creatinine Pending Urine Sodium Pending Labs and/or images reviewed: Labs reviewed by me, Image(s) reviewed by me Assessment/Plan Assessment/Plan Impression: -leukocytosis, rule out sepsis -community-acquired pneumonia, probable Gram-positive/Gram-negative etiology -diabetes mellitus -chronic kidney disease, stage IIIB, diabetic nephropathy -accelerated hypertension Plan: -events: [place]ummer cultures -continue antibiotic therapy with Rocephin and azithromycin -pain management -regular insulin sliding scale, Lantus -stop IV fluids -start antihypertensives with amlodipine -repeat labs and chest x-ray in a.m. Total time spent with patient discussing and formulating plan of care: 35 minutes. This medical document was created using an electronic medical record system with [employer] dictation system. Although this document has been carefully reviewed, there may still be some phonetic and typographical errors. These areas are purely typographical due to imperfections of the software programs, and do not reflect any compromise in the patient's medical care. Plan discussed with: Patient, Other (RN) My Orders Orders - KIRK CARPIO [employer]IC Procedure Category Date Status Time Blood Culture RASHEL 11/22/24 Logged 11:35 Respiratory Culture RASHEL 11/22/24 Logged W/ Gs 11:35 Complete Blood Count LAB 11/23/24 Verified 04:00 Basic Metabolic Panel LAB 11/23/24 Verified 04:00 Amlodipine Tablet PHA 11/22/24 Logged (Norvasc Tablet) 11:45 Date of Service: Nov 22, 2024 Billing Provider: KIRK CARPIO NP Common Visit Codes: [id number] INP/OBS CARE(HIGH) KIRK CARPIO NP Nov 22, 2024 11:47
--- NOTE | 2024-11-22 11:50 | DVHINCON2 ---
Date of service: Nov 22, 2024 Reason for Consultation Acute kidney injury History of Present Illness 29-year-old male poorly controlled diabetic history of hypertension and chronic kidney disease presents to the hospital weakness. Patient was diagnosed with sepsis secondary to pneumonia. Nephrology consulted due to elevated creatinine level. Allergies: Coded Allergies: NO KNOWN ALLERGIES (Unverified , 07/22/12) Home Meds Active Scripts Insulin Glargine (Basaglar Kwikpen) 100 Unit/Ml Inj, 30 UNIT SC QAM for 30 Days, #30 INJ Prov:JLUIS EPSTEIN MD 01/09/23 Reported Medications Insulin Lispro (Insulin Lispro Kwikpen) 100 Unit/Ml Inj, SC 01/08/23 Current Medications Current Medications Medications (Trade) Dose Ordered Sig/Justin Route PRN Reason Start Time Stop Time Status Last Admin Azithromycin 250 ml @ 125 mls/hr DAILY IV 11/22/24 10:00 11/22/24 09:13 Amlodipine Besylate (Norvasc Tablet) 10 mg DAILY PO 11/22/24 11:45 UNV Family History: Diabetes mellitus G8 FATHER G8 SISTER G8 FATHER G8 SISTER Diabetes mellitus G8 FATHER G8 SISTER G8 FATHER G8 SISTER FH: chronic renal disease G8 FATHER Family history: Arthritis Family history: Blood disorder Family history: Diabetes mellitus G8 FATHER (TYPE 1 ) G8 SISTER (TYPE 2 ) Family history: Thyroid disorder G8 BROTHER No Family History of: Alcoholism Cancer Cancer of colon Chronic obstructive lung disease (situation) Family history: Alzheimer's disease Family history: Asthma Family history: Autoimmune disease (situation) Family history: Cardiovascular disease Family history: Congenital anomaly Family history: Coronary thrombosis Family history: Depression (situation) Family history: Diabetes in Family history: Glaucoma Family history: Hypercholesterolemia (situation) Family history: Hypertension Family history: Osteoporosis Family history: Suicide (situation) Ischemic heart disease Malignant melanoma Malignant neoplasm of breast Malignant neoplasm of lung Malignant neoplasm of ovary Prostate cancer Renal stone Seizure disorder (situation) Stroke H&P Exam Vital Signs/I&O Vital Sign Date Time Temp Pulse Resp B/P (MAP) Pulse Ox O2 Delivery O2 Flow Rate FiO2 11/22/24 10:18 95 Room Air* 0 21 11/22/24 09:44 90 18 137/96 11/22/24 08:53 98.3 98.3 Intake and Output 11/21/24 11/22/24 19:00 07:00 Intake Total 260 ml 200 ml Output Total 0 ml Balance 260 ml 200 ml Intake Oral 260 ml 200 ml Output Urine Total 0 ml Stool Total 0 ml Physical Exam Regular rate and rhythm Nonacute distress Clear to auscultation Well-nourished Labs/Diagnostic Data Labs/Diagnostic Data Laboratory Tests Test 11/22/24 07:15 11/22/24 05:38 11/21/24 20:18 11/21/24 19:39 Range/Units White Blood Count 13.6 H 4.4-10.8 10^3/uL Red Blood Count 3.75 L 4.5-5.90 10^6/uL Hemoglobin 10.7 L 13.5-17.5 g/dL Hematocrit 32.3 L 41.0-53.0 % Mean Corpuscular Volume 86.0 80.0-100.0 fL Mean Corpuscular Hemoglobin 28.4 28.0-32.0 pg Mean Corpuscular Hemoglobin Concent 33.0 32.0-36.0 g/dL Red Cell Distribution Width 13.3 11.8-14.3 % Platelet Count 134 L 140-450 10^3/uL Mean Platelet Volume 7.8 6.9-10.8 fL Neutrophils (%) (Auto) 82.8 H 37.0-80.0 % Lymphocytes (%) (Auto) 8.6 L 10.0-50.0 % Monocytes (%) (Auto) 7.1 0.0-12.0 % Eosinophils (%) (Auto) 1.3 0.0-7.0 % Basophils (%) (Auto) 0.2 0.0-2.0 % Neutrophils # (Auto) 11.2 H 1.6-8.6 10 ^3/uL Lymphocytes # (Auto) 1.2 0.4-5.4 10 ^3/uL Monocytes # (Auto) 1.0 0-1.3 10 ^3/uL Eosinophils # (Auto) 0.2 0-0.8 10 ^3/uL Basophils # (Auto) 0 0-0.2 10 ^3/uL Nucleated Red Blood Cells 0.0 % Sodium Level 134 L 136-145 mmol/L Potassium Level 4.7 3.5-5.1 mmol/L Chloride Level 104 98-107 mmol/L Carbon Dioxide Level 20 20-31 mmol/L Anion Gap 10 5-15 Blood Urea Nitrogen 32 H 9-23 mg/dL Creatinine 2.23 H 0.700-1.30 mg/dL Glomerular Filtration Rate Calc 40 >90 mL/min BUN/Creatinine Ratio 14.3 10.0-20.0 Serum Glucose 173 H 74-106 mg/dL Calcium Level 7.8 L 8.7-10.4 mg/dL Total Bilirubin 0.2 0.2-1.0 mg/dL Aspartate Amino Transferase (AST) 22 13-40 U/L Alanine Aminotransferase (ALT) 14 7-40 U/L Alkaline Phosphatase 86 46-116 U/L Total Protein 5.6 L 5.7-8.2 g/dL Albumin 3.2 3.2-4.8 g/dL POC Glucose 171 H 213 H 70-106 mg/dl Test 11/21/24 16:38 11/21/24 11:35 11/21/24 07:48 11/21/24 07:24 Range/Units POC Glucose 210 H 180 H 213 H 70-106 mg/dl Urine Color Yellow Yellow Urine Clarity Turbid H Clear Urine pH 6.0 5.0-9.0 Urine Specific [place] 1.020 1.001-1.035 Urine Protein 3+ H Negative Urine Ketones Negative Negative Urine Blood Trace H Negative /uL Urine Nitrite Negative Negative Urine Bilirubin Negative Negative Urine Urobilinogen Normal Negative mg/dL Urine Leukocyte Esterase 1+ Negative /uL Urine RBC 13 0 - 3 /hpf Urine Microscopic WBC 21 H 0-3 /HPF Urine Squamous Epithelial Cells Few <5 /hpf Urine Bacteria Few H None Seen /hpf Urine Hyaline Casts Few 0 - 2 /lpf Urine Mucus Few None Seen Urine Sperm Present None Seen /hpf Urine Glucose 4+ H Normal mg/dL Test 11/21/24 06:58 11/21/24 06:44 11/21/24 04:36 11/20/24 21:27 Range/Units POC Glucose 202 H 70-106 mg/dl White Blood Count 14.5 #H 11.3 H 4.4-10.8 10^3/uL Red Blood Count 3.81 L 4.29 L 4.5-5.90 10^6/uL Hemoglobin 10.9 L 12.1 L 13.5-17.5 g/dL Hematocrit 33.0 L 36.4 L 41.0-53.0 % Mean Corpuscular Volume 86.6 84.8 80.0-100.0 fL Mean Corpuscular Hemoglobin 28.7 28.2 28.0-32.0 pg Mean Corpuscular Hemoglobin Concent 33.1 33.2 32.0-36.0 g/dL Red Cell Distribution Width 13.6 13.2 11.8-14.3 % Platelet Count 124 L 125 L 140-450 10^3/uL Mean Platelet Volume 8.1 7.6 6.9-10.8 fL Neutrophils (%) (Auto) 85.5 H 84.0 H 37.0-80.0 % Lymphocytes (%) (Auto) 7.7 L 8.1 L 10.0-50.0 % Monocytes (%) (Auto) 6.3 7.2 0.0-12.0 % Eosinophils (%) (Auto) 0.4 0.5 0.0-7.0 % Basophils (%) (Auto) 0.1 0.2 0.0-2.0 % Neutrophils # (Auto) 12.4 H 9.5 H 1.6-8.6 10 ^3/uL Lymphocytes # (Auto) 1.1 0.9 0.4-5.4 10 ^3/uL Monocytes # (Auto) 0.9 0.8 0-1.3 10 ^3/uL Eosinophils # (Auto) 0.1 0.1 0-0.8 10 ^3/uL Basophils # (Auto) 0 0 0-0.2 10 ^3/uL Nucleated Red Blood Cells 0.1 0.1 % Sodium Level 136 136 136-145 mmol/L Potassium Level 5.0 4.4 3.5-5.1 mmol/L Chloride Level 106 107 98-107 mmol/L Carbon Dioxide Level 20 21 20-31 mmol/L Anion Gap 10 8 5-15 Blood Urea Nitrogen 30 H 26 H 9-23 mg/dL Creatinine 2.54 H 2.06 H 0.700-1.30 mg/dL Glomerular Filtration Rate Calc 34 44 >90 mL/min BUN/Creatinine Ratio 11.8 12.6 10.0-20.0 Serum Glucose 207 #H 83 74-106 mg/dL Hemoglobin A1c 10.4 H <5.7 % A1C Calcium Level 7.9 L 8.3 L 8.7-10.4 mg/dL Total Bilirubin 0.3 0.2-1.0 mg/dL Aspartate Amino Transferase (AST) 19 13-40 U/L Alanine Aminotransferase (ALT) 15 7-40 U/L Alkaline Phosphatase 64 46-116 U/L Total Protein 5.8 5.7-8.2 g/dL Albumin 3.4 3.2-4.8 g/dL Influenza Type A Antigen Negative Negative Influenza Type B Antigen Negative Negative SARS-CoV-2 Antigen (Rapid) Negative NEGATIVE Assessment Acute kidney injury likely hemodynamically mediated in setting of infection Chronic kidney disease stage 2 in 2022. No recent values for comparison Poorly controlled diabetes Sepsis secondary to pneumonia Proteinuria on urinalysis Agree with treatment of pneumonia IV fluid Glycemic control insulin Obtain urine protein creatinine ratio Urine studies Plan discussed with: Patient GERONIMO GOODWIN MD Nov 22, 2024 11:50
[2024-11-22] MEDS: SODIUM CHLORIDE 0.9% 1,000 ML IV SCH (13:02)
[2024-11-22] MEDS: METOCLOPRAMIDE HCL 10 MG TAB PO SCH (17:37)
[2024-11-23] VITALS (8 sets, daily range): BP systolic 90–148; BP diastolic 41–103; PULSE 86–100; RESP 16–20; TEMP 98–98.5; O2SAT 95–99
--- NOTE | 2024-11-23 07:00 | DVH ---
EXAM: XY CHEST PORTABLE HISTORY: pna COMPARISON: XY CHEST PORTABLE on DOS: 11/20/24, XY CHEST PORTABLE on DOS: 06/29/24, XY CHEST XRAY 1 VIEW on DOS: 06/20/23, XY CHEST PORTABLE on DOS: 06/19/23, CHEST PORTABLE on DOS: 11/06/22 TECHNIQUE: Portable AP view of the chest was performed. FINDINGS: There is mild central peribronchial thickening. There is question of a mild left basilar retrocardiac infiltrate versus artifactual appearance. No pneumothorax or pulmonary edema. The heart is not enla rged. IMPRESSION: 1. Mild reactive airways disease. 2. Question of mild left basilar retrocardiac infiltrate versus artifactual appearance.
[2024-11-23 07:50] LABS: Basophils # (auto) 0 10 ^3/uL (0-0.2); Basophils % (auto) 0.2 % (0.0-2.0); Eosinophils # (auto) 0.2 10 ^3/uL (0-0.8); Eosinophils % (auto) 1.7 % (0.0-7.0); Hematocrit 32.2 % (41.0-53.0); Hemoglobin 10.7 g/dL (13.5-17.5); Lymphocytes # (auto) 1.2 10 ^3/uL (0.4-5.4); Lymphocytes % (auto) 9.6 % (10.0-50.0); Mean Corpuscular Hemoglobin 28.5 pg (28.0-32.0); Mean Corpuscular Hgb Conc. 33.3 g/dL (32.0-36.0); Mean Corpuscular Volume 85.6 fL (80.0-100.0); Monocytes # (auto) 0.9 10 ^3/uL (0-1.3); Monocytes % (auto) 7.3 % (0.0-12.0); Neutrophils # (auto) 10.1 10 ^3/uL (1.6-8.6); Neutrophils % (auto) 81.2 % (37.0-80.0); Platelet Count (auto) 166 10^3/uL (140-450); Red Blood Cells 3.76 10^6/uL (4.5-5.90); Red Cell Distribution Width 13.4 % (11.8-14.3); White Blood Cell 12.4 10^3/uL (4.4-10.8)
[2024-11-23 07:57] LABS: Anion Gap 15 (5-15); Chloride 99 mmol/L (98-107)
[2024-11-23 08:03] LABS: BUN/Creatinine Ratio 14.3 (10.0-20.0)
[2024-11-23 08:20] LABS: Blood Urea Nitrogen 31 mg/dL (9-23); Carbon Dioxide 14 mmol/L (20-31); Glucose 257 mg/dL (74-106); Sodium 128 mmol/L (136-145)
[2024-11-23 08:21] LABS: Calcium 8.2 mg/dL (8.7-10.4)
--- NOTE | 2024-11-23 14:25 | DVHPN2 ---
Progress Note Date Seen: Nov 23, 2024 Medical Necessity Reason Pt with a Central, PICC or Fol: No Subjective Patient reports: No new complaints Objective vital signs Vital Sign Date Time Temp Pulse Resp B/P (MAP) Pulse Ox O2 Delivery O2 Flow Rate FiO2 11/23/24 10:19 122/79 11/23/24 09:03 98 Room Air 0.0 11/23/24 09:03 21 11/23/24 09:00 98.3 100 20 98.3 Total Intake and Output 11/22/24 11/22/24 11/23/24 15:00 23:00 07:00 Intake Total 660 ml 890 ml 500 ml Output Total 800 ml 250 ml 380 ml Balance -140 ml 640 ml 120 ml medications Current Medications Medications Dose Ordered Sig/Justin Route Start Time Stop Time Status Last Admin Dose Admin Diagnostic Test (Pha) 1 strip ACHS 11/21/24 07:00 11/23/24 11:30 1 STRIP Insulin Human Regular ACHS SC 11/21/24 07:00 11/23/24 12:29 6 UNITS Dextrose 50 ml UD PRN IV 11/21/24 05:30 Acetaminophen/ Hydrocodone Bitart 1 tab Q4HP PRN PO 11/21/24 05:30 11/22/24 17:38 1 TAB Ondansetron HCl 4 mg Q4HP PRN IV 11/21/24 05:30 11/22/24 13:03 4 MG Docusate Sodium 100 mg BIDPRN PRN PO 11/21/24 05:30 Acetaminophen 650 mg Q6HP PRN PO 11/21/24 05:30 Albuterol 2.5 mg Q4HPRN PRN NEB 11/21/24 05:30 Nitroglycerin 0.4 mg Q5MINP PRN SL 11/21/24 06:30 Morphine Sulfate 2 mg Q30M PRN IV 11/21/24 06:30 Morphine Sulfate 2 mg Q4HPRN PRN IV 11/21/24 11:30 11/23/24 05:51 2 MG Azithromycin 250 ml @ 125 mls/hr DAILY IV 11/22/24 10:00 11/23/24 10:57 125 MLS/HR Ceftriaxone Sodium 50 ml @ 100 mls/hr DAILY@09 IV 11/21/24 11:30 11/23/24 10:13 100 MLS/HR Metoclopramide HCl 5 mg ACHS PO 11/22/24 17:00 11/23/24 12:19 5 MG laboratory and microbiology Laboratory Tests 11/23/24 06:25 Test 11/23/24 06:25 Range/Units Serum Glucose 257 H 74-106 mg/dL Microbiology Date/Time Source Procedure Growth Status 11/22/24 13:36 Blood Blood Culture - Preliminary NO GROWTH AFTER 24 HOURS OF INCUBATION. Resulted Problem List/Assessment/Plan Problem List/Assessment/Plan Acute kidney injury likely hemodynamically mediated in setting of infection Chronic kidney disease stage 2 in 2022. No recent values for comparison Poorly controlled diabetes Sepsis secondary to pneumonia Proteinuria on urinalysis renal function over last several days has been ~ 40% indicating ckd 3. Given no records since 2022 likely progressed to this stage. has been stable thus far. Agree with treatment of pneumonia Glycemic control insulin obtain US kidney bladder for baseline eval Urine studies not done 3+ protein on UA indicates dm kidney disease. obtain [facility] outpatient renal clinic at discharge. Will sign off the case and arrange clinic Plan discussed with: Patient GERONIMO GOODWIN MD Nov 23, 2024 14:25
--- NOTE | 2024-11-23 14:56 | DVHPN2 ---
Subjective Patient reports having generalized weakness and chest pain as well as nausea. Reviewed: Care Plan, H&P, Labs, Medications Changes from previous H/P or p: No Changes General: Per HPI Eyes: No Pain, No Vision change, No Conjunctivae inflammation, No Eyelid inflammation, No Other, No Redness ENT: No Ear pain, No Ear discharge, No Nose pain, No Nose discharge, No Nose congestion, No Mouth pain, No Mouth swelling, No Throat pain, No Throat swelling, No Other Cardiovascular: No Chest Pain, No Palpitations, No Orthopnea, No Paroxysmal Noc. Dyspnea, No Edema, No Lt Headedness, No Other Respiratory: No Cough, No Dry, No Shortness of breath, No SOB with excertion, No Wheezing, No Hemoptysis, No Pleuritic Pain, No Sputum, No Other Gastrointestinal: No Nausea, No Vomiting, No Abdominal Pain, No Diarrhea, No Constipation, No Melena, No Hematochezia, No Other Genitourinary: No Dysuria, No Frequency, No Incontinence, No Hematuria, No Retention, No Other Musculoskeletal: No other, No neck pain, No shoulder pain, No arm pain, No back pain, No hand pain, No leg pain, No foot pain Skin: No Rash, No Lesions, No Jaundice, No Bruising, No Other Objective Vitals Vital Signs Date Time Temp Pulse Resp B/P (MAP) Pulse Ox O2 Delivery O2 Flow Rate FiO2 11/23/24 10:19 122/79 11/23/24 09:03 98 Room Air 0.0 11/23/24 09:03 21 11/23/24 09:00 98.3 100 20 98.3 Intake/Output Intake and Output 11/23/24 07:00 Intake Total 2050 ml Output Total 1430 ml Balance 620 ml Intake Oral 1000 ml IV Total 1050 ml Output Urine Total 1230 ml Emesis 200 ml General Appearance: Alert, Oriented X3, Cooperative, No acute distress HEENT: Atraumatic, PERRLA Lungs: Clear to auscultation, Normal air movement Cardiovascular: Normal S1, Normal S2 Abdomen: Normal bowel sounds, Soft, No tenderness Musculoskeletal: Normal sensory function, Normal motor function Neuro: Normal gait, Normal speech Skin: Dry, Intact Psych/Mental Status: Mental status NL, Mood NL Medications Current Medications Medications Dose Ordered Sig/Justin Route Start Time Stop Time Status Last Admin Dose Admin Diagnostic Test (Pha) 1 strip ACHS 11/21/24 07:00 11/23/24 11:30 1 STRIP Insulin Human Regular ACHS SC 11/21/24 07:00 11/23/24 12:29 6 UNITS Dextrose 50 ml UD PRN IV 11/21/24 05:30 Acetaminophen/ Hydrocodone Bitart 1 tab Q4HP PRN PO 11/21/24 05:30 11/22/24 17:38 1 TAB Ondansetron HCl 4 mg Q4HP PRN IV 11/21/24 05:30 11/22/24 13:03 4 MG Docusate Sodium 100 mg BIDPRN PRN PO 11/21/24 05:30 Acetaminophen 650 mg Q6HP PRN PO 11/21/24 05:30 Albuterol 2.5 mg Q4HPRN PRN NEB 11/21/24 05:30 Nitroglycerin 0.4 mg Q5MINP PRN SL 11/21/24 06:30 Morphine Sulfate 2 mg Q30M PRN IV 11/21/24 06:30 Morphine Sulfate 2 mg Q4HPRN PRN IV 11/21/24 11:30 11/23/24 05:51 2 MG Azithromycin 250 ml @ 125 mls/hr DAILY IV 11/22/24 10:00 11/23/24 10:57 125 MLS/HR Ceftriaxone Sodium 50 ml @ 100 mls/hr DAILY@09 IV 11/21/24 11:30 11/23/24 10:13 100 MLS/HR Metoclopramide HCl 5 mg ACHS PO 11/22/24 17:00 11/23/24 12:19 5 MG Laboratory Results Laboratory Tests 11/23/24 06:25 Chemistry Test 11/23/24 06:25 Calcium Level 8.2 mg/dL (8.7-10.4) L Urinalysis Test 11/21/24 07:24 11/21/24 19:39 Urine Color Yellow (Yellow) Urine Clarity Turbid (Clear) H Urine pH 6.0 (5.0-9.0) Urine Specific [place] 1.020 (1.001-1.035) Urine Protein 3+ (Negative) H Urine Ketones Negative (Negative) Urine Blood Trace /uL (Negative) H Urine Nitrite Negative (Negative) Urine Bilirubin Negative (Negative) Urine Urobilinogen Normal mg/dL (Negative) Urine Leukocyte Esterase 1+ /uL (Negative) Urine RBC 13 /hpf (0 - 3) Urine Microscopic WBC 21 /HPF (0-3) H Urine Squamous Epithelial Cells Few /hpf (<5) Urine Bacteria Few /hpf (None Seen) H Urine Hyaline Casts Few /lpf (0 - 2) Urine Mucus Few (None Seen) Urine Sperm Present /hpf (None Seen) Urine Glucose 4+ mg/dL (Normal) H Urine Osmolality Pending Urine Creatinine Pending Urine Sodium Pending Microbiology Microbiology Date/Time Source Procedure Growth Status 11/22/24 13:36 Blood Blood Culture - Preliminary NO GROWTH AFTER 24 HOURS OF INCUBATION. Resulted Labs and/or images reviewed: Labs reviewed by me, Image(s) reviewed by me Assessment/Plan Assessment/Plan Impression: -leukocytosis, rule out sepsis -community-acquired pneumonia, probable Gram-positive/Gram-negative etiology -diabetes mellitus -chronic kidney disease, stage IIIB, diabetic nephropathy -accelerated hypertension -? Diabetic Gastroparesis Plan: -events: Continues to report nausea and vomiting -continue antibiotic therapy with Rocephin and azithromycin -pain management -regular insulin sliding scale, Lantus -stop IV fluids -start antihypertensives with amlodipine -repeat labs and chest x-ray in a.m. Total time spent with patient discussing and formulating plan of care: 35 minutes. This medical document was created using an electronic medical record system with [employer] dictation system. Although this document has been carefully reviewed, there may still be some phonetic and typographical errors. These areas are purely typographical due to imperfections of the software programs, and do not reflect any compromise in the patient's medical care. Plan discussed with: Patient, Other (RN) My Orders Orders - KIRK CARPIO NP Procedure Category Date Status Time Transfer Orders XFER 11/23/24 Transmitted 12:06 Basic Metabolic Panel LAB 11/24/24 Verified 04:00 Complete Blood Count LAB 11/24/24 Verified 04:00 Date of Service: Nov 23, 2024 Billing Provider: KIRK CARPIO NP Common Visit Codes: [id number] INP/OBS CARE(HIGH) KIRK CARPIO NP Nov 23, 2024 14:56
--- NOTE | 2024-11-23 15:15 | DVH ---
EXAM: US KIDNEY INDICATION: brian TECHNIQUE: Multiple real-time sonographic images of the kidneys and bladder were obtained. COMPARISON: US KIDNEY on DOS: 06/29/24 Findings: Right kidney measures 11.1 cm with normal contours, increased echotexture, and normal cortical thickn ess. No evidence of hydronephrosis, calculi, cystic or solid lesions. Mild pelvicaliectasis. Left kidney measures 11.4 cm with normal contours, increased echotexture, and normal cortical thickne ss. No evidence of hydronephrosis, calculi, cystic or solid lesions. Mild pelvicaliectasis. Urinary bladder is unremarkable without evidence of abnormal wall thickening, mass, or calculi. Prevo id volume 1112 mL. Postvoid volume was not obtained. Impression: 1. Unremarkable sonographic study of the urinary bladder. 2. Increased echogenicity of bilateral kidneys. Correlate for medical renal disease. 3. Mild bilateral pelvicaliectasis.
[2024-11-24] VITALS (11 sets, daily range): BP systolic 104–138; BP diastolic 59–92; PULSE 93–104; RESP 16–19; TEMP 36.8; O2SAT 94–98
[2024-11-24 06:49] LABS: Basophils # (auto) 0 10 ^3/uL (0-0.2); Basophils % (auto) 0.1 % (0.0-2.0); Eosinophils # (auto) 0.2 10 ^3/uL (0-0.8); Eosinophils % (auto) 2.4 % (0.0-7.0); Hematocrit 32.2 % (41.0-53.0); Hemoglobin 10.6 g/dL (13.5-17.5); Lymphocytes # (auto) 1.4 10 ^3/uL (0.4-5.4); Lymphocytes % (auto) 15.1 % (10.0-50.0); Mean Corpuscular Hemoglobin 28.9 pg (28.0-32.0); Mean Corpuscular Hgb Conc. 32.9 g/dL (32.0-36.0); Mean Corpuscular Volume 87.7 fL (80.0-100.0); Monocytes # (auto) 0.9 10 ^3/uL (0-1.3); Monocytes % (auto) 9.8 % (0.0-12.0); Neutrophils # (auto) 6.9 10 ^3/uL (1.6-8.6); Neutrophils % (auto) 72.6 % (37.0-80.0); Nucleated Red Blood Cells % 0.1 %; Platelet Count (auto) 203 10^3/uL (140-450); Red Blood Cells 3.67 10^6/uL (4.5-5.90); Red Cell Distribution Width 13.5 % (11.8-14.3); White Blood Cell 9.5 10^3/uL (4.4-10.8)
[2024-11-24 06:59] LABS: Chloride 102 mmol/L (98-107); Potassium 4.5 mmol/L (3.5-5.1)
[2024-11-24 07:00] LABS: Anion Gap 14 (5-15)
[2024-11-24 07:05] LABS: BUN/Creatinine Ratio 12.7 (10.0-20.0)
[2024-11-24 07:06] LABS: Blood Urea Nitrogen 34 mg/dL (9-23); Carbon Dioxide 15 mmol/L (20-31); Glucose 238 mg/dL (74-106); Sodium 131 mmol/L (136-145)
[2024-11-24] MEDS: MORPHINE SULFATE INJ 2 MG/ml SYRG IV PRN (08:49)
[2024-11-24] MEDS ORDERED: DOXY100C79 PO (14:30)
--- NOTE | 2024-11-24 15:29 | DVHDS2 ---
Discharge Summary Date of Admission Nov 21, 2024 at 06:16 Date of Discharge: Nov 24, 2024 Admitting Diagnosis Dehydration Labs/Diagnostic Data: Laboratory Results Test 11/24/24 10:55 11/24/24 05:50 11/22/24 07:15 11/21/24 19:39 POC Glucose 253 mg/dl (70-106) White Blood Count 9.5 10^3/uL (4.4-10.8) Red Blood Count 3.67 10^6/uL (4.5-5.90) Hemoglobin 10.6 g/dL (13.5-17.5) Hematocrit 32.2 % (41.0-53.0) Mean Corpuscular Volume 87.7 fL (80.0-100.0) Mean Corpuscular Hemoglobin 28.9 pg (28.0-32.0) Mean Corpuscular Hemoglobin Concent 32.9 g/dL (32.0-36.0) Red Cell Distribution Width 13.5 % (11.8-14.3) Platelet Count 203 10^3/uL (140-450) Mean Platelet Volume 7.1 fL (6.9-10.8) Neutrophils (%) (Auto) 72.6 % (37.0-80.0) Lymphocytes (%) (Auto) 15.1 % (10.0-50.0) Monocytes (%) (Auto) 9.8 % (0.0-12.0) Eosinophils (%) (Auto) 2.4 % (0.0-7.0) Basophils (%) (Auto) 0.1 % (0.0-2.0) Neutrophils # (Auto) 6.9 10 ^3/uL (1.6-8.6) Lymphocytes # (Auto) 1.4 10 ^3/uL (0.4-5.4) Monocytes # (Auto) 0.9 10 ^3/uL (0-1.3) Eosinophils # (Auto) 0.2 10 ^3/uL (0-0.8) Basophils # (Auto) 0 10 ^3/uL (0-0.2) Nucleated Red Blood Cells 0.1 % Sodium Level 131 mmol/L (136-145) Potassium Level 4.5 mmol/L (3.5-5.1) Chloride Level 102 mmol/L (98-107) Carbon Dioxide Level 15 mmol/L (20-31) Anion Gap 14 (5-15) Blood Urea Nitrogen 34 mg/dL (9-23) Creatinine 2.68 mg/dL (0.700-1.30) Glomerular Filtration Rate Calc 32 mL/min (>90) BUN/Creatinine Ratio 12.7 (10.0-20.0) Serum Glucose 238 mg/dL (74-106) Calcium Level 8.0 mg/dL (8.7-10.4) Total Bilirubin 0.2 mg/dL (0.2-1.0) Aspartate Amino Transferase (AST) 22 U/L (13-40) Alanine Aminotransferase (ALT) 14 U/L (7-40) Alkaline Phosphatase 86 U/L (46-116) Total Protein 5.6 g/dL (5.7-8.2) Albumin 3.2 g/dL (3.2-4.8) Test 11/21/24 07:24 11/21/24 06:44 11/21/24 04:36 Urine Color Yellow (Yellow) Urine Clarity Turbid (Clear) Urine pH 6.0 (5.0-9.0) Urine Specific [place] 1.020 (1.001-1.035) Urine Protein 3+ (Negative) Urine Ketones Negative (Negative) Urine Blood Trace /uL (Negative) Urine Nitrite Negative (Negative) Urine Bilirubin Negative (Negative) Urine Urobilinogen Normal mg/dL (Negative) Urine Leukocyte Esterase 1+ /uL (Negative) Urine RBC 13 /hpf (0 - 3) Urine Microscopic WBC 21 /HPF (0-3) Urine Squamous Epithelial Cells Few /hpf (<5) Urine Bacteria Few /hpf (None Seen) Urine Hyaline Casts Few /lpf (0 - 2) Urine Mucus Few (None Seen) Urine Sperm Present /hpf (None Seen) Urine Glucose 4+ mg/dL (Normal) Hemoglobin A1c 10.4 % A1C (<5.7) Influenza Type A Antigen Negative (Negative) Influenza Type B Antigen Negative (Negative) SARS-CoV-2 Antigen (Rapid) Negative (NEGATIVE) Other Laboratory Tests 11/24/24 05:50 Brief Hx & Hospital Course: History of Present Illness The patient is a 29 years old male with past medical history of diabetes mellitus who presented to [facility] ED with complaint of generalized body pain, nausea, and vomiting. Patient was seen and evaluated in the ED, laboratory data shows WBC 11.3, platelets 125, sodium 136, potassium 4.4, BUN 26, creatinine 2.06, GFR 44, glucose 83. Chest x-ray revealing possible developing airspace opacities in the left lower lung field, central interstitial prominence is nonspecific and can be seen with edema, reactive airway changes as well as atypical/viral infection. Patient was given IV morphine sulfate 4 mg x 1, please see medication orders section in the computer. On my assessment, patient denied chest pain, no headache, no dizziness, no diaphoresis, no shortness of breath, no nausea, no vomiting, no fever, no chills. Patient was admitted for further evaluation and medical management. Course of hospitalization: Patient was found to have elevated white blood cell count as well as pneumonia on chest x-ray. Patient was started on azithromycin and Rocephin. Nephrology consultation was placed for patient's elevated BUN and creatinine. Patient has been weaned off of oxygen. White blood cell count has improved. Blood Sugars have been controlled with regular insulin sliding scale. Patient will be discharged home and continue antibiotic therapy with doxycycline 100 mg p.o. b.i.d.. He is instructed to follow up with his PCP in 1-2 weeks and continue all home medications. Patient verbalized understanding. All questions answered. Physical examination General: Alert and Oriented x3. No acute distress. Well-nourished. Eyes: EOMI. Anicteric. HENT: Moist mucous membranes. Lungs: Clear to auscultation bilaterally. No accessory muscle use. Cardiovascular: Regular rate and rhythm. No murmur. No JVD. Abdomen: Soft, non-tender and non-distended. No palpable masses. Extremities: No edema. Non-tender. Skin: No rashes or lesions. Warm. Neurologic: No focal neurological deficits. CN II-XII grossly intact, but not individually tested. Psychiatric: Cooperative. Appropriate mood and affect. Total time spent with patient discussing and formulating plan of care: 35 minutes. This medical document was created using an electronic medical record system with [employer]ation system. Although this document has been carefully reviewed, there may still be some phonetic and typographical errors. These areas are purely typographical due to imperfections of the software programs, and do not reflect any compromise in the patient's medical care. Condition at Discharge: Guarded Final Diagnosis/Problems List Community-acquired pneumonia, probable Gram-positive/Gram-negative etiology Secondary Diagnosis: -leukocytosis, ruled out sepsis , probably secondary to sirs response without organ dysfunction -community-acquired pneumonia, probable Gram-positive/Gram-negative etiology -diabetes mellitus -chronic kidney disease, stage IIIB, diabetic nephropathy -accelerated hypertension -probable Diabetic Gastroparesis Discharge Disposition: Home Discharge Instruct/Medications Diet: Consistent carbohydrate Activity: No Restrictions, As Tolerated Follow Up/Referral: PCP in 1-2 weeks Medications: Doxycycline 100 mg p.o. b.i.d. x7 days Continue all home medication 36 Discharge Statement: "Patient was advised to return to the ER or call 911 if any headaches, dizziness, shortness of breath, chest pain, abdominal pain, bleeding, fevers, or worsening of medical condition. Patient was counseled about treatment plan, medications, possible side effects, patientverbalized understanding. All questions were answered to the best of my ability. This discharge took greater then 30 minutes in planning, reviewing documentation, counseling the patient, and discussing with other team members." ASSESSMENT ASSESSMENT Assessment Community-acquired pneumonia, probable Gram-positive/Gram-negative etiology Date of Service: Nov 24, 2024 Billing Provider: KIRK CARPIO NP Common Visit Codes: 26033-UAW/OBS DISCH DAY >30min KIRK CARPIO NP Nov 24, 2024 15:29
== END 2024-11-24 21:44 | disposition home or self-care (01) | DRG 720 ==
LOC: ER 21:07 → EDBD 21:07 → TELE 11-21 06:16 → TELE-WESTW 11-21 19:10 → WEST WING 11-24 00:44
PROVIDERS: ADMIT Nurse Practitioner Family; ATTEND Nurse Practitioner Acute Care
DX: A41.50 Gram-negative sepsis, unspecified (principal); J15.69 Pneumonia due to other Gram-negative bacteria; E11.22 Type 2 diabetes mellitus with diabetic chronic kidney disease; J15.9 Unspecified bacterial pneumonia; E86.0 Dehydration; K31.84 Gastroparesis; E11.43 Type 2 diabetes mellitus with diabetic autonomic (poly)neuropathy; Z20.822 Contact with and (suspected) exposure to COVID-19; I12.9 Hypertensive chronic kidney disease with stage 1 through stage 4 chronic kidney disease, or unspecified chronic kidney disease; N18.32 Chronic kidney disease, stage 3b; Z79.4 Long term (current) use of insulin; Z79.899 Other long term (current) drug therapy; Z79.891 Long term (current) use of opiate analgesic; Z83.3 Family history of diabetes mellitus; Z80.3 Family history of malignant neoplasm of breast; Z82.5 Family history of asthma and other chronic lower respiratory diseases; Z80.0 Family history of malignant neoplasm of digestive organs; Z82.0 Family history of epilepsy and other diseases of the nervous system; Z82.49 Family history of ischemic heart disease and other diseases of the circulatory system; Z81.8 Family history of other mental and behavioral disorders; Z82.62 Family history of osteoporosis; Z80.1 Family history of malignant neoplasm of trachea, bronchus and lung; Z82.3 Family history of stroke; Z80.42 Family history of malignant neoplasm of prostate; Z80.8 Family history of malignant neoplasm of other organs or systems
CPT/HCPCS: 36415; 71045; 76775; 80048; 80053; 81001; 82962; 83036; 85025; 87040; 87426; 87804; 96361; 96374; 96375; G0378; J1815; J2405

== ENCOUNTER 2025-02-27 06:10 | Inpatient (IN) | payer MEDICAID ==
[~2025-02-27] VITALS: Ht 185.4 cm; Wt 72.9 kg
[~2025-02-27 06:10] MED LIST changes: -ALBU108A5 IN; +DOXY100C79 PO; -GABA-1250 PO; -HYDR-4611 PO; -HYDR-4902 PO; -INSLANTI SC; -INSU100I4 SC; -ONDA-144 PO
[2025-02-27] MEDS ORDERED: DEXTROSE (50%) 50ML SYRG IV PRN ×2 (06:45→20:30)
[2025-02-27 07:03] LABS: Basophils # (auto) 0.1 10 ^3/uL (0-0.2); Eosinophils # (auto) 0 10 ^3/uL (0-0.8); Eosinophils % (auto) 0.2 % (0.0-7.0); Mean Corpuscular Volume 98.6 fL (80.0-100.0); Monocytes # (auto) 0.8 10 ^3/uL (0-1.3); Nucleated Red Blood Cells % 0.1 %; Platelet Count (auto) 214 10^3/uL (140-450)
[2025-02-27 07:05] LABS: Basophils % (auto) 0.9 % (0.0-2.0); Hematocrit 36.7 % (41.0-53.0); Hemoglobin 10.8 g/dL (13.5-17.5); Lymphocytes # (auto) 1.1 10 ^3/uL (0.4-5.4); Lymphocytes % (auto) 8.7 % (10.0-50.0); Mean Corpuscular Hemoglobin 29.1 pg (28.0-32.0); Mean Corpuscular Hgb Conc. 29.5 g/dL (32.0-36.0); Monocytes % (auto) 6.5 % (0.0-12.0); Neutrophils # (auto) 10.5 10 ^3/uL (1.6-8.6); Neutrophils % (auto) 83.7 % (37.0-80.0); Red Blood Cells 3.72 10^6/uL (4.5-5.90); Red Cell Distribution Width 14.3 % (11.8-14.3); White Blood Cell 12.5 10^3/uL (4.4-10.8)
[2025-02-27 07:11] LABS: Anion Gap 23.00001 (5-15)
[2025-02-27 07:16] LABS: Base Excess -20.9 mmol/L (-2.0-3.0)
[2025-02-27 07:17] LABS: BUN/Creatinine Ratio 15.5 (10.0-20.0)
[2025-02-27] MEDS: INSULIN LANTUS (GLARGINE) 1 /0.01ml (100units/ml) SC ONE ×2 (07:26→22:05)
[2025-02-27] MEDS: INSULIN DRIP 100 UNIT/100ML 100 ML IV SCH ×2 (07:27→20:55)
[2025-02-27 07:28] LABS: Chloride 83 mmol/L (98-107)
[2025-02-27 07:29] LABS: Blood Urea Nitrogen 51 mg/dL (9-23); Calcium 8.2 mg/dL (8.7-10.4); Magnesium 2.7 mg/dL (1.6-2.6); Phosphorus 8.5 mg/dL (2.4-5.1)
[2025-02-27] MEDS: ACCU-CHEK COMFORT CURVE STRIP VI SCH (07:30)
[2025-02-27] MEDS: SODIUM BICARB 8.4% 50Meq/50ml SYR Vial IV ONE ×2 (07:30→08:18)
[2025-02-27 07:31] LABS: Carbon Dioxide < 10 mmol/L (20-31); Potassium 7.1 mmol/L (3.5-5.1); Sodium 116 mmol/L (136-145)
[2025-02-27 07:32] LABS: Glucose 1305 mg/dL (74-106)
--- NOTE | 2025-02-27 07:34 | ED.PDOC ---
History of present illness HPI Comments 29 y/o M, with PMHx of DM presents to the ED for CC of hyperglycemia. EMS reports, patient is coming from home where he complains of vomiting with associated symptoms of body aches x1day. Per EMS, family reports patient usually presents with these symptoms when his blood sugar is elevated. Upon arrival to the ED, patient's blood sugar read high on glucometer. No other symptoms or modifying factors present at this time. Chief Complaint: Hyperglycemia Time Seen by MD: 06:35 History of present illness: Nurses Notes, Director Agricultural Services Notes, Medications, Allergies Allergies: Coded Allergies: NO KNOWN ALLERGIES (Unverified , 07/22/12) Home Meds Active Scripts Doxycycline (Monohydrate) (Doxycycline) 100 Mg Cap, 100 MG PO DAILY for 7 Days, #14 CAP Prov:KIRK CARPIO MACHINIST GENERAL 11/24/24 Insulin Glargine (Basaglar Kwikpen) 100 Unit/Ml Inj, 30 UNIT SC QAM for 30 Days, #30 INJ Prov:JLUIS EPSTEIN MD 01/09/23 Reported Medications Insulin Lispro (Insulin Lispro Kwikpen) 100 Unit/Ml Inj, SC 01/08/23 Mode of Arrival: EMS Timing: Days Duration: Since onset Prehospital treatment: None [place]: None History of: Diabetes Associated signs and symptoms: Nausea, Vomiting Past Medical History PAST MEDICAL HISTORY: DM Surgical History: BKA Family History Family History: Reviewed,noncontributory to illness, Family hx of DM Social History Smoker: Non-Smoker Alcohol: Denies ETOH Use Drugs: Marijuana Lives In: Home Constitutional: denies: chills, diaphoresis, fatigue, fever, malaise, sweats, weakness, others EENTM: denies: blurred vision, double vision, ear bleeding, ear discharge, ear drainage, ear pain, ear ringing, eye pain, eye redness, hearing loss, mouth pain, mouth swelling, nasal discharge, nose bleeding, nose congestion, nose pain, photophobia, tearing, throat pain, throat swelling, voice changes, others Respiratory: denies: cough, hemoptysis, orthopnea, SOB at rest, shortness of breath, SOB with excertion, stridor, wheezing, others Cardiovascular: denies: chest pain, dizzy spells, diaphoresis, Dyspnea on exertion, edema, irregular heart beat, left arm pain, lightheadedness, palpitations, PND, syncope, others Gastrointestinal: reports: nausea, vomiting; denies: abdomen distended, abdominal pain, blood streaked bowels, constipated, diarrhea, dysphagia, difficulty swallowing, hematemesis, melena, poor appetite, poor fluid intake, re ctal bleeding, rectal pain, others Genitourinary: denies: burning, dysuria, flank pain, frequency, hematuria, incontinence, penile discharge, penile sore, pain, testicle pain, testicle swelling, urgency, others Neurological: denies: dizziness, fainting, headache, left sided numbness, left sided weakness, numbness, paresthesia, pre-existing deficit, right sided numbness, right sided weakness, seizure, speech problems, tingling, tremors, weakness, others Musculoskeletal: reports: others (body-aches); denies: back pain, gout, joint pain, joint swelling, muscle pain, muscle stiffness, neck pain Integumetry: denies: bruises, change in color, change in hair/nails, dryness, laceration, lesions, lumps, rash, wounds, others Allergic/Immunocompromised: denies: Difficulty Healing, Frequent Infections, Hives, Itching, others Hematologic/Lymphatic: denies: anemia, blood clots, easy bleeding, easy bruising, swollen glands, others Endocrine: denies: excessive hunger, excessive sweating, excessive thirst, excessive urination, flushing, intolerance to cold, intolerance to heat, unexplained weight gain, unexplained weight loss, others Psychiatric: denies: anxiety, bipolar disorder, depression, hopeless, panic disorder, schizophrenia, sleepless, suicidal, others All Other Systems: Reviewed and Negative Physical Exam General Appearance: Moderate Distress HEENT: Normal ENT Inspection, Pharynx Normal, TMs Normal Neck: Full Range of Motion, Non-Tender, Normal, Normal Inspection Respiratory: Chest Non-Tender, Lungs Clear, No Accessory Muscle Use, No Respiratory Distress, Normal Breath Sounds Cardiovascular: No Edema, No JVD, No Murmur, No Gallop, Normal Peripheral Pulses, Regular Rate/Rhythm Breast Exam: Deferred Gastrointestinal: No Organomegaly, Non Tender, No Pulsatile Mass, Normal Bowel Sounds, Soft Genitalia: Deferred Pelvic: Deferred Rectal: Deferred Extremities: Normal inspection, No pedal edema Musculoskeletal : Apperance: Normal Neurologic: Disoriented Cerebellar Function: NOT DONE Reflexes: NOT DONE Skin: Dry, Normal Color, Warm Lymphatic: No Adenopathy Was a procedure done? Was a procedure done?: Yes Sedation Sedation?: No Central Line Recorder of insertion practice: Entry Level Lab Technician Occupation of toe lining closer: Attending Physician Indication: Hypotension, CVP monitoring Room prepared for procedure: Yes Entry Level Lab Technician performed hand hygien: Yes Maximal sterile barrier precau: Mask/Eye shield, Sterile gown Skin Preparation: Chlorhexidine gluconate, Providine iodine Skin preparation completely dr: Yes Insertion site: Right, Internal jugular Central line catheter type: Xol-[id number]-hty dialysis Number of lumens: 3 Antiseptic ointment applied to: Yes Post Assessment: Chest X-Ray Differential Diagnosis (DM) Differential Diagnosis: Dehydration, DKA, Hyperglycemia X-Ray, Labs, Meds, VS Vital Signs Date Time Temp Pulse Resp B/P (MAP) Pulse Ox O2 Delivery O2 Flow Rate FiO2 02/27/25 08:19 94 22 91/39 02/27/25 06:32 97.5 99 13 88/36 (53) 99 97.5 02/27/25 06:20 97.5 73 18 81/68 (72) 96 97.5 Lab Test 02/27/25 07:18 02/27/25 07:12 02/27/25 06:48 Range/Units POC Glucose > 600 *H 70-106 mg/dl Blood Gas Specimen Type Arterial Blood Gas Sample Site Right radial Blood Gas Patient Temperature 37.0 Arterial Blood Date Drawn [id number] Arterial Blood pH 7.140 *L 7.350-7.450 Arterial Blood Partial Pressure CO2 18.7 *L 35.0-48.0 mmHg Arterial Blood Partial Pressure O2 108.9 H 83.0-108.0 mmHg Arterial Blood HCO3 6.2 L 21.0-28.0 mmol/L Arterial Blood Oxygen Saturation 97.6 94.0-98.0 % Arterial Blood Base Excess -20.9 L -2.0-3.0 mmol/L Arterial Blood Oxyhemoglobin 96.6 94.0-98.0 % Arterial Blood Carboxyhemoglobin 0.3 L 0.5-1.5 % Arterial Blood Methemoglobin 0.7 0.0-1.5 % [place] Test Yes Blood Gas Total Hemoglobin 11.20 L 13.5-17.5 g/dL Blood Gas Modality Room air FiO2 % 21.0 Blood Gas Critical Value Read Back yes Blood Gas Notified Whom Blood Gas Notified Time [id number] Blood Gas Notified By batching operator rosa White Blood Count 12.5 H 4.4-10.8 10^3/uL Red Blood Count 3.72 L 4.5-5.90 10^6/uL Hemoglobin 10.8 L 13.5-17.5 g/dL Hematocrit 36.7 L 41.0-53.0 % Mean Corpuscular Volume 98.6 80.0-100.0 fL Mean Corpuscular Hemoglobin 29.1 28.0-32.0 pg Mean Corpuscular Hemoglobin Concent 29.5 L 32.0-36.0 g/dL Red Cell Distribution Width 14.3 11.8-14.3 % Platelet Count 214 140-450 10^3/uL Mean Platelet Volume 8.8 6.9-10.8 fL Neutrophils (%) (Auto) 83.7 H 37.0-80.0 % Lymphocytes (%) (Auto) 8.7 L 10.0-50.0 % Monocytes (%) (Auto) 6.5 0.0-12.0 % Eosinophils (%) (Auto) 0.2 0.0-7.0 % Basophils (%) (Auto) 0.9 0.0-2.0 % Neutrophils # (Auto) 10.5 H 1.6-8.6 10 ^3/uL Lymphocytes # (Auto) 1.1 0.4-5.4 10 ^3/uL Monocytes # (Auto) 0.8 0-1.3 10 ^3/uL Eosinophils # (Auto) 0 0-0.8 10 ^3/uL Basophils # (Auto) 0.1 0-0.2 10 ^3/uL Nucleated Red Blood Cells 0.1 % Sodium Level 116 *L 136-145 mmol/L Potassium Level 7.1 *H 3.5-5.1 mmol/L Chloride Level 83 L 98-107 mmol/L Carbon Dioxide Level < 10 *L 20-31 mmol/L Anion Gap 23.58074 H 5-15 Blood Urea Nitrogen 51 H 9-23 mg/dL Creatinine 3.28 H 0.700-1.30 mg/dL Glomerular Filtration Rate Calc 25 >90 mL/min BUN/Creatinine Ratio 15.5 10.0-20.0 Serum Glucose 1305 *H 74-106 mg/dL Serum Osmolality 359 H 278-298 mOsm/kg Calcium Level 8.2 L 8.7-10.4 mg/dL Phosphorus Level 8.5 H 2.4-5.1 mg/dL Magnesium Level 2.7 H 1.6-2.6 mg/dL Beta-Hydroxybutyric Acid > 4.500 H < 0.4 mmol/L Current Medications Medications (Trade) Dose Ordered Sig/Justin Route Start Time Stop Time Status Last Admin Sodium Chloride 1,000 ml @ 500 mls/hr Q2H IV 02/27/25 06:45 02/27/25 10:44 02/27/25 08:19 Insulin Human (Reg)/Sodium Chloride 100 ml @ 0.5 mls/hr Q24H IV 02/27/25 06:45 02/27/25 07:27 Diagnostic Test (Pha) (Accu-Chek Comfort Curve T) 1 strip Q90MIN 02/27/25 07:30 02/27/25 07:30 Insulin Glargine (Lantus) 15 units ONCE ONCE SC 02/27/25 06:45 02/27/25 06:46 DC 02/27/25 07:26 Sodium Bicarbonate 100 ml ONCE ONCE IV 02/27/25 07:30 02/27/25 07:31 DC 02/27/25 08:18 Morphine Sulfate 4 mg ONCE ONCE IV 02/27/25 07:30 02/27/25 07:32 DC 02/27/25 08:19 Ondansetron HCl (Zofran) 4 mg ONCE ONCE IV 02/27/25 07:30 02/27/25 07:32 DC 02/27/25 08:19 Calcium Gluconate/ Sodium Chloride 50 ml @ 120 mls/hr ONCE ONCE IV 02/27/25 08:00 02/27/25 08:24 DC 02/27/25 08:[address] [address] Ph: [phone] DIAGNOSTIC IMAGING Diagnostic Imaging Report : [id number] Signed PATIENT: ARINA BERMUDEZ ACCT: [id number] UNIT: [id number] : 1995 LOC: ER ROOM / BED: / AGE / SEX: 29 / M ADM STATUS: REG ER SERVICE [id number] ORDERING PHYSICIAN: LAURY SMITH MD PROCEDURE(s): CXR1 - CHEST XRAY 1 VIEW REASON: central line placement ORDER NUMBER(s): [id number], ACCESSION NUMBER(s): [id number] CHEST RADIOGRAPH Indication: central line placement Technique: Single frontal view of the chest was obtained COMPARISON: XY CHEST PORTABLE on DOS: 11/23/24, XY CHEST PORTABLE on DOS: 11/20/24, XY CHEST PORTABLE on DOS: 06/29/24, XY CHEST XRAY 1 VIEW on DOS: 06/20/23, XY CHEST PORTABLE on DOS: 06/19/23 FINDINGS: Lines and Tubes: Right central venous catheter in satisfactory position. Lungs: Clear Pleura: No effusion. No pneumothorax. Cardiomediastinal contours: Unremarkable Bones: Unremarkable IMPRESSION: Right central venous catheter in satisfactory position. No appreciable pneumothorax. ATED BY: ANGEL DEWITT MD DICTATED DATE/TIME: 02/27/25818 SIGNED BY: ANGEL DEWITT MD SIGNED DATE/TIME: 02/27/25818 CC: Patient is slightly altered. DKA. Does not take care himself. Establish intravenous access. Was given fluids. Was given insulin. Was given bicarbonate. ABG reviewed does show DKA. Had to place a central line. Potassium elevated. Blood sugar dilating the sodium level. Was given calcium gluconate to protect the heart. WBC elevated. Reviewed his previous visit. Continue monitoring. Time of 1ST Reevaluation: 07:05 Reevaluation 1ST: Unchanged Patient Education/Counseling: Diagnosis, Treatment Family Education/Counseling: No Family Present Departure 1 Departure Time of Disposition: 07:38 Impression: Primary Impression: DKA (diabetic ketoacidosis) Qualified Codes: E13.10 - Other specified diabetes mellitus with ke toacidosis without coma Additional Impressions: Metabolic encephalopathy Hyperkalemia Disposition: ADMITTED INPATIENT Admit to: ICU Condition: Guarded Critical Care Note Critical Care Time?: Yes (90 min-critical care time only) Critical care comment: DKA Stability Stability form required: No Heart Score Heart Score: Heart Score Response (Comments) Value History N/A 0 EKG N/A 0 Age N/A 0 Risk Factors N/A 0 Troponin N/A 0 Total 0 I personally scribed for LAURY SMITH MD ([email or web address]) on 02/27/25 at 07:34. Electronically submitted by Marcella Baez ([employer]). I personally scribed for LAURY SMITH MD ([email or web address]) on 02/27/25 at 07:35. Electronically submitted by Marcella Baez ([employer]). I personally scribed for LAURY SMITH MD ([email or web address]) on 02/27/25 at 08:31. Electronically submitted by Marcella Baez ([email or web address]). LAURY SMITH MD February 27, 2025 07:34
[2025-02-27] MEDS: ONDANSETRON HCL 4 MG/2 ML VIAL IV ONE (08:19)
[2025-02-27] MEDS: MORPHINE SULFATE 4 MG/ML SYR/VIAL IV ONE (08:19)
[2025-02-27] MEDS: SODIUM CHLORIDE 0.9% 1,000 ML IV SCH ×2 (08:19→12:55)
[2025-02-27] MEDS: CALCIUM GLUC 1,000mg/50ml-NS 50 ML IV ONE ×2 (08:20)
--- NOTE | 2025-02-27 08:21 | DVH ---
CHEST RADIOGRAPH Indication: central line placement Technique: Single frontal view of the chest was obtained COMPARISON: XY CHEST PORTABLE on DOS: 11/23/24, XY CHEST PORTABLE on DOS: 11/20/24, XY CHEST PORTABLE on DOS: 06/29/24, XY CHEST XRAY 1 VIEW on DOS: 06/20/23, XY CHEST PORTABLE on DOS: 06/19/23 FINDINGS: Lines and Tubes: Right central venous catheter in satisfactory position. Lungs: Clear Pleura: No effusion. No pneumothorax. Cardiomediastinal contours: Unremarkable Bones: Unremarkable IMPRESSION: Right central venous catheter in satisfactory position. No appreciable pneumothorax.
[2025-02-27] MEDS: SODIUM CHLORIDE 0.9% 1,000 ML IV ONE ×2 (08:31→09:00)
[2025-02-27] MEDS ORDERED: ONDANSETRON HCL 4 MG/2 ML VIAL IV PRN (09:15)
[2025-02-27 09:38] VITALS: PULSE 98; RESP 18; O2SAT 95
--- NOTE | 2025-02-27 09:46 | DVHHP2 ---
History of Present Illness Reason for Visit: Elevated blood sugar History of Present Illness Anderson Herrera is a 29-year-old male with past medical history of diabetes type 1 and right BKA who presents to the ED with elevated blood sugar with nausea, vomiting, and body aches x1 day. Patient reports that he is hard of hearing but does not use hearing aids. He also reports that he uses a wheelchair to get around. Patient extremely agitated, uncooperative, and does not want to answer further questions. He states that every but he has been asking him questions all day long and he is tired of it. Endocrine: Diabetes Past Surgical History: Other (Right BKA) Family History: None Smoke: No ALCOHOL: none Drugs: Marijuana Lives: with Family Domestic Violence: Neg Review of Systems Gastrointestinal: Nausea, Vomiting Musculoskeletal: other Allergies: Coded Allergies: NO KNOWN ALLERGIES (Unverified , 07/22/12) Medications Current Medications Medications Dose Ordered Sig/Justin Route Start Time Stop Time Status Last Admin Dose Admin Sodium Chloride 1,000 ml @ 500 mls/hr Q2H IV 02/27/25 06:45 02/27/25 10:44 02/27/25 08:19 500 MLS/HR Sodium Chloride 1,000 ml @ 250 mls/hr Q4H IV 02/27/25 10:45 02/27/25 12:44 Sodium Chloride 1,000 ml @ 150 mls/hr Q6H40M IV 02/27/25 12:45 Insulin Human (Reg)/Sodium Chloride 100 ml @ 0.5 mls/hr Q24H IV 02/27/25 06:45 02/27/25 07:27 6 MLS/HR Dextrose 50 ml UD PRN IV 02/27/25 06:45 Diagnostic Test (Pha) 1 strip Q90MIN 02/27/25 07:30 02/27/25 07:30 1 STRIP Insulin Glargine 15 units DAILY SC 02/28/25 10:00 Exam Vital Signs Vital Signs Date Time Temp Pulse Resp B/P (MAP) Pulse Ox O2 Delivery O2 Flow Rate FiO2 02/27/25 08:49 98 19 88/42 02/27/25 06:32 97.5 99 97.5 General Appearance: Alert, Oriented X3, No acute distress HEENT: Atraumatic, PERRLA, EOMI, Mucous membr. moist/pink Respiratory: Normal air movement Cardiovascular: Regular rate, Normal S1, Normal S2 Abdominal: Soft Neuro: Normal speech, Normal tone, Sensation intact Psych/Mental Status: Mental status NL Labs/Xrays Labs Test 02/27/25 08:46 02/27/25 07:12 02/27/25 06:48 Range/Units POC Glucose > 600 *H 70-106 mg/dl Blood Gas Specimen Type Arterial Blood Gas Sample Site Right radial Blood Gas Patient Temperature 37.0 Arterial Blood Date Drawn [id number] Arterial Blood pH 7.140 *L 7.350-7.450 Arterial Blood Partial Pressure CO2 18.7 *L 35.0-48.0 mmHg Arterial Blood Partial Pressure O2 108.9 H 83.0-108.0 mmHg Arterial Blood HCO3 6.2 L 21.0-28.0 mmol/L Arterial Blood Oxygen Saturation 97.6 94.0-98.0 % Arterial Blood Base Excess -20.9 L -2.0-3.0 mmol/L Arterial Blood Oxyhemoglobin 96.6 94.0-98.0 % Arterial Blood Carboxyhemoglobin 0.3 L 0.5-1.5 % Arterial Blood Methemoglobin 0.7 0.0-1.5 % Pablito Test Yes Blood Gas Total Hemoglobin 11.20 L 13.5-17.5 g/dL Blood Gas Modality Room air FiO2 % 21.0 Blood Gas Critical Value Read Back yes Blood Gas Notified Whom Blood Gas Notified Time [id number] Blood Gas Notified By ship fitter rosa White Blood Count 12.5 H 4.4-10.8 10^3/uL Red Blood Count 3.72 L 4.5-5.90 10^6/uL Hemoglobin 10.8 L 13.5-17.5 g/dL Hematocrit 36.7 L 41.0-53.0 % Mean Corpuscular Volume 98.6 80.0-100.0 fL Mean Corpuscular Hemoglobin 29.1 28.0-32.0 pg Mean Corpuscular Hemoglobin Concent 29.5 L 32.0-36.0 g/dL Red Cell Distribution Width 14.3 11.8-14.3 % Platelet Count 214 140-450 10^3/uL Mean Platelet Volume 8.8 6.9-10.8 fL Neutrophils (%) (Auto) 83.7 H 37.0-80.0 % Lymphocytes (%) (Auto) 8.7 L 10.0-50.0 % Monocytes (%) (Auto) 6.5 0.0-12.0 % Eosinophils (%) (Auto) 0.2 0.0-7.0 % Basophils (%) (Auto) 0.9 0.0-2.0 % Neutrophils # (Auto) 10.5 H 1.6-8.6 10 ^3/uL Lymphocytes # (Auto) 1.1 0.4-5.4 10 ^3/uL Monocytes # (Auto) 0.8 0-1.3 10 ^3/uL Eosinophils # (Auto) 0 0-0.8 10 ^3/uL Basophils # (Auto) 0.1 0-0.2 10 ^3/uL Nucleated Red Blood Cells 0.1 % Sodium Level 116 *L 136-145 mmol/L Potassium Level 7.1 *H 3.5-5.1 mmol/L Chloride Level 83 L 98-107 mmol/L Carbon Dioxide Level < 10 *L 20-31 mmol/L Anion Gap 23.95394 H 5-15 Blood Urea Nitrogen 51 H 9-23 mg/dL Creatinine 3.28 H 0.700-1.30 mg/dL Glomerular Filtration Rate Calc 25 >90 mL/min BUN/Creatinine Ratio 15.5 10.0-20.0 Serum Glucose 1305 *H 74-106 mg/dL Serum Osmolality 359 H 278-298 mOsm/kg Calcium Level 8.2 L 8.7-10.4 mg/dL Phosphorus Level 8.5 H 2.4-5.1 mg/dL Magnesium Level 2.7 H 1.6-2.6 mg/dL Beta-Hydroxybutyric Acid > 4.500 H < 0.4 mmol/L CHEST RADIOGRAPH Indication: central line placement Technique: Single frontal view of the chest was obtained COMPARISON: XY CHEST PORTABLE on DOS: 11/23/24, XY CHEST PORTABLE on DOS: 11/20/24, XY CHEST PORTABLE on DOS: 06/29/24, XY CHEST XRAY 1 VIEW on DOS: 06/20/23, XY CHEST PORTABLE on DOS: 06/19/23 FINDINGS: Lines and Tubes: Right central venous catheter in satisfactory position. Lungs: Clear Pleura: No effusion. No pneumothorax. Cardiomediastinal contours: Unremarkable Bones: Unremarkable IMPRESSION: Right central venous catheter in satisfactory position. No appreciable pneumothorax. Assessment/Plan Assessment/Plan Assessment DKA Leukocytosis rule out sepsis Severe hyponatremia Hyperkalemia Anemia RADHA Wheelchair dependence Marijuana use History of right BKA History of type 1 diabetes Plan Admit to [facility] Anion gap open Insulin drip Hyperkalemia protocol UDS NS 4 L given ED Antiemetics Pain management IV antibiotics-ceftriaxone Chest x-ray Acetone level UA ABG Mag level Phos level Urine culture Blood culture Lactic NPO for now Hemoglobin A1c ISS and Accu-Cheks DVT prophylaxis-Lovenox PUD prophylaxis-not indicated no history of GERD or GI bleed Discussed plan of care with patient and nurse Counseled patient on cessation of substance use Plan discussed with: Patient My Orders Orders - JESS MELENDEZ Procedure Category Date Status Time Basic Metabolic Panel LAB 02/27/25 Logged 10:00 Magnesium LAB 02/27/25 Logged 10:00 Phosphorus LAB 02/27/25 Logged 10:00 Date of Service: February 27, 2025 Billing Provider: JESS MELENDEZ Common Visit Codes: [id number] INP/OBS CARE (HIGH) JESS MELENDEZ February 27, 2025 09:45
[2025-02-27] MEDS: ENOXAPARIN SOD 30 MG/0.3 ML SYRINGE SC SCH (10:19)
[2025-02-27] MEDS: cefTRIAXone 1GM/50ML D5W 50 ML IV SCH (10:20)
[2025-02-27] MEDS: ACETAMINOPHEN 325 MG TAB PO PRN (10:23)
[2025-02-27 10:30] LABS: Anion Gap 23.00001 (5-15)
[2025-02-27 10:36] LABS: BUN/Creatinine Ratio 15.5 (10.0-20.0); Magnesium 2.4 mg/dL (1.6-2.6)
[2025-02-27 10:45] LABS: Blood Urea Nitrogen 50 mg/dL (9-23); Calcium 8.3 mg/dL (8.7-10.4); Chloride 91 mmol/L (98-107); Phosphorus 7.8 mg/dL (2.4-5.1); Sodium 124 mmol/L (136-145)
[2025-02-27] MEDS ORDERED: SODIUM CHLORIDE 0.9% 1,000 ML IV SCH (10:45)
[2025-02-27 10:47] LABS: Carbon Dioxide < 10 mmol/L (20-31); Glucose 1182 mg/dL (74-106); Potassium 5.6 mmol/L (3.5-5.1)
[2025-02-27 11:19] LABS: Urine Bacteria FEW /hpf (None Seen); Urine Blood TRACE /uL (Negative); Urine Clarity Clear (Clear); Urine Color Light-Yellow (Yellow); Urine Mucus FEW (None Seen); Urine Protein, UAD 1+ (Negative); Urine Specific Gravity 1.023 (1.001-1.035); Urine Squamous Epithelial Cell FEW /hpf (<5); Urine Urobilinogen Normal (Negative); Urine WBC 15 /HPF (0-3); Urine pH 5.5 (5.0-9.0)
[2025-02-27 11:30] LABS: Opiate Scree,Urine Neg (NEGATIVE)
[2025-02-27 11:31] LABS: Amphetamine Screen, Urine Neg (NEGATIVE); Barbiturate Scree,Urine Neg (NEGATIVE); Benzodiazephine Screen, Urine Neg (NEGATIVE); Cannabinoid Screen, Urine Neg (NEGATIVE); Cocaine Screen, Urine Neg (NEGATIVE); Phencyclidine Screen, Urine Neg (NEGATIVE)
--- NOTE | 2025-02-27 11:35 | DVHINCON2 ---
Date of service: February 27, 2025 Referring Physician OPHELIA MELENDEZ Reason for Consultation Acute kidney injury History of Present Illness Patient is a 29-year-old male with past medical history of uncontrolled diabetes mellitus, peripheral arterial disease, right below-knee amputation and chronic kidney disease who presented with abdominal pain associated with nausea vomiting and hyperglycemia. On admission patient found to have elevated BUN creatinine nephrology is consulted for acute kidney injury Past Medical History Diabetes mellitus Peripheral arterial disease Chronic pain Past Surgical History Right Below-knee amputation Allergies: Coded Allergies: NO KNOWN ALLERGIES (Unverified , 07/22/12) Home Meds Active Scripts Doxycycline (Monohydrate) (Doxycycline) 100 Mg Cap, 100 MG PO DAILY for 7 Days, #14 CAP Prov:KIRK CARPIO [employer]ERAPEUTIC MASSAGE TECHNICIAN 11/24/24 Insulin Glargine (Basaglar Kwikpen) 100 Unit/Ml Inj, 30 UNIT SC QAM for 30 Days, #30 INJ Prov:JLUIS EPSTEIN MD 01/09/23 Reported Medications Insulin Lispro (Insulin Lispro Kwikpen) 100 Unit/Ml Inj, SC 01/08/23 Current Medications Current Medications Medications (Trade) Dose Ordered Sig/Justin Route PRN Reason Start Time Stop Time Status Last Admin Sodium Chloride 1,000 ml @ 500 mls/hr Q2H IV 02/27/25 06:45 02/27/25 10:02 DC 02/27/25 08:45 Sodium Chloride 1,000 ml @ 250 mls/hr Q4H IV 02/27/25 10:45 02/27/25 12:44 Cancel Sodium Chloride 1,000 ml @ 150 mls/hr Q6H40M IV 02/27/25 12:45 Insulin Human (Reg)/Sodium Chloride 100 ml @ 0.5 mls/hr Q24H IV 02/27/25 06:45 02/27/25 07:27 Dextrose 50 ml UD PRN IV SEE CURRENT ALGORITHM or SCALE 02/27/25 06:45 Diagnostic Test (Pha) (Accu-Chek Comfort Curve T) 1 strip Q90MIN 02/27/25 07:30 02/27/25 12:12 Insulin Glargine (Lantus) 15 units DAILY SC 02/28/25 10:00 Ondansetron HCl (Zofran) 4 mg Q4HP PRN IV NAUSEA / VOMITING 02/27/25 09:15 Enoxaparin Sodium (Lovenox) 30 mg DAILY SC 02/27/25 10:00 02/27/25 10:19 Acetaminophen (Tylenol Tablet) 650 mg Q6HP PRN PO PAIN SCALE 1-3 OR TEMP>100.4 02/27/25 09:15 02/27/25 10:23 Ceftriaxone Sodium 50 ml @ 100 mls/hr DAILY@09 IV 02/27/25 09:30 02/27/25 10:20 Calcium Acetate (Phoslo Capsule) 1,334 mg TIDWMEALS PO 02/27/25 12:00 02/27/25 12:11 Family History: Diabetes mellitus G8 FATHER G8 SISTER G8 FATHER G8 SISTER Diabetes mellitus G8 FATHER G8 SISTER G8 FATHER G8 SISTER FH: chronic renal disease G8 FATHER Family history: Arthritis Family history: Blood disorder Family history: Diabetes mellitus G8 FATHER (TYPE 1 ) G8 SISTER (TYPE 2 ) Family history: Thyroid disorder G8 BROTHER No Family History of: Alcoholism Cancer Cancer of colon Chronic obstructive lung disease (situation) Family history: Alzheimer's disease Family history: Asthma Family history: Autoimmune disease (situation) Family history: Cardiovascular disease Family history: Congenital anomaly Family history: Coronary thrombosis Family history: Depression (situation) Family history: Diabetes in Family history: Glaucoma Family history: Hypercholesterolemia (situation) Family history: Hypertension Family history: Osteoporosis Family history: Suicide (situation) Ischemic heart disease Malignant melanoma Malignant neoplasm of breast Malignant neoplasm of lung Malignant neoplasm of ovary Prostate cancer Renal stone Seizure disorder (situation) Stroke Review of Systems All 12 item review of systems reviewed with the patient nonsignificant except what is mentioned in the history of present illness H&P Exam Vital Signs/I&O Vital Sign Date Time Temp Pulse Resp B/P (MAP) Pulse Ox O2 Delivery O2 Flow Rate FiO2 02/27/25 11:00 94 12 93/61 (72) 99 02/27/25 10:00 98.6 98.6 02/27/25 09:38 Room Air* 0 21 Physical Exam Patient is awake and alert Lungs clear to auscultation bilaterally Cardiac exam regular rate and rhythm GI soft nontender was normal Extremity below-knee amputation Neuro nonfocal Labs/Diagnostic Data Labs/Diagnostic Data Laboratory Tests Test 02/27/25 12:07 02/27/25 11:07 02/27/25 11:06 02/27/25 10:58 Range/Units POC Glucose > 600 *H > 600 *H > 600 *H 70-106 mg/dl Urine Color Light-yellow Yellow Urine Clarity Clear Clear Urine pH 5.5 5.0-9.0 Urine Specific [place] 1.023 1.001-1.035 Urine Protein 1+ H Negative Urine Ketones 1+ H Negative Urine Blood Trace H Negative /uL Urine Nitrite Negative Negative Urine Bilirubin Negative Negative Urine Urobilinogen Normal Negative mg/dL Urine Leukocyte Esterase 1+ Negative /uL Urine RBC 7 0 - 3 /hpf Urine Microscopic WBC 15 H 0-3 /HPF Urine Squamous Epithelial Cells Few <5 /hpf Urine Bacteria Few H None Seen /hpf Urine Mucus Few None Seen Urine Glucose 4+ H Normal mg/dL Urine Opiates Screen Neg NEGATIVE Urine Fentanyl Screen Neg NEGATIVE Urine Barbiturates Screen Neg NEGATIVE Urine Phencyclidine Screen Neg NEGATIVE Urine Amphetamines Screen Neg NEGATIVE Urine Benzodiazepines Screen Neg NEGATIVE Urine Cocaine Screen Neg NEGATIVE Urine Cannabinoids Screen Neg NEGATIVE Test 02/27/25 09:55 02/27/25 09:29 02/27/25 09:28 02/27/25 08:46 Range/Units Sodium Level 124 #L 136-145 mmol/L Potassium Level 5.6 *H 3.5-5.1 mmol/L Chloride Level 91 L 98-107 mmol/L Carbon Dioxide Level < 10 *L 20-31 mmol/L Anion Gap 23.51469 H 5-15 Blood Urea Nitrogen 50 H 9-23 mg/dL Creatinine 3.23 H 0.700-1.30 mg/dL Glomerular Filtration Rate Calc 26 >90 mL/min BUN/Creatinine Ratio 15.5 10.0-20.0 Serum Glucose 1182 #*H 74-106 mg/dL Lactic Acid Level 2.2 *H 0.4-2.0 mmol/L Calcium Level 8.3 L 8.7-10.4 mg/dL Phosphorus Level 7.8 H 2.4-5.1 mg/dL Magnesium Level 2.4 1.6-2.6 mg/dL POC Glucose > 600 *H > 600 *H > 600 *H 70-106 mg/dl Test 02/27/25 07:18 02/27/25 07:12 02/27/25 06:48 Range/Units POC Glucose > 600 *H 70-106 mg/dl Blood Gas Specimen Type Arterial Blood Gas Sample Site Right radial Blood Gas Patient Temperature 37.0 Arterial Blood Date Drawn [id number] Arterial Blood pH 7.140 *L 7.350-7.450 Arterial Blood Partial Pressure CO2 18.7 *L 35.0-48.0 mmHg Arterial Blood Partial Pressure O2 108.9 H 83.0-108.0 mmHg Arterial Blood HCO3 6.2 L 21.0-28.0 mmol/L Arterial Blood Oxygen Saturation 97.6 94.0-98.0 % Arterial Blood Base Excess -20.9 L -2.0-3.0 mmol/L Arterial Blood Oxyhemoglobin 96.6 94.0-98.0 % Arterial Blood Carboxyhemoglobin 0.3 L 0.5-1.5 % Arterial Blood Methemoglobin 0.7 0.0-1.5 % Pablito Test Yes Blood Gas Total Hemoglobin 11.20 L 13.5-17.5 g/dL Blood Gas Modality Room air FiO2 % 21.0 Blood Gas Critical Value Read Back yes Blood Gas Notified Whom Blood Gas Notified Time [id number] Blood Gas Notified By custodial maintenance worker rosa White Blood Count 12.5 H 4.4-10.8 10^3/uL Red Blood Count 3.72 L 4.5-5.90 10^6/uL Hemoglobin 10.8 L 13.5-17.5 g/dL Hematocrit 36.7 L 41.0-53.0 % Mean Corpuscular Volume 98.6 80.0-100.0 fL Mean Corpuscular Hemoglobin 29.1 28.0-32.0 pg Mean Corpuscular Hemoglobin Concent 29.5 L 32.0-36.0 g/dL Red Cell Distribution Width 14.3 11.8-14.3 % Platelet Count 214 140-450 10^3/uL Mean Platelet Volume 8.8 6.9-10.8 fL Neutrophils (%) (Auto) 83.7 H 37.0-80.0 % Lymphocytes (%) (Auto) 8.7 L 10.0-50.0 % Monocytes (%) (Auto) 6.5 0.0-12.0 % Eosinophils (%) (Auto) 0.2 0.0-7.0 % Basophils (%) (Auto) 0.9 0.0-2.0 % Neutrophils # (Auto) 10.5 H 1.6-8.6 10 ^3/uL Lymphocytes # (Auto) 1.1 0.4-5.4 10 ^3/uL Monocytes # (Auto) 0.8 0-1.3 10 ^3/uL Eosinophils # (Auto) 0 0-0.8 10 ^3/uL Basophils # (Auto) 0.1 0-0.2 10 ^3/uL Nucleated Red Blood Cells 0.1 % Sodium Level 116 *L 136-145 mmol/L Potassium Level 7.1 *H 3.5-5.1 mmol/L Chloride Level 83 L 98-107 mmol/L Carbon Dioxide Level < 10 *L 20-31 mmol/L Anion Gap 23.11288 H 5-15 Blood Urea Nitrogen 51 H 9-23 mg/dL Creatinine 3.28 H 0.700-1.30 mg/dL Glomerular Filtration Rate Calc 25 >90 mL/min BUN/Creatinine Ratio 15.5 10.0-20.0 Serum Glucose 1305 *H 74-106 mg/dL Serum Osmolality 359 H 278-298 mOsm/kg Lactic Acid Level 3.0 *H 0.4-2.0 mmol/L Calcium Level 8.2 L 8.7-10.4 mg/dL Phosphorus Level 8.5 H 2.4-5.1 mg/dL Magnesium Level 2.7 H 1.6-2.6 mg/dL Beta-Hydroxybutyric Acid > 4.500 H < 0.4 mmol/L Assessment Acute kidney injury superimposed 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 t.i.d. with meals Renal diet We will continue to follow Patient seen and examined by myself in the ER. I discussed my plan of care with the patient and primary nurse at the bedside I would like to thank Ophelia for the consult, will follow Plan discussed with: Patient WILBERT BRICE MD February 27, 2025 11:35
[2025-02-27] MEDS: LORazepam 2MG/ML-1ML VIAL IV ONE (11:57)
[2025-02-27] MEDS: CALCIUM ACETATE 667 MG CAP PO SCH (12:11)
[2025-02-27 12:37] LABS: Protein, Urine 104.8 mg/dL (1-14)
[2025-02-27 12:40] LABS: Creatinine, Urine 31.07 mg/dL (30.0-125.0); Urine Protein/Creatinine Ratio 3.37
[2025-02-27] MEDS: NOREPINEPHRINE 8 MG/250ML KIT 250 ML IV ONE (14:07)
[2025-02-27] MEDS: NOREPINEPHRINE 8 MG/250ML KIT 250 ML IV SCH (14:15)
[2025-02-27 14:35] LABS: Potassium 4.8 mmol/L (3.5-5.1)
[2025-02-27 14:36] LABS: Anion Gap 18 (5-15)
[2025-02-27 14:38] LABS: Calcium 8.3 mg/dL (8.7-10.4); Carbon Dioxide 16 mmol/L (20-31); Chloride 97 mmol/L (98-107); Sodium 131 mmol/L (136-145)
[2025-02-27 14:41] LABS: BUN/Creatinine Ratio 18.9 (10.0-20.0)
[2025-02-27 14:45] LABS: Blood Urea Nitrogen 61 mg/dL (9-23)
[2025-02-27 14:53] LABS: Glucose 872 mg/dL (74-106)
[2025-02-27 16:30] LABS: Potassium 4.5 mmol/L (3.5-5.1)
[2025-02-27 16:31] LABS: Anion Gap 14 (5-15)
[2025-02-27 16:32] LABS: Calcium 8.6 mg/dL (8.7-10.4); Carbon Dioxide 19 mmol/L (20-31); Chloride 98 mmol/L (98-107); Sodium 131 mmol/L (136-145)
[2025-02-27 16:36] LABS: BUN/Creatinine Ratio 16.6 (10.0-20.0)
[2025-02-27 16:37] LABS: Blood Urea Nitrogen 53 mg/dL (9-23)
[2025-02-27 16:55] LABS: Glucose 704 mg/dL (74-106)
[2025-02-27 18:22] LABS: Chloride 99 mmol/L (98-107); Potassium 4.3 mmol/L (3.5-5.1)
[2025-02-27 18:23] LABS: Anion Gap 12 (5-15); Calcium 8.8 mg/dL (8.7-10.4); Carbon Dioxide 22 mmol/L (20-31)
[2025-02-27 18:28] LABS: BUN/Creatinine Ratio 16.6 (10.0-20.0)
[2025-02-27 18:33] LABS: Blood Urea Nitrogen 53 mg/dL (9-23); Sodium 133 mmol/L (136-145)
[2025-02-27 18:42] LABS: Glucose 599 mg/dL (74-106)
[2025-02-27] MEDS: HYDROcodone-ACET 5/325MG TAB PO PRN (22:28)
[2025-02-27 23:30] VITALS: RESP 13; O2SAT 99
[2025-02-27 23:52] VITALS: BP 125/69; PULSE 96; RESP 13; TEMP 98.2; O2SAT 99
[2025-02-28] VITALS (77 sets, daily range): BP systolic 80–176; BP diastolic 35–114; PULSE 74–102; RESP 5–84; TEMP 97.7–98.2; O2SAT 95–100
[2025-02-28 00:54] LABS: Chloride 105 mmol/L (98-107); Potassium 3.6 mmol/L (3.5-5.1); Sodium 140 mmol/L (136-145)
[2025-02-28 00:55] LABS: Anion Gap 9 (5-15); Carbon Dioxide 26 mmol/L (20-31)
[2025-02-28 00:56] LABS: Calcium 8.3 mg/dL (8.7-10.4)
[2025-02-28 01:00] LABS: BUN/Creatinine Ratio 18.3 (10.0-20.0)
[2025-02-28 01:07] LABS: Blood Urea Nitrogen 49 mg/dL (9-23); Glucose 114 mg/dL (74-106)
[2025-02-28] MEDS: ACCU-CHEK COMFORT CURVE STRIP VI SCH ×2 (06:00→15:25)
[2025-02-28 06:10] LABS: Basophils # (auto) 0.1 10 ^3/uL (0-0.2); Basophils % (auto) 0.6 % (0.0-2.0); Eosinophils # (auto) 0.3 10 ^3/uL (0-0.8); Eosinophils % (auto) 2.1 % (0.0-7.0); Hematocrit 28.7 % (41.0-53.0); Hemoglobin 9.8 g/dL (13.5-17.5); Lymphocytes # (auto) 2.5 10 ^3/uL (0.4-5.4); Lymphocytes % (auto) 19.7 % (10.0-50.0); Mean Corpuscular Hemoglobin 28.7 pg (28.0-32.0); Mean Corpuscular Hgb Conc. 34.2 g/dL (32.0-36.0); Monocytes # (auto) 0.8 10 ^3/uL (0-1.3); Monocytes % (auto) 6.6 % (0.0-12.0); Nucleated Red Blood Cells % 0.1 %; Platelet Count (auto) 195 10^3/uL (140-450); Red Blood Cells 3.42 10^6/uL (4.5-5.90); Red Cell Distribution Width 13.2 % (11.8-14.3); White Blood Cell 12.6 10^3/uL (4.4-10.8)
[2025-02-28 06:29] LABS: Alanine Aminotransferase 22 U/L (7-40); Alkaline Phosphatase 52 U/L (46-116); Anion Gap 10 (5-15); Aspartate Aminotransferase 18 U/L (13-40); BUN/Creatinine Ratio 18.9 (10.0-20.0); Carbon Dioxide 24 mmol/L (20-31); Chloride 107 mmol/L (98-107); Sodium 141 mmol/L (136-145)
[2025-02-28] MEDS: InsuLIN REG 1unit/0.01ml Soln (100units/ml) SC SCH ×2 (06:30→12:00)
[2025-02-28 06:34] LABS: Albumin 2.8 g/dL (3.2-4.8); Bilirubin, Total 0.3 mg/dL (0.2-1.0); Blood Urea Nitrogen 48 mg/dL (9-23); Glucose 54 mg/dL (74-106); Potassium 3.4 mmol/L (3.5-5.1); Total Protein 5.4 g/dL (5.7-8.2)
--- NOTE | 2025-02-28 09:29 | DVHPN2 ---
Progress Note Date Seen: February 28, 2025 Medical Necessity Reason Pt with a Central, PICC or Fol: No Subjective Patient reports: Feels better Other Systems: Patient seen and examined by myself today in follow-up Objective vital signs Vital Sign Date Time Temp Pulse Resp B/P (MAP) Pulse Ox O2 Delivery O2 Flow Rate FiO2 02/28/25 09:15 97.7 76 7 100/65 (77) 96 97.7 02/28/25 08:00 Room Air* 0 21 Total Intake and Output 02/27/25 02/27/25 02/28/25 15:00 23:00 07:00 Intake Total 2598 ml 633.375 ml 1557.500 ml Output Total 825 ml Balance 2598 ml 633.375 ml 732.500 ml medications Current Medications Medications Dose Ordered Sig/Justin Route Start Time Stop Time Status Last Admin Dose Admin Sodium Chloride 1,000 ml @ 250 mls/hr Q4H IV 02/27/25 10:45 02/27/25 12:44 Cancel Sodium Chloride 1,000 ml @ 150 mls/hr Q6H40M IV 02/27/25 12:45 02/28/25 07:28 150 MLS/HR Dextrose 50 ml UD PRN IV 02/27/25 06:45 Insulin Glargine 15 units DAILY SC 02/28/25 10:00 Ondansetron HCl 4 mg Q4HP PRN IV 02/27/25 09:15 Enoxaparin Sodium 30 mg DAILY SC 02/27/25 10:00 02/28/25 07:56 30 MG Acetaminophen 650 mg Q6HP PRN PO 02/27/25 09:15 02/27/25 10:23 650 MG Ceftriaxone Sodium 50 ml @ 100 mls/hr DAILY@09 IV 02/27/25 09:30 02/28/25 07:54 100 MLS/HR Calcium Acetate 1,334 mg TIDWMEALS PO 02/27/25 12:00 02/27/25 18:09 1,334 MG Norepinephrine Bitartrate 250 ml @ 3.75 mls/hr Q24H IV 02/27/25 14:15 02/27/25 14:15 3.75 MLS/HR Dextrose 50 ml UD PRN IV 02/27/25 20:30 Insulin Glargine 15 units DAILY SC 02/28/25 10:00 Cancel Acetaminophen/ Hydrocodone Bitart 1 tab Q6HPRN PRN PO 02/27/25 22:00 02/28/25 04:47 1 TAB Insulin Human Regular moderate scale Q4HR SC 02/28/25 06:00 Diagnostic Test (Pha) 1 strip Q4HR 02/28/25 06:00 02/28/25 07:55 1 STRIP Examination: LUNGS:Normal, CVS:Normal, MSK:Abnormal laboratory and microbiology Laboratory Tests 02/28/25 05:45 Test 02/28/25 05:45 Range/Units Serum Glucose 54 L 74-106 mg/dL Microbiology Date/Time Source Procedure Growth Status 02/27/25 10:58 Voided Urine Urine Culture - Preliminary Resulted Problem List/Assessment/Plan Problem List/Assessment/Plan Acute kidney injury superimposed 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 t.i.d. with meals Pain management Renal diet We will continue to follow Plan discussed with: Patient My Orders My Orders Orders - WILBERT BRICE MD Procedure Category Date Status Time Calcium Acetate PHA 02/27/25 In Process Capsule (Phoslo 12:00 WILBERT BRICE MD February 28, 2025 09:29
[2025-02-28] MEDS ORDERED: INSULIN LANTUS (GLARGINE) 1 /0.01ml (100units/ml) SC SCH (10:00)
[2025-02-28] MEDS: INSULIN LANTUS (GLARGINE) 1 /0.01ml (100units/ml) SC SCH (10:04)
[2025-02-28] MEDS: MORPHINE SULFATE INJ 2 MG/ml SYRG IV PRN (10:05)
[2025-02-28] MEDS: D5W/SOD CHL 0.45% 1,000 ML IV SCH (11:00)
[2025-02-28] MEDS ORDERED: DEXTROSE (50%) 50ML SYRG IV PRN (13:00)
[2025-02-28 15:56] LABS: Chloride 105 mmol/L (98-107); Potassium 4.1 mmol/L (3.5-5.1); Sodium 136 mmol/L (136-145)
[2025-02-28 15:57] LABS: Anion Gap 5 (5-15); Carbon Dioxide 26 mmol/L (20-31)
[2025-02-28 16:03] LABS: BUN/Creatinine Ratio 19.3 (10.0-20.0); Blood Urea Nitrogen 43 mg/dL (9-23); Calcium 8.7 mg/dL (8.7-10.4); Glucose 196 mg/dL (74-106)
--- NOTE | 2025-02-28 23:06 | DVHPN2 ---
Subjective The patient is seen and examined at bedside. Still complain of nausea . The patient just downgrade from ICU. Off Levophed. Reviewed: Care Plan, H&P, Labs, Medications, Previous Orders, Radiology Changes from previous H/P or p: No Changes Gastrointestinal: Nausea, Vomiting Musculoskeletal: other Objective Vitals Vital Signs Date Time Temp Pulse Resp B/P (MAP) Pulse Ox O2 Delivery O2 Flow Rate FiO2 02/28/25 21:40 97.9 93 18 143/91 (108) 100 97.9 02/28/25 20:00 Room Air* 0 21 Intake/Output Intake and Output 02/28/25 07:00 Intake Total 5420.500 ml Output Total 825 ml Balance 4595.500 ml Intake Oral 200 ml IV Total 5220.500 ml Output Urine Total 825 ml General Appearance: Alert, Oriented X3, Cooperative, No acute distress HEENT: Atraumatic, PERRLA, EOMI, Mucous membr. moist/pink Neck: Supple Lungs: Clear to auscultation, Normal air movement Cardiovascular: Regular rate, Normal S1, Normal S2, No murmurs, Gallops, Rubs Abdomen: Normal bowel sounds, Soft, No tenderness Neuro: Cranial nerves 3-12 NL Psych/Mental Status: Mental status NL Medications Current Medications Medications Dose Ordered Sig/Justin Route Start Time Stop Time Status Last Admin Dose Admin Sodium Chloride 1,000 ml @ 250 mls/hr Q4H IV 02/27/25 10:45 02/27/25 12:44 Cancel Insulin Glargine 15 units DAILY SC 02/28/25 10:00 02/28/25 10:04 15 UNITS Ondansetron HCl 4 mg Q4HP PRN IV 02/27/25 09:15 Acetaminophen 650 mg Q6HP PRN PO 02/27/25 09:15 02/27/25 10:23 650 MG Ceftriaxone Sodium 50 ml @ 100 mls/hr DAILY@09 IV 02/27/25 09:30 02/28/25 07:54 100 MLS/HR Calcium Acetate 1,334 mg TIDWMEALS PO 02/27/25 12:00 02/28/25 16:55 1,334 MG Insulin Glargine 15 units DAILY SC 02/28/25 10:00 Cancel Acetaminophen/ Hydrocodone Bitart 1 tab Q6HPRN PRN PO 02/27/25 22:00 02/28/25 04:47 1 TAB Morphine Sulfate 1 mg Q4HP PRN IV 02/28/25 10:00 02/28/25 19:33 1 MG Diagnostic Test (Pha) 1 strip IQ4HR 02/28/25 16:00 02/28/25 20:00 1 STRIP Insulin Human Regular IQ4HR SC 02/28/25 12:00 02/28/25 20:50 3 UNITS Dextrose 50 ml UD PRN IV 02/28/25 13:00 Enoxaparin Sodium 40 mg DAILY SC 03/01/25 10:00 Laboratory Results Laboratory Tests 02/28/25 05:45 02/28/25 15:30 Chemistry Test 02/28/25 00:37 02/28/25 05:45 02/28/25 15:30 Calcium Level 8.3 mg/dL (8.7-10.4) L 9.0 mg/dL (8.7-10.4) 8.7 mg/dL (8.7-10.4) Albumin 2.8 g/dL (3.2-4.8) L Total Protein 5.4 g/dL (5.7-8.2) L LFT Test 02/28/25 05:45 Alanine Aminotransferase (ALT) 22 U/L (7-40) Alkaline Phosphatase 52 U/L (46-116) Aspartate Amino Transferase (AST) 18 U/L (13-40) Total Bilirubin 0.3 mg/dL (0.2-1.0) Urinalysis Test 02/27/25 10:58 Urine Color Light-yellow (Yellow) Urine Clarity Clear (Clear) Urine pH 5.5 (5.0-9.0) Urine Specific [place] 1.023 (1.001-1.035) Urine Protein 1+ (Negative) H Urine Ketones 1+ (Negative) H Urine Blood Trace /uL (Negative) H Urine Nitrite Negative (Negative) Urine Bilirubin Negative (Negative) Urine Urobilinogen Normal mg/dL (Negative) Urine Leukocyte Esterase 1+ /uL (Negative) Urine RBC 7 /hpf (0 - 3) Urine Microscopic WBC 15 /HPF (0-3) H Urine Squamous Epithelial Cells Few /hpf (<5) Urine Bacteria Few /hpf (None Seen) H Urine Mucus Few (None Seen) Urine Creatinine 31.07 mg/dL (30.0-125.0) Urine Protein/Creatinine Ratio 3.37 Urine Sodium 24 mmol/L (40-220) L Urine Glucose 4+ mg/dL (Normal) H Urine Total Protein 104.8 mg/dL (1-14) H Microbiology Microbiology Date/Time Source Procedure Growth Status 02/27/25 23:14 Nose MRSA Screen - Final Complete 02/27/25 10:58 Voided Urine Urine Culture - Preliminary Resulted 02/27/25 09:55 Blood Blood Culture - Preliminary NO GROWTH AFTER 24 HOURS OF INCUBATION. Resulted Labs and/or images reviewed: Labs reviewed by me Assessment/Plan Assessment/Plan DKA Diabetes type 1 Leukocytosis rule out sepsis Hypotension Severe hyponatremia Hyperkalemia Anemia RADHA Wheelchair dependence Marijuana use History of right BKA Continuing current management. Continuing with sliding scale insulin and Lantus. Monitor electrolytes Continuing IV fluid Appreciate nephrology input. Continuing ceftriaxone. We will follow up with culture, so far remained negative. This medical document was created using an electronic medical record system with [employer] direct computerized dictation system. Although this document has been carefully reviewed, there may still be some phonetic and typographical errors. These areas are purely typographical due to imperfections of the software programs, and do not reflect any compromise in the patient's medical care. Plan discussed with: Patient My Orders Orders - MARISOL LION MD Procedure Category Date Status Time * Wound Consult CONS 02/28/25 Transmitted Morphine Sulfate PHA 02/28/25 In Process Injection 10:00 Glucose Blood PHA 02/28/25 In Process (Accu-Chek Comfort 16:00 Insulin R (Human) PHA 02/28/25 In Process (Insulin R) 12:00 Dextrose 50% Syringe PHA 02/28/25 In Process 13:00 Complete Blood Count LAB 03/01/25 Verified 04:00 Comprehensive LAB 03/01/25 Verified Metabolic Panel 04:00 Magnesium LAB 03/01/25 Verified 04:00 Transfer Orders XFER 02/28/25 Transmitted 16:08 Date of Service: February 28, 2025 Billing Provider: MARISOL LION MD Common Visit Codes: [id number] INP/OBS CARE(HIGH) MARISOL LION MD February 28, 2025 23:06
[2025-03-01] VITALS (11 sets, daily range): BP systolic 109–148; BP diastolic 71–105; PULSE 90–96; RESP 14–18; TEMP 97.9–98.7; O2SAT 93–99
[2025-03-01 02:03] LABS: Urine Bacteria FEW /hpf (None Seen); Urine Blood 1+ /uL (Negative); Urine Clarity Clear (Clear); Urine Color Light-Yellow (Yellow); Urine Hyaline Cast MANY /lpf (0 - 2); Urine Mucus FEW (None Seen); Urine Protein, UAD 3+ (Negative); Urine Specific Gravity 1.021 (1.001-1.035); Urine Squamous Epithelial Cell FEW /hpf (<5); Urine Urobilinogen Normal (Negative); Urine WBC 67 /HPF (0-3)
[2025-03-01] MEDS ORDERED: INSU1INJ19 SC (02:13)
[2025-03-01 07:00] LABS: Basophils # (auto) 0.1 10 ^3/uL (0-0.2); Basophils % (auto) 0.8 % (0.0-2.0); Eosinophils # (auto) 0.2 10 ^3/uL (0-0.8); Eosinophils % (auto) 2.7 % (0.0-7.0); Hematocrit 27.8 % (41.0-53.0); Hemoglobin 9.4 g/dL (13.5-17.5); Lymphocytes # (auto) 1.4 10 ^3/uL (0.4-5.4); Lymphocytes % (auto) 19.8 % (10.0-50.0); Mean Corpuscular Hemoglobin 29.3 pg (28.0-32.0); Mean Corpuscular Volume 86.1 fL (80.0-100.0); Monocytes # (auto) 0.3 10 ^3/uL (0-1.3); Neutrophils % (auto) 71.7 % (37.0-80.0); Nucleated Red Blood Cells % 0.1 %; Platelet Count (auto) 154 10^3/uL (140-450); Red Blood Cells 3.22 10^6/uL (4.5-5.90); Red Cell Distribution Width 13.2 % (11.8-14.3)
[2025-03-01 07:37] LABS: Alanine Aminotransferase 20 U/L (7-40); Alkaline Phosphatase 51 U/L (46-116); Anion Gap 9 (5-15); Aspartate Aminotransferase 26 U/L (13-40); BUN/Creatinine Ratio 16.8 (10.0-20.0); Carbon Dioxide 24 mmol/L (20-31); Chloride 104 mmol/L (98-107); Potassium 3.8 mmol/L (3.5-5.1); Sodium 137 mmol/L (136-145)
[2025-03-01 07:38] LABS: Albumin 2.7 g/dL (3.2-4.8); Bilirubin, Total 0.2 mg/dL (0.2-1.0); Blood Urea Nitrogen 34 mg/dL (9-23); Calcium 8.7 mg/dL (8.7-10.4); Glucose 162 mg/dL (74-106); Total Protein 5.3 g/dL (5.7-8.2)
[2025-03-01] MEDS: ENOXAPARIN SOD 40 MG/0.4 ML SYRINGE SC SCH (08:10)
--- NOTE | 2025-03-01 08:42 | DVHPN2 ---
Progress Note Date Seen: March 01, 2025 Medical Necessity Reason Pt with a Central, PICC or Fol: No Subjective Patient reports: No new complaints Other Systems: Patient seen and examined by myself today in follow-up Objective vital signs Vital Sign Date Time Temp Pulse Resp B/P (MAP) Pulse Ox O2 Delivery O2 Flow Rate FiO2 03/01/25 06:52 92 16 135/91 03/01/25 06:00 Room Air* 0 21 03/01/25 05:00 99 03/01/25 01:00 98.7 98.7 Total Intake and Output 02/28/25 02/28/25 03/01/25 15:00 23:00 07:00 Intake Total 1000 ml 850 ml Output Total 825 ml Balance 1000 ml 25 ml medications Current Medications Medications Dose Ordered Sig/Justin Route Start Time Stop Time Status Last Admin Dose Admin Sodium Chloride 1,000 ml @ 250 mls/hr Q4H IV 02/27/25 10:45 02/27/25 12:44 Cancel Insulin Glargine 15 units DAILY SC 02/28/25 10:00 03/01/25 08:15 15 UNITS Ondansetron HCl 4 mg Q4HP PRN IV 02/27/25 09:15 Acetaminophen 650 mg Q6HP PRN PO 02/27/25 09:15 02/27/25 10:23 650 MG Ceftriaxone Sodium 50 ml @ 100 mls/hr DAILY@09 IV 02/27/25 09:30 03/01/25 07:59 100 MLS/HR Calcium Acetate 1,334 mg TIDWMEALS PO 02/27/25 12:00 03/01/25 07:59 1,334 MG Insulin Glargine 15 units DAILY SC 02/28/25 10:00 Cancel Acetaminophen/ Hydrocodone Bitart 1 tab Q6HPRN PRN PO 02/27/25 22:00 02/28/25 04:47 1 TAB Morphine Sulfate 1 mg Q4HP PRN IV 02/28/25 10:00 03/01/25 06:22 1 MG Diagnostic Test (Pha) 1 strip IQ4HR 02/28/25 16:00 03/01/25 08:01 1 STRIP Insulin Human Regular IQ4HR SC 02/28/25 12:00 03/01/25 08:15 2 UNITS Dextrose 50 ml UD PRN IV 02/28/25 13:00 Enoxaparin Sodium 40 mg DAILY SC 03/01/25 10:00 03/01/25 08:10 40 MG Examination: LUNGS:Normal, CVS:Normal, MSK:Normal laboratory and microbiology Laboratory Tests 03/01/25 06:34 Test 03/01/25 06:34 Range/Units Serum Glucose 162 H 74-106 mg/dL Microbiology Date/Time Source Procedure Growth Status 02/27/25 23:14 Nose MRSA Screen - Final Complete 02/27/25 10:58 Voided Urine Urine Culture - Preliminary Resulted 02/27/25 09:55 Blood Blood Culture - Preliminary NO GROWTH AFTER 24 HOURS OF INCUBATION. 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 t.i.d. with meals Pain management Renal diet We will continue to follow Plan discussed with: Patient WILBERT BRICE MD March 01, 2025 08:42
[2025-03-01] MEDS: LABETALOL HCL 200 MG TAB PO SCH (16:06)
--- NOTE | 2025-03-01 23:07 | DVHPN2 ---
Subjective The patient is seen and examined at bedside. Complain of headache and nausea. Blood pressure is elevated at systolic greater than 150 Reviewed: Care Plan, H&P, Labs, Medications, Previous Orders, Radiology Changes from previous H/P or p: No Changes Gastrointestinal: Nausea, Vomiting Musculoskeletal: other Objective Vitals Vital Signs Date Time Temp Pulse Resp B/P (MAP) Pulse Ox O2 Delivery O2 Flow Rate FiO2 03/01/25 21:44 95 120/76 03/01/25 21:00 98.5 18 98 98.5 03/01/25 19:34 Room Air* 0 21 Intake/Output Intake and Output 03/01/25 07:00 Intake Total 1850 ml Output Total 825 ml Balance 1025 ml Intake Oral 600 ml IV Total 1250 ml Output Urine Total 825 ml General Appearance: Alert, Cooperative, No acute distress HEENT: Atraumatic, PERRLA, EOMI, Mucous membr. moist/pink Neck: Supple Lungs: Clear to auscultation, Normal air movement Cardiovascular: Regular rate, Normal S1, Normal S2, No murmurs, Gallops, Rubs Abdomen: Normal bowel sounds, Soft, No tenderness, No hepatospenomegaly Neuro: Cranial nerves 3-12 NL Medications Current Medications Medications Dose Ordered Sig/Justin Route Start Time Stop Time Status Last Admin Dose Admin Sodium Chloride 1,000 ml @ 250 mls/hr Q4H IV 02/27/25 10:45 02/27/25 12:44 Cancel Insulin Glargine 15 units DAILY SC 02/28/25 10:00 03/01/25 08:15 15 UNITS Ondansetron HCl 4 mg Q4HP PRN IV 02/27/25 09:15 Acetaminophen 650 mg Q6HP PRN PO 02/27/25 09:15 02/27/25 10:23 650 MG Ceftriaxone Sodium 50 ml @ 100 mls/hr DAILY@09 IV 02/27/25 09:30 03/01/25 07:59 100 MLS/HR Calcium Acetate 1,334 mg TIDWMEALS PO 02/27/25 12:00 03/01/25 16:04 1,334 MG Insulin Glargine 15 units DAILY SC 02/28/25 10:00 Cancel Acetaminophen/ Hydrocodone Bitart 1 tab Q6HPRN PRN PO 02/27/25 22:00 02/28/25 04:47 1 TAB Morphine Sulfate 1 mg Q4HP PRN IV 02/28/25 10:00 03/01/25 18:53 1 MG Diagnostic Test (Pha) 1 strip IQ4HR 02/28/25 16:00 03/01/25 21:35 1 STRIP Insulin Human Regular IQ4HR SC 02/28/25 12:00 03/01/25 21:32 9 UNITS Dextrose 50 ml UD PRN IV 02/28/25 13:00 Enoxaparin Sodium 40 mg DAILY SC 03/01/25 10:00 03/01/25 08:10 40 MG Labetalol HCl 100 mg BID PO 03/01/25 13:40 03/01/25 21:44 100 MG Laboratory Results Laboratory Tests 03/01/25 06:34 Chemistry Test 03/01/25 06:34 Albumin 2.7 g/dL (3.2-4.8) L Calcium Level 8.7 mg/dL (8.7-10.4) Magnesium Level 2.0 mg/dL (1.6-2.6) Total Protein 5.3 g/dL (5.7-8.2) L LFT Test 03/01/25 06:34 Alanine Aminotransferase (ALT) 20 U/L (7-40) Alkaline Phosphatase 51 U/L (46-116) Aspartate Amino Transferase (AST) 26 U/L (13-40) Total Bilirubin 0.2 mg/dL (0.2-1.0) Urinalysis Test 02/27/25 10:58 03/01/25 01:20 Urine Creatinine 31.07 mg/dL (30.0-125.0) Urine Protein/Creatinine Ratio 3.37 Urine Sodium 24 mmol/L (40-220) L Urine Total Protein 104.8 mg/dL (1-14) H Urine Color Light-yellow (Yellow) Urine Clarity Clear (Clear) Urine pH 6.0 (5.0-9.0) Urine Specific [place] 1.021 (1.001-1.035) Urine Protein 3+ (Negative) H Urine Ketones Negative (Negative) Urine Blood 1+ /uL (Negative) H Urine Nitrite Negative (Negative) Urine Bilirubin Negative (Negative) Urine Urobilinogen Normal mg/dL (Negative) Urine Leukocyte Esterase 2+ /uL (Negative) Urine RBC 22 /hpf (0 - 3) Urine Microscopic WBC 67 /HPF (0-3) H Urine Squamous Epithelial Cells Few /hpf (<5) Urine Bacteria Few /hpf (None Seen) H Urine Hyaline Casts Many /lpf (0 - 2) Urine Mucus Few (None Seen) Urine Glucose 4+ mg/dL (Normal) H Microbiology Microbiology Date/Time Source Procedure Growth Status 02/27/25 23:14 Nose MRSA Screen - Final Complete 02/27/25 10:58 Voided Urine Urine Culture - Final Complete 02/27/25 09:55 Blood Blood Culture - Preliminary NO GROWTH AFTER 48 HOURS OF INCUBATION. Resulted Labs and/or images reviewed: Labs reviewed by me Assessment/Plan Assessment/Plan DKA Diabetes type 1 Leukocytosis rule out sepsis Hypotension, now become hypertension Severe hyponatremia Hyperkalemia Anemia RADHA Wheelchair dependence Marijuana use History of right BKA Continuing current management. Continuing with sliding scale insulin and Lantus. Monitor electrolytes Continuing IV fluid Appreciate nephrology input. Continuing ceftriaxone. We will follow up with culture, so far remained negative. I will add labetalol 100 mg p.o. twice per day. Zofran p.r.n. for nausea and vomiting This medical document was created using an electronic medical record system with [employer] direct computerized dictation system. Although this document has been carefully reviewed, there may still be some phonetic and typographical errors. These areas are purely typographical due to imperfections of the software programs, and do not reflect any compromise in the patient's medical care. Plan discussed with: Patient My Orders Orders - MARISOL LION MD Procedure Category Date Status Time Labetalol Hcl Tablet PHA 03/01/25 In Process (Normodyne Tablet) 13:40 Date of Service: March 01, 2025 Billing Provider: MARISOL LION MD Common Visit Codes: [id number] INP/OBS CARE(HIGH) MARISOL LION MD March 01, 2025 23:07
[2025-03-02] VITALS (8 sets, daily range): BP systolic 100–148; BP diastolic 59–92; PULSE 71–96; RESP 16–19; TEMP 97.6–98.8; O2SAT 96–100
--- NOTE | 2025-03-02 13:50 | DVHPN2 ---
Progress Note Date Seen: March 02, 2025 Resident Creating Document: KAYLI ANDRADE RESIDENT Medical Necessity Reason Pt with a Central, PICC or Fol: No Subjective Review of Systems This is a 29-year-old male with past history of diabetes mellitus type 1 since 2010, chronic anemia, CKD stage IIIB who presented to the ER with a chief complaint of nausea, vomiting and abdominal pain. Patient has been admitted to this facility multiple times for DKA. On arrival patient had WBC 12, potassium 7, bicarb less than 10, serum sodium 116, anion gap elevated at 123, lactic acidosis, serum beta hydroxybutyrate 4.5, point of care glucose was more than 400 Patient seen and examined at the bedside. Reports abdominal tenderness. Patient is tolerating diet. No nausea or vomiting reported. Reports burning epigastric pain. Objective vital signs Vital Sign Date Time Temp Pulse Resp B/P (MAP) Pulse Ox O2 Delivery O2 Flow Rate FiO2 03/02/25 13:04 82 18 130/70 03/02/25 09:00 98.3 98 98.3 03/02/25 08:00 Room Air* 0 21 Total Intake and Output 03/01/25 03/01/25 03/02/25 15:00 23:00 07:00 Intake Total 50 ml 2388 ml 875 ml Output Total 600 ml Balance 50 ml 1788 ml 875 ml medications Current Medications Medications Dose Ordered Sig/Justin Route Start Time Stop Time Status Last Admin Dose Admin Sodium Chloride 1,000 ml @ 250 mls/hr Q4H IV 02/27/25 10:45 02/27/25 12:44 Cancel Insulin Glargine 15 units DAILY SC 02/28/25 10:00 03/02/25 08:47 15 UNITS Ondansetron HCl 4 mg Q4HP PRN IV 02/27/25 09:15 Acetaminophen 650 mg Q6HP PRN PO 02/27/25 09:15 02/27/25 10:23 650 MG Ceftriaxone Sodium 50 ml @ 100 mls/hr DAILY@09 IV 02/27/25 09:30 03/02/25 08:24 100 MLS/HR Calcium Acetate 1,334 mg TIDWMEALS PO 02/27/25 12:00 03/02/25 11:47 1,334 MG Insulin Glargine 15 units DAILY SC 02/28/25 10:00 Cancel Acetaminophen/ Hydrocodone Bitart 1 tab Q6HPRN PRN PO 02/27/25 22:00 02/28/25 04:47 1 TAB Morphine Sulfate 1 mg Q4HP PRN IV 02/28/25 10:00 03/02/25 12:34 1 MG Diagnostic Test (Pha) 1 strip IQ4HR 02/28/25 16:00 03/02/25 11:48 1 STRIP Insulin Human Regular IQ4HR SC 02/28/25 12:00 03/02/25 12:00 6 UNITS Dextrose 50 ml UD PRN IV 02/28/25 13:00 Enoxaparin Sodium 40 mg DAILY SC 03/01/25 10:00 03/02/25 08:24 40 MG Labetalol HCl 100 mg BID PO 03/01/25 13:40 03/02/25 08:24 100 MG Examination Patient lying in bed, in no acute distress General: Well-built, afebrile, palor, mucosae are moist Cardiovascular: Regular S1 and S2. No murmurs, gallops or rubs. No JVD elevation. No pedal edema Respiratory: Normal B/L air entry on room air. Clear lung sounds on auscultation Abdomen: Soft, diffusely tender, nondistended, normoactive bowel sounds, no rebound tenderness, no organomegaly, no masses Genitourinary: Deferred MSK/skin: Skin is dry and warm Neurological: Pupils are isocoric and reactive. Psych/Mental Status: A/Ox3 laboratory and microbiology Laboratory Tests 03/01/25 06:34 Test 03/01/25 06:34 Range/Units Serum Glucose 162 H 74-106 mg/dL Microbiology Date/Time Source Procedure Growth Status 02/27/25 23:14 Nose MRSA Screen - Final Complete 02/27/25 10:58 Voided Urine Urine Culture - Final Complete 02/27/25 09:55 Blood Blood Culture - Preliminary NO GROWTH AFTER 72 HOURS OF INCUBATION. 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 t.i.d. with meals Renal diet We will continue to follow Plan discussed with patient, nurse in which all questions have been answered Case discussed with Addendum Patient seen and examined, plan discussed with resident. Agree with above, we will follow closely Plan discussed with: Patient Dietary Evaluation Review Recommendations by RD: Dietary education by RD Comments: 1) Encourage optimal PO intake 2) Continue phosphorus binder. Encourage patient to limit his intake of high-phosphorus foods such as nuts, seeds, beans, lentils, chocolate, cola, bran, etc until serum phosphorus WNL. 3) Provide education on the "rule of 15" for treating hypoglycemia upon d/c. If BG < 70 mg/dL, consume 15 grams of fast-acting carbohydrates. Wait 15 minutes and re-check BG levels. If still < 70, repeat process. Once > 70, eat next meal within 1-hr or consume a small snack containing 1 serving of CHO ~ 15g and protein to prevent rebound hypoglycemia 4) Collect HbA1c 5) Refer to outpatient RD/CD[facility] for diabetes education 6) Follow-up with nephrology 7) Continue to monitor I&O, labs, and skin integrity Expected Outcomes/Goals: 1) appetite and labs to improve 2) wound to improve 3) follow-up in 3-5 days KAYLI ANDRADE March 02, 2025 13:50 ARTURO LAL MD March 02, 2025 15:18
[2025-03-02] MEDS: PANTOPRAZOLE 40 MG/10 ML VIAL INJ IV ONE (14:00)
--- NOTE | 2025-03-02 14:54 | DVHDS2 ---
Discharge Summary Date of Admission February 27, 2025 at 09:11 Date of Discharge: March 02, 2025 Admitting Diagnosis Diabetic ketoacidosis Labs/Diagnostic Data: Laboratory Results Test 03/02/25 11:47 03/01/25 06:34 03/01/25 01:20 02/27/25 10:58 POC Glucose 223 mg/dl (70-106) White Blood Count 7.0 10^3/uL (4.4-10.8) Red Blood Count 3.22 10^6/uL (4.5-5.90) Hemoglobin 9.4 g/dL (13.5-17.5) Hematocrit 27.8 % (41.0-53.0) Mean Corpuscular Volume 86.1 fL (80.0-100.0) Mean Corpuscular Hemoglobin 29.3 pg (28.0-32.0) Mean Corpuscular Hemoglobin Concent 34.0 g/dL (32.0-36.0) Red Cell Distribution Width 13.2 % (11.8-14.3) Platelet Count 154 10^3/uL (140-450) Mean Platelet Volume 7.7 fL (6.9-10.8) Neutrophils (%) (Auto) 71.7 % (37.0-80.0) Lymphocytes (%) (Auto) 19.8 % (10.0-50.0) Monocytes (%) (Auto) 5.0 % (0.0-12.0) Eosinophils (%) (Auto) 2.7 % (0.0-7.0) Basophils (%) (Auto) 0.8 % (0.0-2.0) Neutrophils # (Auto) 5.0 10 ^3/uL (1.6-8.6) Lymphocytes # (Auto) 1.4 10 ^3/uL (0.4-5.4) Monocytes # (Auto) 0.3 10 ^3/uL (0-1.3) Eosinophils # (Auto) 0.2 10 ^3/uL (0-0.8) Basophils # (Auto) 0.1 10 ^3/uL (0-0.2) Nucleated Red Blood Cells 0.1 % Sodium Level 137 mmol/L (136-145) Potassium Level 3.8 mmol/L (3.5-5.1) Chloride Level 104 mmol/L (98-107) Carbon Dioxide Level 24 mmol/L (20-31) Anion Gap 9 (5-15) Blood Urea Nitrogen 34 mg/dL (9-23) Creatinine 2.02 mg/dL (0.700-1.30) Glomerular Filtration Rate Calc 45 mL/min (>90) BUN/Creatinine Ratio 16.8 (10.0-20.0) Serum Glucose 162 mg/dL (74-106) Calcium Level 8.7 mg/dL (8.7-10.4) Magnesium Level 2.0 mg/dL (1.6-2.6) Total Bilirubin 0.2 mg/dL (0.2-1.0) Aspartate Amino Transferase (AST) 26 U/L (13-40) Alanine Aminotransferase (ALT) 20 U/L (7-40) Alkaline Phosphatase 51 U/L (46-116) Total Protein 5.3 g/dL (5.7-8.2) Albumin 2.7 g/dL (3.2-4.8) Urine Color Light-yellow (Yellow) Urine Clarity Clear (Clear) Urine pH 6.0 (5.0-9.0) Urine Specific [place] 1.021 (1.001-1.035) Urine Protein 3+ (Negative) Urine Ketones Negative (Negative) Urine Blood 1+ /uL (Negative) Urine Nitrite Negative (Negative) Urine Bilirubin Negative (Negative) Urine Urobilinogen Normal mg/dL (Negative) Urine Leukocyte Esterase 2+ /uL (Negative) Urine RBC 22 /hpf (0 - 3) Urine Microscopic WBC 67 /HPF (0-3) Urine Squamous Epithelial Cells Few /hpf (<5) Urine Bacteria Few /hpf (None Seen) Urine Hyaline Casts Many /lpf (0 - 2) Urine Mucus Few (None Seen) Urine Glucose 4+ mg/dL (Normal) Urine Creatinine 31.07 mg/dL (30.0-125.0) Urine Protein/Creatinine Ratio 3.37 Urine Sodium 24 mmol/L (40-220) Urine Total Protein 104.8 mg/dL (1-14) Urine Opiates Screen Neg (NEGATIVE) Urine Fentanyl Screen Neg (NEGATIVE) Urine Barbiturates Screen Neg (NEGATIVE) Urine Phencyclidine Screen Neg (NEGATIVE) Urine Amphetamines Screen Neg (NEGATIVE) Urine Benzodiazepines Screen Neg (NEGATIVE) Urine Cocaine Screen Neg (NEGATIVE) Urine Cannabinoids Screen Neg (NEGATIVE) Test 02/27/25 09:55 02/27/25 07:12 02/27/25 06:48 Lactic Acid Level 2.2 mmol/L (0.4-2.0) Phosphorus Level 7.8 mg/dL (2.4-5.1) Blood Gas Specimen Type Arterial Blood Gas Sample Site Right radial Blood Gas Patient Temperature 37.0 Arterial Blood Date Drawn [id number] Arterial Blood pH 7.140 (7.350-7.450) Arterial Blood Partial Pressure CO2 18.7 mmHg (35.0-48.0) Arterial Blood Partial Pressure O2 108.9 mmHg (83.0-108.0) Arterial Blood HCO3 6.2 mmol/L (21.0-28.0) Arterial Blood Oxygen Saturation 97.6 % (94.0-98.0) Arterial Blood Base Excess -20.9 mmol/L (-2.0-3.0) Arterial Blood Oxyhemoglobin 96.6 % (94.0-98.0) Arterial Blood Carboxyhemoglobin 0.3 % (0.5-1.5) Arterial Blood Methemoglobin 0.7 % (0.0-1.5) [place] Test Yes Blood Gas Total Hemoglobin 11.20 g/dL (13.5-17.5) Blood Gas Modality Room air FiO2 % 21.0 Blood Gas Critical Value Read Back yes Blood Gas Notified Whom Blood Gas Notified Time [id number] Blood Gas Notified By diamond driller helper rosa Serum Osmolality 359 mOsm/kg (278-298) Beta-Hydroxybutyric Acid > 4.500 mmol/L (< 0.4) Other Laboratory Tests 03/01/25 06:34 Brief Hx & Hospital Course: History of Present Illness Anderson Herrera is a 29-year-old male with past medical history of diabetes type 1 and right BKA who presents to the ED with elevated blood sugar with nausea, vomiting, and body aches x1 day. Patient reports that he is hard of hearing but does not use hearing aids. He also reports that he uses a wheelchair to get around. Patient extremely agitated, uncooperative, and does not want to answer further questions. He states that every but he has been asking him questions all day long and he is tired of it. Course of hospitalization: Patient's blood sugars has been improved, transitioning from insulin drip to long-acting insulin as well as regular insulin sliding scale. Patient was white blood cell count improved. Acidosis resolved. Patient was ambulating without difficulty. Patient will be discharged home and is instructed to follow his current diabetic regimen as well as following up with his PCP in 1-2 weeks. Patient was agreeable with discharge plan. All questions answered. Physical examination General: Alert and Oriented x3. No acute distress. Well-nourished. Eyes: EOMI. Anicteric. HENT: Moist mucous membranes. Lungs: Clear to auscultation bilaterally. No accessory muscle use. Cardiovascular: Regular rate and rhythm. No murmur. No JVD. Abdomen: Soft, non-tender and non-distended. No palpable masses. Extremities: No edema. Non-tender. Skin: No rashes or lesions. Warm. Neurologic: No focal neurological deficits. CN II-XII grossly intact, but not individually tested. Psychiatric: Cooperative. Appropriate mood and affect. Total time spent with patient discussing and formulating plan of care: 35 minutes. This medical document was created using an electronic medical record system with [employer] dictation system. Although this document has been carefully reviewed, there may still be some phonetic and typographical errors. These areas are purely typographical due to imperfections of the software programs, and do not reflect any compromise in the patient's medical care. Condition at Discharge: Poor Final Diagnosis/Problems List Diabetic ketoacidosis Secondary diagnosis: Shock, probably secondary to hypovolemia Diabetes mellitus type 1 Acute kidney injury, vasomotor nephropathy Discharge Disposition: Home Discharge Instruct/Medications Diet: Consistent carbohydrate Activity: No Restrictions, As Tolerated Follow Up/Referral: Follow up with the PCP in 1-2 weeks Medications: Continue all home medications 36 Discharge Statement: "Patient was advised to return to the ER or call 911 if any headaches, dizziness, shortness of breath, chest pain, abdominal pain, bleeding, fevers, or worsening of medical condition. Patient was counseled about treatment plan, medications, possible side effects, patientverbalized understanding. All questions were answered to the best of my ability. This discharge took greater then 30 minutes in planning, reviewing documentation, counseling the patient, and discussing with other team members." ASSESSMENT ASSESSMENT Assessment Diabetic ketoacidosis Date of Service: March 02, 2025 Billing Provider: KIRK CARPIO NP Common Visit Codes: [id number] DISCH DAY >30min KIRK CARPIO NP March 02, 2025 14:53
== END 2025-03-02 19:05 | disposition home or self-care (01) | DRG 420 ==
LOC: EDBD 06:10 → ER 06:10 → OVERFLOW 09:11 → ICU CENTRL 23:00 → CENTRAL 02-28 21:40
PROVIDERS: ADMIT Nurse Practitioner Acute Care; ATTEND Nurse Practitioner Acute Care
DX: E10.10 Type 1 diabetes mellitus with ketoacidosis without coma (principal); N17.0 Acute kidney failure with tubular necrosis; R57.1 Hypovolemic shock; D63.1 Anemia in chronic kidney disease; E10.51 Type 1 diabetes mellitus with diabetic peripheral angiopathy without gangrene; I95.9 Hypotension, unspecified; E83.39 Other disorders of phosphorus metabolism; E10.22 Type 1 diabetes mellitus with diabetic chronic kidney disease; E87.1 Hypo-osmolality and hyponatremia; G89.29 Other chronic pain; I12.9 Hypertensive chronic kidney disease with stage 1 through stage 4 chronic kidney disease, or unspecified chronic kidney disease; F11.20 Opioid dependence, uncomplicated; N18.9 Chronic kidney disease, unspecified; E86.0 Dehydration; E87.5 Hyperkalemia; E87.6 Hypokalemia; F12.90 Cannabis use, unspecified, uncomplicated; Z99.3 Dependence on wheelchair; Z89.511 Acquired absence of right leg below knee; Z79.4 Long term (current) use of insulin; Z83.3 Family history of diabetes mellitus; Z82.62 Family history of osteoporosis; Z82.5 Family history of asthma and other chronic lower respiratory diseases; Z82.49 Family history of ischemic heart disease and other diseases of the circulatory system; Z82.3 Family history of stroke; Z82.0 Family history of epilepsy and other diseases of the nervous system; Z81.8 Family history of other mental and behavioral disorders; Z80.8 Family history of malignant neoplasm of other organs or systems; Z80.42 Family history of malignant neoplasm of prostate; Z80.1 Family history of malignant neoplasm of trachea, bronchus and lung; Z80.0 Family history of malignant neoplasm of digestive organs; Z80.3 Family history of malignant neoplasm of breast
CPT/HCPCS: 36415; 36556; 36600; 71045; 80048; 80053; 80307; 81001; 82010; 82570; 82805; 82962; 83605; 83735; 83930; 84100; 84156; 84300; 85025; 87040; 87081; 87086; 96365; 96372; 96375; 99291; 99292; G0378; J1815; J2405

== ENCOUNTER 2025-09-05 00:19 | Inpatient (IN) | payer MEDICAID, OTHER ==
[2025-09-05] VITALS (34 sets, daily range): BP systolic 81–132; BP diastolic 43–85; PULSE 79–123; RESP 14–28; TEMP 88.1–99.1; O2SAT 97–100
[~2025-09-05] VITALS: Ht 172.7 cm; Wt 97.3 kg
[2025-09-05] MEDS: SODIUM CHLORIDE 0.9% 1,000 ML IV ONE ×2 (01:00→01:11)
--- NOTE | 2025-09-05 01:11 | ED.PDOC ---
Altered Mental Status HPI Comments HPI: 30-year-old male who came to ER via EMS for altered level of consciousness. Patient was just discharged at [facility] 3 days ago, was prescribed indications however patient did not fill. Was noted by family members that the patient has been acting altered and confused. Unable to answer any questions. Blood sugar on scene was 396, with a blood pressure 75/40 mm Hg Past Medical History: Hypertension, diabetes Past Surgical History: Right BKA Social History: Denies HPI: Poor Historian. REVIEW OF SYSTEMS: CONSTITUTIONAL: Denies acute: fever, diaphoresis, chills, HEAD: Denies acute: headache, photophobia Eyes: Denies acute: Double vision, vision loss, eye pain, eye discharge. EARS: Denies acute: tinnitus, hearing loss, ear discharge, ear pain, THROAT: Denies acute: sore throat, swelling, difficulty swallowing , pain with swallowing, change in voice. NECK: Denies acute: neck pain, neck swelling, stiff neck. HEART: Denies acute : chest pain, palpitations, LUNGS: Denies acute: SOB, wheezing, cough, hemoptysis ABDOMEN: Denies acute: abdominal pain, Nausea, Vomiting, diarrhea, melena , hematemesis, hematochezia SKIN: Denies acute: rash, redness, lesions, itchiness. EXTREMITIES: Denies acute: calf pain, numbness, tingling, weakness, denies pain in extremity. Denies acute: Low back pain. Neuro: Denies acute: focal neurological deficit, motor or sensory focal neurological deficit, tremors, seizure like activity, , loss of bowel or bladder function, cauda equina like symptoms. : Denies acute: dysuria, hematuria, flank pain, increase in urinary frequency. PSYCH: Denies acute: hallucination, suicidal ideation, homicidal ideation. PHYSICAL EXAM: General: ---moderate-----acute distress, awake and alert. Not cooperative Head: normocephalic, atraumatic. No raccoon's eyes, no mccollum sign. Neck: supple, trachea is midline, no swelling. Throat: Normal phonation. Dry oral mucosa Eyes:, no erythema, no purulent discharge, no proptosis, no icterus. Heart: regular rate, regular rhythm, no significant murmur appreciated. Lungs: no apparent respiratory distress, Able to speak in full sentences. No wheezing, no rhonchi, no crackles. No stridors Clear to auscultation bilaterally. Abdomen: Nonspecific generalized minimal tender to palpation, non distended, soft, no guarding, no rebound, + bowel sounds. Neuro: Awake, Alert, Skin: no petechia, no purpura, no cyanosis, non-pale, not jaundice. Lower extremities: --no - Pitting edema no deformity, no focal swelling, no calf TTP. Right lower extremity below-knee amputation moves all four extremities. Face: no apparent facial droop. ED COURSE: DISCLAIMER: This medical document was created using an electronic medical record system with voice recognition software and computerized dictation system. Although this document has been carefully reviewed, there might still be some phonetic and typographical errors. Occasional wrong-word or "sound-alike" substitutions may have occurred due to the inherent limitations of voice recognition software. These areas are purely typographical due to imperfections of the software progr ams and do not reflect any compromise in the patient's medical care. Please read the chart carefully and recognize, using context, where these substitutions have occurred. Chief Complaint: ALOC Time Seen by MD: 01:11 Reviewed Notes: Nurses Notes, Allergies Allergies: Coded Allergies: NO KNOWN ALLERGIES (Unverified , 07/22/12) Home Meds Active Scripts Doxycycline (Monohydrate) (Doxycycline) 100 Mg Cap, 100 MG PO DAILY for 7 Days, #14 CAP Prov:KIRK CARPIO PATIENT CARE ASSISTANT 11/24/24 Insulin Glargine (Basaglar Kwikpen) 100 Unit/Ml Inj, 30 UNIT SC QAM for 30 Days, #30 INJ Prov:JLUIS EPSTEIN MD 01/09/23 Reported Medications Insulin Glargine (Basaglar Kwikpen) 100 Unit/Ml Inj, 15 UNIT SC, INJ 03/01/25 Insulin Lispro (Insulin Lispro Kwikpen) 100 Unit/Ml Inj, SC 01/08/23 Information Source: Patient, Emergency Med Personnel Mode of Arrival: EMS Was a procedure done? Was a procedure done?: Yes Sedation Sedation?: No Central Line Recorder of insertion practice: Observer Occupation of junior mechanical engineer: Attending Physician Indication: Hypotension, Inability to obtain IV Room prepared for procedure: Yes Mud Jack Operator performed hand hygien: Yes Maximal sterile barrier precau: Mask/Eye shield, Sterile gown, Cap, Sterlie gloves, Large sterlie drape Skin Preparation: Providine iodine, Other (Lidocaine) Skin preparation completely dr: Yes Insertion site: Right, Femoral Central line catheter type: Tunneled- not dialysis Number of lumens: 3 Central line exchanged over a: Yes Antiseptic ointment applied to: Yes Post Assessment: Proper placement Notes Right femoral central line inserted at first attempt, ultrasound guided. Procedure was done emergent because patient was altered and in hypovolemic shock Intubation Indication: Altered Mental Status, Airway Protection Prep: Preoxygenation Pretreated with: Other (Etomidate) Medicated with: Other (Rocuronium) Intubation Approach: Orotracheal Intubation size: cm (8) Informed consent obtained: No Risks/benefits/alt described: No Notes Intubated performed by nicole adams md. Patient became more altered and was no longer protecting his airway. Patient was emergently intubated. Differential Diagnosis (ALOC) Differential Diagnosis: Dehydration, Hypoglycemia, DKA, Encephalopathy, Sepsis, Hypoxemia, Seizure, Closed Head Injury, CVA, Mass Lesion, SAH, Drug Overdose, ETOH Intoxication, Heart Failure, Renal Failure, Other (DDX include CVA, TGA, cerebellar ischemia/infarct, carotid stenosis, Intracranial mass/i nfection/bleed, encephalopathy, electrolyte abnormality, thyroid disease, hydrocephalus, hypoglycemia, drug toxicity, cardiac arrhythmia, seizure, infection in the elderly, Hyperammonemia., kidney failure., sepsis.) X-Ray, Labs, Meds, VS Vital Signs Date Time Temp Pulse Resp B/P (MAP) Pulse Ox O2 Delivery O2 Flow Rate FiO2 09/05/25 04:22 137/98 (111) 09/05/25 03:10 98.1 89 18 96/64 (75) 100 98.1 09/05/25 02:04 94 80/35 (50) 09/05/25 01:52 93 89/40 (56) 09/05/25 01:35 98 95/41 (59) 09/05/25 00:50 96 18 97 Room Air* 0 21 09/05/25 00:50 98.1 96 18 75/40 (52) 97 98.1 09/05/25 00:25 100.0 99 20 93/54 99 100.0 Lab Test 09/05/25 03:19 09/05/25 03:10 09/05/25 00:53 09/05/25 00:50 Range/Units Lactic Acid Level 3.2 *H 2.4 *H 0.4-2.0 mmol/L Blood Gas Specimen Type Arterial Blood Gas Sample Site Left radial Blood Gas Patient Temperature 37.0 Arterial Blood Date Drawn [id number] Arterial Blood pH 7.153 *L 7.350-7.450 Arterial Blood Partial Pressure CO2 < 12.4 *L 35.0-48.0 mmHg Arterial Blood Partial Pressure O2 139.7 H 83.0-108.0 mmHg Arterial Blood Oxygen Saturation 98.1 H 94.0-98.0 % Arterial Blood Oxyhemoglobin 97.3 94.0-98.0 % Arterial Blood Carboxyhemoglobin 0.2 L 0.5-1.5 % Arterial Blood Methemoglobin 0.6 0.0-1.5 % Pablito Test Yes Blood Gas Total Hemoglobin 8.70 L 13.5-17.5 g/dL Blood Gas Modality Room air FiO2 % 21.0 Blood Gas Critical Value Read Back Yes Blood Gas Notified Whom danna Montelongo Blood Gas Notified Time [id number] Blood Gas Notified By Straddle Buggy Operator evin orss POC Glucose 343 H 70-106 mg/dl White Blood Count 26.5 H 4.4-10.8 10^3/uL Red Blood Count 2.45 L 4.5-5.90 10^6/uL Hemoglobin 6.9 *L 13.5-17.5 g/dL Hematocrit 24.5 L 41.0-53.0 % Mean Corpuscular Volume 99.9 80.0-100.0 fL Mean Corpuscular Hemoglobin 28.3 28.0-32.0 pg Mean Corpuscular Hemoglobin Concent 28.3 L 32.0-36.0 g/dL Red Cell Distribution Width 16.5 H 11.8-14.3 % Platelet Count 351 140-450 10^3/uL Mean Platelet Volume 6.8 L 6.9-10.8 fL Neutrophils (%) (Auto) 37.0-80.0 % Lymphocytes (%) (Auto) 10.0-50.0 % Monocytes (%) (Auto) 0.0-12.0 % Basophils (%) (Auto) 0.0-2.0 % Neutrophils # (Auto) 1.6-8.6 10 ^3/uL Lymphocytes # (Auto) 0.4-5.4 10 ^3/uL Monocytes # (Auto) 0-1.3 10 ^3/uL Differential Total Cells Counted 100.0 100 Neutrophils % (Manual) 90 H 37.0-80.0 Band Neutrophils % (Manual) 2 Lymphocytes % (Manual) 4 L 10.0-50.0 Monocytes % (Manual) 3 0-12 Eosinophils % (Manual) 0 0-7 Basophils % (Manual) 0 0.0-2.0 Metamyelocytes % (manual) 0 Myelocytes % (Manual) 1 Promyelocytes % (Manual) 0 Blast Cells % (Manual) 0 Reactive Lymphocytes 0 Platelet Estimate Adequate Macrocytosis Slight Prothrombin Time 12.6 H 9.3-11.8 sec Prothrombin Time INR 1.21 H 0.9-1.15 Activated Partial Thromboplast Time 33.1 24.5-34.5 SEC Sodium Level 137 136-145 mmol/L Potassium Level 5.3 H 3.5-5.1 mmol/L Chloride Level 102 98-107 mmol/L Carbon Dioxide Level < 10 *L 20-31 mmol/L Anion Gap 25.56940 H 5-15 Blood Urea Nitrogen 39 H 9-23 mg/dL Creatinine 5.60 H 0.700-1.30 mg/dL Glomerular Filtration Rate Calc 13 >90 mL/min BUN/Creatinine Ratio 7.0 L 10.0-20.0 Serum Glucose 370 H 74-106 mg/dL Serum Osmolality 329 H 278-298 mOsm/kg Calcium Level 7.7 L 8.7-10.4 mg/dL Phosphorus Level 8.3 H 2.4-5.1 mg/dL Magnesium Level 2.2 1.6-2.6 mg/dL Total Bilirubin < 0.2 L 0.2-1.0 mg/dL Aspartate Amino Transferase (AST) 19 13-40 U/L Alanine Aminotransferase (ALT) 10 7-40 U/L Alkaline Phosphatase 47 46-116 U/L Ammonia 55 H 11-32 umol/L Total Protein 5.3 L 5.7-8.2 g/dL Albumin 2.3 L 3.2-4.8 g/dL Beta-Hydroxybutyric Acid > 4.500 H < 0.4 mmol/L Plasma/Serum Blood Alcohol < 3.0 <10 mg/dL Microbiology Date/Time Source Procedure Growth Status 09/05/25 01:08 Blood Blood Culture - Final NO GROWTH AFTER 5 DAYS OF INCUBATION. Complete 09/05/25 00:50 Blood Blood Culture - Final NO GROWTH AFTER 5 DAYS OF INCUBATION. Complete [place] [address] Ph: [phone] DIAGNOSTIC IMAGING Diagnostic Imaging Report : [id number] Signed PATIENT: MARII BERMUDEZ ACCT: [id number] UNIT: [id number] : 1995 LOC: ER ROOM / BED: / AGE / SEX: 30 / M ADM STATUS: REG ER SERVICE ORDERING PHYSICIAN: DANNA LEAL DO PROCEDURE(s): CXRP - CHEST PORTABLE REASON: ALOC ORDER NUMBER(s): [id number], ACCESSION NUMBER(s): [id number] CHEST RADIOGRAPH Indication: ALOC Technique: 1 view Comparison: None FINDINGS: Lines and Tubes: External leads. Lungs/Pleura: No focal consolidation, pleural effusion or pneumothorax. Cardiomediastinum: Unremarkable. Other: No acute osseous abnormality. IMPRESSION: 1. No acute cardiopulmonary abnormality. ATED BY: SAMIR DEWITT MD DICTATED DATE/TIME: 09/05/25147 SIGNED BY: SAMIR DEWITT MD SIGNED DATE/TIME: 09/05/25147 CC: Time of 1ST Reevaluation: 01:08 Reevaluation 1ST: Unchanged Time of 2ND Reevaluation: 02:43 (As of now all chemistries are still pending) Patient Education/Counseling: Diagnosis, Treatment Family Education/Counseling: No Family Present Comments Patient has pulled his IVs multiple times. We had to physically restrain him as he is altered to allow for critical medications to be administered. Later we placed a central line emergently. MDM: patient presented with the above HPI.-altered level of consciousness-----workup was initiated. patient was found with the above mentioned diagnosis. the following medications were ordered: please refer to order lists of meds and tests obtained by myself Dr. Leal. Patient has been observed in the ED adequate length of time to insure imp rovement/stability. Escalation of care considered: Consideration of escalation to observation or admission DKA protocol initiated. Sepsis protocol initiated. Patient was ADMITTED to the medicine team for further evaluation and treatment of their presentation. All the reports of any imaging studies that were ordered by myself were reviewed by myself. SEPSIS Sepsis Screen Date sepsis recognized/suspect: Sep 05, 2025 Time Sepsis recognized/suspect: 010 Recent Procedure: No On Antibiotic Therapy: No Respiratory Rate >20: No Heart Rate >90: Yes Temp<36 C (96.8 F) or >38.3 C: No SBP <90 or MAP <65 mmHG: Yes New Acute Mental Status Change: Yes Is the patient on CPAP, BIPAP,: No Physician Orders Pyridine Operator (09/05/25 00:31) Chest Portable (09/05/25 00:57) Electrocardigram (09/05/25 00:57) Pyridine Operator (09/05/25 ) Accucheck (09/05/25 02:39) Notify Md If Map <65 Or Bp<90 (09/05/25 02:39) If Map<65 Start Vasopressor (09/05/25 02:39) Sepsis Reassesment After Fluid (09/05/25 03:39) Insulin Drip Protocol (09/05/25 ) Abg W/ Co-Ox (09/05/25 03:07) Neurological Assessment (09/05/25 03:07) Obtain Consent For: (09/05/25 04:03) Obtain Consent For Anesthesia (09/05/25 04:03) Vital Signs Date Time Temp Pulse Resp B/P (MAP) Pulse Ox O2 Delivery O2 Flow Rate FiO2 09/05/25 04:22 137/98 (111) 09/05/25 03:10 98.1 89 18 96/64 (75) 100 98.1 09/05/25 02:04 94 80/35 (50) 09/05/25 01:52 93 89/40 (56) 09/05/25 01:35 98 95/41 (59) 09/05/25 00:50 96 18 97 Room Air* 0 21 09/05/25 00:50 98.1 96 18 75/40 (52) 97 98.1 09/05/25 00:25 100.0 99 20 93/54 99 100.0 Laboratory Tests Test 09/05/25 00:50 09/05/25 03:19 Lactic Acid Level 2.4 mmol/L (0.4-2.0) *H 3.2 mmol/L (0.4-2.0) *H White Blood Count 26.5 10^3/uL (4.4-10.8) H Departure 1 Departure Time of Disposition: 02:41 Impression: Primary Impression: Altered level of consciousness Additional Impressions: Sepsis Leukocytosis Symptomatic anemia Elevated lactic acid level Diabetic ketoacidosis Acute renal failure Disposition: ADMITTED INPATIENT Admit to: ICU Condition: Critical Discharged With: Self Critical Care Note Critical Care Time?: Yes (1 hr-critical care time only) I personally scribed for DANNA LEAL DO ([email or web address]) on 09/05/25 at 01:11. Electronically submitted by Kevin Fleming ([employer]). I personally scribed for DANNA LEAL J DO ([email or web address]) on 09/05/25 at 02:55. Electronically submitted by Kevin Fleming ([email or web address]). I personally scribed for SIMONA LEALE J DO ([email or web address]) on 09/05/25 at 03:09. Electronically submitted by Kevin Fleming ([email or web address]). I personally scribed for SIMONA LEALE J DO ([email or web address]) on 09/05/25 at 04:12. Electronically submitted by Kevin Fleming ([employer]). I personally scribed for MELSIMONAE J DO ([email or web address]) on 09/05/25 at 05:42. Electronically submitted by Kevin Fleming ([employer]). I personally scribed for SIMONA LEALE J DO ([email or web address]) on 09/05/25 at 05:58. Electronically submitted by Kevin Fleming ([email or web address]). DANNA LEAL J DO Sep 05, 2025 01:11 NICOLE GILMAN MD Sep 05, 2025 09:39
[2025-09-05] MEDS: SODIUM BICARB 8.4% 50Meq/50ml SYR Vial IV ONE ×3 (01:17→10:27)
--- NOTE | 2025-09-05 01:50 | DVH ---
CHEST RADIOGRAPH Indication: ALOC Technique: 1 view Comparison: None FINDINGS: Lines and Tubes: External leads. Lungs/Pleura: No focal consolidation, pleural effusion or pneumothorax. Cardiomediastinum: Unremarkable. Other: No acute osseous abnormality. IMPRESSION: 1. No acute cardiopulmonary abnormality.
[2025-09-05 02:26] LABS: Mean Corpuscular Hemoglobin 28.3 pg (28.0-32.0)
[2025-09-05 02:27] LABS: Hematocrit 24.5 % (41.0-53.0); Mean Corpuscular Volume 99.9 fL (80.0-100.0)
[2025-09-05 02:30] LABS: Alanine Aminotransferase 10 U/L (7-40); Alkaline Phosphatase 47 U/L (46-116); Anion Gap 25.00001 (5-15); BUN/Creatinine Ratio 7.0 (10.0-20.0); Chloride 102 mmol/L (98-107); Sodium 137 mmol/L (136-145)
[2025-09-05 02:32] LABS: Hemoglobin 6.9 g/dL (13.5-17.5)
[2025-09-05 02:41] LABS: Lactic Acid w/Reflex 2.4 mmol/L (0.4-2.0)
[2025-09-05 02:51] LABS: Albumin 2.3 g/dL (3.2-4.8); Bilirubin, Total < 0.2 mg/dL (0.2-1.0); Blood Urea Nitrogen 39 mg/dL (9-23); Calcium 7.7 mg/dL (8.7-10.4); Glucose 370 mg/dL (74-106); Potassium 5.3 mmol/L (3.5-5.1); Total Protein 5.3 g/dL (5.7-8.2)
[2025-09-05 02:53] LABS: Carbon Dioxide < 10 mmol/L (20-31)
[2025-09-05] MEDS: LACTATED RINGER'S 2,200 ML IV ONE (02:58)
[2025-09-05] MEDS: CEFEPIME 1GM/50ML 50 ML IV ONE (03:09)
[2025-09-05] MEDS ORDERED: DEXTROSE (50%) 50ML SYRG IV PRN (03:15)
[2025-09-05] MEDS: SODIUM CHLORIDE 0.9% 1,000 ML IV SCH ×2 (03:15→07:15)
[2025-09-05] MEDS: INSULIN DRIP 100 UNIT/100ML 100 ML IV SCH ×3 (03:15→21:13)
[2025-09-05] MEDS: LORazepam 2MG/ML-1ML VIAL IV ONE (03:51)
[2025-09-05 04:01] LABS: Total Cells Counted 100.0 (100)
[2025-09-05 04:02] LABS: Macrocytosis Slight
[2025-09-05 04:15] LABS: INR 1.21 (0.9-1.15); Partial Thromboplastin Time 33.1 SEC (24.5-34.5); Prothrombin Time 12.6 sec (9.3-11.8)
[2025-09-05] MEDS: ALBUMIN 25% 100 ML IV ONE (04:15)
[2025-09-05] MEDS: ACCU-CHEK COMFORT CURVE STRIP VI SCH (04:48)
[2025-09-05] MEDS ORDERED: DOCUSATE SOD 100 MG CAP PO PRN (05:30)
[2025-09-05] MEDS ORDERED: NITROGLYCERIN 0.4 MG SL TAB SL PRN (05:30)
[2025-09-05] MEDS ORDERED: MORPHINE SULFATE INJ 2 MG/ml SYRG IV PRN (05:30)
[2025-09-05] MEDS ORDERED: VANCOMYCIN PER PHARMACY 0 MG IV SCH (05:30)
[2025-09-05] MEDS ORDERED: HYDROcodone-ACET 5/325MG TAB PO PRN (05:30)
[2025-09-05] MEDS ORDERED: ONDANSETRON HCL 4 MG/2 ML VIAL IV PRN (05:30)
--- NOTE | 2025-09-05 05:44 | DVHHP2 ---
History of Present Illness Reason for Visit: Diabetes mellitus with ketoacidosis History of Present Illness The patient is a 30-year-old male with past medical history of diabetes mellitus and hypertension who presented to [facility] ED for evaluation of altered level of consciousness. Patient was just discharged at [facility] 3 days ago, was prescribed indications however patient was noncompliant with medication regimen. Patient was noted by family members acting altered and and confused, so EMS were called. Blood sugar on scene was 396, with a blood pressure 75/40 mm Hg and was given IV fluid 1 L normal saline EN route to our facility ED. Patient was seen and evaluated in the ED, laboratory data shows WBC 26.5, hemoglobin 6.9, hematocrit 24.5, platelets 351, sodium 137, potassium 5.3, BUN 39, creatinine 5.60, GFR 13, glucose 370, anion gap 25.001, acetone > 4.500, calcium 7.7, magnesium 2.2, phosphorus 8.3, ammonia 55, albumin 2.3, protein 5.3, lactic acid 2.4, blood pressure 75/40 trending up to 95/47, heart rate 88, temperature 98.1 F, O2 saturation 99% on room air. Chest x-ray show no acute cardiopulmonary abnormality. Patient was started on insulin drip, please see medication orders section in the computer. On my assessment, patient remains altered, no diaphoresis, shortness of breaths, no diarrhea, nausea, vomiting, fever, no chills. Patient was admitted for further evaluation and medical management. Past Medical History Hypertension, DM Past Surgical History Right BKA Family History Reviewed, noncontributory to the management of this case. Past Social History The patient lives at home, denies smoking, alcohol or illicit drugs abuse. Review of Systems Constitutional: Yes: Weakness; No: Fever, Chills, Sweats, Malaise, Other Eyes: No: Pain, Vision change, Conjunctivae inflammation, Eyelid inflammation, Other, Redness ENT: No: Ear pain, Ear discharge, Nose pain, Nose discharge, Nose congestion, Mouth pain, Mouth swelling, Throat pain, Throat swelling, Other Respiratory: No: Cough, Dry, Shortness of breath, SOB with excertion, Wheezing, Hemoptysis, Pleuritic Pain, Sputum, Wheezing, Other Cardiovascular: Other (Hypotension); No: Chest Pain, Palpitations, Orthopnea, Paroxysmal Noc. Dyspnea, Edema, Lt Headedness Gastrointestinal: No: Nausea, Vomiting, Abdominal Pain, Diarrhea, Constipation, Melena, Hematochezia, Other Genitourinary: No Dysuria, No Frequency, No Incontinence, No Hematuria, No Retention, No Other Musculoskeletal: No: other, neck pain, shoulder pain, arm pain, back pain, hand pain, leg pain, foot pain Skin: No: Rash, Lesions, Jaundice, Bruising, Other Neurological: No: Weakness, Numbness, Incoordination, Change in speech, Confusion, Seizures, Other Allergies: Coded Allergies: NO KNOWN ALLERGIES (Unverified , 09/05/25) Medications Current Medications Medications Dose Ordered Sig/Justin Route Start Time Stop Time Status Last Admin Dose Admin Cefepime HCl 50 ml @ 12.5 mls/hr Q12H IV 09/05/25 15:00 Sodium Chloride 1,000 ml @ 500 mls/hr Q2H IV 09/05/25 03:15 09/05/25 07:14 Sodium Chloride 1,000 ml @ 250 mls/hr Q4H IV 09/05/25 07:15 09/05/25 09:14 Sodium Chloride 1,000 ml @ 150 mls/hr Q6H40M IV 09/05/25 09:15 Insulin Human (Reg)/Sodium Chloride 100 ml @ 0.5 mls/hr Q24H IV 09/05/25 03:15 Dextrose 50 ml UD PRN IV 09/05/25 03:15 Diagnostic Test (Pha) 1 strip Q90MIN 09/05/25 04:30 09/05/25 04:48 1 STRIP Exam Vital Signs Vital Signs Date Time Temp Pulse Resp B/P (MAP) Pulse Ox O2 Delivery O2 Flow Rate FiO2 09/05/25 04:22 137/98 (111) 09/05/25 03:10 98.1 89 18 100 98.1 09/05/25 00:50 Room Air* 0 21 General Appearance: Alert, Oriented X3, Cooperative, No acute distress HEENT: Atraumatic, PERRLA, EOMI, Mucous membr. moist/pink Respiratory: Normal air movement Cardiovascular: Regular rate, Normal S1, Normal S2, No murmurs Abdominal: Normal bowel sounds, Soft, No tenderness, No hepatospenomegaly, No masses Extremities: No clubbing, No cyanosis, No edema, Normal pulses, No tenderness/swelling Skin: No rashes, No significant lesion Neuro: Normal speech, Normal tone, Sensation intact, Cranial nerves 3-12 NL, Reflexes 2+, Other (Generalized weakness) Psych/Mental Status: Mental status NL, Mood NL Labs/Xrays Labs Test 09/05/25 03:19 09/05/25 03:10 09/05/25 00:53 09/05/25 00:50 Range/Units Lactic Acid Level 3.2 *H 0.4-2.0 mmol/L Blood Gas Specimen Type Arterial Blood Gas Sample Site Left radial Blood Gas Patient Temperature 37.0 Arterial Blood Date Drawn [id number] Arterial Blood pH 7.153 *L 7.350-7.450 Arterial Blood Partial Pressure CO2 < 12.4 *L 35.0-48.0 mmHg Arterial Blood Partial Pressure O2 139.7 H 83.0-108.0 mmHg Arterial Blood Oxygen Saturation 98.1 H 94.0-98.0 % Arterial Blood Oxyhemoglobin 97.3 94.0-98.0 % Arterial Blood Carboxyhemoglobin 0.2 L 0.5-1.5 % Arterial Blood Methemoglobin 0.6 0.0-1.5 % Pablito Test Yes Blood Gas Total Hemoglobin 8.70 L 13.5-17.5 g/dL Blood Gas Modality Room air FiO2 % 21.0 Blood Gas Critical Value Read Back Yes Blood Gas Notified Whom danna Montelongo Blood Gas Notified Time [id number] Blood Gas Notified By Seismograph Chief evin ross POC Glucose 343 H 70-106 mg/dl White Blood Count 26.5 H 4.4-10.8 10^3/uL Red Blood Count 2.45 L 4.5-5.90 10^6/uL Hemoglobin 6.9 *L 13.5-17.5 g/dL Hematocrit 24.5 L 41.0-53.0 % Mean Corpuscular Volume 99.9 80.0-100.0 fL Mean Corpuscular Hemoglobin 28.3 28.0-32.0 pg Mean Corpuscular Hemoglobin Concent 28.3 L 32.0-36.0 g/dL Red Cell Distribution Width 16.5 H 11.8-14.3 % Platelet Count 351 140-450 10^3/uL Mean Platelet Volume 6.8 L 6.9-10.8 fL Neutrophils (%) (Auto) 37.0-80.0 % Lymphocytes (%) (Auto) 10.0-50.0 % Monocytes (%) (Auto) 0.0-12.0 % Basophils (%) (Auto) 0.0-2.0 % Neutrophils # (Auto) 1.6-8.6 10 ^3/uL Lymphocytes # (Auto) 0.4-5.4 10 ^3/uL Monocytes # (Auto) 0-1.3 10 ^3/uL Differential Total Cells Counted 100.0 100 Neutrophils % (Manual) 90 H 37.0-80.0 Band Neutrophils % (Manual) 2 Lymphocytes % (Manual) 4 L 10.0-50.0 Monocytes % (Manual) 3 0-12 Eosinophils % (Manual) 0 0-7 Basophils % (Manual) 0 0.0-2.0 Metamyelocytes % (manual) 0 Myelocytes % (Manual) 1 Promyelocytes % (Manual) 0 Blast Cells % (Manual) 0 Reactive Lymphocytes 0 Platelet Estimate Adequate Macrocytosis Slight Prothrombin Time 12.6 H 9.3-11.8 sec Prothrombin Time INR 1.21 H 0.9-1.15 Activated Partial Thromboplast Time 33.1 24.5-34.5 SEC Sodium Level 137 136-145 mmol/L Potassium Level 5.3 H 3.5-5.1 mmol/L Chloride Level 102 98-107 mmol/L Carbon Dioxide Level < 10 *L 20-31 mmol/L Anion Gap 25.87724 H 5-15 Blood Urea Nitrogen 39 H 9-23 mg/dL Creatinine 5.60 H 0.700-1.30 mg/dL Glomerular Filtration Rate Calc 13 >90 mL/min BUN/Creatinine Ratio 7.0 L 10.0-20.0 Serum Glucose 370 H 74-106 mg/dL Serum Osmolality 329 H 278-298 mOsm/kg Calcium Level 7.7 L 8.7-10.4 mg/dL Phosphorus Level 8.3 H 2.4-5.1 mg/dL Magnesium Level 2.2 1.6-2.6 mg/dL Total Bilirubin < 0.2 L 0.2-1.0 mg/dL Aspartate Amino Transferase (AST) 19 13-40 U/L Alanine Aminotransferase (ALT) 10 7-40 U/L Alkaline Phosphatase 47 46-116 U/L Ammonia 55 H 11-32 umol/L Total Protein 5.3 L 5.7-8.2 g/dL Albumin 2.3 L 3.2-4.8 g/dL Beta-Hydroxybutyric Acid > 4.500 H < 0.4 mmol/L Plasma/Serum Blood Alcohol < 3.0 <10 mg/dL PATIENT: MARII BERMUDEZ ACCT: [id number] UNIT: [id number] : 1995 LOC: ER ROOM / BED: / AGE / SEX: 30 / M ADM STATUS: REG ER SERVICE [id number] ORDERING PHYSICIAN: DANNA LEAL DO PROCEDURE(s): CXRP - CHEST PORTABLE REASON: ALOC ORDER NUMBER(s): [id number], ACCESSION NUMBER(s): [id number] CHEST RADIOGRAPH Indication: ALOC Technique: 1 view Comparison: None FINDINGS: Lines and Tubes: External leads. Lungs/Pleura: No focal consolidation, pleural effusion or pneumothorax. Cardiomediastinum: Unremarkable. Other: No acute osseous abnormality. IMPRESSION: 1. No acute cardiopulmonary abnormality. SEPSIS Sepsis Screen Date sepsis recognized/suspect: Sep 05, 2025 Time Sepsis recognized/suspect: 010 Recent Procedure: No On Antibiotic Therapy: No Respiratory Rate >20: No Heart Rate >90: Yes Temp<36 C (96.8 F) or >38.3 C: No SBP <90 or MAP <65 mmHG: Yes New Acute Mental Status Change: Yes Is the patient on CPAP, BIPAP,: No Physician Orders Urinalysis (09/05/25 00:31) Weight Loss Centre Manager (09/05/25 00:31) Blood Culture (09/05/25 00:31) Drug Screen (09/05/25 00:57) Chest Portable (09/05/25 00:57) Electrocardigram (09/05/25 00:57) Weight Loss Centre Manager (09/05/25 ) Type And Screen (09/05/25 02:39) Accucheck (09/05/25 02:39) Cefepime 1gm/50ml (Maxipime 1gm/50ml) (09/05/25 15:00) Notify Md If Map <65 Or Bp<90 (09/05/25 02:39) If Map<65 Start Vasopressor (09/05/25 02:39) Sepsis Reassesment After Fluid (09/05/25 03:39) Insulin Drip Protocol (09/05/25 ) Sodium Chloride 0.9% (09/05/25 03:15) Sodium Chloride 0.9% (09/05/25 07:15) Sodium Chloride 0.9% (09/05/25 09:15) Insulin Drip 100 Unit/100ml (Myxredlin 1 (09/05/25 03:15) Dextrose 50% Syringe (09/05/25 03:15) Glucose Blood (Accu-Chek Comfort Curve T (09/05/25 04:30) Abg W/ Co-Ox (09/05/25 03:07) Neurological Assessment (09/05/25 03:07) Vs/Hemodynamics .PER UNIT PROTOCOL (09/05/25 03:07) Obtain Consent For: (09/05/25 04:03) Packedcell-Noactive Bleeding (09/05/25 04:03) Obtain Consent For Anesthesia (09/05/25 04:03) Vancomycin (09/05/25 10:00) Vancomycin (09/05/25 05:30) *[facility] (09/05/25 05:29) Complete Blood Count (09/05/25 05:29) Comprehensive Metabolic Panel (09/05/25 05:29) Admit (09/05/25 05:29) Allergies (09/05/25 05:29) Code Status (09/05/25 05:29) Oxygen Per Hour (09/05/25 05:29) Hydrocodone-Acet 5/325mg Tab (Agar 5/32 (09/05/25 05:30) Ondansetron Hcl (Zofran) (09/05/25 05:30) Docusate Sodium Capsule (Colace Capsule) (09/05/25 05:30) Fall Risk Precautions In Place QSHIFT (09/05/25 05:29) Complete Blood Count (09/06/25 04:00) Comprehensive Metabolic Panel (09/06/25 04:00) Condition: Critical (09/05/25 05:29) Acetaminophen Tablet (Tylenol Tablet) (09/05/25 05:30) Maintain Bed Rest (09/05/25 05:29) Sequential Compression Device (09/05/25 ) Nitroglycerin Sublingual (Ntrostat Subli (09/05/25 05:30) Morphine Sulfate Injection (09/05/25 05:30) Stat Ekg For Chest Pain (09/05/25 05:29) Notify Of Changes From Base (09/05/25 05:29) Oil Field Technician For 24 Hours (09/05/25 05:29) Emergency Dysrhythmia Protocol (09/05/25 05:29) Rhythm Strips Once Every Shift (09/05/25 05:29) Oxygen By Nasal Cannula (09/05/25 05:29) Consistent Carb(Ccho)Diabetes (09/05/25 Breakfast) Lactulose Oral (09/05/25 06:00) Vital Signs Date Time Temp Pulse Resp B/P (MAP) Pulse Ox O2 Delivery O2 Flow Rate FiO2 09/05/25 04:22 137/98 (111) 09/05/25 03:10 98.1 89 18 96/64 (75) 100 98.1 09/05/25 02:04 94 80/35 (50) 09/05/25 01:52 93 89/40 (56) 09/05/25 01:35 98 95/41 (59) 09/05/25 00:50 96 18 97 Room Air* 0 21 09/05/25 00:50 98.1 96 18 75/40 (52) 97 98.1 09/05/25 00:25 100.0 99 20 93/54 99 100.0 Laboratory Tests Test 09/05/25 00:50 09/05/25 03:19 Lactic Acid Level 2.4 mmol/L (0.4-2.0) *H 3.2 mmol/L (0.4-2.0) *H White Blood Count 26.5 10^3/uL (4.4-10.8) H Medications Medications Dose Ordered Sig/Justin Route Start Time Stop Time Status Last Admin Dose Admin Cefepime HCl 50 ml @ 100 mls/hr ONCE ONCE IV 09/05/25 03:00 09/05/25 03:29 DC 09/05/25 03:09 100 MLS/HR Diagnostic Test (Pha) 1 strip Q90MIN 09/05/25 04:30 09/05/25 04:48 1 STRIP Lactated Ringer's 2,200 ml @ 2,200 mls/hr ONCE ONCE IV 09/05/25 02:45 09/05/25 03:44 DC 09/05/25 02:58 2,200 MLS/HR Lorazepam 0.5 mg ONCE ONCE IV 09/05/25 03:45 09/05/25 03:47 DC 09/05/25 03:51 0.5 MG Sodium Bicarbonate 150 ml ONCE ONCE IV 09/05/25 01:00 09/05/25 01:01 DC 09/05/25 01:17 150 ML Sodium Chloride 1,000 ml @ 1,000 mls/hr Q1H ONCE IV 09/05/25 01:00 09/05/25 01:59 DC 09/05/25 01:00 1,000 MLS/HR Sodium Chloride 1,000 ml @ 1,000 mls/hr Q1H ONCE IV 09/05/25 01:00 09/05/25 01:59 DC 09/05/25 01:11 1,000 MLS/HR Assessment/Plan Assessment/Plan Diabetes mellitus with ketoacidosis Acute renal failure Electrolyte imbalance Sepsis, unspecified organisms Symptomatic anemia Elevated lactic acid level Altered level of consciousness Plan 1. Admit to intensive care unit 2. Breathing treatment 3. Pain control management 4. IV antibiotic management 5. Management of fluids and electrolytes 6. Consultation for Nephrology 7. Diagnostic test chest x-ray 8. DVT prophylaxis-on SCDs 9. Repeat labs CBC, CMP in a.m. 10. Home medication reviewed and reconciled 11. Continue with current medical management 12. Treatment plan discussed with patient and RN. Patient verbalized understanding. Plan discussed with: Patient, Other (RN) My Orders Orders - WASHINGTON CRUZ DNP Procedure Category Date Status Time Vancomycin PHA 09/05/25 Transmitted 10:00 Vancomycin PHA 09/05/25 Transmitted 05:30 *[facility] CONS 09/05/25 Transmitted -[place] 05:29 Complete Blood Count LAB 09/05/25 Transmitted 05:29 Comprehensive LAB 09/05/25 Transmitted Metabolic Panel 05:29 Admit ADMIT 09/05/25 Transmitted 05:29 Allergies JOSH 09/05/25 Transmitted 05:29 Code Status CODE 09/05/25 Transmitted 05:29 Oxygen Per Hour RT 09/05/25 Transmitted 05:29 Hydrocodone-Acet PHA 09/05/25 Transmitted 5/325mg Tab (Agar 05:30 Ondansetron Hcl MERGED WITH [facility] 09/05/25 Transmitted (Zofran) 05:30 Docusate Sodium MERGED WITH [facility] 09/05/25 Transmitted Capsule (Colace 05:30 Fall Risk Precautions [facility] 09/05/[address] 05:29 Complete Blood Count LAB 09/06/25 Verified 04:00 Comprehensive LAB 09/06/25 Verified Metabolic Panel 04:00 Condition: Critical [facility] 09/05/25 Transmitted 05:29 Acetaminophen Tablet [facility] WITH [facility] 09/05/25 Transmitted (Tylenol Tablet) 05:30 Maintain Bed Rest [facility] 09/05/25 Transmitted 05:29 Sequential [facility] 09/05/25 Transmitted Compression Device Nitroglycerin [facility]GED WITH [facility] 09/05/25 Transmitted Sublingual (Ntrostat 05:30 Morphine Sulfate MERGED WITH [facility] 09/05/25 Transmitted Injection 05:30 Stat Ekg For Chest [facility] 09/05/25 Transmitted Pain 05:29 Notify Md Of Changes [facility] 09/05/25 Transmitted From Base 05:29 Oil Field Technician For [facility] 09/05/25 Transmitted 24 Hours 05:29 Emergency Dysrhythmia [facility] 09/05/25 Transmitted Protocol 05:29 Rhythm Strips Once [facility] 09/05/25 Transmitted Every Shift 05:29 Oxygen By Nasal RT 09/05/25 Transmitted Cannula 05:29 Consistent DIET 09/05/25 Transmitted Carb(Ccho)Diabetes Breakfast Lactulose Oral PHA 09/05/25 Transmitted 06:00 Problem List: (1) Diabetes mellitus with ketoacidosis (2) Acute renal failure (3) Electrolyte imbalance (4) Sepsis, unspecified organism (5) Symptomatic anemia (6) Elevated lactic acid level (7) Altered level of consciousness Date of Service: Sep 05, 2025 Billing Provider: WASHINGTON CRUZ DNP Common Visit Codes: [id number] INP/OBS CARE (HIGH) WASHINGTON CRUZ DNP Sep 05, 2025 05:44
[2025-09-05] MEDS: VANCOMYCIN 1GM/250ML KIT 250 ML IV SCH (06:00)
[2025-09-05] MEDS: LACTULOSE 20Gm/30ML SOLN PO SCH (06:00)
[2025-09-05 06:53] LABS: Nucleated Red Blood Cells % 0.0 %
[2025-09-05 06:55] LABS: Hematocrit 22.6 % (41.0-53.0); Mean Corpuscular Hemoglobin 28.7 pg (28.0-32.0); Mean Corpuscular Volume 97.2 fL (80.0-100.0)
[2025-09-05 06:59] LABS: Hemoglobin 6.7 g/dL (13.5-17.5)
[2025-09-05 07:09] LABS: Anion Gap 27.00001 (5-15); BUN/Creatinine Ratio 7.7 (10.0-20.0); Chloride 104 mmol/L (98-107); Potassium 5.0 mmol/L (3.5-5.1); Sodium 141 mmol/L (136-145)
[2025-09-05 07:43] LABS: Alanine Aminotransferase < 9 U/L (7-40); Albumin 2.3 g/dL (3.2-4.8); Alkaline Phosphatase 39 U/L (46-116); Bilirubin, Total < 0.2 mg/dL (0.2-1.0); Blood Urea Nitrogen 42 mg/dL (9-23); Calcium 7.2 mg/dL (8.7-10.4); Carbon Dioxide < 10 mmol/L (20-31); Glucose 395 mg/dL (74-106); Total Protein 4.7 g/dL (5.7-8.2)
[2025-09-05 08:21] LABS: Base Excess -25.4 mmol/L (-2.0-3.0)
[2025-09-05] MEDS ORDERED: SODIUM CHLORIDE 0.9% 1,000 ML IV SCH (09:15)
[2025-09-05] MEDS: fentaNYL Drip 2500mCg/250mlNS 250 ML IV SCH (09:30)
[2025-09-05] MEDS: ROCURONIUM 10MG/ML 10ML VIAL IV ONE ×2 (09:30→10:17)
[2025-09-05] MEDS: ETOMIDATE (2MG/ML) 20ML VIAL IV ONE ×2 (09:30→10:17)
[2025-09-05] MEDS: fentaNYL Drip 2500mCg/250mlNS 250 ML IV ONE (10:17)
[2025-09-05] MEDS: NOREPINEPHRINE 8 MG/250ML KIT 250 ML IV ONE (10:17)
[2025-09-05] MEDS: PROPOFOL 0 ML IV ONE (10:18)
[2025-09-05 10:34] LABS: Base Excess -22.7 mmol/L (-2.0-3.0)
--- NOTE | 2025-09-05 10:50 | DVH ---
CHEST RADIOGRAPH Indication: POST INTUBATION Technique: Single frontal view of the chest was obtained COMPARISON: XY CHEST PORTABLE on DOS: 09/05/25, XY CHEST XRAY 1 VIEW on DOS: 02/27/25, XY CHEST PORTABLE on DOS: 11/23/24, XY CHEST PORTABLE on DOS: 11/20/24, XY CHEST PORTABLE on DOS: 06/29/24 FINDINGS: Lines and Tubes: Endotracheal tube in satisfactory position. Lungs: Slightly increased congestion. Pleura: No effusion.No pneumothorax. Cardiomediastinal contours: Cardiomegaly. Bones: Unremarkable IMPRESSION: Endotracheal tube in satisfactory position. Slightly increased pulmonary vascular congestion.
[2025-09-05 11:47] LABS: Chloride 104 mmol/L (98-107); Potassium 4.3 mmol/L (3.5-5.1); Sodium 141 mmol/L (136-145)
[2025-09-05 11:48] LABS: Anion Gap 27.00001 (5-15)
[2025-09-05 11:52] LABS: Calcium 7.3 mg/dL (8.7-10.4)
[2025-09-05 11:53] LABS: BUN/Creatinine Ratio 7.2 (10.0-20.0)
[2025-09-05 11:56] LABS: Carbon Dioxide < 10 mmol/L (20-31)
[2025-09-05 11:57] LABS: Blood Urea Nitrogen 39 mg/dL (9-23); Glucose 368 mg/dL (74-106)
--- NOTE | 2025-09-05 12:50 | DVHINCON2 ---
Date of service: Sep 05, 2025 Reason for Consultation RADHA History of Present Illness 30 years old male with past medical history of diabetes, hypertension, right BKA, Chronic kidney disease, presented with chief complaints of altered mental status and confusion patient was found to be hypotensive, hyperglycemic,-even tually got intubated and sedated treated with insulin drip and vasopressors he was also significantly acidotic, anemic Past Medical History As per HPI Past Surgical History As per HPI Allergies: Coded Allergies: NO KNOWN ALLERGIES (Unverified , 09/05/25) Current Medications Current Medications Medications (Trade) Dose Ordered Sig/Justin Route PRN Reason Start Time Stop Time Status Last Admin Pantoprazole Sodium (Protonix) 40 mg DAILY IV 09/06/25 10:00 09/06/25 09:44 Meropenem 50 ml @ 17 mls/hr Q12HR IV 09/05/25 22:00 09/06/25 10:01 Insulin Human (Reg)/Sodium Chloride 100 ml @ 0.5 mls/hr Q24H IV 09/05/25 17:30 09/05/25 20:17 DC 09/05/25 19:25 Insulin Human (Reg)/Sodium Chloride 100 ml @ 1 mls/hr Q24H IV 09/05/25 19:45 09/06/25 07:53 DC 09/06/25 06:09 Propofol 100 ml @ 2.727 mls/ hr Q24H IV 09/05/25 23:45 09/06/25 03:41 Midazolam HCl 100 ml @ 1 mls/hr Q24H IV 09/06/25 02:00 09/06/25 02:12 Insulin Human (Reg)/Sodium Chloride 100 ml @ 0.5 mls/hr Q24H IV 09/06/25 08:00 09/06/25 08:54 DC Insulin Human (Reg)/Sodium Chloride 100 ml @ 0.5 mls/hr Q24H IV 09/06/25 09:00 09/06/25 14:01 Dextrose/Sodium Chloride 1,000 ml @ 50 mls/hr Q20H IV 09/06/25 16:30 UNV Review of Systems Unable to obtain patient intubated H&P Exam Vital Signs/I&O Vital Sign Date Time Temp Pulse Resp B/P (MAP) Pulse Ox O2 Delivery O2 Flow Rate FiO2 09/06/25 15:57 78 26 123/78 (93) 98 30 09/06/25 12:45 97.5 207.5 09/06/25 12:00 Mechanical Ventilator+ 09/05/25 09:00 0 Intake and Output 09/05/25 09/06/25 19:00 07:00 Intake Total 2062.5 ml 916.810 ml Output Total 175 ml 200 ml Balance 1887.5 ml 716.810 ml Intake Oral 0 ml IV Total 262.5 ml 916.810 ml Tube Feeding 0 ml Blood Product 1800 ml Other 0 ml Output Urine Total 175 ml 200 ml Stool Total 0 ml Urine/Stool Mix 0 ml Gastric Drainage Total 0 ml Emesis 0 ml Chest Tube Drainage Total 0 ml Drainage Total 0 ml Other 0 ml Physical Exam General-patient is intubated HEENT-normocephalic, no icterus, no pallor, neck supple Respiratory-fair air entry bilateral, [id number] heard, no murmurs appreciated Abdominal-soft, nontender, nondistended Musculoskeletal right BKA swelling left lower extremity Labs/Diagnostic Data Labs/Diagnostic Data Laboratory Tests Test 09/06/25 15:17 09/06/25 13:44 09/06/25 12:06 09/06/25 10:45 Range/Units POC Glucose 158 H 158 H 116 H 70-106 mg/dl Sodium Level 146 H 136-145 mmol/L Potassium Level 3.3 L 3.5-5.1 mmol/L Chloride Level 108 H 98-107 mmol/L Carbon Dioxide Level 22 20-31 mmol/L Anion Gap 16 H 5-15 Blood Urea Nitrogen 41 #H 9-23 mg/dL Creatinine 5.35 H 0.700-1.30 mg/dL Glomerular Filtration Rate Calc 14 >90 mL/min BUN/Creatinine Ratio 7.7 L 10.0-20.0 Serum Glucose 108 H 74-106 mg/dL Calcium Level 6.8 L 8.7-10.4 mg/dL Test 09/06/25 10:30 09/06/25 08:50 09/06/25 07:25 09/06/25 06:13 Range/Units POC Glucose 103 109 H 122 H 70-106 mg/dl Blood Gas Specimen Type Arterial Blood Gas Sample Site Right radial Blood Gas Patient Temperature 37.0 Arterial Blood Date Drawn [id number] Arterial Blood pH 7.614 *H 7.350-7.450 Arterial Blood Partial Pressure CO2 21.5 L 35.0-48.0 mmHg Arterial Blood Partial Pressure O2 105.1 83.0-108.0 mmHg Arterial Blood HCO3 21.3 21.0-28.0 mmol/L Arterial Blood Oxygen Saturation 98.0 94.0-98.0 % Arterial Blood Base Excess 0.7 -2.0-3.0 mmol/L Arterial Blood Oxyhemoglobin 96.6 94.0-98.0 % Arterial Blood Carboxyhemoglobin 0.5 0.5-1.5 % Arterial Blood Methemoglobin 0.9 0.0-1.5 % Pablito Test Modified Blood Gas Total Hemoglobin 8.80 L 13.5-17.5 g/dL Blood Gas Set Respiration Rate 26.0 Blood Gas Modality Vent - ac FiO2 % 40.0 Blood Gas Tidal Volume 500.0 Blood Gas PEEP or CPAP 5.0 Blood Gas Critical Value Read Back Yes Blood Gas Notified Whom Citlaly valencia md Blood Gas Notified Time [id number] Blood Gas Notified By [employer] Clerk t whitley Test 09/06/25 06:00 09/06/25 05:56 09/06/25 04:33 09/06/25 02:50 Range/Units SARS-CoV-2 Antigen (Rapid) Negative NEGATIVE POC Glucose 144 H 157 H 192 H 70-106 mg/dl White Blood Count 22.0 H 4.4-10.8 10^3/uL Red Blood Count 2.75 L 4.5-5.90 10^6/uL Hemoglobin 8.1 L 13.5-17.5 g/dL Hematocrit 23.7 #L 41.0-53.0 % Mean Corpuscular Volume 86.2 # 80.0-100.0 fL Mean Corpuscular Hemoglobin 29.5 28.0-32.0 pg Mean Corpuscular Hemoglobin Concent 34.2 32.0-36.0 g/dL Red Cell Distribution Width 14.4 H 11.8-14.3 % Platelet Count 259 140-450 10^3/uL Mean Platelet Volume 6.5 L 6.9-10.8 fL Neutrophils (%) (Auto) 89.0 H 37.0-80.0 % Lymphocytes (%) (Auto) 6.6 L 10.0-50.0 % Monocytes (%) (Auto) 3.9 0.0-12.0 % Eosinophils (%) (Auto) 0.3 0.0-7.0 % Basophils (%) (Auto) 0.2 0.0-2.0 % Neutrophils # (Auto) 19.6 H 1.6-8.6 10 ^3/uL Lymphocytes # (Auto) 1.5 0.4-5.4 10 ^3/uL Monocytes # (Auto) 0.9 0-1.3 10 ^3/uL Eosinophils # (Auto) 0.1 0-0.8 10 ^3/uL Basophils # (Auto) 0 0-0.2 10 ^3/uL Nucleated Red Blood Cells 0.1 % Sodium Level 145 136-145 mmol/L Potassium Level 3.3 L 3.5-5.1 mmol/L Chloride Level 107 98-107 mmol/L Carbon Dioxide Level 19 L 20-31 mmol/L Anion Gap 19 H 5-15 Blood Urea Nitrogen 55 H 9-23 mg/dL Creatinine 5.47 H 0.700-1.30 mg/dL Glomerular Filtration Rate Calc 14 >90 mL/min BUN/Creatinine Ratio 10.1 10.0-20.0 Serum Glucose 181 #H 74-106 mg/dL Calcium Level 6.6 L 8.7-10.4 mg/dL Magnesium Level 1.8 1.6-2.6 mg/dL Total Bilirubin < 0.2 L 0.2-1.0 mg/dL Aspartate Amino Transferase (AST) 25 13-40 U/L Alanine Aminotransferase (ALT) 11 7-40 U/L Alkaline Phosphatase 37 L 46-116 U/L Total Protein 3.9 L 5.7-8.2 g/dL Albumin 1.8 L 3.2-4.8 g/dL Random Vancomycin Level 22.9 H 5-10 ug/mL Test 09/06/25 01:40 09/06/25 00:01 09/05/25 23:08 09/05/25 22:40 Range/Units POC Glucose 206 H 245 H 292 H 70-106 mg/dl Blood Gas Specimen Type Venous Blood Gas Sample Site Vbg - n/a Blood Gas Patient Temperature 37.0 Arterial Blood Date Drawn [id number] Pablito Test N/a Venous Blood pH 7.433 H 7.320-7.430 Venous Blood pCO2 at Patient Temp 23.2 L 38.0-54.0 mmHg Venous Blood pO2 at Patient Temp 69.6 H 23.0-48.0 mmHg Venous Blood HCO3 15.2 L 22.0-29.0 mmol/L Venous Blood Base Excess -6.9 L -2.0-3.0 mmol/L Blood Gas Set Respiration Rate 26.0 Blood Gas Modality Vent - ac FiO2 % 40.0 Blood Gas Tidal Volume 500.0 Blood Gas PEEP or CPAP 5.0 Specimen Drawn By Abdirahman orozco Test 09/05/25 21:47 09/05/25 21:07 09/05/25 19:45 09/05/25 19:18 Range/Units Sodium Level 144 136-145 mmol/L Potassium Level 3.5 3.5-5.1 mmol/L Chloride Level 105 98-107 mmol/L Carbon Dioxide Level 15 L 20-31 mmol/L Anion Gap 24 H 5-15 Blood Urea Nitrogen 54 H 9-23 mg/dL Creatinine 5.45 H 0.700-1.30 mg/dL Glomerular Filtration Rate Calc 14 >90 mL/min BUN/Creatinine Ratio 9.9 L 10.0-20.0 Serum Glucose 322 H 74-106 mg/dL Calcium Level 6.8 L 8.7-10.4 mg/dL POC Glucose 355 H 369 H 70-106 mg/dl Hemoglobin 9.2 #L 13.5-17.5 g/dL Hematocrit 28.8 #L 41.0-53.0 % Test 09/05/25 19:10 09/05/25 18:03 09/05/25 17:11 09/05/25 16:55 Range/Units POC Glucose 344 H 360 H 70-106 mg/dl Sodium Level 143 136-145 mmol/L Potassium Level 4.1 3.5-5.1 mmol/L Chloride Level 106 98-107 mmol/L Carbon Dioxide Level 10 L 20-31 mmol/L Anion Gap 27 H 5-15 Blood Urea Nitrogen 53 H 9-23 mg/dL Creatinine 5.40 H 0.700-1.30 mg/dL Glomerular Filtration Rate Calc 14 >90 mL/min BUN/Creatinine Ratio 9.8 L 10.0-20.0 Serum Glucose 353 H 74-106 mg/dL Calcium Level 6.7 L 8.7-10.4 mg/dL Lactic Acid Level 1.1 0.4-2.0 mmol/L Test 09/05/25 15:40 09/05/25 15:01 09/05/25 13:41 09/05/25 13:32 Range/Units Urine Color Light-brown Yellow Urine Clarity Ex.turbid Clear Urine pH 6.0 5.0-9.0 Urine Specific [place] 1.013 1.001-1.035 Urine Protein 2+ H Negative Urine Ketones 2+ H Negative Urine Blood 2+ H Negative /uL Urine Nitrite Negative Negative Urine Bilirubin Negative Negative Urine Urobilinogen Normal Negative mg/dL Urine Leukocyte Esterase 3+ Negative /uL Urine RBC 1374 0 - 3 /hpf Urine WBC Clumps Present None Seen /hpf Urine Microscopic WBC 429 H 0-3 /HPF Urine Squamous Epithelial Cells Mod <5 /hpf Urine Bacteria None seen None Seen /hpf Urine Yeast (Budding) Loaded None Seen /hpf Urine Glucose 3+ H Normal mg/dL Urine Opiates Screen Pos NEGATIVE Urine Fentanyl Screen Pos NEGATIVE Urine Barbiturates Screen Neg NEGATIVE Urine Phencyclidine Screen Neg NEGATIVE Urine Amphetamines Screen Neg NEGATIVE Urine Benzodiazepines Screen Neg NEGATIVE Urine Cocaine Screen Neg NEGATIVE Urine Cannabinoids Screen Neg NEGATIVE POC Glucose 320 H 333 H 70-106 mg/dl Sodium Level 143 136-145 mmol/L Potassium Level 4.1 3.5-5.1 mmol/L Chloride Level 105 98-107 mmol/L Carbon Dioxide Level < 10 *L 20-31 mmol/L Anion Gap 28.26067 H 5-15 Blood Urea Nitrogen 52 #H 9-23 mg/dL Creatinine 5.43 H 0.700-1.30 mg/dL Glomerular Filtration Rate Calc 14 >90 mL/min BUN/Creatinine Ratio 9.6 L 10.0-20.0 Serum Glucose 368 H 74-106 mg/dL Calcium Level 7.1 L 8.7-10.4 mg/dL Test 09/05/25 12:06 09/05/25 11:20 09/05/25 10:30 09/05/25 10:03 Range/Units POC Glucose 362 H 336 H 70-106 mg/dl Sodium Level 141 136-145 mmol/L Potassium Level 4.3 3.5-5.1 mmol/L Chloride Level 104 98-107 mmol/L Carbon Dioxide Level < 10 *L 20-31 mmol/L Anion Gap 27.75547 H 5-15 Blood Urea Nitrogen 39 H 9-23 mg/dL Creatinine 5.43 H 0.700-1.30 mg/dL Glomerular Filtration Rate Calc 14 >90 mL/min BUN/Creatinine Ratio 7.2 L 10.0-20.0 Serum Glucose 368 H 74-106 mg/dL Calcium Level 7.3 L 8.7-10.4 mg/dL Blood Gas Specimen Type Arterial Blood Gas Sample Site Right radial Blood Gas Patient Temperature 37.0 Arterial Blood Date Drawn [id number] Arterial Blood pH 7.066 *L 7.350-7.450 Arterial Blood Partial Pressure CO2 20.7 L 35.0-48.0 mmHg Arterial Blood Partial Pressure O2 163.9 H 83.0-108.0 mmHg Arterial Blood HCO3 5.8 L 21.0-28.0 mmol/L Arterial Blood Oxygen Saturation 98.5 H 94.0-98.0 % Arterial Blood Base Excess -22.7 L -2.0-3.0 mmol/L Arterial Blood Oxyhemoglobin 97.6 94.0-98.0 % Arterial Blood Carboxyhemoglobin 0.3 L 0.5-1.5 % Arterial Blood Methemoglobin 0.6 0.0-1.5 % Pablito Test Modified Blood Gas Total Hemoglobin 10.50 L 13.5-17.5 g/dL Blood Gas Set Respiration Rate 22.0 Blood Gas Modality Vent - ac FiO2 % 50.0 Blood Gas Tidal Volume 500.0 Blood Gas PEEP or CPAP 5.0 Blood Gas Critical Value Read Back Yes Blood Gas Notified Whom Josselin land md Blood Gas Notified Time [id number] Blood Gas Notified By [employer] Clerk t whitley Test 09/05/25 08:15 09/05/25 07:34 09/05/25 06:17 09/05/25 03:19 Range/Units Blood Gas Specimen Type Arterial Blood Gas Sample Site Right radial Blood Gas Patient Temperature 37.0 Arterial Blood Date Drawn [id number] Arterial Blood pH 7.029 *L 7.350-7.450 Arterial Blood Partial Pressure CO2 13.2 *L 35.0-48.0 mmHg Arterial Blood Partial Pressure O2 163.5 H 83.0-108.0 mmHg Arterial Blood HCO3 3.4 L 21.0-28.0 mmol/L Arterial Blood Oxygen Saturation 98.4 H 94.0-98.0 % Arterial Blood Base Excess -25.4 L -2.0-3.0 mmol/L Arterial Blood Oxyhemoglobin 97.9 94.0-98.0 % Arterial Blood Carboxyhemoglobin 0.1 L 0.5-1.5 % Arterial Blood Methemoglobin 0.4 0.0-1.5 % Pablito Test Yes Blood Gas Total Hemoglobin 9.40 L 13.5-17.5 g/dL Blood Gas Liter Flow 3.00 Blood Gas Modality Nasal cannula FiO2 % 32.0 Blood Gas Critical Value Read Back yes Blood Gas Notified Whom emery liu md Blood Gas Notified Time [id number] Blood Gas Notified By roadway technician anny arreaga POC Glucose 336 H 70-106 mg/dl White Blood Count 24.9 H 4.4-10.8 10^3/uL Red Blood Count 2.32 L 4.5-5.90 10^6/uL Hemoglobin 6.7 *L 13.5-17.5 g/dL Hematocrit 22.6 L 41.0-53.0 % Mean Corpuscular Volume 97.2 80.0-100.0 fL Mean Corpuscular Hemoglobin 28.7 28.0-32.0 pg Mean Corpuscular Hemoglobin Concent 29.6 L 32.0-36.0 g/dL Red Cell Distribution Width 16.2 H 11.8-14.3 % Platelet Count 283 140-450 10^3/uL Mean Platelet Volume 6.6 L 6.9-10.8 fL Neutrophils (%) (Auto) 93.8 H 37.0-80.0 % Lymphocytes (%) (Auto) 5.0 L 10.0-50.0 % Monocytes (%) (Auto) 1.0 0.0-12.0 % Eosinophils (%) (Auto) 0.0 0.0-7.0 % Basophils (%) (Auto) 0.2 0.0-2.0 % Neutrophils # (Auto) 23.3 H 1.6-8.6 10 ^3/uL Lymphocytes # (Auto) 1.2 0.4-5.4 10 ^3/uL Monocytes # (Auto) 0.3 0-1.3 10 ^3/uL Eosinophils # (Auto) 0 0-0.8 10 ^3/uL Basophils # (Auto) 0.1 0-0.2 10 ^3/uL Nucleated Red Blood Cells 0.0 % Sodium Level 141 136-145 mmol/L Potassium Level 5.0 3.5-5.1 mmol/L Chloride Level 104 98-107 mmol/L Carbon Dioxide Level < 10 *L 20-31 mmol/L Anion Gap 27.65271 H 5-15 Blood Urea Nitrogen 42 H 9-23 mg/dL Creatinine 5.47 H 0.700-1.30 mg/dL Glomerular Filtration Rate Calc 14 >90 mL/min BUN/Creatinine Ratio 7.7 L 10.0-20.0 Serum Glucose 395 H 74-106 mg/dL Calcium Level 7.2 L 8.7-10.4 mg/dL Total Bilirubin < 0.2 L 0.2-1.0 mg/dL Aspartate Amino Transferase (AST) 23 13-40 U/L Alanine Aminotransferase (ALT) < 9 7-40 U/L Alkaline Phosphatase 39 L 46-116 U/L Total Protein 4.7 L 5.7-8.2 g/dL Albumin 2.3 L 3.2-4.8 g/dL Lactic Acid Level 3.2 *H 0.4-2.0 mmol/L Test 09/05/25 03:10 09/05/25 00:53 09/05/25 00:50 Range/Units Blood Gas Specimen Type Arterial Blood Gas Sample Site Left radial Blood Gas Patient Temperature 37.0 Arterial Blood Date Drawn [id number] Arterial Blood pH 7.153 *L 7.350-7.450 Arterial Blood Partial Pressure CO2 < 12.4 *L 35.0-48.0 mmHg Arterial Blood Partial Pressure O2 139.7 H 83.0-108.0 mmHg Arterial Blood Oxygen Saturation 98.1 H 94.0-98.0 % Arterial Blood Oxyhemoglobin 97.3 94.0-98.0 % Arterial Blood Carboxyhemoglobin 0.2 L 0.5-1.5 % Arterial Blood Methemoglobin 0.6 0.0-1.5 % Pablito Test Yes Blood Gas Total Hemoglobin 8.70 L 13.5-17.5 g/dL Blood Gas Modality Room air FiO2 % 21.0 Blood Gas Critical Value Read Back Yes Blood Gas Notified Whom danna Montelongo Blood Gas Notified Time [id number] Blood Gas Notified By [employer] Clerk evin ross POC Glucose 343 H 70-106 mg/dl White Blood Count 26.5 H 4.4-10.8 10^3/uL Red Blood Count 2.45 L 4.5-5.90 10^6/uL Hemoglobin 6.9 *L 13.5-17.5 g/dL Hematocrit 24.5 L 41.0-53.0 % Mean Corpuscular Volume 99.9 80.0-100.0 fL Mean Corpuscular Hemoglobin 28.3 28.0-32.0 pg Mean Corpuscular Hemoglobin Concent 28.3 L 32.0-36.0 g/dL Red Cell Distribution Width 16.5 H 11.8-14.3 % Platelet Count 351 140-450 10^3/uL Mean Platelet Volume 6.8 L 6.9-10.8 fL Neutrophils (%) (Auto) 37.0-80.0 % Lymphocytes (%) (Auto) 10.0-50.0 % Monocytes (%) (Auto) 0.0-12.0 % Basophils (%) (Auto) 0.0-2.0 % Neutrophils # (Auto) 1.6-8.6 10 ^3/uL Lymphocytes # (Auto) 0.4-5.4 10 ^3/uL Monocytes # (Auto) 0-1.3 10 ^3/uL Differential Total Cells Counted 100.0 100 Neutrophils % (Manual) 90 H 37.0-80.0 Band Neutrophils % (Manual) 2 Lymphocytes % (Manual) 4 L 10.0-50.0 Monocytes % (Manual) 3 0-12 Eosinophils % (Manual) 0 0-7 Basophils % (Manual) 0 0.0-2.0 Metamyelocytes % (manual) 0 Myelocytes % (Manual) 1 Promyelocytes % (Manual) 0 Blast Cells % (Manual) 0 Reactive Lymphocytes 0 Platelet Estimate Adequate Macrocytosis Slight Prothrombin Time 12.6 H 9.3-11.8 sec Prothrombin Time INR 1.21 H 0.9-1.15 Activated Partial Thromboplast Time 33.1 24.5-34.5 SEC Sodium Level 137 136-145 mmol/L Potassium Level 5.3 H 3.5-5.1 mmol/L Chloride Level 102 98-107 mmol/L Carbon Dioxide Level < 10 *L 20-31 mmol/L Anion Gap 25.11571 H 5-15 Blood Urea Nitrogen 39 H 9-23 mg/dL Creatinine 5.60 H 0.700-1.30 mg/dL Glomerular Filtration Rate Calc 13 >90 mL/min BUN/Creatinine Ratio 7.0 L 10.0-20.0 Serum Glucose 370 H 74-106 mg/dL Serum Osmolality 329 H 278-298 mOsm/kg Lactic Acid Level 2.4 *H 0.4-2.0 mmol/L Calcium Level 7.7 L 8.7-10.4 mg/dL Phosphorus Level 8.3 H 2.4-5.1 mg/dL Magnesium Level 2.2 1.6-2.6 mg/dL Total Bilirubin < 0.2 L 0.2-1.0 mg/dL Aspartate Amino Transferase (AST) 19 13-40 U/L Alanine Aminotransferase (ALT) 10 7-40 U/L Alkaline Phosphatase 47 46-116 U/L Ammonia 55 H 11-32 umol/L Total Protein 5.3 L 5.7-8.2 g/dL Albumin 2.3 L 3.2-4.8 g/dL Beta-Hydroxybutyric Acid > 4.500 H < 0.4 mmol/L Plasma/Serum Blood Alcohol < 3.0 <10 mg/dL Microbiology Date/Time Source Procedure Growth Status 09/05/25 15:29 Nose MRSA Screen - Final Complete Assessment Acute kidney injury in the setting of shock/DKA Diabetic ketoacidosis Ventilator-dependent hypoxic respiratory failure Severe metabolic acidosis Shock Anemia Plan Given severe acidosis ordered D5 with three amps of sodium bicarb Insulin drip Strict Is&Os Kidney ultrasound High complexity guarded prognosis Plan discussed with: Other ARTURO LAL MD Sep 05, 2025 12:50
[2025-09-05] MEDS: PANTOPRAZOLE 40 MG/10 ML VIAL INJ IV ONE (13:30)
[2025-09-05 14:08] LABS: Chloride 105 mmol/L (98-107); Potassium 4.1 mmol/L (3.5-5.1); Sodium 143 mmol/L (136-145)
[2025-09-05 14:09] LABS: Anion Gap 28.00001 (5-15)
[2025-09-05 14:12] LABS: Calcium 7.1 mg/dL (8.7-10.4)
[2025-09-05] MEDS: SODIUM BICARB 50mEq/50ml Vial 150 ML in D5W 5% 1,000 ML IV SCH (14:13)
[2025-09-05 14:14] LABS: BUN/Creatinine Ratio 9.6 (10.0-20.0)
[2025-09-05 14:15] LABS: Blood Urea Nitrogen 52 mg/dL (9-23); Carbon Dioxide < 10 mmol/L (20-31); Glucose 368 mg/dL (74-106)
[2025-09-05] MEDS: CEFEPIME 1GM/50ML 50 ML IV SCH (14:51)
--- NOTE | 2025-09-05 15:31 | DVHPNRES ---
Progress Note Date Seen: Sep 05, 2025 Resident Creating Document: LEE SIMS RESIDENT Medical Necessity Reason Pt with a Central, PICC or Fol: Yes The following are medically ne: Central Line Subjective Review of Systems History of Present Illness The patient is a 30-year-old male with past medical history of diabetes mellitus and hypertension who presented to [facility] ED for evaluation of altered level of consciousness. Patient was just discharged at [facility] 3 days ago, was prescribed indications however patient was noncompliant with medication regimen. Patient was noted by family members acting altered and and confused, so EMS were called. Blood sugar on scene was 396, with a blood pressure 75/40 mm Hg and was given IV fluid 1 L normal saline EN route to our facility ED. Patient was seen and evaluated in the ED, laboratory data shows WBC 26.5, hemoglobin 6.9, hematocrit 24.5, platelets 351, sodium 137, potassium 5.3, BUN 39, creatinine 5.60, GFR 13, glucose 370, anion gap 25.001, acetone > 4.500, calcium 7.7, magnesium 2.2, phosphorus 8.3, ammonia 55, albumin 2.3, protein 5.3, lactic acid 2.4, blood pressure 75/40 trending up to 95/47, heart rate 88, temperature 98.1 F, O2 saturation 99% on room air. Chest x-ray show no acute cardiopulmonary abnormality. Patient was started on insulin drip, please see medication orders section in the computer. On my assessment, patient remains altered, no diaphoresis, shortness of breaths, no diarrhea, nausea, vomiting, fever, no chills. Patient was admitted for further evaluation and medical management. Past Medical History Hypertension, DM Past Surgical History Right BKA Interval events 09/05/25 pt seen and examined at bedside currently sedated and intubated 1 unit of PRBC ordered on bicarb drip. Family was called to update about the patient condition and get more history. Family gave a poor history as per family he was recently in [facility] infection as he was sleepy for few days. His neice had an infection. In the [facility] he was found to have an infection and was discharged on meds but patient didnt take them as they were moving to a different location Family doesnt know what infection he had no other significant history could be collected code status : FULL CODE Objective vital signs Vital Sign Date Time Temp Pulse Resp B/P (MAP) Pulse Ox O2 Delivery O2 Flow Rate FiO2 09/05/25 14:00 91.0 88 26 119/71 91.0 09/05/25 13:45 100 40 09/05/25 09:00 Room Air* 0 medications Current Medications Medications Dose Ordered Sig/Justin Route Start Time Stop Time Status Last Admin Dose Admin Cefepime HCl 50 ml @ 12.5 mls/hr Q12H IV 09/05/25 15:00 09/05/25 14:51 12.5 MLS/HR Insulin Human (Reg)/Sodium Chloride 100 ml @ 0.5 mls/hr Q24H IV 09/05/25 03:15 09/05/25 03:15 6 MLS/HR Dextrose 50 ml UD PRN IV 09/05/25 03:15 Diagnostic Test (Pha) 1 strip Q90MIN 09/05/25 04:30 09/05/25 15:03 1 STRIP Vancomycin HCl 0 ml @ 0 mls/hr PER PHARMACY IV 09/05/25 05:30 Acetaminophen 650 mg Q6HP PRN PO 09/05/25 05:30 Lactulose 30 ml Q6HR PO 09/05/25 06:00 Fentanyl Citrate 250 ml @ 2.5 mls/hr Q24H IV 09/05/25 10:15 09/05/25 09:30 2.5 MLS/HR Sodium Bicarbonate 150 ml/Dextrose 1,150 ml @ 100 mls/hr [id number] IV 09/05/25 12:45 09/06/25 00:30 09/05/25 14:13 100 MLS/HR Pantoprazole Sodium 40 mg DAILY IV 09/06/25 10:00 Examination POCUS done at bedside IVC collapsed Examination General Appearance: sedated and intubated HEENT: EOMI Respiratory: on mech vent Cardiovascular: Regular rate, Normal S1, Normal S2 Abdominal: Normal bowel sounds Extremities: Right BKA Skin: No rashes, No breakdown Neuro: sedated and intubate laboratory and microbiology Laboratory Tests 09/05/25 13:41 09/05/25 06:17 Test 09/05/25 13:41 Range/Units Serum Glucose 368 H 74-106 mg/dL Labs and/or images reviewed: Labs reviewed by me, Image(s) reviewed by me Problem List/Assessment/Plan Problem List/Assessment/Plan Assessment and Plan Neurology # Metabolic encephalopathy due to sepsis/DKA -t/t the underlying cause -uds pending # Sedation -on fentanyl Cardiology Resp # Acute hypoxic Resp failure likely due to sepsis, on [facility] vent -increase RR to 26 Nephrology # RADHA on CKD -IV fluids -Nephrology on board # Metabolic acidosis with partiallly compensatory resp alkalosis -repeat ABG Endocrine # DKA -Insulin drip Hem/onc # Severe anemia requiring Blood transfusion -1 unit of PRBC # coagulopathy due to sepsis -monitor # hyperkalemia -monitor Infectious disease # Sepsis ?source -IV antibiotics -Pancultures GI # PUD prophylaxis -IV protonix Lines Right femoral CVC Drips fent bicarb Nutrition will keep NPO because of DKA resume diet once out of DKA Interval events 09/05/25 pt seen and examined at bedside currently sedated and intubated 1 unit of PRBC ordered on bicarb drip. Family was called to update about the patient condition and get more history. Family gave a poor history as per family he was recently in [facility] infection as he was sleepy for few days. His neice had an infection. In the [facility] he was found to have an infection and was discharged on meds but patient didnt take them as they were moving to a different location Family doesnt know what infection he had no other significant history could be collected code status : FULL CODE Code status discussed with the family for >21 min, full code case discussion with dr Amezcua Plan discussed with: Patient, Other My Orders My Orders Orders - LEE SIMS Procedure Category Date Status Time Lactic Acid W/ Reflex LAB 09/05/25 Logged Order 13:25 Pantoprazole PHA 09/06/25 In Process (Protonix) 10:00 Mrsa Screen RASHEL 09/05/25 Logged 13:28 Covid19 Antigen [place] LAB 09/05/25 Logged Rapid Influenza A&B LAB 09/05/25 Logged 13:28 CC Plasma Assessment Blood Product Administration S: [id number] LEE SIMS RESIDENT Sep 05, 2025 15:30
[2025-09-05 16:17] LABS: Urine Budding Yeast LOADED /hpf (None Seen); Urine Protein, UAD 2+ (Negative); Urine WBC Clumps PRESENT /hpf (None Seen)
[2025-09-05 16:24] LABS: Opiate Scree,Urine Pos (NEGATIVE)
[2025-09-05 16:25] LABS: Amphetamine Screen, Urine Neg (NEGATIVE); Barbiturate Scree,Urine Neg (NEGATIVE); Benzodiazephine Screen, Urine Neg (NEGATIVE); Cannabinoid Screen, Urine Neg (NEGATIVE); Cocaine Screen, Urine Neg (NEGATIVE); Phencyclidine Screen, Urine Neg (NEGATIVE)
[2025-09-05 18:31] LABS: Chloride 106 mmol/L (98-107); Potassium 4.1 mmol/L (3.5-5.1); Sodium 143 mmol/L (136-145)
[2025-09-05 18:32] LABS: Anion Gap 27 (5-15)
[2025-09-05 18:37] LABS: BUN/Creatinine Ratio 9.8 (10.0-20.0)
[2025-09-05 18:46] LABS: Blood Urea Nitrogen 53 mg/dL (9-23); Calcium 6.7 mg/dL (8.7-10.4); Glucose 353 mg/dL (74-106)
[2025-09-05 18:48] LABS: Carbon Dioxide 10 mmol/L (20-31)
[2025-09-05] MEDS: MEROPENEM 500MG IVPB 50 ML IV ONE (19:40)
[2025-09-05 20:27] LABS: Hematocrit 28.8 % (41.0-53.0); Hemoglobin 9.2 g/dL (13.5-17.5)
[2025-09-05] MEDS: MEROPENEM 500MG IVPB 50 ML IV SCH (21:30)
[2025-09-05 22:55] LABS: Chloride 105 mmol/L (98-107); Sodium 144 mmol/L (136-145)
[2025-09-05 22:56] LABS: Anion Gap 24 (5-15)
[2025-09-05 22:59] LABS: Calcium 6.8 mg/dL (8.7-10.4); Carbon Dioxide 15 mmol/L (20-31); Potassium 3.5 mmol/L (3.5-5.1)
[2025-09-05 23:01] LABS: BUN/Creatinine Ratio 9.9 (10.0-20.0)
[2025-09-05 23:06] LABS: Blood Urea Nitrogen 54 mg/dL (9-23); Glucose 322 mg/dL (74-106)
[2025-09-05] MEDS: PROPOFOL 100 ML IV ONE (23:59)
[2025-09-06] VITALS (103 sets, daily range): BP systolic 83–136; BP diastolic 39–84; PULSE 68–98; RESP 15–26; TEMP 95.9–98.2; O2SAT 97–100
[2025-09-06] MEDS: POTASSIUM CHL 20MEQ/100ML 100 ML IV ONE ×2 (00:04→06:08)
[2025-09-06] MEDS: PROPOFOL 100 ML IV SCH (00:05)
[2025-09-06] MEDS: SODIUM BICARB 50mEq/50ml Vial 75 ML in SOD CHL 0.45% 1,000 ML IV ONE (00:06)
[2025-09-06] MEDS: MIDAZOLAM DRIP 100 mg/100mL NS 100 ML IV SCH (02:12)
[2025-09-06 04:41] LABS: Hematocrit 23.7 % (41.0-53.0); Hemoglobin 8.1 g/dL (13.5-17.5); Mean Corpuscular Hemoglobin 29.5 pg (28.0-32.0); Mean Corpuscular Volume 86.2 fL (80.0-100.0); Nucleated Red Blood Cells % 0.1 %
[2025-09-06 05:00] LABS: Alanine Aminotransferase 11 U/L (7-40); Anion Gap 19 (5-15); BUN/Creatinine Ratio 10.1 (10.0-20.0); Magnesium 1.8 mg/dL (1.6-2.6)
[2025-09-06 05:01] LABS: Albumin 1.8 g/dL (3.2-4.8); Alkaline Phosphatase 37 U/L (46-116); Bilirubin, Total < 0.2 mg/dL (0.2-1.0); Blood Urea Nitrogen 55 mg/dL (9-23); Calcium 6.6 mg/dL (8.7-10.4); Carbon Dioxide 19 mmol/L (20-31); Chloride 107 mmol/L (98-107); Glucose 181 mg/dL (74-106); Potassium 3.3 mmol/L (3.5-5.1); Sodium 145 mmol/L (136-145); Total Protein 3.9 g/dL (5.7-8.2)
[2025-09-06 06:46] LABS: Base Excess 0.7 mmol/L (-2.0-3.0)
--- NOTE | 2025-09-06 06:46 | DVH ---
MEDICAL RECORDS NUMBER: [id number] PROCEDURE: XY CHEST PORTABLE DATE: 09/06/2025 05:18 AM HISTORY: [facility] vent Views:1 COMPARISON: XY CHEST PORTABLE on DOS: 09/05/25, XY CHEST PORTABLE on DOS: 09/05/25, XY CHEST XRAY 1 VIEW on DOS: 02/27/25, XY CHEST PORTABLE on DOS: 11/23/24, XY CHEST PORTABLE on DOS: 11/20/24 FINDINGS/IMPRESSION: Lungs: Allowing for overlying soft tissues, the lungs appear grossly clear. Mediastinum: Mediastinal structures appear unremarkable.A endotracheal tube is seen with the tip projecting approximately 2 cm above the dianna.. Skeletal: The skeletal structures appear unremarkable.
[2025-09-06] MEDS ORDERED: INSULIN DRIP 100 UNIT/100ML 100 ML IV SCH (08:00)
[2025-09-06] MEDS: PANTOPRAZOLE 40 MG/10 ML VIAL INJ IV SCH (09:44)
[2025-09-06] MEDS: INSULIN DRIP 100 UNIT/100ML 100 ML IV SCH ×4 (10:30→23:15)
[2025-09-06] MEDS: FUROSEMIDE 40 MG/4 ML VIAL IV ONE (11:00)
[2025-09-06 11:11] LABS: COVID19 ANTIGEN SOFIA FIA NEGATIVE (NEGATIVE)
[2025-09-06 11:39] LABS: Anion Gap 16 (5-15); Carbon Dioxide 22 mmol/L (20-31); Chloride 108 mmol/L (98-107); Potassium 3.3 mmol/L (3.5-5.1); Sodium 146 mmol/L (136-145)
[2025-09-06 11:40] LABS: Calcium 6.8 mg/dL (8.7-10.4)
[2025-09-06 11:45] LABS: BUN/Creatinine Ratio 7.7 (10.0-20.0)
[2025-09-06 11:47] LABS: Blood Urea Nitrogen 41 mg/dL (9-23); Glucose 108 mg/dL (74-106)
--- NOTE | 2025-09-06 12:44 | DVHPN2 ---
Subjective Still intubated and sedated Reviewed: H&P Changes from previous H/P or p: No Changes Eyes: No Pain, No Vision change, No Conjunctivae inflammation, No Eyelid inflammation, No Other, No Redness ENT: No Ear pain, No Ear discharge, No Nose pain, No Nose discharge, No Nose congestion, No Mouth pain, No Mouth swelling, No Throat pain, No Throat swelling, No Other Cardiovascular: No Chest Pain, No Palpitations, No Orthopnea, No Paroxysmal Noc. Dyspnea, No Edema, No Lt Headedness; Other (Hypotension) Respiratory: No Cough, No Dry, No Shortness of breath, No SOB with excertion, No Wheezing, No Hemoptysis, No Pleuritic Pain, No Sputum, No Other Gastrointestinal: No Nausea, No Vomiting, No Abdominal Pain, No Diarrhea, No Constipation, No Melena, No Hematochezia, No Other Genitourinary: No Dysuria, No Frequency, No Incontinence, No Hematuria, No Retention, No Other Musculoskeletal: No other, No neck pain, No shoulder pain, No arm pain, No back pain, No hand pain, No leg pain, No foot pain Skin: No Rash, No Lesions, No Jaundice, No Bruising, No Other Objective Vitals Vital Signs Date Time Temp Pulse Resp B/P (MAP) Pulse Ox O2 Delivery O2 Flow Rate FiO2 09/06/25 11:26 78 26 114/71 (85) 98 30 09/06/25 11:00 97.7 207.9 09/06/25 10:00 Mechanical Ventilator+ 09/05/25 09:00 0 Intake/Output Intake and Output 09/06/25 07:00 Intake Total 2979.310 ml Output Total 375 ml Balance 2604.310 ml Intake Oral 0 ml IV Total 1179.310 ml Tube Feeding 0 ml Blood Product 1800 ml Other 0 ml Output Urine Total 375 ml Stool Total 0 ml Urine/Stool Mix 0 ml Gastric Drainage Total 0 ml Emesis 0 ml Chest Tube Drainage Total 0 ml Drainage Total 0 ml Other 0 ml General Appearance: Other (intubated and sedated) Lungs: Clear to auscultation Cardiovascular: Regular rate, Normal S1, Normal S2 Abdomen: Normal bowel sounds Medications Current Medications Medications Dose Ordered Sig/Justin Route Start Time Stop Time Status Last Admin Dose Admin Dextrose 50 ml UD PRN IV 09/05/25 03:15 Diagnostic Test (Pha) 1 strip Q90MIN 09/05/25 04:30 09/06/25 12:26 1 STRIP Vancomycin HCl 0 ml @ 0 mls/hr PER PHARMACY IV 09/05/25 05:30 Acetaminophen 650 mg Q6HP PRN PO 09/05/25 05:30 Lactulose 30 ml Q6HR PO 09/05/25 06:00 Fentanyl Citrate 250 ml @ 2.5 mls/hr Q24H IV 09/05/25 10:15 09/06/25 06:10 25 MLS/HR Pantoprazole Sodium 40 mg DAILY IV 09/06/25 10:00 09/06/25 09:44 40 MG Meropenem 50 ml @ 17 mls/hr Q12HR IV 09/05/25 22:00 09/06/25 10:01 17 MLS/HR Propofol 100 ml @ 2.727 mls/ hr Q24H IV 09/05/25 23:45 09/06/25 03:41 19.089 MLS/HR Midazolam HCl 100 ml @ 1 mls/hr Q24H IV 09/06/25 02:00 09/06/25 02:12 1 MLS/HR Insulin Human (Reg)/Sodium Chloride 100 ml @ 0.5 mls/hr Q24H IV 09/06/25 09:00 Laboratory Results Laboratory Tests 09/06/25 02:50 09/06/25 10:45 Chemistry Test 09/05/25 13:41 09/05/25 18:03 09/05/25 21:47 09/06/25 02:50 Calcium Level 7.1 mg/dL (8.7-10.4) L 6.7 mg/dL (8.7-10.4) L 6.8 mg/dL (8.7-10.4) L 6.6 mg/dL (8.7-10.4) L Albumin 1.8 g/dL (3.2-4.8) L Magnesium Level 1.8 mg/dL (1.6-2.6) Total Protein 3.9 g/dL (5.7-8.2) L Test 09/06/25 10:45 Calcium Level 6.8 mg/dL (8.7-10.4) L LFT Test 09/06/25 02:50 Alanine Aminotransferase (ALT) 11 U/L (7-40) Alkaline Phosphatase 37 U/L (46-116) L Aspartate Amino Transferase (AST) 25 U/L (13-40) Total Bilirubin < 0.2 mg/dL (0.2-1.0) L Urinalysis Test 09/05/25 15:40 Urine Color Light-brown (Yellow) Urine Clarity Ex.turbid (Clear) Urine pH 6.0 (5.0-9.0) Urine Specific [place] 1.013 (1.001-1.035) Urine Protein 2+ (Negative) H Urine Ketones 2+ (Negative) H Urine Blood 2+ /uL (Negative) H Urine Nitrite Negative (Negative) Urine Bilirubin Negative (Negative) Urine Urobilinogen Normal mg/dL (Negative) Urine Leukocyte Esterase 3+ /uL (Negative) Urine RBC 1374 /hpf (0 - 3) Urine WBC Clumps Present /hpf (None Seen) Urine Microscopic WBC 429 /HPF (0-3) H Urine Squamous Epithelial Cells Mod /hpf (<5) Urine Bacteria None seen /hpf (None Seen) Urine Yeast (Budding) Loaded /hpf (None Seen) Urine Glucose 3+ mg/dL (Normal) H Blood Gas Results Test 09/05/25 23:08 09/06/25 06:13 FiO2 % 40.0 40.0 Arterial Blood pH 7.614 (7.350-7.450) Microbiology Microbiology Date/Time Source Procedure Growth Status 09/05/25 15:40 Urine - Wall Port Urine Culture - Preliminary No growth Resulted 09/05/25 09:35 Sputum Gram Stain Pending Resulted 09/05/25 09:35 Sputum Respiratory Culture - Preliminary No growth Resulted 09/05/25 01:08 Blood Blood Culture - Preliminary NO GROWTH AFTER 24 HOURS OF INCUBATION. Resulted Assessment/Plan Assessment/Plan Diabetes mellitus with ketoacidosis Acute renal failure Electrolyte imbalance Sepsis, unspecified organisms Symptomatic anemia Elevated lactic acid level Altered level of consciousness Wean off insulin drip Monitor bmp nephrology on consult recommended IV lasix continue mechanical intubation Critical care time 79 minutes Plan discussed with: Other (nurse) My Orders Orders - RITA KRUSE MD Procedure Category Date Status Time Apply Z-Guard JOSH 09/05/25 In Process 13:00 * Dietary Consult CONS 09/05/25 Transmitted 17:18 * Wound Consult CONS 09/05/25 Transmitted Date of Service: Sep 06, 2025 Billing Provider: RITA KRUSE MD Common Visit Codes: [id number] CARE 30-74 MIN RITA KRUSE MD Sep 06, 2025 12:44
--- NOTE | 2025-09-06 16:40 | DVHPN2 ---
Progress Note Date Seen: Sep 06, 2025 Medical Necessity Reason Pt with a Central, PICC or Fol: Yes The following are medically ne: Central Line Subjective Patient reports: Other Review of Systems: Deferred Objective vital signs Vital Sign Date Time Temp Pulse Resp B/P (MAP) Pulse Ox O2 Delivery O2 Flow Rate FiO2 09/06/25 15:57 78 26 123/78 (93) 98 30 09/06/25 12:45 97.5 207.5 09/06/25 12:00 Mechanical Ventilator+ 09/05/25 09:00 0 Total Intake and Output 09/05/25 09/05/25 09/06/25 15:00 23:00 07:00 Intake Total 1157.5 ml 982.0 ml 839.810 ml Output Total 0 ml 175 ml 200 ml Balance 1157.5 ml 807.0 ml 639.810 ml medications Current Medications Medications Dose Ordered Sig/Justin Route Start Time Stop Time Status Last Admin Dose Admin Dextrose 50 ml UD PRN IV 09/05/25 03:15 Diagnostic Test (Pha) 1 strip Q90MIN 09/05/25 04:30 09/06/25 15:18 Vancomycin HCl 0 ml @ 0 mls/hr PER PHARMACY IV 09/05/25 05:30 Acetaminophen 650 mg Q6HP PRN PO 09/05/25 05:30 Lactulose 30 ml Q6HR PO 09/05/25 06:00 09/06/25 12:00 Fentanyl Citrate 250 ml @ 2.5 mls/hr Q24H IV 09/05/25 10:15 09/06/25 15:19 Pantoprazole Sodium 40 mg DAILY IV 09/06/25 10:00 09/06/25 09:44 Meropenem 50 ml @ 17 mls/hr Q12HR IV 09/05/25 22:00 09/06/25 10:01 Propofol 100 ml @ 2.727 mls/ hr Q24H IV 09/05/25 23:45 09/06/25 03:41 Midazolam HCl 100 ml @ 1 mls/hr Q24H IV 09/06/25 02:00 09/06/25 02:12 Insulin Human (Reg)/Sodium Chloride 100 ml @ 0.5 mls/hr Q24H IV 09/06/25 09:00 09/06/25 14:01 Dextrose/Sodium Chloride 1,000 ml @ 50 mls/hr Q20H IV 09/06/25 16:30 UNV Examination: GENERAL:Abnormal, MSK:Abnormal (bka), SKIN:Abnormal, NEURO:Abnormal laboratory and microbiology Laboratory Tests 09/06/25 10:45 09/06/25 02:50 Test 09/06/25 10:45 Range/Units Serum Glucose 108 H 74-106 mg/dL Microbiology Date/Time Source Procedure Growth Status 09/05/25 15:40 Urine - Wall Port Urine Culture - Preliminary No growth Resulted 09/05/25 15:29 Nose MRSA Screen - Final Complete 09/05/25 09:35 Sputum Gram Stain Pending Resulted 09/05/25 09:35 Sputum Respiratory Culture - Preliminary No growth Resulted 09/05/25 01:08 Blood Blood Culture - Preliminary NO GROWTH AFTER 24 HOURS OF INCUBATION. Resulted Problem List/Assessment/Plan Problem List/Assessment/Plan Acute kidney injury in the setting of shock/DKA Diabetic ketoacidosis Ventilator-dependent hypoxic respiratory failure Severe metabolic acidosis Shock Anemia rt bka Plan dc bicarb drip as ph high switched to d5half NS at maintanence rate lasix 40mg iv daily Plan discussed with: Other My Orders My Orders Orders - ARTURO LAL MD Procedure Category Date Status Time D5w/Sod Chl 0.45% PHA 09/06/25 In Process (D5w 1/2ns) 16:30 Dietary Evaluation Review Comments: Enteral Nutrition: Formula: Vital Rate: 50 mL/hr Provides: Protein: 105 g Energy: 1200 kcal Free Water: 1003 mL Meets: Protein needs: ~75% Energy needs: ~100% Monitoring: Follow up with renal function and updated lab values (electrolytes, glucose, Mg, Phos). Reassessment: Reassess nutrition plan when patient is extubated and able to transition to oral or modified feeding route. Expected Outcomes/Goals: Improved protein nutrition and overall health condition, gradual wt loss CC Plasma Assessment Blood Product Administration S: [id number] ARTURO LAL MD Sep 06, 2025 16:40
[2025-09-06] MEDS: D5W/SOD CHL 0.45% 1,000 ML IV SCH (17:09)
--- NOTE | 2025-09-06 17:48 | DVHPN2 ---
Progress Note - Dictate Date Seen: Sep 06, 2025 Medical Necessity Reason Pt with a Central, PICC or Fol: Yes The following are medically ne: Central Line vital signs Vital Sign Date Time Temp Pulse Resp B/P (MAP) Pulse Ox O2 Delivery O2 Flow Rate FiO2 09/06/25 15:57 78 26 123/78 (93) 98 30 09/06/25 12:45 97.5 207.5 09/06/25 12:00 Mechanical Ventilator+ 09/05/25 09:00 0 Total Intake and Output 09/05/25 09/05/25 09/06/25 15:00 23:00 07:00 Intake Total 1157.5 ml 982.0 ml 839.810 ml Output Total 0 ml 175 ml 200 ml Balance 1157.5 ml 807.0 ml 639.810 ml medications Current Medications Medications Dose Ordered Sig/Justin Route Start Time Stop Time Status Last Admin Dose Admin Dextrose 50 ml UD PRN IV 09/05/25 03:15 Diagnostic Test (Pha) 1 strip Q90MIN 09/05/25 04:30 09/06/25 16:47 1 STRIP Vancomycin HCl 0 ml @ 0 mls/hr PER PHARMACY IV 09/05/25 05:30 Acetaminophen 650 mg Q6HP PRN PO 09/05/25 05:30 Lactulose 30 ml Q6HR PO 09/05/25 06:00 09/06/25 12:00 30 ML Fentanyl Citrate 250 ml @ 2.5 mls/hr Q24H IV 09/05/25 10:15 09/06/25 15:19 25 MLS/HR Pantoprazole Sodium 40 mg DAILY IV 09/06/25 10:00 09/06/25 09:44 40 MG Meropenem 50 ml @ 17 mls/hr Q12HR IV 09/05/25 22:00 09/06/25 10:01 17 MLS/HR Propofol 100 ml @ 2.727 mls/ hr Q24H IV 09/05/25 23:45 09/06/25 03:41 19.089 MLS/HR Midazolam HCl 100 ml @ 1 mls/hr Q24H IV 09/06/25 02:00 09/06/25 02:12 1 MLS/HR Insulin Human (Reg)/Sodium Chloride 100 ml @ 0.5 mls/hr Q24H IV 09/06/25 09:00 09/06/25 14:01 1.5 MLS/HR Dextrose/Sodium Chloride 1,000 ml @ 50 mls/hr Q20H IV 09/06/25 16:30 09/06/25 17:09 50 MLS/HR Furosemide 40 mg DAILY IV 09/07/25 10:00 laboratory and microbiology Laboratory Tests 09/06/25 10:45 09/06/25 02:50 Test 09/06/25 10:45 Range/Units Serum Glucose 108 H 74-106 mg/dL Assessment/Plan clinical geneticist rounds Impression Acute hypoxemic respiratory failure Hyperglycemia Sepsis DKA Patient seen and examined Events On mechanical ventilation S/p intubation PEEP 5, FiO2 30% Hemodynamics improving, off pressors Labs and imaging reviewed ABG reviewed Management Vent support Titrate to maintain sats 90% or above Sedation holiday in AM If patient follows commands, proceed to weaning trial Pressure support 7/5, extubate when ready Continue antibiotics F/u cultures Bronchodilators Monitor renal function Monitor electrolytes Supplement as needed Pressors as needed for hemodynamic support To maintain a mean arterial pressure of 65 mmHg IV fluids DVT prophylaxis Critical care time 35 minutes Dietary Evaluation Review Comments: Enteral Nutrition: Formula: Vital Rate: 50 mL/hr Provides: Protein: 105 g Energy: 1200 kcal Free Water: 1003 mL Meets: Protein needs: ~75% Energy needs: ~100% Monitoring: Follow up with renal function and updated lab values (electrolytes, glucose, Mg, Phos). Reassessment: Reassess nutrition plan when patient is extubated and able to transition to oral or modified feeding route. Expected Outcomes/Goals: Improved protein nutrition and overall health condition, gradual wt loss Plan discussed with: Other (Rn) CC Plasma Assessment Blood Product Administration S: [id number] KITTY SINGH MD Sep 06, 2025 17:48
[2025-09-06 17:50] LABS: Base Excess -0.7 mmol/L (-2.0-3.0)
[2025-09-07] VITALS (105 sets, daily range): BP systolic 91–148; BP diastolic 52–99; PULSE 70–88; RESP 17–20; TEMP 96.1–99.5; O2SAT 98–100
[2025-09-07] MEDS: INSULIN DRIP 100 UNIT/100ML 100 ML IV SCH ×3 (02:00→06:45)
[2025-09-07 03:41] LABS: Hematocrit 26.5 % (41.0-53.0); Hemoglobin 8.9 g/dL (13.5-17.5); Mean Corpuscular Hemoglobin 29.0 pg (28.0-32.0); Mean Corpuscular Volume 86.4 fL (80.0-100.0); Nucleated Red Blood Cells % 0.2 %
[2025-09-07 04:07] LABS: Alanine Aminotransferase 18 U/L (7-40); Alkaline Phosphatase 60 U/L (46-116); Anion Gap 12 (5-15); BUN/Creatinine Ratio 9.9 (10.0-20.0); Carbon Dioxide 24 mmol/L (20-31); Glucose 104 mg/dL (74-106); Magnesium 1.9 mg/dL (1.6-2.6)
[2025-09-07 04:08] LABS: Albumin 1.9 g/dL (3.2-4.8); Bilirubin, Total 0.2 mg/dL (0.2-1.0); Blood Urea Nitrogen 52 mg/dL (9-23); Calcium 6.6 mg/dL (8.7-10.4); Chloride 110 mmol/L (98-107); Potassium 2.9 mmol/L (3.5-5.1); Sodium 146 mmol/L (136-145); Total Protein 4.0 g/dL (5.7-8.2)
--- NOTE | 2025-09-07 04:59 | DVH ---
MEDICAL RECORDS NUMBER: [id number] PROCEDURE: XY CHEST XRAY 1 VIEW DATE: 09/07/2025 04:25 AM HISTORY: intubated Views:1 COMPARISON: XY CHEST PORTABLE on DOS: 09/06/25, XY CHEST PORTABLE on DOS: 09/05/25, XY CHEST PORTABLE on DOS: 09/05/25, XY CHEST XRAY 1 VIEW on DOS: 02/27/25, XY CHEST PORTABLE on DOS: 11/23/24 FINDINGS/IMPRESSION: Lungs: Infiltrates are seen at the left base. The lungs are otherwise clear. Mediastinum: Mediastinal structures appear unremarkable.A endotracheal tube is seen with the tip projecting approximately 2 cm above the dianna.Nasogastric tube courses through the film. Skeletal: The skeletal structures appear unremarkable.
[2025-09-07] MEDS: POTASSIUM CHL 20MEQ/100ML 100 ML IV SCH ×2 (05:28→15:39)
[2025-09-07] MEDS: MAGNESIUM SULFATE 1GM/100ML 100 ML IV ONE (05:29)
[2025-09-07 07:53] LABS: Base Excess 1.1 mmol/L (-2.0-3.0)
[2025-09-07] MEDS ORDERED: Nepro With Carb Steady 1 Liter Bottle GT SCH (10:45)
[2025-09-07] MEDS: FUROSEMIDE 40 MG/4 ML VIAL IV SCH (11:37)
--- NOTE | 2025-09-07 11:40 | DVHPN2 ---
Subjective Patient intubated and sedated Reviewed: H&P Changes from previous H/P or p: No Changes General: Per HPI Eyes: No Pain, No Vision change, No Conjunctivae inflammation, No Eyelid inflammation, No Other, No Redness ENT: No Ear pain, No Ear discharge, No Nose pain, No Nose discharge, No Nose congestion, No Mouth pain, No Mouth swelling, No Throat pain, No Throat swelling, No Other Cardiovascular: No Chest Pain, No Palpitations, No Orthopnea, No Paroxysmal Noc. Dyspnea, No Edema, No Lt Headedness; Other (Hypotension) Respiratory: No Cough, No Dry, No Shortness of breath, No SOB with excertion, No Wheezing, No Hemoptysis, No Pleuritic Pain, No Sputum, No Other Gastrointestinal: No Nausea, No Vomiting, No Abdominal Pain, No Diarrhea, No Constipation, No Melena, No Hematochezia, No Other Genitourinary: No Dysuria, No Frequency, No Incontinence, No Hematuria, No Retention, No Other Musculoskeletal: No other, No neck pain, No shoulder pain, No arm pain, No back pain, No hand pain, No leg pain, No foot pain Skin: No Rash, No Lesions, No Jaundice, No Bruising, No Other Objective Vitals Vital Signs Date Time Temp Pulse Resp B/P (MAP) Pulse Ox O2 Delivery O2 Flow Rate FiO2 09/07/25 10:00 97.9 75 20 130/86 (101) 99 208.2 09/07/25 08:00 30 09/07/25 08:00 Mechanical Ventilator+ 09/05/25 09:00 0 Intake/Output Intake and Output 09/07/25 07:00 Intake Total 1761.5 ml Output Total 1275 ml Balance 486.5 ml Intake Oral 50 ml IV Total 1711.5 ml Output Urine Total 1275 ml # Bowel Movements 1 General Appearance: Alert, moderate distress, Other (intubated and sedated) HEENT: Atraumatic, PERRLA Lungs: Clear to auscultation Cardiovascular: Regular rate, Normal S1, Normal S2 Abdomen: Normal bowel sounds Extremities: Normal pulses, Other (DKA) Skin: Dry, Intact Medications Current Medications Medications Dose Ordered Sig/Justin Route Start Time Stop Time Status Last Admin Dose Admin Acetaminophen 650 mg Q6HP PRN PO 09/05/25 05:30 Fentanyl Citrate 250 ml @ 2.5 mls/hr Q24H IV 09/05/25 10:15 09/07/25 00:13 25 MLS/HR Pantoprazole Sodium 40 mg DAILY IV 09/06/25 10:00 09/06/25 09:44 40 MG Meropenem 50 ml @ 17 mls/hr Q12HR IV 09/05/25 22:00 09/06/25 21:31 17 MLS/HR Propofol 100 ml @ 2.727 mls/ hr Q24H IV 09/05/25 23:45 09/06/25 03:41 19.089 MLS/HR Midazolam HCl 100 ml @ 1 mls/hr Q24H IV 09/06/25 02:00 09/06/25 02:12 1 MLS/HR Dextrose/Sodium Chloride 1,000 ml @ 50 mls/hr Q20H IV 09/06/25 16:30 09/06/25 17:09 50 MLS/HR Furosemide 40 mg DAILY IV 09/07/25 10:00 Micafungin Sodium 100 mg/Sodium Chloride 100 ml @ 100 mls/hr DAILY IV 09/07/25 10:45 Diagnostic Test (Pha) 1 strip Q6HR 09/07/25 12:00 Insulin Human Regular Q6HR SC 09/07/25 12:00 Dextrose 50 ml UD PRN IV 09/07/25 10:45 Enteral Nutritional Formula 1,000 ml 30ML/HR GT 09/07/25 10:45 Laboratory Results Laboratory Tests 09/07/25 02:52 Chemistry Test 09/07/25 02:52 Albumin 1.9 g/dL (3.2-4.8) L Calcium Level 6.6 mg/dL (8.7-10.4) L Magnesium Level 1.9 mg/dL (1.6-2.6) Phosphorus Level 3.9 mg/dL (2.4-5.1) Total Protein 4.0 g/dL (5.7-8.2) L LFT Test 09/07/25 02:52 Alanine Aminotransferase (ALT) 18 U/L (7-40) Alkaline Phosphatase 60 U/L (46-116) Aspartate Amino Transferase (AST) 51 U/L (13-40) H Total Bilirubin 0.2 mg/dL (0.2-1.0) Urinalysis Test 09/05/25 15:40 Urine Color Light-brown (Yellow) Urine Clarity Ex.turbid (Clear) Urine pH 6.0 (5.0-9.0) Urine Specific [place] 1.013 (1.001-1.035) Urine Protein 2+ (Negative) H Urine Ketones 2+ (Negative) H Urine Blood 2+ /uL (Negative) H Urine Nitrite Negative (Negative) Urine Bilirubin Negative (Negative) Urine Urobilinogen Normal mg/dL (Negative) Urine Leukocyte Esterase 3+ /uL (Negative) Urine RBC 1374 /hpf (0 - 3) Urine WBC Clumps Present /hpf (None Seen) Urine Microscopic WBC 429 /HPF (0-3) H Urine Squamous Epithelial Cells Mod /hpf (<5) Urine Bacteria None seen /hpf (None Seen) Urine Yeast (Budding) Loaded /hpf (None Seen) Urine Glucose 3+ mg/dL (Normal) H Blood Gas Results Test 09/06/25 17:45 09/07/25 07:00 Arterial Blood pH 7.531 (7.350-7.450) 7.559 (7.350-7.450) FiO2 % 30.0 30.0 Microbiology Microbiology Date/Time Source Procedure Growth Status 09/05/25 15:40 Urine - Wall [place] Urine Culture - Preliminary Resulted 09/05/25 15:29 Nose MRSA Screen - Final Complete 09/05/25 09:35 Sputum Gram Stain Pending Resulted 09/05/25 09:35 Sputum Respiratory Culture - Preliminary Resulted 09/05/25 01:08 Blood Blood Culture - Preliminary NO GROWTH AFTER 48 HOURS OF INCUBATION. Resulted Labs and/or images reviewed: Labs reviewed by me, Image(s) reviewed by me Assessment/Plan Assessment/Plan Impression: -diabetic ketoacidosis -metabolic encephalopathy -acute hypoxic respiratory failure -sirs,? Sepsis -severe protein malnutrition -CKD stage 4 Plan: -continue current antibiotic therapy -change ventilator settings, decrease respiratory rate -stop insulin drip, switched to q.6 hour coverage -continue current sedation -consultations: Pulmonology, Nephrology -start tube feeding with Nepro -PPI -repeat labs , chest x-ray, ABG in a.m. Critical care time spent with patient discussing and formulating plan of care: 40 minutes. This does not include time spent performing procedures. This medical document was created using an electronic medical record system with Dragon computerized dictation system. Although this document has been carefully reviewed, there may still be some phonetic and typographical errors. These areas are purely typographical due to imperfections of the software programs, and do not reflect any compromise in the patient's medical care. Plan discussed with: Patient, Other (RN) My Orders Orders - KIRK CARPIO NP Procedure Category Date Status Time Micafungin Sodium PHA 09/07/25 In Process (Mycamine) 10:45 Ventilator Setup RT 09/07/25 Logged 10:39 Glucose Blood PHA 09/07/25 In Process (Accu-Chek Comfort 12:00 Insulin R (Human) PHA 09/07/25 In Process (Insulin R) 12:00 Dextrose 50% Syringe PHA 09/07/25 In Process 10:45 Nutritional PHA 09/07/25 In Process Supplements (Nepro 10:45 Basic Metabolic Panel LAB 09/08/25 Verified 05:00 Basic Metabolic Panel LAB 09/09/25 Verified 05:00 Basic Metabolic Panel LAB 09/10/25 Verified 05:00 Complete Blood Count LAB 09/08/25 Verified 05:00 Complete Blood Count LAB 09/09/25 Verified 05:00 Complete Blood Count LAB 09/10/25 Verified 05:00 Ammonia LAB 09/08/25 Verified 04:00 Lactulose Oral PHA 09/08/25 In Process 10:00 Date of Service: Sep 07, 2025 Billing Provider: KIRK CARPIO NP Common Visit Codes: [id number] CARE 30-74 MIN KIRK CARPIO NP Sep 07, 2025 11:40
[2025-09-07] MEDS: InsuLIN REG 1unit/0.01ml Soln (100units/ml) SC SCH (12:00)
[2025-09-07] MEDS ORDERED: IRON SUCROSE COMPLEX 110 ML IV SCH (12:00)
--- NOTE | 2025-09-07 12:01 | DVHPN2 ---
Progress Note Date Seen: Sep 07, 2025 Medical Necessity Reason Pt with a Central, PICC or Fol: Yes The following are medically ne: Central Line, Wall Catheter Subjective Review of Systems: Deferred Objective vital signs Vital Sign Date Time Temp Pulse Resp B/P (MAP) Pulse Ox O2 Delivery O2 Flow Rate FiO2 09/07/25 11:37 142/92 09/07/25 10:00 97.9 75 20 99 208.2 09/07/25 08:00 30 09/07/25 08:00 Mechanical Ventilator+ 09/05/25 09:00 0 Total Intake and Output 09/06/25 09/06/25 09/07/25 15:00 23:00 07:00 Intake Total 390 ml 516 ml 855.5 ml Output Total 650 ml 625 ml Balance 390 ml -134 ml 230.5 ml medications Current Medications Medications Dose Ordered Sig/Justin Route Start Time Stop Time Status Last Admin Dose Admin Acetaminophen 650 mg Q6HP PRN PO 09/05/25 05:30 Fentanyl Citrate 250 ml @ 2.5 mls/hr Q24H IV 09/05/25 10:15 09/07/25 00:13 25 MLS/HR Pantoprazole Sodium 40 mg DAILY IV 09/06/25 10:00 09/07/25 11:37 40 MG Meropenem 50 ml @ 17 mls/hr Q12HR IV 09/05/25 22:00 09/07/25 11:38 17 MLS/HR Propofol 100 ml @ 2.727 mls/ hr Q24H IV 09/05/25 23:45 09/06/25 03:41 19.089 MLS/HR Midazolam HCl 100 ml @ 1 mls/hr Q24H IV 09/06/25 02:00 09/06/25 02:12 1 MLS/HR Dextrose/Sodium Chloride 1,000 ml @ 50 mls/hr Q20H IV 09/06/25 16:30 09/06/25 17:09 50 MLS/HR Furosemide 40 mg DAILY IV 09/07/25 10:00 09/07/25 11:37 40 MG Micafungin Sodium 100 mg/Sodium Chloride 100 ml @ 100 mls/hr DAILY IV 09/07/25 10:45 Diagnostic Test (Pha) 1 strip Q6HR 09/07/25 12:00 Insulin Human Regular Q6HR SC 09/07/25 12:00 Dextrose 50 ml UD PRN IV 09/07/25 10:45 Enteral Nutritional Formula 1,000 ml 30ML/HR GT 09/07/25 10:45 Examination: GENERAL:Abnormal, LUNGS:Abnormal, SKIN:Abnormal laboratory and microbiology Laboratory Tests 09/07/25 02:52 Test 09/07/25 02:52 Range/Units Serum Glucose 104 74-106 mg/dL Microbiology Date/Time Source Procedure Growth Status 09/05/25 15:40 Urine - Wall Port Urine Culture - Preliminary Resulted 09/05/25 15:29 Nose MRSA Screen - Final Complete 09/05/25 09:35 Sputum Gram Stain - Final Resulted 09/05/25 09:35 Sputum Respiratory Culture - Preliminary Resulted 09/05/25 01:08 Blood Blood Culture - Preliminary NO GROWTH AFTER 48 HOURS OF INCUBATION. Resulted Problem List/Assessment/Plan Problem List/Assessment/Plan Acute kidney injury hemodynamically mediated in the setting of shock Diabetic ketoacidosis -off insulin drip transitioned to subcu Monitoring urinary output Chronic kidney disease stage 4/5 Nephrotic syndrome with nephrotic range proteinuria suspected due to diabetes 8gm proteinuria Recent workup and [facility] showed negative serologies, complements, TATIANA, Anca negative Hypertension Abnormal electrolytes, hypernatremia, hypokalemia, metabolic acidosis -electrolyte replacement as per hospital and ICU guidelines repeat lab today Anemia due to chronic kidney disease Rule out iron deficiency Start Procrit subcutaneous 2 times a week Acute respiratory failure secondary to shock vent management as per primary medical team Renal diet once patient is tolerating p.o. Patient will benefit from kidney biopsy for diagnosis and confirmation of nephrotic syndrome causes although likely in his diabetes could be from other nephrotic diseases. Plan discussed with: Patient My Orders My Orders Orders - GERONIMO GOODWIN MD Procedure Category Date Status Time Potassium LAB 09/07/25 Logged 11:49 Urine LAB 09/07/25 Logged Protein/Creatinine Ferritin LAB 09/07/25 Logged 11:49 Iron Panel LAB 09/07/25 Logged 11:49 Hemoglobin A1c LAB 09/07/25 Logged 11:49 Strict I & O JOSH 09/07/25 In Process 11:49 Retacrit 10,000unit PHA 09/07/25 Verified Sc X One 12:00 Iron Ivpb PHA 09/07/25 Verified 12:00 Dietary Evaluation Review Comments: Enteral Nutrition: Formula: Vital Rate: 50 mL/hr Provides: Protein: 105 g Energy: 1200 kcal Free Water: 1003 mL Meets: Protein needs: ~75% Energy needs: ~100% Monitoring: Follow up with renal function and updated lab values (electrolytes, glucose, Mg, Phos). Reassessment: Reassess nutrition plan when patient is extubated and able to transition to oral or modified feeding route. Expected Outcomes/Goals: Improved protein nutrition and overall health condition, gradual wt loss CC Plasma Assessment Blood Product Administration S: [id number] GERONIMO GOODWIN MD Sep 07, 2025 12:01
[2025-09-07] MEDS: ACCU-CHEK COMFORT CURVE STRIP VI SCH (12:25)
[2025-09-07 13:33] LABS: Iron 51.0 ug/dL (65-175)
[2025-09-07 13:37] LABS: Total Iron Binding Capacity 150.0 ug/dL (250-425)
[2025-09-07] MEDS: EPOETIN ALFA-EPBX 10,000 UNIT/1ML VIAL SC SCH (14:04)
[2025-09-07] MEDS: INSULIN LANTUS (GLARGINE) 1 /0.01ml (100units/ml) SC ONE (14:07)
[2025-09-07] MEDS: MICAFUNGIN SODIUM 100 MG in SODIUM CHL 0.9% 100 ML IV SCH (14:20)
[2025-09-08] VITALS (106 sets, daily range): BP systolic 93–160; BP diastolic 51–105; PULSE 61–102; RESP 10–26; TEMP 96.8–100.9; O2SAT 98–100
--- NOTE | 2025-09-08 03:31 | DVH ---
MEDICAL RECORDS NUMBER: [id number] PROCEDURE: XY CHEST XRAY 1 VIEW DATE: 09/08/2025 02:58 AM HISTORY: intubated Views:1 COMPARISON: XY CHEST XRAY 1 VIEW on DOS: 09/07/25, XY CHEST PORTABLE on DOS: 09/06/25, XY CHEST PORTABLE on DOS: 09/05/25, XY CHEST XRAY 1 VIEW on DOS: 02/27/25, XY CHEST PORTABLE on DOS: 11/23/24 FINDINGS/IMPRESSION: Lungs: The lungs are clear. Mediastinum: Mediastinal structures appear unremarkable.A endotracheal tube is seen with the tip projecting approximately 2 cm above the dianna.Nasogastric tube courses through the film. Skeletal: The skeletal structures appear unremarkable.
[2025-09-08 03:59] LABS: Hematocrit 29.0 % (41.0-53.0); Hemoglobin 9.7 g/dL (13.5-17.5); Mean Corpuscular Hemoglobin 29.3 pg (28.0-32.0); Mean Corpuscular Volume 87.7 fL (80.0-100.0); Nucleated Red Blood Cells % 0.1 %
[2025-09-08 04:09] LABS: Anion Gap 12 (5-15); Carbon Dioxide 25 mmol/L (20-31)
[2025-09-08 04:14] LABS: BUN/Creatinine Ratio 10.1 (10.0-20.0)
[2025-09-08 04:18] LABS: Blood Urea Nitrogen 50 mg/dL (9-23); Calcium 6.8 mg/dL (8.7-10.4); Chloride 109 mmol/L (98-107); Glucose 146 mg/dL (74-106); Potassium 3.3 mmol/L (3.5-5.1); Sodium 146 mmol/L (136-145)
[2025-09-08] MEDS: POTASSIUM CHL 20MEQ/100ML 100 ML IV ONE (05:22)
[2025-09-08 07:46] LABS: Base Excess 0.4 mmol/L (-2.0-3.0)
--- NOTE | 2025-09-08 08:51 | DVHPN2 ---
Subjective Patient intubated and sedated Reviewed: H&P Changes from previous H/P or p: No Changes General: Per HPI Eyes: No Pain, No Vision change, No Conjunctivae inflammation, No Eyelid inflammation, No Other, No Redness ENT: No Ear pain, No Ear discharge, No Nose pain, No Nose discharge, No Nose congestion, No Mouth pain, No Mouth swelling, No Throat pain, No Throat swelling, No Other Cardiovascular: No Chest Pain, No Palpitations, No Orthopnea, No Paroxysmal Noc. Dyspnea, No Edema, No Lt Headedness; Other (Hypotension) Respiratory: No Cough, No Dry, No Shortness of breath, No SOB with excertion, No Wheezing, No Hemoptysis, No Pleuritic Pain, No Sputum, No Other Gastrointestinal: No Nausea, No Vomiting, No Abdominal Pain, No Diarrhea, No Constipation, No Melena, No Hematochezia, No Other Genitourinary: No Dysuria, No Frequency, No Incontinence, No Hematuria, No Retention, No Other Musculoskeletal: No other, No neck pain, No shoulder pain, No arm pain, No back pain, No hand pain, No leg pain, No foot pain Skin: No Rash, No Lesions, No Jaundice, No Bruising, No Other Objective Vitals Vital Signs Date Time Temp Pulse Resp B/P (MAP) Pulse Ox O2 Delivery O2 Flow Rate FiO2 09/08/25 06:45 97.7 77 18 143/98 (113) 100 207.9 09/08/25 06:30 30 09/08/25 06:00 Mechanical Ventilator+ Intake/Output Intake and Output 09/08/25 07:00 Intake Total 2472.0 ml Output Total 2250 ml Balance 222.0 ml Intake Oral 100 ml IV Total 2092.0 ml Tube Feeding 280 ml Output Urine Total 2250 ml # Bowel Movements 2 General Appearance: mild distress, Other (intubated and sedated) HEENT: Atraumatic, PERRLA Lungs: Clear to auscultation Cardiovascular: Regular rate, Normal S1, Normal S2 Abdomen: Normal bowel sounds Extremities: Normal pulses, Other (DKA) Skin: Dry, Intact Psych/Mental Status: Other (unable to assess) Medications Current Medications Medications Dose Ordered Sig/Justin Route Start Time Stop Time Status Last Admin Dose Admin Acetaminophen 650 mg Q6HP PRN PO 09/05/25 05:30 Fentanyl Citrate 250 ml @ 2.5 mls/hr Q24H IV 09/05/25 10:15 09/08/25 03:26 17.5 MLS/HR Pantoprazole Sodium 40 mg DAILY IV 09/06/25 10:00 09/07/25 11:37 40 MG Meropenem 50 ml @ 17 mls/hr Q12HR IV 09/05/25 22:00 09/07/25 21:20 17 MLS/HR Propofol 100 ml @ 2.727 mls/ hr Q24H IV 09/05/25 23:45 09/06/25 03:41 19.089 MLS/HR Midazolam HCl 100 ml @ 1 mls/hr Q24H IV 09/06/25 02:00 09/07/25 14:15 3 MLS/HR Dextrose/Sodium Chloride 1,000 ml @ 50 mls/hr Q20H IV 09/06/25 16:30 09/08/25 06:45 50 MLS/HR Furosemide 40 mg DAILY IV 09/07/25 10:00 09/07/25 11:37 40 MG Micafungin Sodium 100 mg/Sodium Chloride 100 ml @ 100 mls/hr DAILY IV 09/07/25 10:45 09/07/25 14:20 100 MLS/HR Diagnostic Test (Pha) 1 strip Q6HR 09/07/25 12:00 09/08/25 05:33 1 STRIP Insulin Human Regular Q6HR SC 09/07/25 12:00 09/08/25 05:32 2 UNITS Dextrose 50 ml UD PRN IV 09/07/25 10:45 Enteral Nutritional Formula 1,000 ml 30ML/HR GT 09/07/25 10:45 Epoetin Fco-epbx 10,000 unit MWF AL 09/07/25 12:00 09/07/25 14:04 10,000 UNIT Laboratory Results Laboratory Tests 09/08/25 03:18 Chemistry Test 09/08/25 03:18 Calcium Level 6.8 mg/dL (8.7-10.4) L HgA1c, TSH Test 09/07/25 12:55 Hemoglobin A1c 7.9 % A1C (<5.7) H Urinalysis Test 09/05/25 15:40 Urine Color Light-brown (Yellow) Urine Clarity Ex.turbid (Clear) Urine pH 6.0 (5.0-9.0) Urine Specific [place] 1.013 (1.001-1.035) Urine Protein 2+ (Negative) H Urine Ketones 2+ (Negative) H Urine Blood 2+ /uL (Negative) H Urine Nitrite Negative (Negative) Urine Bilirubin Negative (Negative) Urine Urobilinogen Normal mg/dL (Negative) Urine Leukocyte Esterase 3+ /uL (Negative) Urine RBC 1374 /hpf (0 - 3) Urine WBC Clumps Present /hpf (None Seen) Urine Microscopic WBC 429 /HPF (0-3) H Urine Squamous Epithelial Cells Mod /hpf (<5) Urine Bacteria None seen /hpf (None Seen) Urine Yeast (Budding) Loaded /hpf (None Seen) Urine Glucose 3+ mg/dL (Normal) H Blood Gas Results Test 09/08/25 07:30 Arterial Blood pH 7.533 (7.350-7.450) FiO2 % 30.0 Microbiology Microbiology Date/Time Source Procedure Growth Status 09/05/25 15:40 Urine - Wall Port Urine Culture - Preliminary Resulted 09/05/25 15:29 Nose MRSA Screen - Final Complete 09/05/25 09:35 Sputum Gram Stain - Final Resulted 09/05/25 09:35 Sputum Respiratory Culture - Preliminary Resulted 09/05/25 01:08 Blood Blood Culture - Preliminary NO GROWTH AFTER 72 HOURS OF INCUBATION. Resulted Labs and/or images reviewed: Labs reviewed by me, Image(s) reviewed by me Assessment/Plan Assessment/Plan Impression: -diabetic ketoacidosis -metabolic encephalopathy -acute hypoxic respiratory failure -sirs,? Sepsis -severe protein malnutrition -CKD stage 4 -Hypokalemia Plan: Events: K replete. CPAP trial today -continue current antibiotic therapy -continue vent settings -Regular insulin SS, Lantus -continue current sedation -consultations: Pulmonology, Nephrology -start tube feeding with Nepro, continue IVF -PPI -repeat labs , chest x-ray, ABG in a.m. Critical care time spent with patient discussing and formulating plan of care: 40 minutes. This does not include time spent performing procedures. This medical document was created using an electronic medical record system with [employer] system. Although this document has been carefully reviewed, there may still be some phonetic and typographical errors. These areas are purely typographical due to imperfections of the software programs, and do not reflect any compromise in the patient's medical care. Plan discussed with: Patient, Other (RN) My Orders Orders - KIRK CARPIO NP Procedure Category Date Status Time Micafungin Sodium PHA 09/07/25 In Process (Mycamine) 10:45 Ventilator Setup RT 09/07/25 Logged 10:39 Glucose Blood PHA 09/07/25 In Process (Accu-Chek Comfort 12:00 Insulin R (Human) PHA 09/07/25 In Process (Insulin R) 12:00 Dextrose 50% Syringe PHA 09/07/25 In Process 10:45 Nutritional PHA 09/07/25 In Process Supplements (Nepro 10:45 Basic Metabolic Panel LAB 09/09/25 Verified 05:00 Basic Metabolic Panel LAB 09/10/25 Verified 05:00 Complete Blood Count LAB 09/09/25 Verified 05:00 Complete Blood Count LAB 09/10/25 Verified 05:00 Lactulose Oral PHA 09/08/25 In Process 10:00 Chest Xray 1 View XY 09/08/25 Resulted 04:00 Abg W/ Co-Ox RT 09/08/25 Logged 04:00 Cpap Trial For Am ORDERS 09/08/25 Transmitted 08:15 Cpap/Sed Vacation Med ORDERS 09/08/25 Transmitted Weaning 08:15 Hydralazine Injection PHA 09/08/25 Transmitted (Apresoline Inject 09:00 Insulin Lantus PHA 09/08/25 Transmitted (Glargine) (Lantus) 22:00 Date of Service: Sep 08, 2025 Billing Provider: KIRK CARPIO NP Common Visit Codes: [id number] CARE 30-74 MIN KIRK CARPIO NP Sep 08, 2025 08:51
--- NOTE | 2025-09-08 09:39 | DVHPN2 ---
Progress Note Date Seen: Sep 08, 2025 Medical Necessity Reason Pt with a Central, PICC or Fol: Yes The following are medically ne: Central Line, Wall Catheter Subjective Review of Systems: Deferred Objective vital signs Vital Sign Date Time Temp Pulse Resp B/P (MAP) Pulse Ox O2 Delivery O2 Flow Rate FiO2 09/08/25 09:15 97.3 74 18 142/101 (115) 100 207.1 09/08/25 09:00 Mechanical Ventilator+ 30 30 Total Intake and Output 09/07/25 09/07/25 09/08/25 15:00 23:00 07:00 Intake Total 742 ml 783.0 ml 1019.0 ml Output Total 1150 ml 1100 ml Balance 742 ml -367.0 ml -81.0 ml medications Current Medications Medications Dose Ordered Sig/Justin Route Start Time Stop Time Status Last Admin Dose Admin Acetaminophen 650 mg Q6HP PRN PO 09/05/25 05:30 Fentanyl Citrate 250 ml @ 2.5 mls/hr Q24H IV 09/05/25 10:15 09/08/25 03:26 17.5 MLS/HR Pantoprazole Sodium 40 mg DAILY IV 09/06/25 10:00 09/07/25 11:37 40 MG Meropenem 50 ml @ 17 mls/hr Q12HR IV 09/05/25 22:00 09/07/25 21:20 17 MLS/HR Propofol 100 ml @ 2.727 mls/ hr Q24H IV 09/05/25 23:45 09/06/25 03:41 19.089 MLS/HR Midazolam HCl 100 ml @ 1 mls/hr Q24H IV 09/06/25 02:00 09/07/25 14:15 3 MLS/HR Dextrose/Sodium Chloride 1,000 ml @ 50 mls/hr Q20H IV 09/06/25 16:30 09/08/25 06:45 50 MLS/HR Furosemide 40 mg DAILY IV 09/07/25 10:00 09/07/25 11:37 40 MG Micafungin Sodium 100 mg/Sodium Chloride 100 ml @ 100 mls/hr DAILY IV 09/07/25 10:45 09/07/25 14:20 100 MLS/HR Diagnostic Test (Pha) 1 strip Q6HR 09/07/25 12:00 09/08/25 05:33 1 STRIP Insulin Human Regular Q6HR SC 09/07/25 12:00 09/08/25 05:32 2 UNITS Dextrose 50 ml UD PRN IV 09/07/25 10:45 Enteral Nutritional Formula 1,000 ml 30ML/HR GT 09/07/25 10:45 Epoetin Fco-epbx 10,000 unit MWF SC 09/07/25 12:00 09/07/25 14:04 10,000 UNIT Hydralazine HCl 10 mg Q6HP PRN IV 09/08/25 09:00 Insulin Glargine 10 units HS SC 09/08/25 22:00 Examination: GENERAL:Abnormal, LUNGS:Abnormal, SKIN:Abnormal laboratory and microbiology Laboratory Tests 09/08/25 03:18 Test 09/08/25 03:18 Range/Units Serum Glucose 146 H 74-106 mg/dL Microbiology Date/Time Source Procedure Growth Status 09/05/25 15:40 Urine - Wall Port Urine Culture - Preliminary Resulted 09/05/25 15:29 Nose MRSA Screen - Final Complete 09/05/25 09:35 Sputum Gram Stain - Final Resulted 09/05/25 09:35 Sputum Respiratory Culture - Preliminary Resulted 09/05/25 01:08 Blood Blood Culture - Preliminary NO GROWTH AFTER 72 HOURS OF INCUBATION. Resulted Problem List/Assessment/Plan Problem List/Assessment/Plan Acute kidney injury hemodynamically mediated in the setting of shock Diabetic ketoacidosis -off insulin drip transitioned to subcu Monitoring urinary output Chronic kidney disease stage 4/5 Nephrotic syndrome with nephrotic range proteinuria suspected due to diabetes 8gm proteinuria Recent workup and [facility] showed negative serologies, complements, TATIANA, Anca negative Hypertension Abnormal electrolytes, hypernatremia, hypokalemia, metabolic acidosis -electrolyte replacement as per hospital and ICU guidelines Anemia due to chronic kidney disease Procrit subcutaneous 3 times a week Acute respiratory failure secondary to shock vent management as per primary medical team Renal diet once patient is tolerating p.o. Patient will benefit from kidney biopsy for diagnosis and confirmation of nephrotic syndrome causes although likely in his diabetes could be from other nephrotic diseases. Plan discussed with: Other (nurse) My Orders My Orders Orders - GERONIMO GOODWIN MD Procedure Category Date Status Time Urine LAB 09/07/25 Logged Protein/Creatinine Strict I & O JOSH 11/17/25 In Process 11:49 Epoetin Fco-Epbx PHA 09/07/25 In Process (Retacrit) 12:00 Dietary Evaluation Review Comments: Enteral Nutrition: Formula: Vital Rate: 50 mL/hr Provides: Protein: 105 g Energy: 1200 kcal Free Water: 1003 mL Meets: Protein needs: ~75% Energy needs: ~100% Monitoring: Follow up with renal function and updated lab values (electrolytes, glucose, Mg, Phos). Reassessment: Reassess nutrition plan when patient is extubated and able to transition to oral or modified feeding route. Expected Outcomes/Goals: Improved protein nutrition and overall health condition, gradual wt loss CC Plasma Assessment Blood Product Administration S: [id number] GERONIMO GOODWIN MD Sep 08, 2025 09:38
[2025-09-08] MEDS: LACTULOSE 20Gm/30ML SOLN GT ONE (09:52)
[2025-09-08] MEDS: POTASSIUM EFFERVESENT TAB 25 MEQ GT ONE (14:08)
[2025-09-08] MEDS: INSULIN LANTUS (GLARGINE) 1 /0.01ml (100units/ml) SC SCH (22:17)
[2025-09-09] VITALS (103 sets, daily range): BP systolic 105–149; BP diastolic 75–105; PULSE 64–98; RESP 15–25; TEMP 96.3–99.3; O2SAT 99–100
[2025-09-09 03:23] LABS: Hematocrit 28.4 % (41.0-53.0); Hemoglobin 9.6 g/dL (13.5-17.5); Mean Corpuscular Hemoglobin 29.6 pg (28.0-32.0); Mean Corpuscular Volume 88.0 fL (80.0-100.0); Nucleated Red Blood Cells % 0.0 %
[2025-09-09 03:37] LABS: Anion Gap 13 (5-15); Carbon Dioxide 23 mmol/L (20-31); Potassium 3.7 mmol/L (3.5-5.1)
[2025-09-09 03:43] LABS: BUN/Creatinine Ratio 8.8 (10.0-20.0)
[2025-09-09 04:06] LABS: Blood Urea Nitrogen 39 mg/dL (9-23); Calcium 7.1 mg/dL (8.7-10.4); Chloride 110 mmol/L (98-107); Glucose 203 mg/dL (74-106); Sodium 146 mmol/L (136-145)
--- NOTE | 2025-09-09 08:52 | MEDREC ---
[facility] Intervention Section I [facility] Intervention: Deescalate AB based on CS (PLEASE CONSIDER DE-ESCALATION OF MEROPENEM TO CEFTRIAXONE - WBC WITHIN NORMAL LIMIT - SPUTUM CULTURE WITH NORMAL DALILA - URINE CULTURE WITH YEAST - BLOOD CULTURE WITH NO GROWTH) SHANNA BANKS PHARMACIST Sep 09, 2025 08:52
--- NOTE | 2025-09-09 09:29 | DVHPN2 ---
Subjective Patient intubated and sedated Reviewed: H&P Changes from previous H/P or p: No Changes General: Per HPI Eyes: No Pain, No Vision change, No Conjunctivae inflammation, No Eyelid inflammation, No Other, No Redness ENT: No Ear pain, No Ear discharge, No Nose pain, No Nose discharge, No Nose congestion, No Mouth pain, No Mouth swelling, No Throat pain, No Throat swelling, No Other Cardiovascular: No Chest Pain, No Palpitations, No Orthopnea, No Paroxysmal Noc. Dyspnea, No Edema, No Lt Headedness; Other (Hypotension) Respiratory: No Cough, No Dry, No Shortness of breath, No SOB with excertion, No Wheezing, No Hemoptysis, No Pleuritic Pain, No Sputum, No Other Gastrointestinal: No Nausea, No Vomiting, No Abdominal Pain, No Diarrhea, No Constipation, No Melena, No Hematochezia, No Other Genitourinary: No Dysuria, No Frequency, No Incontinence, No Hematuria, No Retention, No Other Musculoskeletal: No other, No neck pain, No shoulder pain, No arm pain, No back pain, No hand pain, No leg pain, No foot pain Skin: No Rash, No Lesions, No Jaundice, No Bruising, No Other Objective Vitals Vital Signs Date Time Temp Pulse Resp B/P (MAP) Pulse Ox O2 Delivery O2 Flow Rate FiO2 09/09/25 08:38 74 18 135/95 (108) 100 30 09/09/25 06:00 Mechanical Ventilator+ 09/09/25 05:45 99.3 210.7 Intake/Output Intake and Output 09/09/25 07:00 Intake Total 1971.899 ml Output Total 2330 ml Balance -358.101 ml Intake Oral 30 ml IV Total 1815.899 ml Tube Feeding 126 ml Output Urine Total 2330 ml General Appearance: mild distress, Other (intubated and sedated) HEENT: Atraumatic, PERRLA Lungs: Clear to auscultation Cardiovascular: Regular rate, Normal S1, Normal S2 Abdomen: Normal bowel sounds Extremities: Normal pulses, Other (DKA) Skin: Dry, Intact Psych/Mental Status: Other (unable to assess) Medications Current Medications Medications Dose Ordered Sig/Justin Route Start Time Stop Time Status Last Admin Dose Admin Acetaminophen 650 mg Q6HP PRN PO 09/05/25 05:30 Fentanyl Citrate 250 ml @ 2.5 mls/hr Q24H IV 09/05/25 10:15 09/09/25 01:38 20 MLS/HR Pantoprazole Sodium 40 mg DAILY IV 09/06/25 10:00 09/08/25 09:50 40 MG Propofol 100 ml @ 2.727 mls/ hr Q24H IV 09/05/25 23:45 09/08/25 20:49 2.727 MLS/HR Midazolam HCl 100 ml @ 1 mls/hr Q24H IV 09/06/25 02:00 09/07/25 14:15 3 MLS/HR Dextrose/Sodium Chloride 1,000 ml @ 50 mls/hr Q20H IV 09/06/25 16:30 09/09/25 04:36 50 MLS/HR Furosemide 40 mg DAILY IV 09/07/25 10:00 09/08/25 09:54 40 MG Micafungin Sodium 100 mg/Sodium Chloride 100 ml @ 100 mls/hr DAILY IV 09/07/25 10:45 09/08/25 09:52 100 MLS/HR Diagnostic Test (Pha) 1 strip Q6HR 09/07/25 12:00 09/09/25 06:00 1 STRIP Insulin Human Regular Q6HR SC 09/07/25 12:00 09/09/25 06:00 4 UNITS Dextrose 50 ml UD PRN IV 09/07/25 10:45 Enteral Nutritional Formula 1,000 ml 30ML/HR GT 09/07/25 10:45 Epoetin Fco-epbx 10,000 unit MWF SC 09/07/25 12:00 09/07/25 14:04 10,000 UNIT Hydralazine HCl 10 mg Q6HP PRN IV 09/08/25 09:00 Insulin Glargine 10 units HS SC 09/08/25 22:00 09/08/25 22:17 10 UNITS Meropenem 50 ml @ 17 mls/hr Q12H IV 09/09/25 10:00 Laboratory Results Laboratory Tests 09/09/25 02:55 Chemistry Test 09/09/25 02:55 Calcium Level 7.1 mg/dL (8.7-10.4) L Urinalysis Test 09/05/25 15:40 Urine Color Light-brown (Yellow) Urine Clarity Ex.turbid (Clear) Urine pH 6.0 (5.0-9.0) Urine Specific [place] 1.013 (1.001-1.035) Urine Protein 2+ (Negative) H Urine Ketones 2+ (Negative) H Urine Blood 2+ /uL (Negative) H Urine Nitrite Negative (Negative) Urine Bilirubin Negative (Negative) Urine Urobilinogen Normal mg/dL (Negative) Urine Leukocyte Esterase 3+ /uL (Negative) Urine RBC 1374 /hpf (0 - 3) Urine WBC Clumps Present /hpf (None Seen) Urine Microscopic WBC 429 /HPF (0-3) H Urine Squamous Epithelial Cells Mod /hpf (<5) Urine Bacteria None seen /hpf (None Seen) Urine Yeast (Budding) Loaded /hpf (None Seen) Urine Glucose 3+ mg/dL (Normal) H Microbiology Microbiology Date/Time Source Procedure Growth Status 09/05/25 15:40 Urine - Wall [place] Urine Culture - Preliminary Resulted 09/05/25 15:29 Nose MRSA Screen - Final Complete 09/05/25 09:35 Sputum Gram Stain - Final Complete 09/05/25 09:35 Sputum Respiratory Culture - Final Complete 09/05/25 01:08 Blood Blood Culture - Preliminary NO GROWTH AFTER 72 HOURS OF INCUBATION. Resulted Labs and/or images reviewed: Labs reviewed by me, Image(s) reviewed by me Assessment/Plan Assessment/Plan Impression: -diabetic ketoacidosis -metabolic encephalopathy -acute hypoxic respiratory failure -sirs,? Sepsis -severe protein malnutrition -CKD stage 4 -Hypokalemia Plan: Events: No events overnight. CPAP trial once appropriate. Start Precedex -continue current antibiotic therapy -continue vent settings -Regular insulin SS, Lantus -Wean sedation -consultations: Pulmonology, Nephrology -Continue IVF -PPI -repeat labs , chest x-ray, ABG in a.m. Critical care time spent with patient discussing and formulating plan of care: 40 minutes. This does not include time spent performing procedures. This medical document was created using an electronic medical record system with [employer] system. Although this document has been carefully reviewed, there may still be some phonetic and typographical errors. These areas are purely typographical due to imperfections of the software programs, and do not reflect any compromise in the patient's medical care. Plan discussed with: Patient, Other (RN) My Orders Orders - KIRK CARPIO NP Procedure Category Date Status Time Abg W/ Co-Ox RT 09/09/25 Logged 07:00 Cpap Trial For Am ORDERS 09/09/25 Transmitted 08:11 Cpap/Sed Vacation Med ORDERS 09/09/25 Transmitted Weaning 08:11 Precedex Drip Rass -2 PHA 09/09/25 Verified 09:30 Date of Service: Sep 09, 2025 Billing Provider: KIRK CARPIO NP Common Visit Codes: [id number]/OBS DISCH DAY >30min KIRK CARPIO NP Sep 09, 2025 09:29
[2025-09-09] MEDS: DEXMEDETOMIDINE HCL IN D5W 100 ML IV SCH (10:23)
[2025-09-09] MEDS: MEROPENEM 1GM IVPB 50 ML IV SCH (10:43)
--- NOTE | 2025-09-09 15:14 | DVHPN2 ---
Progress Note Date Seen: Sep 09, 2025 Medical Necessity Reason Pt with a Central, PICC or Fol: Yes The following are medically ne: Central Line, Wall Catheter Subjective Changes from previous H/P or p: No Changes Objective vital signs Vital Sign Date Time Temp Pulse Resp B/P (MAP) Pulse Ox O2 Delivery O2 Flow Rate FiO2 09/09/25 14:25 66 18 122/87 (99) 100 30 09/09/25 14:00 Mechanical Ventilator+ 09/09/25 13:15 96.8 206.2 Total Intake and Output 09/08/25 09/08/25 09/09/25 15:00 23:00 07:00 Intake Total 694.5 ml 647.635 ml 690.164 ml Output Total 1350 ml 980 ml Balance 694.5 ml -702.365 ml -289.836 ml medications Current Medications Medications Dose Ordered Sig/Justin Route Start Time Stop Time Status Last Admin Dose Admin Acetaminophen 650 mg Q6HP PRN PO 09/05/25 05:30 Fentanyl Citrate 250 ml @ 2.5 mls/hr Q24H IV 09/05/25 10:15 09/09/25 01:38 20 MLS/HR Pantoprazole Sodium 40 mg DAILY IV 09/06/25 10:00 09/09/25 10:43 40 MG Propofol 100 ml @ 2.727 mls/ hr Q24H IV 09/05/25 23:45 09/09/25 10:22 8.181 MLS/HR Dextrose/Sodium Chloride 1,000 ml @ 50 mls/hr Q20H IV 09/06/25 16:30 09/09/25 04:36 50 MLS/HR Furosemide 40 mg DAILY IV 09/07/25 10:00 09/09/25 10:42 40 MG Micafungin Sodium 100 mg/Sodium Chloride 100 ml @ 100 mls/hr DAILY IV 09/07/25 10:45 09/09/25 10:43 100 MLS/HR Diagnostic Test (Pha) 1 strip Q6HR 09/07/25 12:00 09/09/25 12:14 1 STRIP Insulin Human Regular Q6HR SC 09/07/25 12:00 09/09/25 12:14 2 UNITS Dextrose 50 ml UD PRN IV 09/07/25 10:45 Enteral Nutritional Formula 1,000 ml 30ML/HR GT 09/07/25 10:45 Epoetin Fco-epbx 10,000 unit MWF SC 09/07/25 12:00 09/09/25 11:52 10,000 UNIT Hydralazine HCl 10 mg Q6HP PRN IV 09/08/25 09:00 Insulin Glargine 10 units HS SC 09/08/25 22:00 09/08/25 22:17 10 UNITS Meropenem 50 ml @ 17 mls/hr Q12H IV 09/09/25 10:00 09/09/25 10:43 17 MLS/HR Examination: GENERAL:Abnormal, CVS:Abnormal, SKIN:Abnormal laboratory and microbiology Laboratory Tests 09/09/25 02:55 Test 09/09/25 02:55 Range/Units Serum Glucose 203 H 74-106 mg/dL Microbiology Date/Time Source Procedure Growth Status 09/05/25 15:40 Urine - Wall Port Urine Culture - Final Yeast, not Le albicans Complete 09/05/25 15:29 Nose MRSA Screen - Final Complete 09/05/25 09:35 Sputum Gram Stain - Final Complete 09/05/25 09:35 Sputum Respiratory Culture - Final Complete 09/05/25 01:08 Blood Blood Culture - Preliminary NO GROWTH AFTER 72 HOURS OF INCUBATION. Resulted Problem List/Assessment/Plan Problem List/Assessment/Plan Acute kidney injury hemodynamically mediated in the setting of shock Diabetic ketoacidosis -off insulin drip transitioned to subcu Monitoring urinary output Chronic kidney disease stage 4/5 Nephrotic syndrome with nephrotic range proteinuria suspected due to diabetes 8gm proteinuria Recent workup and [facility] showed negative serologies, complements, TATIANA, Anca negative lasix for edema today Hypertension Abnormal electrolytes, hypernatremia, hypokalemia, metabolic acidosis -electrolyte replacement as per hospital and ICU guidelines Anemia due to chronic kidney disease Procrit subcutaneous 3 times a week Acute respiratory failure secondary to shock vent management as per primary medical team Renal diet once patient is tolerating p.o. Patient will benefit from kidney biopsy for diagnosis and confirmation of nephrotic syndrome causes although likely in his diabetes could be from other nephrotic diseases. Plan discussed with: Other Dietary Evaluation Review Comments: Enteral Nutrition: Formula: Vital Rate: 50 mL/hr Provides: Protein: 105 g Energy: 1200 kcal Free Water: 1003 mL Meets: Protein needs: ~75% Energy needs: ~100% Monitoring: Follow up with renal function and updated lab values (electrolytes, glucose, Mg, Phos). Reassessment: Reassess nutrition plan when patient is extubated and able to transition to oral or modified feeding route. Expected Outcomes/Goals: Improved protein nutrition and overall health condition, gradual wt loss CC Plasma Assessment Blood Product Administration S: [id number] GERONIMO GOODWIN MD Sep 09, 2025 15:14
[2025-09-09 15:30] LABS: Base Excess 2.4 mmol/L (-2.0-3.0)
[2025-09-10] VITALS (110 sets, daily range): BP systolic 102–167; BP diastolic 76–120; PULSE 66–76; RESP 0–19; TEMP 97.2–98.6; O2SAT 85–100
[2025-09-10 03:02] LABS: Hematocrit 34.3 % (41.0-53.0); Hemoglobin 11.4 g/dL (13.5-17.5); Mean Corpuscular Hemoglobin 29.1 pg (28.0-32.0); Mean Corpuscular Volume 87.4 fL (80.0-100.0); Nucleated Red Blood Cells % 0.0 %
[2025-09-10 03:12] LABS: Anion Gap 11 (5-15); Carbon Dioxide 25 mmol/L (20-31)
[2025-09-10 03:15] LABS: Calcium 7.4 mg/dL (8.7-10.4); Chloride 111 mmol/L (98-107); Potassium 3.4 mmol/L (3.5-5.1); Sodium 147 mmol/L (136-145)
[2025-09-10 03:17] LABS: BUN/Creatinine Ratio 10.5 (10.0-20.0)
[2025-09-10 03:18] LABS: Magnesium 1.8 mg/dL (1.6-2.6)
[2025-09-10 03:20] LABS: Blood Urea Nitrogen 41 mg/dL (9-23); Glucose 108 mg/dL (74-106)
[2025-09-10] MEDS: POTASSIUM CHL 20MEQ/100ML 100 ML IV ONE (04:14)
--- NOTE | 2025-09-10 05:40 | DVH ---
CHEST RADIOGRAPH Indication: resp Technique: Single frontal view of the chest was obtained COMPARISON: XY CHEST XRAY 1 VIEW on DOS: 09/08/25, XY CHEST XRAY 1 VIEW on DOS: 09/07/25, XY CHEST PORTABLE on DOS: 09/06/25, XY CHEST PORTABLE on DOS: 09/05/25, XY CHEST XRAY 1 VIEW on DOS: 02/27/25 FINDINGS: Lines and Tubes: Endotracheal tube and enteric catheter in satisfactory position. Lungs: Mild pulmonary vascular congestion. Pleura: No effusion. No pneumothorax. Cardiomediastinal contours: Unremarkable Bones: Unremarkable IMPRESSION: Lines and tubes in satisfactory position. No significant interval change.
[2025-09-10 07:00] LABS: Base Excess 3.1 mmol/L (-2.0-3.0)
[2025-09-10] MEDS ORDERED: POTASSIUM CHL 20MEQ/100ML 100 ML IV ONE (08:30)
--- NOTE | 2025-09-10 09:28 | DVHPN2 ---
Subjective Patient intubated and sedated Reviewed: H&P Changes from previous H/P or p: No Changes General: Per HPI Eyes: No Pain, No Vision change, No Conjunctivae inflammation, No Eyelid inflammation, No Other, No Redness ENT: No Ear pain, No Ear discharge, No Nose pain, No Nose discharge, No Nose congestion, No Mouth pain, No Mouth swelling, No Throat pain, No Throat swelling, No Other Cardiovascular: No Chest Pain, No Palpitations, No Orthopnea, No Paroxysmal Noc. Dyspnea, No Edema, No Lt Headedness; Other (Hypotension) Respiratory: No Cough, No Dry, No Shortness of breath, No SOB with excertion, No Wheezing, No Hemoptysis, No Pleuritic Pain, No Sputum, No Other Gastrointestinal: No Nausea, No Vomiting, No Abdominal Pain, No Diarrhea, No Constipation, No Melena, No Hematochezia, No Other Genitourinary: No Dysuria, No Frequency, No Incontinence, No Hematuria, No Retention, No Other Musculoskeletal: No other, No neck pain, No shoulder pain, No arm pain, No back pain, No hand pain, No leg pain, No foot pain Skin: No Rash, No Lesions, No Jaundice, No Bruising, No Other Objective Vitals Vital Signs Date Time Temp Pulse Resp B/P (MAP) Pulse Ox O2 Delivery O2 Flow Rate FiO2 09/10/25 07:14 69 18 146/107 (120) 100 30 09/10/25 06:45 97.9 208.2 09/10/25 05:43 Mechanical Ventilator+ Intake/Output Intake and Output 09/10/25 07:00 Intake Total 1679.804 ml Output Total 3075 ml Balance -1395.196 ml Intake Oral 30 ml IV Total 1649.804 ml Output Urine Total 3075 ml Stool Total 0 ml # Bowel Movements 1 General Appearance: mild distress, Other (intubated and sedated) HEENT: Atraumatic, PERRLA Lungs: Clear to auscultation Cardiovascular: Regular rate, Normal S1, Normal S2 Abdomen: Normal bowel sounds Extremities: Normal pulses, Other (DKA) Skin: Dry, Intact Psych/Mental Status: Other (unable to assess) Medications Current Medications Medications Dose Ordered Sig/Justin Route Start Time Stop Time Status Last Admin Dose Admin Acetaminophen 650 mg Q6HP PRN PO 09/05/25 05:30 Fentanyl Citrate 250 ml @ 2.5 mls/hr Q24H IV 09/05/25 10:15 09/09/25 01:38 20 MLS/HR Pantoprazole Sodium 40 mg DAILY IV 09/06/25 10:00 09/09/25 10:43 40 MG Propofol 100 ml @ 2.727 mls/ hr Q24H IV 09/05/25 23:45 09/10/25 08:49 0 MLS/HR Dextrose/Sodium Chloride 1,000 ml @ 50 mls/hr Q20H IV 09/06/25 16:30 09/10/25 01:14 50 MLS/HR Micafungin Sodium 100 mg/Sodium Chloride 100 ml @ 100 mls/hr DAILY IV 09/07/25 10:45 09/09/25 10:43 100 MLS/HR Diagnostic Test (Pha) 1 strip Q6HR 09/07/25 12:00 09/10/25 06:33 1 STRIP Insulin Human Regular Q6HR SC 09/07/25 12:00 09/09/25 12:14 2 UNITS Dextrose 50 ml UD PRN IV 09/07/25 10:45 Enteral Nutritional Formula 1,000 ml 30ML/HR GT 09/07/25 10:45 Epoetin Fco-epbx 10,000 unit MWF SC 09/07/25 12:00 09/09/25 11:52 10,000 UNIT Hydralazine HCl 10 mg Q6HP PRN IV 09/08/25 09:00 Insulin Glargine 10 units HS SC 09/08/25 22:00 09/08/25 22:17 10 UNITS Meropenem 50 ml @ 17 mls/hr Q12H IV 09/09/25 10:00 09/09/25 21:58 17 MLS/HR Furosemide 40 mg DAILY IV 09/10/25 10:00 Laboratory Results Laboratory Tests 09/10/25 02:43 Chemistry Test 09/10/25 02:43 Calcium Level 7.4 mg/dL (8.7-10.4) L Magnesium Level 1.8 mg/dL (1.6-2.6) Urinalysis Test 09/05/25 15:40 Urine Color Light-brown (Yellow) Urine Clarity Ex.turbid (Clear) Urine pH 6.0 (5.0-9.0) Urine Specific [place] 1.013 (1.001-1.035) Urine Protein 2+ (Negative) H Urine Ketones 2+ (Negative) H Urine Blood 2+ /uL (Negative) H Urine Nitrite Negative (Negative) Urine Bilirubin Negative (Negative) Urine Urobilinogen Normal mg/dL (Negative) Urine Leukocyte Esterase 3+ /uL (Negative) Urine RBC 1374 /hpf (0 - 3) Urine WBC Clumps Present /hpf (None Seen) Urine Microscopic WBC 429 /HPF (0-3) H Urine Squamous Epithelial Cells Mod /hpf (<5) Urine Bacteria None seen /hpf (None Seen) Urine Yeast (Budding) Loaded /hpf (None Seen) Urine Glucose 3+ mg/dL (Normal) H Blood Gas Results Test 09/09/25 15:22 09/10/25 06:42 Arterial Blood pH 7.571 (7.350-7.450) 7.586 (7.350-7.450) FiO2 % 30.0 30.0 Microbiology Microbiology Date/Time Source Procedure Growth Status 09/05/25 15:40 Urine - Wall Port Urine Culture - Final Yeast, not Le albicans Complete 09/05/25 15:29 Nose MRSA Screen - Final Complete 09/05/25 09:35 Sputum Gram Stain - Final Complete 09/05/25 09:35 Sputum Respiratory Culture - Final Complete 09/05/25 01:08 Blood Blood Culture - Final NO GROWTH AFTER 5 DAYS OF INCUBATION. Complete Labs and/or images reviewed: Labs reviewed by me, Image(s) reviewed by me Assessment/Plan Assessment/Plan Impression: -diabetic ketoacidosis -metabolic encephalopathy -acute hypoxic respiratory failure -sirs,? Sepsis -severe protein malnutrition -CKD stage 4 -Hypokalemia Plan: Events: No events overnight. Patient was placed on CPAP on to events yesterday. Patient noted to be agitated than having periods of apnea. Patient was started on Precedex overnight, with date night caregiver also placed with the patient on propofol. Attempt to wean patient off ventilator. Potassium replacement -continue current antibiotic therapy -continue vent settings -Regular insulin SS, Lantus -Wean sedation -consultations: Pulmonology, Nephrology -Continue IVF -PPI -repeat labs , chest x-ray, ABG in a.m. Critical care time spent with patient discussing and formulating plan of care: 40 minutes. This does not include time spent performing procedures. This medical document was created using an electronic medical record system with [employer] dictation system. Although this document has been carefully reviewed, there may still be some phonetic and typographical errors. These areas are purely typographical due to imperfections of the software programs, and do not reflect any compromise in the patient's medical care. Plan discussed with: Patient, Other (RN) My Orders Orders - KIRK CARPIO NP Procedure Category Date Status Time Chest Portable XY 09/10/25 Resulted 04:00 Abg W/ Co-Ox RT 09/10/25 Logged 05:00 Date of Service: Sep 10, 2025 Billing Provider: KIRK CARPIO NP Common Visit Codes: [id number] CARE 30-74 MIN KIRK CARPIO NP Sep 10, 2025 09:28
[2025-09-10] MEDS: FUROSEMIDE 40 MG/4 ML VIAL IV SCH (10:12)
--- NOTE | 2025-09-10 14:08 | DVHPN2 ---
Progress Note Date Seen: Sep 10, 2025 Medical Necessity Reason Pt with a Central, PICC or Fol: Yes The following are medically ne: Central Line, Wall Catheter Objective vital signs Vital Sign Date Time Temp Pulse Resp B/P (MAP) Pulse Ox O2 Delivery O2 Flow Rate FiO2 09/10/25 13:25 72 18 135/98 (110) 100 30 09/10/25 10:45 98.6 209.5 09/10/25 10:00 Mechanical Ventilator+ Total Intake and Output 09/09/25 09/09/25 09/10/25 15:00 23:00 07:00 Intake Total 685.3 ml 529.535 ml 529.869 ml Output Total 1800 ml 1275 ml Balance 685.3 ml -1270.465 ml -745.131 ml medications Current Medications Medications Dose Ordered Sig/Justin Route Start Time Stop Time Status Last Admin Dose Admin Acetaminophen 650 mg Q6HP PRN PO 09/05/25 05:30 Fentanyl Citrate 250 ml @ 2.5 mls/hr Q24H IV 09/05/25 10:15 09/10/25 10:20 7.5 MLS/HR Pantoprazole Sodium 40 mg DAILY IV 09/06/25 10:00 09/10/25 10:13 40 MG Propofol 100 ml @ 2.727 mls/ hr Q24H IV 09/05/25 23:45 09/10/25 08:49 0 MLS/HR Dextrose/Sodium Chloride 1,000 ml @ 50 mls/hr Q20H IV 09/06/25 16:30 09/10/25 01:14 50 MLS/HR Micafungin Sodium 100 mg/Sodium Chloride 100 ml @ 100 mls/hr DAILY IV 09/07/25 10:45 09/10/25 10:14 100 MLS/HR Diagnostic Test (Pha) 1 strip Q6HR 09/07/25 12:00 09/10/25 12:17 1 STRIP Insulin Human Regular Q6HR SC 09/07/25 12:00 09/10/25 12:17 3 UNITS Dextrose 50 ml UD PRN IV 09/07/25 10:45 Enteral Nutritional Formula 1,000 ml 30ML/HR GT 09/07/25 10:45 Epoetin Fco-epbx 10,000 unit MWF SC 09/07/25 12:00 09/09/25 11:52 10,000 UNIT Hydralazine HCl 10 mg Q6HP PRN IV 09/08/25 09:00 Insulin Glargine 10 units HS SC 09/08/25 22:00 09/08/25 22:17 10 UNITS Meropenem 50 ml @ 17 mls/hr Q12H IV 09/09/25 10:00 09/10/25 10:13 17 MLS/HR Furosemide 40 mg DAILY IV 09/10/25 10:00 09/10/25 10:12 40 MG Examination: GENERAL:Abnormal, LUNGS:Abnormal, SKIN:Abnormal, NEURO:Abnormal laboratory and microbiology Laboratory Tests 09/10/25 02:43 Test 09/10/25 02:43 Range/Units Serum Glucose 108 H 74-106 mg/dL Microbiology Date/Time Source Procedure Growth Status 09/05/25 15:40 Urine - Wall Port Urine Culture - Final Yeast, not Le albicans Complete 09/05/25 15:29 Nose MRSA Screen - Final Complete 09/05/25 09:35 Sputum Gram Stain - Final Complete 09/05/25 09:35 Sputum Respiratory Culture - Final Complete 09/05/25 01:08 Blood Blood Culture - Final NO GROWTH AFTER 5 DAYS OF INCUBATION. Complete Problem List/Assessment/Plan Problem List/Assessment/Plan Acute kidney injury hemodynamically mediated in the setting of shock Diabetic ketoacidosis Chronic kidney disease stage 4/5 Nephrotic syndrome with nephrotic range proteinuria suspected due to diabetes 8gm proteinuria HTN Acute respiratory failure secondary to shock vent management as per primary medical team renal function continues to improve Recent workup and [facility] showed negative serologies, complements, TATIANA, Anca negative lasix for edema Anemia due to chronic kidney disease Procrit subcutaneous 3 times a week Renal diet once patient is tolerating p.o. Patient will benefit from kidney biopsy for diagnosis and confirmation of nephrotic syndrome causes although likely in his diabetes could be from other nephrotic diseases. Plan discussed with: Other My Orders My Orders Orders - GERONIMO GOODWIN MD Procedure Category Date Status Time Furosemide Injection PHA 09/10/25 In Process (Lasix Injection) 10:00 Dietary Evaluation Review Comments: Enteral Nutrition: Formula: Vital Rate: 50 mL/hr Provides: Protein: 105 g Energy: 1200 kcal Free Water: 1003 mL Meets: Protein needs: ~75% Energy needs: ~100% Monitoring: Follow up with renal function and updated lab values (electrolytes, glucose, Mg, Phos). Reassessment: Reassess nutrition plan when patient is extubated and able to transition to oral or modified feeding route. Expected Outcomes/Goals: Improved protein nutrition and overall health condition, gradual wt loss CC Plasma Assessment Blood Product Administration S: [id number] GERONIMO GOODWIN MD Sep 10, 2025 14:08
[2025-09-11] VITALS (104 sets, daily range): BP systolic 82–212; BP diastolic 54–137; PULSE 57–125; RESP 0–29; TEMP 93.9–99.5; O2SAT 58–100
[2025-09-11 03:57] LABS: Hematocrit 35.6 % (41.0-53.0); Hemoglobin 11.9 g/dL (13.5-17.5); Mean Corpuscular Hemoglobin 29.1 pg (28.0-32.0); Mean Corpuscular Volume 87.4 fL (80.0-100.0); Nucleated Red Blood Cells % 0.3 %
[2025-09-11 04:30] LABS: Alkaline Phosphatase 53 U/L (46-116); Anion Gap 11 (5-15); BUN/Creatinine Ratio 10.7 (10.0-20.0); Carbon Dioxide 24 mmol/L (20-31); Magnesium 1.7 mg/dL (1.6-2.6)
[2025-09-11 04:35] LABS: Alanine Aminotransferase < 9 U/L (7-40); Albumin 2.0 g/dL (3.2-4.8); Bilirubin, Total 0.2 mg/dL (0.2-1.0); Blood Urea Nitrogen 40 mg/dL (9-23); Calcium 7.1 mg/dL (8.7-10.4); Chloride 111 mmol/L (98-107); Glucose 191 mg/dL (74-106); Potassium 3.4 mmol/L (3.5-5.1); Sodium 146 mmol/L (136-145); Total Protein 4.7 g/dL (5.7-8.2)
[2025-09-11] MEDS: POTASSIUM CHL 20MEQ/100ML 100 ML IV ONE ×2 (05:43)
--- NOTE | 2025-09-11 07:07 | DVH ---
CHEST RADIOGRAPH Indication: resp Technique: Single frontal view of the chest was obtained Comparison: XY CHEST PORTABLE on DOS: 09/10/25. FINDINGS: Lines and Tubes: The endotracheal tube terminates 3.2 cm above the dianna. The enteric tube courses below the left hemidiaphragm and the tip extends outside the field of view. Lungs: No focal consolidation. Pleura: There is a left pleural effusion. No pneumothorax. Cardiomediastinal contours: Unremarkable Bones: No acute osseous abnormality. IMPRESSION: 1. Left pleural effusion. 2. Support tubes as described.
[2025-09-11 09:44] LABS: Base Excess -1.9 mmol/L (-2.0-3.0)
--- NOTE | 2025-09-11 11:57 | DVHPN2 ---
Subjective Patient intubated and sedated Reviewed: H&P Changes from previous H/P or p: No Changes General: Per HPI Eyes: No Pain, No Vision change, No Conjunctivae inflammation, No Eyelid inflammation, No Other, No Redness ENT: No Ear pain, No Ear discharge, No Nose pain, No Nose discharge, No Nose congestion, No Mouth pain, No Mouth swelling, No Throat pain, No Throat swelling, No Other Cardiovascular: No Chest Pain, No Palpitations, No Orthopnea, No Paroxysmal Noc. Dyspnea, No Edema, No Lt Headedness; Other (Hypotension) Respiratory: No Cough, No Dry, No Shortness of breath, No SOB with excertion, No Wheezing, No Hemoptysis, No Pleuritic Pain, No Sputum, No Other Gastrointestinal: No Nausea, No Vomiting, No Abdominal Pain, No Diarrhea, No Constipation, No Melena, No Hematochezia, No Other Genitourinary: No Dysuria, No Frequency, No Incontinence, No Hematuria, No Retention, No Other Musculoskeletal: No other, No neck pain, No shoulder pain, No arm pain, No back pain, No hand pain, No leg pain, No foot pain Skin: No Rash, No Lesions, No Jaundice, No Bruising, No Other Objective Vitals Vital Signs Date Time Temp Pulse Resp B/P (MAP) Pulse Ox O2 Delivery O2 Flow Rate FiO2 09/11/25 10:18 99 Simple Mask* 10 35 Cool Aerosol 35 09/11/25 10:00 90/63 09/11/25 09:35 24 09/11/25 08:00 70 09/11/25 07:00 99.5 211.1 Intake/Output Intake and Output 09/11/25 07:00 Intake Total 1893.368 ml Output Total 1700 ml Balance 193.368 ml Intake Oral 0 ml IV Total 1893.368 ml Output Urine Total 1700 ml Stool Total 0 ml General Appearance: Alert, Cooperative, mild distress HEENT: Atraumatic, PERRLA Lungs: Clear to auscultation Cardiovascular: Regular rate, Normal S1, Normal S2 Abdomen: Normal bowel sounds Extremities: Normal pulses, Other (DKA) Skin: Dry, Intact Psych/Mental Status: Other (unable to assess) Medications Current Medications Medications Dose Ordered Sig/Justin Route Start Time Stop Time Status Last Admin Dose Admin Acetaminophen 650 mg Q6HP PRN PO 09/05/25 05:30 Fentanyl Citrate 250 ml @ 2.5 mls/hr Q24H IV 09/05/25 10:15 09/10/25 10:20 7.5 MLS/HR Pantoprazole Sodium 40 mg DAILY IV 09/06/25 10:00 09/11/25 10:44 40 MG Propofol 100 ml @ 2.727 mls/ hr Q24H IV 09/05/25 23:45 09/11/25 03:43 8.181 MLS/HR Dextrose/Sodium Chloride 1,000 ml @ 50 mls/hr Q20H IV 09/06/25 16:30 09/10/25 21:30 50 MLS/HR Micafungin Sodium 100 mg/Sodium Chloride 100 ml @ 100 mls/hr DAILY IV 09/07/25 10:45 09/11/25 11:42 100 MLS/HR Diagnostic Test (Pha) 1 strip Q6HR 09/07/25 12:00 09/11/25 06:25 1 STRIP Insulin Human Regular Q6HR SC 09/07/25 12:00 09/10/25 23:58 6 UNITS Dextrose 50 ml UD PRN IV 09/07/25 10:45 Enteral Nutritional Formula 1,000 ml 30ML/HR GT 09/07/25 10:45 Epoetin Fco-epbx 10,000 unit MWF SC 09/07/25 12:00 09/09/25 11:52 10,000 UNIT Hydralazine HCl 10 mg Q6HP PRN IV 09/08/25 09:00 Insulin Glargine 10 units HS SC 09/08/25 22:00 09/10/25 22:44 10 UNITS Meropenem 50 ml @ 17 mls/hr Q12H IV 09/09/25 10:00 09/11/25 10:45 17 MLS/HR Furosemide 40 mg DAILY IV 09/10/25 10:00 09/10/25 10:12 40 MG Laboratory Results Laboratory Tests 09/11/25 03:20 Chemistry Test 09/11/25 03:20 Albumin 2.0 g/dL (3.2-4.8) L Calcium Level 7.1 mg/dL (8.7-10.4) L Magnesium Level 1.7 mg/dL (1.6-2.6) Total Protein 4.7 g/dL (5.7-8.2) L LFT Test 09/11/25 03:20 Alanine Aminotransferase (ALT) < 9 U/L (7-40) Alkaline Phosphatase 53 U/L (46-116) Aspartate Amino Transferase (AST) 19 U/L (13-40) Total Bilirubin 0.2 mg/dL (0.2-1.0) Urinalysis Test 09/05/25 15:40 Urine Color Light-brown (Yellow) Urine Clarity Ex.turbid (Clear) Urine pH 6.0 (5.0-9.0) Urine Specific [place] 1.013 (1.001-1.035) Urine Protein 2+ (Negative) H Urine Ketones 2+ (Negative) H Urine Blood 2+ /uL (Negative) H Urine Nitrite Negative (Negative) Urine Bilirubin Negative (Negative) Urine Urobilinogen Normal mg/dL (Negative) Urine Leukocyte Esterase 3+ /uL (Negative) Urine RBC 1374 /hpf (0 - 3) Urine WBC Clumps Present /hpf (None Seen) Urine Microscopic WBC 429 /HPF (0-3) H Urine Squamous Epithelial Cells Mod /hpf (<5) Urine Bacteria None seen /hpf (None Seen) Urine Yeast (Budding) Loaded /hpf (None Seen) Urine Glucose 3+ mg/dL (Normal) H Blood Gas Results Test 09/11/25 09:27 Arterial Blood pH 7.375 (7.350-7.450) FiO2 % 30.0 Microbiology Microbiology Date/Time Source Procedure Growth Status 09/05/25 15:40 Urine - Wall Port Urine Culture - Final Yeast, not Le albicans Complete 09/05/25 15:29 Nose MRSA Screen - Final Complete 09/05/25 09:35 Sputum Gram Stain - Final Complete 09/05/25 09:35 Sputum Respiratory Culture - Final Complete 09/05/25 01:08 Blood Blood Culture - Final NO GROWTH AFTER 5 DAYS OF INCUBATION. Complete Labs and/or images reviewed: Labs reviewed by me, Image(s) reviewed by me Assessment/Plan Assessment/Plan Impression: -diabetic ketoacidosis -metabolic encephalopathy -acute hypoxic respiratory failure -sirs,? Sepsis -severe protein malnutrition -CKD stage 4 -Hypokalemia Plan: Events: Patient off sedation, following commands. Plans for spontaneous breathing trial with extubation. Discussed with primary nurse and respiratory therapist. -continue current antibiotic therapy -continue vent settings -Regular insulin SS, Lantus -start consistent carbohydrate diet -consultations: Pulmonology, Nephrology -Continue IVF -PPI -repeat labs , chest x-ray, ABG in a.m. Critical care time spent with patient discussing and formulating plan of care: 40 minutes. This does not include time spent performing procedures. This medical document was created using an electronic medical record system with [employer] dictation system. Although this document has been carefully reviewed, there may still be some phonetic and typographical errors. These areas are purely typographical due to imperfections of the software programs, and do not reflect any compromise in the patient's medical care. Plan discussed with: Patient, Other (RN) My Orders Orders - KIRK CARPIO NP Procedure Category Date Status Time Chest Portable XY 09/11/25 Resulted 20:00 Abg W/ Co-Ox RT 09/11/25 Logged 07:00 Cpap Trial For Am ORDERS 09/11/25 Transmitted 08:04 Cpap/Sed Vacation Med ORDERS 09/11/25 Transmitted Weaning 08:04 Ventilator Setup RT 09/11/25 Logged 08:04 Extubate JOSH 09/11/25 In Process 10:15 Abg W/ Co-Ox RT 09/11/25 Logged 09:37 Oxygen Via Cool Mist RT 09/11/25 Transmitted Mask 10:15 Date of Service: Sep 11, 2025 Billing Provider: KIRK CARPIO NP Common Visit Codes: [id number] CARE 30-74 MIN KIRK CARPIO NP Sep 11, 2025 11:56
[2025-09-11] MEDS: DEXTROSE (50%) 50ML SYRG IV PRN (13:27)
--- NOTE | 2025-09-11 16:02 | DVHPN2 ---
Progress Note - Dictate Date Seen: Sep 11, 2025 Medical Necessity Reason Pt with a Central, PICC or Fol: Yes The following are medically ne: Central Line, Wall Catheter Subjective Arousable, extubated earlier today. vital signs Vital Sign Date Time Temp Pulse Resp B/P (MAP) Pulse Ox O2 Delivery O2 Flow Rate FiO2 09/11/25 10:18 99 Simple Mask* 10 35 Cool Aerosol 35 09/11/25 10:00 90/63 09/11/25 09:35 24 09/11/25 08:00 70 09/11/25 07:00 99.5 211.1 Total Intake and Output 09/10/25 09/10/25 09/11/25 15:00 23:00 07:00 Intake Total 727.3 ml 670.669 ml 495.399 ml Output Total 900 ml 800 ml Balance 727.3 ml -229.331 ml -304.601 ml medications Current Medications Medications Dose Ordered Sig/Justin Route Start Time Stop Time Status Last Admin Dose Admin Acetaminophen 650 mg Q6HP PRN PO 09/05/25 05:30 Fentanyl Citrate 250 ml @ 2.5 mls/hr Q24H IV 09/05/25 10:15 09/10/25 10:20 7.5 MLS/HR Pantoprazole Sodium 40 mg DAILY IV 09/06/25 10:00 09/11/25 10:44 40 MG Propofol 100 ml @ 2.727 mls/ hr Q24H IV 09/05/25 23:45 09/11/25 03:43 8.181 MLS/HR Dextrose/Sodium Chloride 1,000 ml @ 50 mls/hr Q20H IV 09/06/25 16:30 09/10/25 21:30 50 MLS/HR Micafungin Sodium 100 mg/Sodium Chloride 100 ml @ 100 mls/hr DAILY IV 09/07/25 10:45 09/11/25 11:42 100 MLS/HR Diagnostic Test (Pha) 1 strip Q6HR 09/07/25 12:00 09/11/25 12:00 1 STRIP Insulin Human Regular Q6HR SC 09/07/25 12:00 09/10/25 23:58 6 UNITS Dextrose 50 ml UD PRN IV 09/07/25 10:45 09/11/25 13:27 50 ML Enteral Nutritional Formula 1,000 ml 30ML/HR GT 09/07/25 10:45 Epoetin Fco-epbx 10,000 unit MWF SC 09/07/25 12:00 09/09/25 11:52 10,000 UNIT Hydralazine HCl 10 mg Q6HP PRN IV 09/08/25 09:00 Insulin Glargine 10 units HS SC 09/08/25 22:00 09/10/25 22:44 10 UNITS Meropenem 50 ml @ 17 mls/hr Q12H IV 09/09/25 10:00 09/11/25 10:45 17 MLS/HR Furosemide 40 mg DAILY IV 09/10/25 10:00 09/10/25 10:12 40 MG objective Gen: nad heent: nc/at, mmm lungs: cta anteriorly cvs: no rub abd: soft, bowel sounds audible ext: no edema skin: no rash laboratory and microbiology Laboratory Tests 09/11/25 03:20 Test 09/11/25 03:20 Range/Units Serum Glucose 191 H 74-106 mg/dL Assessment/Plan Problem List/Assessment/Plan Acute kidney injury hemodynamically mediated in the setting of shock Diabetic ketoacidosis Chronic kidney disease stage 4/5 Nephrotic syndrome with nephrotic range proteinuria suspected due to diabetes 8gm proteinuria HTN Acute respiratory failure secondary to shock vent management as per primary medical team - resolving acute kidney injury - nephrotic syndrome with clinical suspicion for underlying diabetic kidney disease - we will continue to follow Dietary Evaluation Review Comments: Enteral Nutrition: Formula: Vital Rate: 50 mL/hr Provides: Protein: 105 g Energy: 1200 kcal Free Water: 1003 mL Meets: Protein needs: ~75% Energy needs: ~100% Monitoring: Follow up with renal function and updated lab values (electrolytes, glucose, Mg, Phos). Reassessment: Reassess nutrition plan when patient is extubated and able to transition to oral or modified feeding route. Expected Outcomes/Goals: Improved protein nutrition and overall health condition, gradual wt loss Plan discussed with: Other CC Plasma Assessment Blood Product Administration S: [id number] KARINA BARLOW MD Sep 11, 2025 16:02
[2025-09-11] MEDS: HYDROcodone-ACET 5/325MG TAB PO PRN (21:05)
[2025-09-11] MEDS ORDERED: PROCHLORPERAZINE EDISYLATE 5 MG/ML 2ML VIAL IV PRN (22:45)
[2025-09-11] MEDS: PROCHLORPERAZINE EDISYLATE 5 MG/ML 2ML VIAL IV ONE (23:14)
[2025-09-11 23:15] LABS: Potassium 4.3 mmol/L (3.5-5.1)
[2025-09-11 23:16] LABS: Anion Gap 13 (5-15); Carbon Dioxide 22 mmol/L (20-31)
[2025-09-11 23:17] LABS: Calcium 7.2 mg/dL (8.7-10.4); Chloride 113 mmol/L (98-107); Sodium 148 mmol/L (136-145)
[2025-09-11 23:21] LABS: Glucose 105 mg/dL (74-106)
[2025-09-11 23:22] LABS: BUN/Creatinine Ratio 9.8 (10.0-20.0); Magnesium 1.7 mg/dL (1.6-2.6)
[2025-09-11 23:23] LABS: Blood Urea Nitrogen 40 mg/dL (9-23)
[2025-09-12] VITALS (96 sets, daily range): BP systolic 80–184; BP diastolic 38–116; PULSE 85–123; RESP 6–27; TEMP 96.8–99.9; O2SAT 91–100
[2025-09-12 03:41] LABS: Hematocrit 29.6 % (41.0-53.0); Hemoglobin 9.6 g/dL (13.5-17.5); Mean Corpuscular Hemoglobin 29.0 pg (28.0-32.0); Mean Corpuscular Volume 89.3 fL (80.0-100.0); Nucleated Red Blood Cells % 0.0 %
[2025-09-12 04:00] LABS: Alanine Aminotransferase 14 U/L (7-40); Alkaline Phosphatase 55 U/L (46-116); Anion Gap 14 (5-15); BUN/Creatinine Ratio 10.0 (10.0-20.0); Carbon Dioxide 21 mmol/L (20-31); Magnesium 1.7 mg/dL (1.6-2.6); Potassium 4.2 mmol/L (3.5-5.1)
[2025-09-12 04:03] LABS: Albumin 1.8 g/dL (3.2-4.8); Bilirubin, Total 0.2 mg/dL (0.2-1.0); Blood Urea Nitrogen 42 mg/dL (9-23); Calcium 6.9 mg/dL (8.7-10.4); Chloride 111 mmol/L (98-107); Glucose 181 mg/dL (74-106); Sodium 146 mmol/L (136-145); Total Protein 4.3 g/dL (5.7-8.2)
[2025-09-12] MEDS: ALBUMIN 25% 100 ML IV ONE (05:31)
--- NOTE | 2025-09-12 07:13 | DVH ---
CHEST RADIOGRAPH Indication: resp Technique: Single frontal view of the chest was obtained COMPARISON: XY CHEST PORTABLE on DOS: 09/11/25, XY CHEST PORTABLE on DOS: 09/10/25, XY CHEST XRAY 1 VIEW on DOS: 09/08/25, XY CHEST XRAY 1 VIEW on DOS: 09/07/25, XY CHEST PORTABLE on DOS: 09/06/25 FINDINGS: Lines and Tubes: None Lungs: Increased interstitial prominence. This may represent pulmonary vascular congestion and/or viral pneumonia. Pleura: No effusion. No pneumothorax. Cardiomediastinal contours: Unremarkable Bones: Unremarkable IMPRESSION: Increased interstitial prominence. This may represent pulmonary vascular congestion and/or viral pneumonia.
[2025-09-12 07:29] LABS: Base Excess -5.9 mmol/L (-2.0-3.0)
--- NOTE | 2025-09-12 10:07 | DVHPN2 ---
Reviewed: H&P Changes from previous H/P or p: No Changes General: Per HPI Eyes: No Pain, No Vision change, No Conjunctivae inflammation, No Eyelid inflammation, No Other, No Redness ENT: No Ear pain, No Ear discharge, No Nose pain, No Nose discharge, No Nose congestion, No Mouth pain, No Mouth swelling, No Throat pain, No Throat swelling, No Other Cardiovascular: No Chest Pain, No Palpitations, No Orthopnea, No Paroxysmal Noc. Dyspnea, No Edema, No Lt Headedness; Other (Hypotension) Respiratory: No Cough, No Dry, No Shortness of breath, No SOB with excertion, No Wheezing, No Hemoptysis, No Pleuritic Pain, No Sputum, No Other Gastrointestinal: No Nausea, No Vomiting, No Abdominal Pain, No Diarrhea, No Constipation, No Melena, No Hematochezia, No Other Genitourinary: No Dysuria, No Frequency, No Incontinence, No Hematuria, No Retention, No Other Musculoskeletal: No other, No neck pain, No shoulder pain, No arm pain, No back pain, No hand pain, No leg pain, No foot pain Skin: No Rash, No Lesions, No Jaundice, No Bruising, No Other Objective Vitals Vital Signs Date Time Temp Pulse Resp B/P (MAP) Pulse Ox O2 Delivery O2 Flow Rate FiO2 09/12/25 09:00 98.4 103 19 113/67 (82) 94 209.1 09/12/25 08:00 Room Air* 0 21 Intake/Output Intake and Output 09/12/25 07:00 Intake Total 1912.24 ml Output Total 425 ml Balance 1487.24 ml Intake Oral 360 ml IV Total 1552.24 ml Output Urine Total 425 ml Stool Total 0 ml # Bowel Movements 1 General Appearance: Alert, Cooperative, mild distress HEENT: Atraumatic, PERRLA Lungs: Clear to auscultation Cardiovascular: Regular rate, Normal S1, Normal S2 Abdomen: Normal bowel sounds Extremities: Normal pulses, Other (DKA) Skin: Dry, Intact Psych/Mental Status: Other (unable to assess) Medications Current Medications Medications Dose Ordered Sig/Justin Route Start Time Stop Time Status Last Admin Dose Admin Acetaminophen 650 mg Q6HP PRN PO 09/05/25 05:30 Fentanyl Citrate 250 ml @ 2.5 mls/hr Q24H IV 09/05/25 10:15 09/10/25 10:20 7.5 MLS/HR Pantoprazole Sodium 40 mg DAILY IV 09/06/25 10:00 09/11/25 10:44 40 MG Propofol 100 ml @ 2.727 mls/ hr Q24H IV 09/05/25 23:45 09/11/25 03:43 8.181 MLS/HR Dextrose/Sodium Chloride 1,000 ml @ 50 mls/hr Q20H IV 09/06/25 16:30 09/11/25 16:30 50 MLS/HR Micafungin Sodium 100 mg/Sodium Chloride 100 ml @ 100 mls/hr DAILY IV 09/07/25 10:45 09/11/25 11:42 100 MLS/HR Diagnostic Test (Pha) 1 strip Q6HR 09/07/25 12:00 09/12/25 05:24 1 STRIP Insulin Human Regular Q6HR SC 09/07/25 12:00 09/12/25 05:25 4 UNITS Dextrose 50 ml UD PRN IV 09/07/25 10:45 09/11/25 13:27 50 ML Enteral Nutritional Formula 1,000 ml 30ML/HR GT 09/07/25 10:45 Epoetin Fco-epbx 10,000 unit MWF SC 09/07/25 12:00 09/09/25 11:52 10,000 UNIT Hydralazine HCl 10 mg Q6HP PRN IV 09/08/25 09:00 Insulin Glargine 10 units HS SC 09/08/25 22:00 09/10/25 22:44 10 UNITS Meropenem 50 ml @ 17 mls/hr Q12H IV 09/09/25 10:00 09/11/25 21:58 17 MLS/HR Furosemide 40 mg DAILY IV 09/10/25 10:00 09/10/25 10:12 40 MG Acetaminophen/ Hydrocodone Bitart 1 tab Q6HPRN PRN PO 09/11/25 20:00 09/11/25 21:05 1 TAB Prochlorperazine Edisylate 5 mg Q4HPRN PRN IV 09/11/25 22:45 Laboratory Results Laboratory Tests 09/12/25 02:56 Chemistry Test 09/11/25 22:46 09/12/25 02:56 Calcium Level 7.2 mg/dL (8.7-10.4) L 6.9 mg/dL (8.7-10.4) L Magnesium Level 1.7 mg/dL (1.6-2.6) 1.7 mg/dL (1.6-2.6) Albumin 1.8 g/dL (3.2-4.8) L Total Protein 4.3 g/dL (5.7-8.2) L LFT Test 09/12/25 02:56 Alanine Aminotransferase (ALT) 14 U/L (7-40) Alkaline Phosphatase 55 U/L (46-116) Aspartate Amino Transferase (AST) 46 U/L (13-40) H Total Bilirubin 0.2 mg/dL (0.2-1.0) Urinalysis Test 09/05/25 15:40 Urine Color Light-brown (Yellow) Urine Clarity Ex.turbid (Clear) Urine pH 6.0 (5.0-9.0) Urine Specific [place] 1.013 (1.001-1.035) Urine Protein 2+ (Negative) H Urine Ketones 2+ (Negative) H Urine Blood 2+ /uL (Negative) H Urine Nitrite Negative (Negative) Urine Bilirubin Negative (Negative) Urine Urobilinogen Normal mg/dL (Negative) Urine Leukocyte Esterase 3+ /uL (Negative) Urine RBC 1374 /hpf (0 - 3) Urine WBC Clumps Present /hpf (None Seen) Urine Microscopic WBC 429 /HPF (0-3) H Urine Squamous Epithelial Cells Mod /hpf (<5) Urine Bacteria None seen /hpf (None Seen) Urine Yeast (Budding) Loaded /hpf (None Seen) Urine Glucose 3+ mg/dL (Normal) H Blood Gas Results Test 09/12/25 07:12 Arterial Blood pH 7.362 (7.350-7.450) FiO2 % 28.0 Microbiology Microbiology Date/Time Source Procedure Growth Status 09/05/25 15:40 Urine - Wall Port Urine Culture - Final Yeast, not Le albicans Complete 09/05/25 15:29 Nose MRSA Screen - Final Complete 09/05/25 09:35 Sputum Gram Stain - Final Complete 09/05/25 09:35 Sputum Respiratory Culture - Final Complete 09/05/25 01:08 Blood Blood Culture - Final NO GROWTH AFTER 5 DAYS OF INCUBATION. Complete Labs and/or images reviewed: Labs reviewed by me, Image(s) reviewed by me Assessment/Plan Assessment/Plan 30-year-old male with past medical history of diabetes mellitus and hypertension who presented to [facility] ED for evaluation of altered level of consciousness. Patient was just discharged at [facility] 3 days ago, was prescribed indications however patient was noncompliant with medication regimen. Patient was noted by family members acting altered and and confused, so EMS were called. Blood sugar on scene was 396, with a blood pressure 75/40 mm Hg and was given IV fluid 1 L normal saline EN route to our facility ED. 09/11: Events: Patient off sedation, following commands. Plans for spontaneous breathing trial with extubation. Discussed with primary nurse and respiratory therapist. 09/12: Patient here for DKA. DKA is resolved. Patient also had hypernatremia and has been p.o. intolerant in getting D5 half-normal for that reason. Patient has been hypothermic on getting bear hugger currently. Remains on Mirapex him which would cover for possible sepsis causes of hypothermia. Blood cultures are negative. Patient is not tolerating p.o. has right BKA A1c 7.9 which may not be accurate, type 1 diabetic likely has other diabetic complications. We will get KUB, if no ileus or SBO concern we will start Reglan 10 b.i.d. scheduled. We will switch prn antiemetics from Compazine to Zofran 4 mg q.6 PRN. Patient is tachycardic, could be from discomfort or volume dehydration. We will keep close eye on fluids. Blood pressure is labile but currently map 78, we will hold off any steroids currently. Impression: -diabetic ketoacidosis -metabolic encephalopathy -acute hypoxic respiratory failure -sirs,? Sepsis -severe protein malnutrition -CKD stage 4 -Hypokalemia Plan: -continue current antibiotic therapy -continue vent settings -Regular insulin SS, Lantus -start consistent carbohydrate diet -consultations: Pulmonology, Nephrology -Continue IVF -PPI -repeat labs , chest x-ray, ABG in a.m. Critical care time spent with patient discussing and formulating plan of care: 40 minutes. This does not include time spent performing procedures. Plan discussed with: Patient Date of Service: Sep 12, 2025 Billing Provider: JUAN SMITH MD Common Visit Codes: [id number] CARE 30-74 MIN JUAN SMITH MD Sep 12, 2025 10:07
[2025-09-12] MEDS: MORPHINE SULFATE INJ 2 MG/ml SYRG IV ONE (10:20)
--- NOTE | 2025-09-12 12:44 | DVHPN2 ---
Progress Note - Dictate Date Seen: Sep 12, 2025 Medical Necessity Reason Pt with a Central, PICC or Fol: Yes The following are medically ne: Central Line, Wall Catheter Subjective Resting comfortably this afternoon vital signs Vital Sign Date Time Temp Pulse Resp B/P (MAP) Pulse Ox O2 Delivery O2 Flow Rate FiO2 09/12/25 10:20 112 20 111/64 09/12/25 09:00 98.4 94 209.1 09/12/25 08:00 Room Air* 0 21 Total Intake and Output 09/11/25 09/11/25 09/12/25 15:00 23:00 07:00 Intake Total 602.24 ml 690 ml 620 ml Output Total 175 ml 250 ml Balance 602.24 ml 515 ml 370 ml medications Current Medications Medications Dose Ordered Sig/Justin Route Start Time Stop Time Status Last Admin Dose Admin Acetaminophen 650 mg Q6HP PRN PO 09/05/25 05:30 Fentanyl Citrate 250 ml @ 2.5 mls/hr Q24H IV 09/05/25 10:15 09/10/25 10:20 7.5 MLS/HR Pantoprazole Sodium 40 mg DAILY IV 09/06/25 10:00 09/12/25 10:17 40 MG Propofol 100 ml @ 2.727 mls/ hr Q24H IV 09/05/25 23:45 09/11/25 03:43 8.181 MLS/HR Dextrose/Sodium Chloride 1,000 ml @ 50 mls/hr Q20H IV 09/06/25 16:30 09/11/25 16:30 50 MLS/HR Micafungin Sodium 100 mg/Sodium Chloride 100 ml @ 100 mls/hr DAILY IV 09/07/25 10:45 09/11/25 11:42 100 MLS/HR Diagnostic Test (Pha) 1 strip Q6HR 09/07/25 12:00 09/12/25 05:24 1 STRIP Insulin Human Regular Q6HR SC 09/07/25 12:00 09/12/25 05:25 4 UNITS Dextrose 50 ml UD PRN IV 09/07/25 10:45 09/11/25 13:27 50 ML Enteral Nutritional Formula 1,000 ml 30ML/HR GT 09/07/25 10:45 Epoetin Fco-epbx 10,000 unit MWF SC 09/07/25 12:00 09/09/25 11:52 10,000 UNIT Hydralazine HCl 10 mg Q6HP PRN IV 09/08/25 09:00 Insulin Glargine 10 units HS SC 09/08/25 22:00 09/10/25 22:44 10 UNITS Meropenem 50 ml @ 17 mls/hr Q12H IV 09/09/25 10:00 09/12/25 10:17 17 MLS/HR Furosemide 40 mg DAILY IV 09/10/25 10:00 09/12/25 10:19 40 MG Acetaminophen/ Hydrocodone Bitart 1 tab Q6HPRN PRN PO 09/11/25 20:00 09/11/25 21:05 1 TAB Prochlorperazine Edisylate 5 mg Q4HPRN PRN IV 09/11/25 22:45 objective Gen: nad heent: nc/at, mmm lungs: cta anteriorly cvs: no rub abd: soft, bowel sounds audible ext: no edema skin: no rash laboratory and microbiology Laboratory Tests 09/12/25 02:56 Test 09/12/25 02:56 Range/Units Serum Glucose 181 H 74-106 mg/dL Assessment/Plan Problem List/Assessment/Plan Acute kidney injury hemodynamically mediated in the setting of shock Diabetic ketoacidosis Chronic kidney disease stage 4/5 Nephrotic syndrome with nephrotic range proteinuria suspected due to diabetes 8gm proteinuria HTN Acute respiratory failure secondary to shock vent management as per primary medical team - essentially stable GFR, without urgent indication for dialysis - even to positive fluid balance as tolerated. Dietary Evaluation Review Comments: Enteral Nutrition: Formula: Vital Rate: 50 mL/hr Provides: Protein: 105 g Energy: 1200 kcal Free Water: 1003 mL Meets: Protein needs: ~75% Energy needs: ~100% Monitoring: Follow up with renal function and updated lab values (electrolytes, glucose, Mg, Phos). Reassessment: Reassess nutrition plan when patient is extubated and able to transition to oral or modified feeding route. Expected Outcomes/Goals: Improved protein nutrition and overall health condition, gradual wt loss Plan discussed with: Other CC Plasma Assessment Blood Product Administration S: [id number] KARINA BARLOW MD Sep 12, 2025 12:44
[2025-09-12] MEDS ORDERED: ONDANSETRON HCL 4 MG/2 ML VIAL IV PRN (13:00)
[2025-09-12] MEDS: METOCLOPRAMIDE HCL 5MG/ml INJ 2ml VIAL IV ONE (13:30)
--- NOTE | 2025-09-12 14:58 | DVH ---
EXAM: XY KUB ABDOMEN SINGLE VIEW HISTORY: abdominal pain, nausea and vomiting COMPARISON: None TECHNIQUE: Supine view of the abdomen FINDINGS/IMPRESSION: Nonobstructive bowel gas pattern noted. No abnormal calcifications noted. Tube/catheters projecting over the pelvis.
[2025-09-12] MEDS: ACETAMINOPHEN 325 MG TAB PO PRN (17:49)
[2025-09-12] MEDS: hydrALAZINE HCL 20 MG/ML VL IV PRN (20:34)
[2025-09-12] MEDS: DOCUSATE SOD 100 MG CAP PO SCH (21:43)
[2025-09-12] MEDS: METOCLOPRAMIDE HCL 5MG/ml INJ 2ml VIAL IV SCH (22:00)
[2025-09-13] VITALS (41 sets, daily range): BP systolic 133–177; BP diastolic 75–121; PULSE 98–125; RESP 9–28; TEMP 98.2–100.6; O2SAT 94–99
[2025-09-13] MEDS: MORPHINE SULFATE INJ 2 MG/ml SYRG IM ONE (02:02)
--- NOTE | 2025-09-13 10:04 | DVHPN2 ---
Reviewed: H&P Changes from previous H/P or p: No Changes General: Per HPI Eyes: No Pain, No Vision change, No Conjunctivae inflammation, No Eyelid inflammation, No Other, No Redness ENT: No Ear pain, No Ear discharge, No Nose pain, No Nose discharge, No Nose congestion, No Mouth pain, No Mouth swelling, No Throat pain, No Throat swelling, No Other Cardiovascular: No Chest Pain, No Palpitations, No Orthopnea, No Paroxysmal Noc. Dyspnea, No Edema, No Lt Headedness; Other (Hypotension) Respiratory: No Cough, No Dry, No Shortness of breath, No SOB with excertion, No Wheezing, No Hemoptysis, No Pleuritic Pain, No Sputum, No Other Gastrointestinal: No Nausea, No Vomiting, No Abdominal Pain, No Diarrhea, No Constipation, No Melena, No Hematochezia, No Other Genitourinary: No Dysuria, No Frequency, No Incontinence, No Hematuria, No Retention, No Other Musculoskeletal: No other, No neck pain, No shoulder pain, No arm pain, No back pain, No hand pain, No leg pain, No foot pain Skin: No Rash, No Lesions, No Jaundice, No Bruising, No Other Objective Vitals Vital Signs Date Time Temp Pulse Resp B/P (MAP) Pulse Ox O2 Delivery O2 Flow Rate FiO2 09/13/25 08:00 14 98 Room Air* 0 21 09/13/25 08:00 99.5 109 140/98 (112) 211.1 Intake/Output Intake and Output 09/13/25 07:00 Intake Total 851 ml Output Total 900 ml Balance -49 ml Intake Oral 600 ml IV Total 251 ml Output Urine Total 900 ml # Bowel Movements 4 General Appearance: Alert, Cooperative, mild distress HEENT: Atraumatic, PERRLA Lungs: Clear to auscultation Cardiovascular: Regular rate, Normal S1, Normal S2 Abdomen: Normal bowel sounds Extremities: Normal pulses, Other (DKA) Skin: Dry, Intact Psych/Mental Status: Other (unable to assess) Medications Current Medications Medications Dose Ordered Sig/Justin Route Start Time Stop Time Status Last Admin Dose Admin Acetaminophen 650 mg Q6HP PRN PO 09/05/25 05:30 09/12/25 17:49 650 MG Fentanyl Citrate 250 ml @ 2.5 mls/hr Q24H IV 09/05/25 10:15 09/10/25 10:20 7.5 MLS/HR Pantoprazole Sodium 40 mg DAILY IV 09/06/25 10:00 09/12/25 10:17 40 MG Propofol 100 ml @ 2.727 mls/ hr Q24H IV 09/05/25 23:45 09/11/25 03:43 8.181 MLS/HR Dextrose/Sodium Chloride 1,000 ml @ 50 mls/hr Q20H IV 09/06/25 16:30 09/11/25 16:30 50 MLS/HR Micafungin Sodium 100 mg/Sodium Chloride 100 ml @ 100 mls/hr DAILY IV 09/07/25 10:45 09/12/25 12:47 100 MLS/HR Diagnostic Test (Pha) 1 strip Q6HR 09/07/25 12:00 09/13/25 06:00 1 STRIP Insulin Human Regular Q6HR SC 09/07/25 12:00 09/13/25 07:48 2 UNITS Dextrose 50 ml UD PRN IV 09/07/25 10:45 09/11/25 13:27 50 ML Enteral Nutritional Formula 1,000 ml 30ML/HR GT 09/07/25 10:45 Epoetin Fco-epbx 10,000 unit MWF SC 09/07/25 12:00 09/09/25 11:52 10,000 UNIT Hydralazine HCl 10 mg Q6HP PRN IV 09/08/25 09:00 09/12/25 20:34 10 MG Insulin Glargine 10 units HS SC 09/08/25 22:00 09/12/25 22:00 10 UNITS Meropenem 50 ml @ 17 mls/hr Q12H IV 09/09/25 10:00 09/12/25 23:31 17 MLS/HR Furosemide 40 mg DAILY IV 09/10/25 10:00 09/12/25 10:19 40 MG Acetaminophen/ Hydrocodone Bitart 1 tab Q6HPRN PRN PO 09/11/25 20:00 09/13/25 06:52 1 TAB Metoclopramide HCl 10 mg BID IV 09/12/25 22:00 Ondansetron HCl 4 mg Q6HPRN PRN IV 09/12/25 13:00 Docusate Sodium 100 mg BID PO 09/12/25 22:00 Laboratory Results Laboratory Tests 09/12/25 02:56 Urinalysis Test 09/05/25 15:40 Urine Color Light-brown (Yellow) Urine Clarity Ex.turbid (Clear) Urine pH 6.0 (5.0-9.0) Urine Specific [place] 1.013 (1.001-1.035) Urine Protein 2+ (Negative) H Urine Ketones 2+ (Negative) H Urine Blood 2+ /uL (Negative) H Urine Nitrite Negative (Negative) Urine Bilirubin Negative (Negative) Urine Urobilinogen Normal mg/dL (Negative) Urine Leukocyte Esterase 3+ /uL (Negative) Urine RBC 1374 /hpf (0 - 3) Urine WBC Clumps Present /hpf (None Seen) Urine Microscopic WBC 429 /HPF (0-3) H Urine Squamous Epithelial Cells Mod /hpf (<5) Urine Bacteria None seen /hpf (None Seen) Urine Yeast (Budding) Loaded /hpf (None Seen) Urine Glucose 3+ mg/dL (Normal) H Microbiology Microbiology Date/Time Source Procedure Growth Status 09/05/25 15:40 Urine - Wall Port Urine Culture - Final Yeast, not Le albicans Complete 09/05/25 15:29 Nose MRSA Screen - Final Complete 09/05/25 09:35 Sputum Gram Stain - Final Complete 09/05/25 09:35 Sputum Respiratory Culture - Final Complete 09/05/25 01:08 Blood Blood Culture - Final NO GROWTH AFTER 5 DAYS OF INCUBATION. Complete Labs and/or images reviewed: Labs reviewed by me, Image(s) reviewed by me Assessment/Plan Assessment/Plan 30-year-old male with past medical history of diabetes mellitus and hypertension who presented to [facility] ED for evaluation of altered level of consciousness. Patient was just discharged at [facility] 3 days ago, was prescribed indications however patient was noncompliant with medication regimen. Patient was noted by family members acting altered and and confused, so EMS were called. Blood sugar on scene was 396, with a blood pressure 75/40 mm Hg and was given IV fluid 1 L normal saline EN route to our facility ED. 09/11: Events: Patient off sedation, following commands. Plans for spontaneous breathing trial with extubation. Discussed with primary nurse and respiratory therapist. 09/12: Patient here for DKA. DKA is resolved. Patient also had hypernatremia and has been p.o. intolerant in getting D5 half-normal for that reason. Patient has been hypothermic on getting bear hugger currently. Remains on Mirapex him which would cover for possible sepsis causes of hypothermia. Blood cultures are negative. Patient is not tolerating p.o. has right BKA A1c 7.9 which may not be accurate, type 1 diabetic likely has other diabetic complications. We will get KUB, if no ileus or SBO concern we will start Reglan 10 b.i.d. scheduled. We will switch prn antiemetics from Compazine to Zofran 4 mg q.6 PRN. Patient is tachycardic, could be from discomfort or volume dehydration. We will keep close eye on fluids. Blood pressure is labile but currently map 78, we will hold off any steroids currently. 09/13: Continue antibiotics meropenem and micafungin. Source possible urinary. We will assess ambulation status, remove Wall. Patient can do bedside urinal or in bed urinal. We will start diabetic diet. Patient is still has some hoarseness and laryngeal irritation, we will give 1 time prednisone 20 oral. Stopped D5 fluids. Patient's blood pressure stable, we will deescalate care to telemetry. Continue Reglan 10 IV b.i.d.. Continue other medications per primary team management. Patient having loose stools we will stop Colace. Impression: -diabetic ketoacidosis -metabolic encephalopathy -acute hypoxic respiratory failure -sirs,? Sepsis -severe protein malnutrition -CKD stage 4 -Hypokalemia Plan: -continue current antibiotic therapy -continue vent settings -Regular insulin SS, Lantus -start consistent carbohydrate diet -consultations: Pulmonology, Nephrology -Continue IVF -PPI -repeat labs , chest x-ray, ABG in a.m. Critical care time spent with patient discussing and formulating plan of care: 40 minutes. This does not include time spent performing procedures. Plan discussed with: Patient My Orders Orders - JUAN SMITH MD Procedure Category Date Status Time Communication Order ORDERS 09/12/25 Transmitted 12:54 Kub Abdomen Single XY 09/12/25 Resulted View 12:54 Metoclopramide PHA 09/12/25 In Process Injection (Reglan 22:00 Ondansetron Hcl PHA 09/12/25 In Process (Zofran) 13:00 Docusate Sodium PHA 09/12/25 In Process Capsule (Colace 22:00 Date of Service: Sep 13, 2025 Billing Provider: JUAN SMITH MD Common Visit Codes: [id number] CARE 30-74 MIN JUAN SMITH MD Sep 13, 2025 10:04
[2025-09-13] MEDS: predniSONE 20 MG TAB PO ONE (11:31)
--- NOTE | 2025-09-13 13:41 | DVHPN2 ---
Progress Note - Dictate Date Seen: Sep 13, 2025 Medical Necessity Reason Pt with a Central, PICC or Fol: Yes The following are medically ne: Central Line, Wall Catheter Subjective Much more awake this afternoon, patient's mother is at bedside. vital signs Vital Sign Date Time Temp Pulse Resp B/P (MAP) Pulse Ox O2 Delivery O2 Flow Rate FiO2 09/13/25 13:36 177/121 09/13/25 10:00 106 09/13/25 10:00 99.5 19 98 211.1 09/13/25 10:00 Room Air* 0 21 Total Intake and Output 09/12/25 09/12/25 09/13/25 15:00 23:00 07:00 Intake Total 251 ml 240 ml 360 ml Output Total 300 ml 600 ml Balance 251 ml -60 ml -240 ml medications Current Medications Medications Dose Ordered Sig/Justin Route Start Time Stop Time Status Last Admin Dose Admin Acetaminophen 650 mg Q6HP PRN PO 09/05/25 05:30 09/12/25 17:49 650 MG Fentanyl Citrate 250 ml @ 2.5 mls/hr Q24H IV 09/05/25 10:15 09/10/25 10:20 7.5 MLS/HR Pantoprazole Sodium 40 mg DAILY IV 09/06/25 10:00 09/13/25 11:30 40 MG Propofol 100 ml @ 2.727 mls/ hr Q24H IV 09/05/25 23:45 09/11/25 03:43 8.181 MLS/HR Micafungin Sodium 100 mg/Sodium Chloride 100 ml @ 100 mls/hr DAILY IV 09/07/25 10:45 09/13/25 11:30 100 MLS/HR Diagnostic Test (Pha) 1 strip Q6HR 09/07/25 12:00 09/13/25 11:33 1 STRIP Insulin Human Regular Q6HR SC 09/07/25 12:00 09/13/25 07:48 2 UNITS Dextrose 50 ml UD PRN IV 09/07/25 10:45 09/11/25 13:27 50 ML Enteral Nutritional Formula 1,000 ml 30ML/HR GT 09/07/25 10:45 Epoetin Fco-epbx 10,000 unit MWF SC 09/07/25 12:00 09/09/25 11:52 10,000 UNIT Hydralazine HCl 10 mg Q6HP PRN IV 09/08/25 09:00 09/13/25 13:36 10 MG Insulin Glargine 10 units HS SC 09/08/25 22:00 09/12/25 22:00 10 UNITS Meropenem 50 ml @ 17 mls/hr Q12H IV 09/09/25 10:00 09/13/25 11:29 17 MLS/HR Furosemide 40 mg DAILY IV 09/10/25 10:00 09/13/25 11:29 40 MG Acetaminophen/ Hydrocodone Bitart 1 tab Q6HPRN PRN PO 09/11/25 20:00 09/13/25 06:52 1 TAB Metoclopramide HCl 10 mg BID IV 09/12/25 22:00 09/13/25 11:30 10 MG Ondansetron HCl 4 mg Q6HPRN PRN IV 09/12/25 13:00 objective Gen: nad heent: nc/at, mmm lungs: cta anteriorly cvs: no rub abd: soft, bowel sounds audible ext: no edema skin: no rash laboratory and microbiology Laboratory Tests 09/12/25 02:56 Test 09/12/25 02:56 Range/Units Serum Glucose 181 H 74-106 mg/dL Assessment/Plan Problem List/Assessment/Plan Acute kidney injury hemodynamically mediated in the setting of shock Diabetic ketoacidosis Chronic kidney disease stage 4/5 Nephrotic syndrome with nephrotic range proteinuria suspected due to diabetes 8gm proteinuria HTN Acute respiratory failure secondary to shock vent management as per primary medical team - repeat basic chemistry panel in a.m. - discussed with patient and patient's mother regarding importance of close Follow up in outpatient Nephrology Clinic after discharge - currently without urgent indication for dialysis. Dietary Evaluation Review Comments: Enteral Nutrition: Formula: Vital Rate: 50 mL/hr Provides: Protein: 105 g Energy: 1200 kcal Free Water: 1003 mL Meets: Protein needs: ~75% Energy needs: ~100% Monitoring: Follow up with renal function and updated lab values (electrolytes, glucose, Mg, Phos). Reassessment: Reassess nutrition plan when patient is extubated and able to transition to oral or modified feeding route. Expected Outcomes/Goals: Improved protein nutrition and overall health condition, gradual wt loss Plan discussed with: Patient CC Plasma Assessment Blood Product Administration S: [id number] KARINA BARLOW MD Sep 13, 2025 13:41
[2025-09-13] MEDS: HYDROcodone-ACET 5/325MG TAB ONE (18:11)
[2025-09-13] MEDS: PROCHLORPERAZINE EDISYLATE 5 MG/ML 2ML VIAL ONE (18:11)
[2025-09-13] MEDS: MORPHINE SULFATE INJ 2 MG/ml SYRG ONE ×2 (18:12→18:13)
[2025-09-13] MEDS: ALBUMIN 25% 100 ML IV ONE (18:12)
[2025-09-13] MEDS: predniSONE 20 MG TAB ONE (18:13)
[2025-09-13] MEDS: METOCLOPRAMIDE HCL 5MG/ml INJ 2ml VIAL ONE ×2 (18:13)
[2025-09-14] VITALS (8 sets, daily range): BP systolic 136–160; BP diastolic 97–115; PULSE 107–120; RESP 14–22; TEMP 36.4; O2SAT 98–100
[2025-09-14 09:33] LABS: Potassium 3.9 mmol/L (3.5-5.1); Sodium 144 mmol/L (136-145)
[2025-09-14 09:34] LABS: Anion Gap 12 (5-15); Carbon Dioxide 22 mmol/L (20-31)
[2025-09-14 09:40] LABS: BUN/Creatinine Ratio 9.0 (10.0-20.0); Blood Urea Nitrogen 35 mg/dL (9-23); Calcium 7.8 mg/dL (8.7-10.4); Chloride 110 mmol/L (98-107); Glucose 112 mg/dL (74-106)
--- NOTE | 2025-09-14 10:51 | DVHPN2 ---
Progress Note Date Seen: Sep 14, 2025 Medical Necessity Reason Pt with a Central, PICC or Fol: Yes The following are medically ne: Central Line, Wall Catheter Subjective Patient reports: No new complaints Other Systems: Patient seen and examined by myself today in follow-up Objective vital signs Vital Sign Date Time Temp Pulse Resp B/P (MAP) Pulse Ox O2 Delivery O2 Flow Rate FiO2 09/14/25 09:22 150/98 09/14/25 09:00 97.5 117 17 98 97.5 09/14/25 07:43 Room Air* 0 21 Total Intake and Output 09/13/25 09/13/25 09/14/25 15:00 23:00 07:00 Intake Total 100 ml 990 ml Output Total 0 ml 1200 ml Balance 100 ml -210 ml medications Current Medications Medications Dose Ordered Sig/Justin Route Start Time Stop Time Status Last Admin Dose Admin Acetaminophen 650 mg Q6HP PRN PO 09/05/25 05:30 09/12/25 17:49 650 MG Fentanyl Citrate 250 ml @ 2.5 mls/hr Q24H IV 09/05/25 10:15 09/10/25 10:20 7.5 MLS/HR Pantoprazole Sodium 40 mg DAILY IV 09/06/25 10:00 09/14/25 09:22 40 MG Propofol 100 ml @ 2.727 mls/ hr Q24H IV 09/05/25 23:45 09/11/25 03:43 8.181 MLS/HR Micafungin Sodium 100 mg/Sodium Chloride 100 ml @ 100 mls/hr DAILY IV 09/07/25 10:45 09/14/25 08:59 100 MLS/HR Diagnostic Test (Pha) 1 strip Q6HR 09/07/25 12:00 09/14/25 05:58 1 STRIP Insulin Human Regular Q6HR SC 09/07/25 12:00 09/14/25 00:15 3 UNITS Dextrose 50 ml UD PRN IV 09/07/25 10:45 09/11/25 13:27 50 ML Enteral Nutritional Formula 1,000 ml 30ML/HR GT 09/07/25 10:45 Epoetin Fco-epbx 10,000 unit MWF SC 09/07/25 12:00 09/09/25 11:52 10,000 UNIT Hydralazine HCl 10 mg Q6HP PRN IV 09/08/25 09:00 09/14/25 04:39 10 MG Insulin Glargine 10 units HS SC 09/08/25 22:00 09/13/25 22:13 10 UNITS Meropenem 50 ml @ 17 mls/hr Q12H IV 09/09/25 10:00 09/13/25 21:54 17 MLS/HR Furosemide 40 mg DAILY IV 09/10/25 10:00 09/14/25 09:22 40 MG Acetaminophen/ Hydrocodone Bitart 1 tab Q6HPRN PRN PO 09/11/25 20:00 09/13/25 06:52 1 TAB Metoclopramide HCl 10 mg BID IV 09/12/25 22:00 09/14/25 09:22 10 MG Ondansetron HCl 4 mg Q6HPRN PRN IV 09/12/25 13:00 Examination: LUNGS:Normal, CVS:Normal, MSK:Abnormal laboratory and microbiology Laboratory Tests 09/14/25 09:08 09/12/25 02:56 Test 09/14/25 09:08 Range/Units Serum Glucose 112 H 74-106 mg/dL Microbiology Date/Time Source Procedure Growth Status 09/05/25 15:40 Urine - Wall Port Urine Culture - Final Yeast, not Le albicans Complete 09/05/25 15:29 Nose MRSA Screen - Final Complete 09/05/25 09:35 Sputum Gram Stain - Final Complete 09/05/25 09:35 Sputum Respiratory Culture - Final Complete 09/05/25 01:08 Blood Blood Culture - Final NO GROWTH AFTER 5 DAYS OF INCUBATION. Complete Problem List/Assessment/Plan Problem List/Assessment/Plan Acute kidney injury superimposed Chronic Kidney Disease stage 4 secondary hemodynamic mediated Acute respiratory failure, extubated Diabetes mellitus type 2 Diabetic ketoacidosis Nephrotic proteinuria secondary underlying diabetic nephropathy HTN urgency Fungal UTI Hypoalbuminemia Anemia of chronic kidney disease Recommendations Kidney function slightly improved today Increased urine output Strict I&Os Renal diet Blood pressure control Insulin sliding scale Kidney ultrasound reported bilateral echogenic kidney We will continue to follow up Plan discussed with: Patient My Orders My Orders Orders - WILBERT BRICE MD Procedure Category Date Status Time Urine Sodium LAB 09/14/25 Transmitted 10:46 Urine LAB 09/14/25 Transmitted Protein/Creatinine Urine Creatinine LAB 09/14/25 Transmitted 10:46 Urinalysis LAB 09/14/25 Transmitted 10:46 Phosphorus LAB 09/14/25 Transmitted 10:46 Dietary Evaluation Review Comments: Enteral Nutrition: Formula: Vital Rate: 50 mL/hr Provides: Protein: 105 g Energy: 1200 kcal Free Water: 1003 mL Meets: Protein needs: ~75% Energy needs: ~100% Monitoring: Follow up with renal function and updated lab values (electrolytes, glucose, Mg, Phos). Reassessment: Reassess nutrition plan when patient is extubated and able to transition to oral or modified feeding route. Expected Outcomes/Goals: Improved protein nutrition and overall health condition, gradual wt loss CC Plasma Assessment Blood Product Administration S: [id number] WILBERT BRICE MD Sep 14, 2025 10:51
--- NOTE | 2025-09-14 11:03 | MEDREC ---
[facility] Intervention Section I [facility] Intervention: Deescalate AB based on CS (PLEASE CONSIDER DE-ESCALATION / DISCONTINUATION OF MEROPENEM - WBC WITHIN NORMAL LIMIT - SPUTUM CULTURE WITH NORMAL DALILA - URINE CULTURE WITH YEAST NOT CAMILO TREATED WITH MICAFUNGIN - BLOOD CULTURE WITH NO GROWTH) SHANNA BANKS PHARMACIST Sep 14, 2025 11:03
[2025-09-14 12:32] LABS: Urine Protein, UAD 3+ (Negative)
[2025-09-14 12:41] LABS: Protein, Urine 1517.1 mg/dL (1-14)
--- NOTE | 2025-09-14 15:16 | DVHDS2 ---
Discharge Summary Date of Admission Sep 05, 2025 at 05:29 Date of Discharge: Sep 14, 2025 Admitting Diagnosis Diabetic ketoacidosis Labs/Diagnostic Data: Laboratory Results Test 09/14/25 12:00 09/14/25 09:08 09/12/25 07:12 09/12/25 02:56 Urine Color Yellow (Yellow) Urine Clarity Clear (Clear) Urine pH 6.5 (5.0-9.0) Urine Specific [place] 1.024 (1.001-1.035) Urine Protein 3+ (Negative) Urine Ketones Trace (Negative) Urine Blood 1+ /uL (Negative) Urine Nitrite Negative (Negative) Urine Bilirubin Negative (Negative) Urine Urobilinogen 8 mg/dL (Negative) Urine Leukocyte Esterase Trace /uL (Negative) Urine RBC 16 /hpf (0 - 3) Urine Microscopic WBC 10 /HPF (0-3) Urine Squamous Epithelial Cells Mod /hpf (<5) Urine Bacteria Few /hpf (None Seen) Urine Hyaline Casts Few /lpf (0 - 2) Urine Mucus Few (None Seen) Urine Creatinine 161.92 mg/dL (30.0-125.0) Urine Protein/Creatinine Ratio 9.37 Urine Sodium 49 mmol/L (40-220) Urine Glucose 3+ mg/dL (Normal) Urine Total Protein 1517.1 mg/dL (1-14) Sodium Level 144 mmol/L (136-145) Potassium Level 3.9 mmol/L (3.5-5.1) Chloride Level 110 mmol/L (98-107) Carbon Dioxide Level 22 mmol/L (20-31) Anion Gap 12 (5-15) Blood Urea Nitrogen 35 mg/dL (9-23) Creatinine 3.91 mg/dL (0.700-1.30) Glomerular Filtration Rate Calc 20 mL/min (>90) BUN/Creatinine Ratio 9.0 (10.0-20.0) Serum Glucose 112 mg/dL (74-106) Calcium Level 7.8 mg/dL (8.7-10.4) Phosphorus Level 4.2 mg/dL (2.4-5.1) Blood Gas Specimen Type Arterial Blood Gas Sample Site Right radial Blood Gas Patient Temperature 37.0 Arterial Blood Date Drawn [id number] Arterial Blood pH 7.362 (7.350-7.450) Arterial Blood Partial Pressure CO2 33.8 mmHg (35.0-48.0) Arterial Blood Partial Pressure O2 125.6 mmHg (83.0-108.0) Arterial Blood HCO3 18.8 mmol/L (21.0-28.0) Arterial Blood Oxygen Saturation 97.8 % (94.0-98.0) Arterial Blood Base Excess -5.9 mmol/L (-2.0-3.0) Arterial Blood Oxyhemoglobin 97.0 % (94.0-98.0) Arterial Blood Carboxyhemoglobin 0.3 % (0.5-1.5) Arterial Blood Methemoglobin 0.5 % (0.0-1.5) Arterial Blood Deoxyhemoglobin 2.2 % (0.0-5.0) [place] Test Positive Blood Gas Total Hemoglobin 9.90 g/dL (13.5-17.5) Blood Gas Liter Flow 2.00 Blood Gas Modality Nasal cannula FiO2 % 28.0 White Blood Count 9.2 10^3/uL (4.4-10.8) Red Blood Count 3.32 10^6/uL (4.5-5.90) Hemoglobin 9.6 g/dL (13.5-17.5) Hematocrit 29.6 % (41.0-53.0) Mean Corpuscular Volume 89.3 fL (80.0-100.0) Mean Corpuscular Hemoglobin 29.0 pg (28.0-32.0) Mean Corpuscular Hemoglobin Concent 32.5 g/dL (32.0-36.0) Red Cell Distribution Width 14.5 % (11.8-14.3) Platelet Count 149 10^3/uL (140-450) Mean Platelet Volume 8.1 fL (6.9-10.8) Neutrophils (%) (Auto) 85.9 % (37.0-80.0) Lymphocytes (%) (Auto) 8.9 % (10.0-50.0) Monocytes (%) (Auto) 3.2 % (0.0-12.0) Eosinophils (%) (Auto) 1.8 % (0.0-7.0) Basophils (%) (Auto) 0.2 % (0.0-2.0) Neutrophils # (Auto) 7.9 10 ^3/uL (1.6-8.6) Lymphocytes # (Auto) 0.8 10 ^3/uL (0.4-5.4) Monocytes # (Auto) 0.3 10 ^3/uL (0-1.3) Eosinophils # (Auto) 0.2 10 ^3/uL (0-0.8) Basophils # (Auto) 0 10 ^3/uL (0-0.2) Nucleated Red Blood Cells 0.0 % Magnesium Level 1.7 mg/dL (1.6-2.6) Total Bilirubin 0.2 mg/dL (0.2-1.0) Aspartate Amino Transferase (AST) 46 U/L (13-40) Alanine Aminotransferase (ALT) 14 U/L (7-40) Alkaline Phosphatase 55 U/L (46-116) Total Protein 4.3 g/dL (5.7-8.2) Albumin 1.8 g/dL (3.2-4.8) Test 09/11/25 09:27 09/10/25 06:42 09/09/25 11:49 09/08/25 03:18 Blood Gas Pressure Support 8 Blood Gas PEEP or CPAP 5.0 Blood Gas Set Respiration Rate 18.0 Blood Gas Tidal Volume 500.0 Blood Gas Critical Value Read Back Yes Blood Gas Notified Whom sandra Chanel Blood Gas Notified Time [id number] Blood Gas Notified By Director Insurance elijah hugo POC Glucose 133 mg/dl (70-106) Ammonia < 10 umol/L (11-32) Test 09/07/25 12:55 09/07/25 12:53 09/07/25 02:52 09/06/25 06:00 Hemoglobin A1c 7.9 % A1C (<5.7) Iron Level 51 ug/dL (65-175) Total Iron Binding Capacity 150 ug/dL (250-425) Percent Iron Saturation 34.0 % (20-55) Ferritin 503.8 ng/mL (22-322) Random Vancomycin Level 19.5 ug/mL (5-10) SARS-CoV-2 Antigen (Rapid) Negative (NEGATIVE) Test 09/05/25 23:08 09/05/25 16:55 09/05/25 15:40 09/05/25 00:50 Venous Blood pH 7.433 (7.320-7.430) Venous Blood pCO2 at Patient Temp 23.2 mmHg (38.0-54.0) Venous Blood pO2 at Patient Temp 69.6 mmHg (23.0-48.0) Venous Blood HCO3 15.2 mmol/L (22.0-29.0) Venous Blood Base Excess -6.9 mmol/L (-2.0-3.0) Specimen Drawn By Abdirahman orozco Lactic Acid Level 1.1 mmol/L (0.4-2.0) Urine WBC Clumps Present /hpf (None Seen) Urine Yeast (Budding) Loaded /hpf (None Seen) Urine Opiates Screen Pos (NEGATIVE) Urine Fentanyl Screen Pos (NEGATIVE) Urine Barbiturates Screen Neg (NEGATIVE) Urine Phencyclidine Screen Neg (NEGATIVE) Urine Amphetamines Screen Neg (NEGATIVE) Urine Benzodiazepines Screen Neg (NEGATIVE) Urine Cocaine Screen Neg (NEGATIVE) Urine Cannabinoids Screen Neg (NEGATIVE) Differential Total Cells Counted 100.0 (100) Neutrophils % (Manual) 90 (37.0-80.0) Band Neutrophils % (Manual) 2 Lymphocytes % (Manual) 4 (10.0-50.0) Monocytes % (Manual) 3 (0-12) Eosinophils % (Manual) 0 (0-7) Basophils % (Manual) 0 (0.0-2.0) Metamyelocytes % (manual) 0 Myelocytes % (Manual) 1 Promyelocytes % (Manual) 0 Blast Cells % (Manual) 0 Reactive Lymphocytes 0 Platelet Estimate Adequate Macrocytosis Slight Prothrombin Time 12.6 sec (9.3-11.8) Prothrombin Time INR 1.21 (0.9-1.15) Activated Partial Thromboplast Time 33.1 SEC (24.5-34.5) Serum Osmolality 329 mOsm/kg (278-298) Beta-Hydroxybutyric Acid > 4.500 mmol/L (< 0.4) Plasma/Serum Blood Alcohol < 3.0 mg/dL (<10) Other Laboratory Tests 09/14/25 09:08 09/12/25 02:56 Brief Hx & Hospital Course: History of Present Illness The patient is a 30-year-old male with past medical history of diabetes mellitus and hypertension who presented to [facility] ED for evaluation of altered level of consciousness. Patient was just discharged at [facility] 3 days ago, was prescribed indications however patient was noncompliant with medication regimen. Patient was noted by family members acting altered and and confused, so EMS were called. Blood sugar on scene was 396, with a blood pressure 75/40 mm Hg and was given IV fluid 1 L normal saline EN route to our facility ED. Patient was seen and evaluated in the ED, laboratory data shows WBC 26.5, hemoglobin 6.9, hematocrit 24.5, platelets 351, sodium 137, potassium 5.3, BUN 39, creatinine 5.60, GFR 13, glucose 370, anion gap 25.001, acetone > 4.500, calcium 7.7, magnesium 2.2, phosphorus 8.3, ammonia 55, albumin 2.3, protein 5.3, lactic acid 2.4, blood pressure 75/40 trending up to 95/47, heart rate 88, temperature 98.1 F, O2 saturation 99% on room air. Chest x-ray show no acute cardiopulmonary abnormality. Patient was started on insulin drip, please see medication orders section in the computer. On my assessment, patient remains altered, no diaphoresis, shortness of breaths, no diarrhea, nausea, vomiting, fever, no chills. Patient was admitted for further evaluation and medical management. Course of hospitalization: Patient was placed on mechanical ventilation. DKA resolved with transitioned from insulin drip to Lantus and regular insulin sliding scale. Patient was subsequently weaned off mechanical ventilation. Patient is now A&O x4, tolerating oral intake then any issues. Blood sugar continued to be controlled. Nephrology consultation was obtained given patient's CKD stage 4. Patient will be discharged home as instructed to continue all previous home medications. Patient will follow up with the discharge Clinic in one week as instructed to follow up with his PCP at next available appointment. Physical examination General: Alert and Oriented x3. No acute distress. Well-nourished. Eyes: EOMI. Anicteric. HENT: Moist mucous membranes. Lungs: Clear to auscultation bilaterally. No accessory muscle use. Cardiovascular: Regular rate and rhythm. No murmur. No JVD. Abdomen: Soft, non-tender and non-distended. No palpable masses. Extremities: No edema. Non-tender. Skin: No rashes or lesions. Warm. Neurologic: No focal neurological deficits. CN II-XII grossly intact, but not individually tested. Psychiatric: Cooperative. Appropriate mood and affect. Total time spent with patient discussing and formulating plan of care: 35 minutes. This medical document was created using an electronic medical record system with Dragon computerized dictation system. Although this document has been carefully reviewed, there may still be some phonetic and typographical errors. These areas are purely typographical due to imperfections of the software programs, and do not reflect any compromise in the patient's medical care. Consults/Reason for consult Nephrology: Chronic kidney disease stage 4 Pulmonology: Acute respiratory failure Condition at Discharge: Poor Final Diagnosis/Problems List DKA -metabolic encephalopathy -acute hypoxic respiratory failure -sirs,? Sepsis -severe protein malnutrition -CKD stage 4 -Hypokalemia Discharge Disposition: Home Discharge Instruct/Medications Diet: Consistent carbohydrate, Cardiac 2g Na,low cholest, Renal Activity: No Restrictions, As Tolerated Follow Up/Referral: Follow up with PCP in 1-2 weeks DC clinic in 1 week Medications: Continue all home medications Scheduled Doxycycline (Monohydrate) (Doxycycline), 100 MG PO DAILY Insulin Glargine (Basaglar Kwikpen), 30 UNIT SC QAM Miscellaneous Medications Insulin Glargine (Basaglar Kwikpen), 15 UNIT SC, (Reported) Insulin Lispro (Insulin Lispro Kwikpen), SC, (Reported) 36 Discharge Statement: "Patient was advised to return to the ER or call 911 if any headaches, dizziness, shortness of breath, chest pain, abdominal pain, bleeding, fevers, or worsening of medical condition. Patient was counseled about treatment plan, medications, possible side effects, patientverbalized understanding. All questions were answered to the best of my ability. This discharge took greater then 30 minutes in planning, reviewing documentation, counseling the patient, and discussing with other team members." ASSESSMENT ASSESSMENT Assessment DKA Date of Service: Sep 14, 2025 Billing Provider: KIRK CARPIO NP Common Visit Codes: 18506-HPL/OBS DISCH DAY >30min KIRK CARPIO NP Sep 14, 2025 15:16
== END 2025-09-14 17:45 | disposition home or self-care (01) | DRG 720 ==
LOC: EDBD 00:19 → ER 00:19 → EDUNIT# 05:29 → OVERFLOW 05:29 → ICU CENTRL 11:55 → CENTRAL 09-13 16:35 → TELE-CENTR 09-13 16:46
PROVIDERS: ADMIT Nurse Practitioner Acute Care; ATTEND Nurse Practitioner Acute Care
PROC: 5A1955Z Respiratory Ventilation, Greater than 96 Consecutive Hours (ICD-10-PCS; principal; 2025-09-05)
PROC: 06HY33Z Insertion of Infusion Device into Lower Vein, Percutaneous Approach (ICD-10-PCS; 2025-09-05)
PROC: 30233N1 Transfusion of Nonautologous Red Blood Cells into Peripheral Vein, Percutaneous Approach (ICD-10-PCS; 2025-09-05)
PROC: 0BH17EZ Insertion of Endotracheal Airway into Trachea, Via Natural or Artificial Opening (ICD-10-PCS; 2025-09-05)
DX: A41.9 Sepsis, unspecified organism (principal); R65.21 Severe sepsis with septic shock; J96.01 Acute respiratory failure with hypoxia; Z99.11 Dependence on respirator [ventilator] status; E11.10 Type 2 diabetes mellitus with ketoacidosis without coma; G93.41 Metabolic encephalopathy; E43 Unspecified severe protein-calorie malnutrition; D68.9 Coagulation defect, unspecified; N17.9 Acute kidney failure, unspecified; D63.1 Anemia in chronic kidney disease; N18.4 Chronic kidney disease, stage 4 (severe); I12.9 Hypertensive chronic kidney disease with stage 1 through stage 4 chronic kidney disease, or unspecified chronic kidney disease; E11.65 Type 2 diabetes mellitus with hyperglycemia; Z68.30 Body mass index [BMI] 30.0-30.9, adult; B37.49 Other urogenital candidiasis; E87.0 Hyperosmolality and hypernatremia; E88.09 Other disorders of plasma-protein metabolism, not elsewhere classified; Z20.822 Contact with and (suspected) exposure to COVID-19; E87.6 Hypokalemia; E11.22 Type 2 diabetes mellitus with diabetic chronic kidney disease; I16.0 Hypertensive urgency; E87.5 Hyperkalemia; Z89.511 Acquired absence of right leg below knee; Z91.148 Patient's other noncompliance with medication regimen for other reason
CPT/HCPCS: 31500; 36415; 36430; 36556; 36600; 71045; 74018; 80048; 80053; 80202; 80307; 80320; 81001; 82010; 82140; 82570; 82728; 82805; 82962; 83036; 83540; 83550; 83605; 83735; 83930; 84100; 84132; 84156; 84300; 85007; 85014; 85018; 85025; 85027; 85610; 85730; 86850; 86900; 86901; 86920; 87040; 87070; 87081; 87086; 87088; 87205; 87426; 94002; 94003; 99291; G0378; J1815; J2185; J2248; J2470; J2704; J3480; P9047